=== PATIENT | female | born 1995 | race Caucasian/White ===

== ENCOUNTER → 2018-07-15 17:20 | Outpatient (CLI) | payer BC, SELFPAY ==
[2018-07-14 10:38] VITALS: BMI 20.5
[2018-07-23 14:39] LABS: HPV Reflexed? NOT INDICATED
== END ==
PROVIDERS: Family Provider Family Medicine; PCP Family Medicine; Referring Provider Obstetrics & Gynecology; Visit Provider Obstetrics & Gynecology
DX: Z12.4 Encounter for screening for malignant neoplasm of cervix (principal)
CPT/HCPCS: 87624; 88175; G0145

== ENCOUNTER 2020-07-12 12:52 | Day surgery (SDC) | payer BC, SELFPAY ==
[2020-07-10 13:53] VITALS: BMI 22.9
[2020-07-11 13:31] LABS: Mean Corp Hgb Conc 33.3 g/dL (32-36); Mean Corpuscular Hgb 29.1 pg (27.0-32.0); Mean Corpuscular Volume 87.4 fL (81-99); Mean Platelet Vol. 10.5 fl (6.2-12.0); Platelet Count 230 K/mm3 (150-450); RBC Distribution Width CV 12.2 % (11.6-14.6); RBC Distribution Width SD 39.2 fl (35.1-43.9); Red Blood Count 4.46 M/mm3 (4.2-5.4); White Blood Count 7.1 K/mm3 (4.4-11.0)
--- NOTE | 2020-07-12 | POC_PTH ---
PATIENT: MONO SANTO [place] [facility] [place][id number] AGE/SX: 24/F ROOM: RE07/12/[address]: Dr. Chanel Stacy MD : 1995 BED: DIS: 07/12/2020 SPEC #: [id number] RECD: 07/13/20 07:37 STATUS: LILIAM BRAVO #: [id number] KATHLEEN: 07/12/20 00:[address]: Chanel Stacy DEPT: SURGICAL PATHOLOGY RECD BY: Jacky Leonard ENTERED: 07/13/20 09:16 SP TYPE: PROD CONC OTHR DR: No Primary Care Phys Tissues: Product of conception, NOS Procedures: Surgery Specimen Level IV HEADER OPERATION: Dilation and curettage, suction PRE-OP DIAGNOSIS: Missed TISSUE SUBMITTED: Products of conception MICROSCOPIC DIAGNOSIS Endometrium, curettage: Decidualized tissue and secretory endometrium. AM:william 07/14/20 COMMENT Chorionic villi are not identified. Clinical correlation is suggested. MICROSCOPIC DESCRIPTION Slides are reviewed. GROSS DESCRIPTION Received in fixative is one container labeled with the patient's name and designated products of conception. The specimen consists of multiple irregular fragments of pink-krause soft tissue that in aggregate measure 5 x 3 x 0.2 cm. The specimen is totally submitted in three cassettes. / AM:william 07/13/20 TC:5 CPT: 78483
--- NOTE | 2020-07-12 13:02 | PCM.HPOB.BLA ---
- Problem List (1) Missed Status: Acute Comment: 07/03- GS 1.5 cm with subchorionic hemorrhage, no yolk sac or pole. failed cytotec. plan suction d and c. spouse Sami History and Physical Date of Admission: 07/12/20 Intake Vital Signs 07/10/20 Height 5 ft 8 in 07/10/20 Weight: 151 lb 07/10/20 BMI 22.9 07/10/20 BP 112/58 L Intake Visit Reasons: f/u SAB Chief Complaint: follow up SAB Microcomputer Support Specialist Required: No Is patient in pain?: No Allergies No Known Allergies Allergy (Verified 07/10/20 13:54) Medications multivitamin no.47-iron fum 27 mg-folate no.1 1 mg-dha 300 mg capsule cap PO 06/20/20 [History Confirmed 07/10/20] Is last menstrual period known: No Post menopausal: No Patient : No : No PFSH Surgical History S/P ear surgery (Acute) S/P wrist surgery (Acute) Family History Grandmother Diabetes Social History (Updated 07/10/20 @ 14:[address] Chanel Stacy MD) household members: spouse current occupational status: employed current occupation: [employer] pets and animals: Yes Smoking Status: Former smoker alcohol intake: current details: Not while substance use type: does not use caffeine: Yes what type of physical activity do you participate in: walking frequency: daily seatbelt use: always do you feel safe at home: Yes additional social history: - Sami HPI f/u SAB: Details: MONO SANTO is a 24 year old who presents for follow up of early miscarriage. she denies any bleeding after the cytotec and is wanting to proceed with surgery. Female Reproductive History Menopausal Symptoms: No night sweats Pregancy History 1 Elective abortions Hx Para Spontaneous abortions 1 Hx # Term Pregnancies Ectopic pregnancies Hx # Pregnancies Multiple births # of living children Past Pregnancies Del. Date Name GA/Weeks Outcome Route Bth Weight Gen Labor Lgth Anesthesia Del Locatn Provider FOB Unknown 06/2020- Blighted ovum ROS Const Constitutional: Denies fatigue, night sweats, weight gain or weight loss ENT ENT: Reports system reviewed and no additional complaints, except as docu Cardio Card: Denies chest pain Resp Resp: Denies cough or dyspnea GI GI: Reports as per HPI; denies abdominal pain, constipation, nausea or vomiting : Denies nipple discharge, urinary frequency, urinary incontinence, urinary hesitancy, urinary urgency, vaginal discharge, vaginal dryness, vaginal odor or vaginal itching Musc Musc: Denies joint pain, back pain or muscle weakness Skin Skin/Breast: Denies hair loss, change in hair, dry skin, breast lump, breast pain, breast skin changes or nipple discharge Neuro Neuro: Reports system reviewed and no additional complaints, except as docu Psych Psych: Reports system reviewed and no additional complaints, except as docu Endo Endo: Denies cold intolerance, excessive sweating, heat intolerance or increased thirst Corey/Lymph Hematologic/Lymphatic: Denies easy bleeding, Denies easy bruising, Denies enlarged lymph nodes Exam Const General: cooperative, healthy appearing, comfortable, no acute distress, well developed Orientation: alert [facility] Head: normal to inspection, normocephalic Ears: hearing grossly normal bilaterally, external ears normal Nose: external nose normal, nares normal Face and sinus: normal facial exam Neck Neck: normal visual inspection, no lymphadenopathy Thyroid: thyroid normal Chest Chest palpation & inspection: normal inspection of the chest Resp Effort & Inspection: normal respiratory effort Auscultation: clear to auscultation bilaterally Cardio Rate: regular rate Rhythm: regular rhythm Heart Sounds: S1 normal, S2 normal GI Inspection: normal to inspection, non-distended Palpation: soft, no hepatosplenomegaly General: bladder normal to palpation External Female Exam: normal external appearance, normal appearance of the urethra Urethra: normal appearance of the urethra, normal palpation, no discharge Speculum Exam - Vagina: normal appearance of the vagina, normal vaginal discharge Speculum Exam - Cervix: normal appearance of the cervix, nontender Bimanual Exam- Vagina & Uterus: normal bimanual exam, uterine size normal, bladder normal to palpation, uterine shape normal, No cervical tenderness, uterine mobility normal, uterine consistency normal, normal cervical palpation, uterus non-tender Bimanual Exam- Adnexa, other: normal adnexae, adnexae mobile, no adnexal masses, pelvic support normal Pelvic Support: normal Musc Other: gross motor intact no deficits, full bilateral strength Skin General: no rashes or lesions noted Neuro General: alert, awake, moves all extremities, no focal motor deficits Motor: muscle tone normal throughout Extrem General: normal to inspection, no pedal edema Psych Appearance: grossly normal Mental Status: mental status grossly normal Affect: normal affect Speech and Movement: speech and movement normal Assessment & Plan Problems 1. Missed O02.1 07/03- GS 1.5 cm with subchorionic hemorrhage, no yolk sac or pole. failed cytotec. plan suction d and c. spouse Sami Plan After discussing the patient's diagnosis and treatment plan options, patient wishes to proceed with surgical management. I have discussed with the patient the risks, benefits, and alternatives of the procedure which include but are not limited to risks of anesthesia, bleeding, infection, possible damage to bowel, bladder, or surrounding vasculature which could lead to additional surgery to evaluate any complications. Patient agrees to procedure and wishes to proceed. ACOG/uptodate references given for additional information regarding procedure. Coding Level of Care Code Off vis,est,level 4 Diagnoses Missed O02.1 UPDATE- I have seen the patient and performed any clinically relevant updates to the history and physical exam. Chanel Stacy MD
--- NOTE | 2020-07-12 13:03 | PCM.OPRPT ---
Problem List (1) Missed Status: Acute Comment: 07/03- GS 1.5 cm with subchorionic hemorrhage, no yolk sac or pole. failed cytotec. plan suction d and c. spouse Sami Report of Operation Date of Procedure: 07/12/20 Pre-Operative Diagnosis: blighted ovum Post-Operative Diagnosis: same Surgery/Procedure Performed:: suction d and c Description of Surgical Findings:: 9 week uterus Type of Anesthesia:: MAC Special Medications: none Specimen's removed: poc Drains: none Estimated Blood Loss (mL): 50 Fluids Replaced: crystalloid Description of Procedure: Patient was taken to the operating room and placed under MAC local anesthesia. She was prepped and draped in the normal sterile fashion the dorsal lithotomy position. Bladder was drained of clear urine and anterior lip of the cervix was grasped and the uterus sounded to 9 cm. Cervix was progressively dilated to allow passage of a 5 mm suction curette. Progressive passes were made removing the retained products of conception without complication. Sharp curettage confirmed complete removal of the retained products. All instruments were removed from the vagina and after a cervical stitch and silver nitrate excellent hemostasis was noted and the patient was taken to recovery in stable condition. Grafts/Implants Used: none - Complications none Multi Select Codes - Urinary/Genital Urinary/Genital CPT Codes: 96221 Surg Trtmt missed Ab 1TM
--- NOTE | 2020-07-12 13:06 | DCINST_ITS ---
Discharge Diet: No Restrictions Discharge Activity: Return to Normal Activity, May Shower, May Take a Tub Bath Allergies/Adverse Reactions: Allergies No Known Allergies Allergy (Verified 07/11/20 11:32) Medications to take at Discharge multivitamin no.47-iron fum 27 mg-folate no.1 1 mg-dha 300 mg capsule 1 cap PO DAILY 06/20/20 Primary Care Physician: Care Physician,No Primary [Primary Care Provider] - Test Results: Test results from this visit will be discussed in further detail at your follow- up appointment, if applicable. Please Follow Up With: Chanel Stacy MD - [phone]
[2020-07-12 13:30] VITALS: BP 116/66; PULSE 61; RESP 16; TEMP 36.9; O2SAT 100; BMI 24.0
[2020-07-12] MEDS: Doxycycline 100 MG CAPSULE PO (13:51)
[2020-07-12] MEDS: Lactated Ringers 1,000 ML 125 ML IV (13:52)
[2020-07-12] MEDS: Silver Nitrate (BKC) 1 EACH ×2 (15:20→15:28)
[2020-07-12 15:36] VITALS: BP 103/69; BP 116/66; PULSE 74; RESP 16; TEMP 36.7; O2SAT 100
[2020-07-12 15:41] VITALS: BP 116/66; BP 94/61; PULSE 67; RESP 16; O2SAT 100
[2020-07-12 15:46] VITALS: BP 116/66; BP 95/60; PULSE 62; RESP 16; O2SAT 100
[2020-07-12 15:51] VITALS: BP 116/66; BP 97/59; PULSE 68; RESP 16; TEMP 36.7; O2SAT 100
[2020-07-12 16:20] VITALS: BP 116/66
== END 2020-07-12 16:35 | disposition home or self-care (01) ==
LOC: SDC 12:53 → AC 12:53
PROVIDERS: Referring Provider Obstetrics & Gynecology; Visit Provider Obstetrics & Gynecology
PROC: (CPT 59820; principal; 2020-07-12 14:15)
DX: O02.1 Missed abortion (principal); Z3A.09 9 weeks gestation of pregnancy; Z20.828 Contact with and (suspected) exposure to other viral communicable diseases; Z87.891 Personal history of nicotine dependence
CPT/HCPCS: 01965; 59820; 36415; 85027; 86850; 86900; 86901; 87426; 88305; C9803; J7120; J2405

== ENCOUNTER → 2020-07-19 14:17 | Outpatient (CLI) | payer BC, SELFPAY ==
[2020-07-12 13:30] VITALS: BMI 24.0
--- NOTE | 2020-07-19 14:24 | US_ITS ---
STUDY: ULTRASOUND OF THE FEMALE PELVIS - COMPLETE REASON FOR EXAM: Female, 25 years old. Status post DTC assess for retained products of conception. TECHNIQUE: Transabdominal and Transvaginal TECHNICAL QUALITY: Adequate. COMPARISON: None. FINDINGS: The uterus is anteverted and is in a midline position. The uterus measures 7.3 x 5.3 x 7.6 cm. Normal uterine cervix. The endometrium measures 31.0 mm in thickness, and is heterogenous. There is mild increased vascularity within the endometrium. There is no demonstrated endometrial mass. There is no demonstrated myometrial mass. I.U.D. - The patient does not have an I.U.D. The right ovary is visualized. The right ovary measures 4.2 x 2.2 x 2.6 cm. There is no right ovarian cyst or ovarian mass. There is no visualized right adnexal mass or complex lesion. There is normal arterial and normal venous vascularity. The left ovary is visualized. The left ovary measures 3.7 x 2.5 x 2.2 cm. There is no left ovarian cyst or ovarian mass. There is no visualized left adnexal mass or complex lesion. There is normal arterial and normal venous vascularity. There is no fluid in the cul-de-sac. US/Transvaginal Non- IMPRESSION: Thickened thickened and heterogenous endometrium with mild increased vascularity concerning for retained products of conception. Electronically Signed: Sandee Guillermo MD at 15:34 EST Tel , Service support ,
--- NOTE | 2020-07-19 14:24 | US_ITS ---
STUDY: ULTRASOUND OF THE FEMALE PELVIS - COMPLETE REASON FOR EXAM: Female, 25 years old. Status post DTC assess for retained products of conception. TECHNIQUE: Transabdominal and Transvaginal TECHNICAL QUALITY: Adequate. COMPARISON: None. FINDINGS: The uterus is anteverted and is in a midline position. The uterus measures 7.3 x 5.3 x 7.6 cm. Normal uterine cervix. The endometrium measures 31.0 mm in thickness, and is heterogenous. There is mild increased vascularity within the endometrium. There is no demonstrated endometrial mass. There is no demonstrated myometrial mass. I.U.D. - The patient does not have an I.U.D. The right ovary is visualized. The right ovary measures 4.2 x 2.2 x 2.6 cm. There is no right ovarian cyst or ovarian mass. There is no visualized right adnexal mass or complex lesion. There is normal arterial and normal venous vascularity. The left ovary is visualized. The left ovary measures 3.7 x 2.5 x 2.2 cm. There is no left ovarian cyst or ovarian mass. There is no visualized left adnexal mass or complex lesion. There is normal arterial and normal venous vascularity. There is no fluid in the cul-de-sac. US/Pelvic (Non ) IMPRESSION: Thickened thickened and heterogenous endometrium with mild increased vascularity concerning for retained products of conception. Electronically Signed: Sandee Guillermo MD at 15:34 EST Tel , Service support ,
== END ==
PROVIDERS: Referring Provider Obstetrics & Gynecology; Visit Provider Obstetrics & Gynecology
DX: O02.1 Missed abortion (principal); Z3A.00 Weeks of gestation of pregnancy not specified
CPT/HCPCS: 76830; 76856

== ENCOUNTER 2020-07-20 10:27 | Day surgery (SDC) | payer BC, SELFPAY ==
--- NOTE | 2020-07-20 10:34 | HP.PCM_ITS ---
- Problem List (1) Retained products of conception after miscarriage Status: Acute (2) Missed Status: Acute Comment: 07/03- GS 1.5 cm with subchorionic hemorrhage, no yolk sac or pole. failed cytotec. plan suction d and c. spouse Sami History Date of Admission: 07/12/20 History of this : This is a 25 year-old, presents with retained products seen on US after suction d and c a week ago. she had a blighted ovum at 6 weeks. Surgical History: Surgical History (Last Reviewed 07/10/20 @ 13:54 by Jennifer Mercado) S/P ear surgery Z98.890 S/P wrist surgery Z98.890 Allergies No Known Allergies Allergy (Verified 07/12/20 13:28) Home Medications: Home Medications multivitamin no.47-iron fum 27 mg-folate no.1 1 mg-dha 300 mg capsule 1 cap PO DAILY 06/20/20 misoprostol 200 mcg tablet 200 mcg PO QPCHS #2 tab 07/19/20 Smoking Status: Former smoker History Past Pregnancies: Past Pregnancies Delivery Date Name GA/ Weeks Outcome Route Wt Infant Sex Labor Length Anesthesia Delivery Location Provider FOB Review of Systems Constitutional: Denies: Fever, Malaise Eyes: Denies: Blurred vision, Vision Change HEENT: Denies: Head Aches, Visual Changes Cardiovascular: Denies: Chest Pain, Palpitations Respiratory: Denies: Cough, Shortness of Breath, Wheezing Gastrointestinal: Denies: Abdominal Pain, Diarrhea, Nausea, Vomiting Genitourinary: Denies: Dysuria, Hematuria Musculoskeletal: Denies: Joint Pain, Muscle pain Skin: Denies: Lesions, Rash Neurological: Denies: Blurred vision, Focal weakness, Headaches Psychiatric: Denies: Anxiety, Depression Endocrine: Denies: Heat/ Cold Intolerance Hematologic/ Lymphatic: Denies: Easy Bruising, Easy Bleeding Physical Exam General: Alert, Cooperative, No apparent distress HEENT: Atraumatic, Normocephalic. Negative for: Thyromegaly, Lymphadenopathy Cardiovascular: Regular rate Lungs: Normal air movement Abdomen: Soft, Non Tender Neurological: Deep Tendon Reflexes 2+/4 and Symmetrical, Neuro grossly intact. Negative for: Clonus DIRECTOR PEDIATRIC: Normal external genitalia. Negative for: Vulvar lesions Estimated gestational size: Appropriate for gestational size Presentation: Cephalic Assessment/Plan All Active Problems (Last Reviewed 07/10/20 @ 13:54 by Jennifer Mercado) Retained products of conception after miscarriage (Acute) Missed (Acute) (Resolved) with inconclusive viability (Resolved) Supervision of normal first (Resolved) This is a 25 year-old, with retained POC plan repeat Suction d and c, ultrasound and symphion available After discussing the patient's diagnosis and treatment plan options, patient wishes to proceed with surgical management. I have discussed with the patient the risks, benefits, and alternatives of the procedure which include but are not limited to risks of anesthesia, bleeding, infection, possible damage to bowel, bladder, or surrounding vasculature which could lead to additional surgery to evaluate any complications. Patient agrees to procedure and wishes to proceed.
--- NOTE | 2020-07-20 10:37 | DCINST_ITS ---
Discharge Diet: No Restrictions Discharge Activity: Return to Normal Activity, May Shower, May Take a Tub Bath Allergies/Adverse Reactions: Allergies No Known Allergies Allergy (Verified 07/12/20 13:28) Medications to take at Discharge multivitamin no.47-iron fum 27 mg-folate no.1 1 mg-dha 300 mg capsule 1 cap PO DAILY 06/20/20 misoprostol 200 mcg tablet 200 mcg PO QPCHS #2 tab 07/19/20 Orders to be completed after discharge: Type & Screen Time Frame: 2 Days, Location: None Selected CBC W/Diff, Automated Time Frame: 2 Days, Facility: [facility], Location: Laboratory Primary Care Physician: Care Physician,No Primary [Primary Care Provider] - Test Results: Test results from this visit will be discussed in further detail at your follow- up appointment, if applicable. Please Follow Up With: Chanel Stacy MD - [phone]
--- NOTE | 2020-07-20 10:37 | PCM.OPRPT ---
Problem List (1) Retained products of conception after miscarriage Status: Acute (2) Missed Status: Acute Comment: 07/03- GS 1.5 cm with subchorionic hemorrhage, no yolk sac or pole. failed cytotec. plan suction d and c. spouse Sami Report of Operation Date of Procedure: 07/20/20 Pre-Operative Diagnosis: retained POC Post-Operative Diagnosis: same Surgery/Procedure Performed:: suction d and c Type of Anesthesia:: Local MAC Special Medications: none Specimen's removed: POC Drains: none Estimated Blood Loss (mL): 50 Fluids Replaced: crystalloid Description of Procedure: Patient was taken to the operating room and placed under MAC local anesthesia. She was prepped and draped in the normal sterile fashion the dorsal lithotomy position. Bladder was drained of clear urine and anterior lip of the cervix was grasped and the uterus sounded to 9 cm. Cervix was progressively dilated to allow passage of a 9 mm suction curette. Progressive passes were made removing the retained products of conception without complication. Sharp curettage confirmed complete removal of the retained products. ultrasound confirmed removal. All instruments were removed from the vagina and excellent hemostasis was noted and the patient was taken to recovery in stable condition. Multi Select Codes - Urinary/Genital Urinary/Genital CPT Codes: 65657 Trmt of incomplete Ab, any TM
[2020-07-20 10:58] VITALS: BP 110/50; PULSE 69; RESP 12; TEMP 37.4; O2SAT 100; BMI 24.3
[2020-07-20] MEDS: Lactated Ringers 1,000 ML 100 ML IV (11:03)
[2020-07-20 11:10] LABS: Hematocrit 36.5 % (37-47); Hemoglobin 12.6 g/dL (12.0-15.0); Mean Corp Hgb Conc 34.5 g/dL (32-36); Mean Corpuscular Volume 86.9 fL (81-99); Mean Platelet Vol. 9.7 fl (6.2-12.0); Platelet Count 187 K/mm3 (150-450); RBC Distribution Width CV 12.5 % (11.6-14.6); RBC Distribution Width SD 39.3 fl (35.1-43.9); White Blood Count 8.5 K/mm3 (4.4-11.0)
[2020-07-20] MEDS: Cefotetan 2 GM in 0.9% NS 100 ML IV (11:55)
--- NOTE | 2020-07-20 12:00 | POC_PTH ---
PATIENT: MONO SANTO [place] [facility] [place][id number] AGE/SX: 25/F ROOM: RE07/20/[address]: Dr. Chanel Stacy MD : 1995 BED: DIS: 07/20/2020 SPEC #: [id number] RECD: 07/20/20 18:07 STATUS: LILIMA BRAVO #: [id number] KATHLEEN: 07/20/20 12:[address]: Chanel Stacy DEPT: SURGICAL PATHOLOGY RECD BY: Padmaja Everett ENTERED: 07/24/20 06:35 SP TYPE: PROD CONC OTHR DR: No Primary Care Phys Tissues: Product of conception, NOS Procedures: Surgery Specimen Level IV HEADER OPERATION: Suction dilation and curettage PRE-OP DIAGNOSIS: Retained products of conception after miscarriage TISSUE SUBMITTED: Retained products of conception MICROSCOPIC DIAGNOSIS Endometrium, curettage: Chorionic villi, decidualized stroma and trophoblastic cells consistent with products of conception. AM:william 07/25/20 MICROSCOPIC DESCRIPTION Slides are reviewed. GROSS DESCRIPTION Received in fixative is one container labeled with the patient's name and designated products of conception. The specimen consists of multiple irregular fragments of light to dark krause soft tissue that in aggregate measure 5 x 5 x 0.7 cm. parts are not grossly recognized. Raw Silk Grader portions are submitted in one cassette. / AM:william 07/24/20 TC:5 CPT: 36964
[2020-07-20 12:33] VITALS: BP 110/50; BP 111/74; PULSE 71; RESP 16; TEMP 36.9; O2SAT 100
[2020-07-20 12:37] VITALS: BP 109/62; BP 110/50; PULSE 68; RESP 16; O2SAT 100
[2020-07-20 12:42] VITALS: BP 107/62; BP 110/50; PULSE 71; RESP 16; O2SAT 100
[2020-07-20 12:47] VITALS: BP 110/50; BP 112/70; PULSE 63; RESP 16; TEMP 36.9; O2SAT 100
[2020-07-20 13:40] VITALS: BP 110/50; BP 110/57; PULSE 60; RESP 16; TEMP 36.8; O2SAT 100
== END 2020-07-20 13:46 | disposition home or self-care (01) ==
LOC: SDC 10:28 → AC 10:33
PROVIDERS: Referring Provider Obstetrics & Gynecology; Visit Provider Obstetrics & Gynecology
PROC: (CPT 59820; principal; 2020-07-20 11:45)
DX: O02.1 Missed abortion (principal); Z3A.01 Less than 8 weeks gestation of pregnancy; Z87.891 Personal history of nicotine dependence
CPT/HCPCS: 59820; 85027; 86850; 86900; 86901; 88305; J7120; J2405

== ENCOUNTER → 2020-10-10 09:05 | Outpatient (CLI) | payer BC, SELFPAY ==
[2020-08-01 13:53] VITALS: BMI 22.5
[2020-10-10 10:36] LABS: hCG Titer Quant., Serum 1282 mIU/mL (1-3)
== END ==
PROVIDERS: Referring Provider Obstetrics & Gynecology; Visit Provider Obstetrics & Gynecology
DX: Z34.90 Encounter for supervision of normal pregnancy, unspecified, unspecified trimester (principal)
CPT/HCPCS: 36415; 84702

== ENCOUNTER → 2020-10-12 08:40 | Outpatient (CLI) | payer BC, SELFPAY ==
[2020-08-01 13:53] VITALS: BMI 22.5
[2020-10-12 09:29] LABS: hCG Titer Quant., Serum 3016 mIU/mL (1-3)
== END ==
PROVIDERS: Referring Provider Obstetrics & Gynecology; Visit Provider Obstetrics & Gynecology
DX: Z34.90 Encounter for supervision of normal pregnancy, unspecified, unspecified trimester (principal)
CPT/HCPCS: 36415; 84702

== ENCOUNTER → 2020-11-16 14:27 | Outpatient (CLI) | payer BC, SELFPAY ==
[2020-11-16 13:49] VITALS: BMI 22.6
[2020-11-16 14:58] LABS: Absolute Lymphocyte Count 1.69 X10^3/uL (0.83-4.51); Absolute Neutrophil Count 9.6 X10^3/uL (2.0-7.7); Basophil# 0.03 X10^3/uL; Basophil% 0.2 % (0-1); Eosinophil# 0.08 X10^3/uL; Eosinophils% 0.7 % (0-5); Hematocrit 40.1 % (37-47); Hemoglobin 13.6 g/dL (12.0-15.0); Lymphocyte # 1.69 X10^3/ul (0.83-4.51); Lymphocyte % 13.9 % (19-41); Mean Corp Hgb Conc 33.9 g/dL (32-36); Mean Corpuscular Hgb 29.1 pg (27.0-32.0); Mean Corpuscular Volume 85.9 fL (81-99); Mean Platelet Vol. 9.9 fl (6.2-12.0); Monocyte# 0.71 X10^3/uL; Monocyte% 5.8 % (0-10); NRBC Flagged by Analyzer 0 % (0-5); Neutrophil # 9.64 X10^3/uL (2.7-7.7); Neutrophil % 79.2 % (47-70); Platelet Count 262 K/mm3 (150-450); RBC Distribution Width CV 12.5 % (11.6-14.6); RBC Distribution Width SD 38.9 fl (35.1-43.9); Red Blood Count 4.67 M/mm3 (4.2-5.4); White Blood Count 12.2 K/mm3 (4.4-11.0)
[2020-11-16 15:55] LABS: NATERA MAILED SPECIMEN
[2020-11-16 18:04] LABS: Amphetamine Urine VISTA NEGATIVE (<1000 ng/mL); Barbiturate Urine VISTA NEGATIVE (< 200 ng/mL); Benzodiazepine Urine VISTA NEGATIVE (< 200 ng/mL); Cocaine Urine VISTA NEGATIVE (< 300 ng/mL); Ecstacy Urine VISTA NEGATIVE (< 500 ng/mL); Methadone Urine VISTA NEGATIVE (< 300 ng/mL); PCP Urine VISTA NEGATIVE (< 25 ng/mL); THC Urine VISTA NEGATIVE (< 50 ng/mL); Vista UDS pH Range 6
[2020-11-17 08:25] LABS: HIV - WCH Non-Reactive (Nonreactive); Hepatitis B Surface Antigen Non-Reactive (Nonreactive); Hepatitis C Antibody Non-Reactive (Nonreactive); Rubella IgG Reactive (Nonreactive); Syphilis Antibodies Non-reactive
[2020-11-20 07:06] LABS: Chlamydia By Nucleic Acid AMP Negative (Negative)
[2020-11-20 07:50] LABS: Gonococcus By Nucleic Acid AMP Negative (Negative)
[2020-11-22 17:16] LABS: HPV Reflexed? NOT INDICATED
== END ==
PROVIDERS: Referring Provider Obstetrics & Gynecology; Visit Provider Obstetrics & Gynecology
DX: Z34.81 Encounter for supervision of other normal pregnancy, first trimester (principal); Z31.430 Encounter of female for testing for genetic disease carrier status for procreative management
CPT/HCPCS: 36415; 80307; 85025; 86703; 86762; 86780; 86803; 86850; 86900; 86901; 87086; 87340; 87491; 87591; 88175; G0145

== ENCOUNTER → 2020-12-13 18:24 | Outpatient (CLI) | payer BC, SELFPAY ==
[2020-12-13 08:38] VITALS: BMI 22.6
--- NOTE | 2020-12-13 18:29 | US_ITS ---
STUDY: SECOND AND THIRD TRIMESTER OBSTETRICAL ULTRASOUND - LIMITED REASON FOR EXAM: Female, 25 years old SPOTTING- VERY LITTLE LMP: 09/05/2020 PRIOR ULTRASOUND: None. TECHNIQUE: Transabdominal real-time exam with acuna scale image documentation. Transvaginal ultrasound was required for adequate visualization of the uterus and adnexal areas. TECHNICAL QUALITY: Adequate. FINDINGS: There is a single intrauterine fetus. The fetus is in an transverse lie with the head on the maternal left side. There is demonstrated cardiac activity with a heart rate of 173 bpm. There is a normal amniotic fluid volume. The largest amniotic fluid pocket measures 4.5 x 2.3 cm.The placenta is anterior and marginal. There are Grade 0 placental changes. The cervix measures 4.3 cm in length. The right ovary is 3.3 x 1.9 x 1.9 cm. The left ovary is 2.9 x 2.1 x 1.3 cm. Normal ovaries. BIOMETRY: BPD: 2.66 cm: 14 weeks, 4 days HC: 9.97 cm: 14 weeks, 4 days AC: 7.92 cm: 14 weeks, 2 days FL: 1.25 cm: 13 weeks, 4 days Age by LMP: 14 weeks, 1 days. TASHI by LMP: 06/12/2021. age by current US: 14 weeks, 1 days. TASHI by current US: 06/12/2021. Estimated weight: 89 grams, +/- 13 grams, 29 percentile. US/Transvaginal w/Preg US IMPRESSION: Single living fetus of 14 weeks and 1 day with an TASHI of 06/12/2021. Normal amount of amniotic fluid. Grade 1 anterior placenta that is a marginal previa. The lower edge of the anterior placenta terminates along the anterior lip of the closed cervical os. Cervical length is 3.4 cm. Normal ovaries with no adnexal masses or free fluid. Electronically Signed: Filomena Ireland MD at 19:18 EDT , Service support ,
== END ==
PROVIDERS: Visit Provider Nurse Practitioner Women's Health
DX: O26.892 Other specified pregnancy related conditions, second trimester (principal); Z3A.14 14 weeks gestation of pregnancy
CPT/HCPCS: 76817; 86850; 86900; 86901

== ENCOUNTER → 2021-03-26 09:59 | Outpatient (CLI) | payer BC, SELFPAY ==
[2021-03-26 10:29] LABS: Absolute Lymphocyte Count 1.32 X10^3/uL (0.83-4.51); Basophil# 0.03 X10^3/uL; Basophil% 0.2 % (0-1); Eosinophils% 0.8 % (0-5); Hematocrit 36.8 % (37-47); Hemoglobin 12.2 g/dL (12.0-15.0); Lymphocyte # 1.32 X10^3/ul (0.83-4.51); Lymphocyte % 10.1 % (19-41); Mean Corp Hgb Conc 33.2 g/dL (32-36); Mean Corpuscular Hgb 29.1 pg (27.0-32.0); Mean Corpuscular Volume 87.8 fL (81-99); Mean Platelet Vol. 9.8 fl (6.2-12.0); Monocyte# 0.53 X10^3/uL; NRBC Flagged by Analyzer 0 % (0-5); Neutrophil # 11.01 X10^3/uL (2.7-7.7); Neutrophil % 84.1 % (47-70); Platelet Count 203 K/mm3 (150-450); RBC Distribution Width CV 12.7 % (11.6-14.6); RBC Distribution Width SD 40.6 fl (35.1-43.9); Red Blood Count 4.19 M/mm3 (4.2-5.4); White Blood Count 13.1 K/mm3 (4.4-11.0)
[2021-03-26 10:40] LABS: Glucose Challenge Gest 1H 50g 111 mg/dL (70-140)
== END ==
PROVIDERS: Obstetrics & Gynecology; Referring Provider Obstetrics & Gynecology; Visit Provider Obstetrics & Gynecology
DX: Z34.92 Encounter for supervision of normal pregnancy, unspecified, second trimester (principal); Z13.1 Encounter for screening for diabetes mellitus; Z3A.22 22 weeks gestation of pregnancy
CPT/HCPCS: 36415; 82950; 85025; 86850; 86900; 86901

== ENCOUNTER → 2021-05-22 14:00 | Outpatient (CLI) | payer BC, SELFPAY ==
--- NOTE | 2021-05-22 14:02 | US_ITS ---
HISTORY: growth for . TECHNIQUE: Transabdominal pelvic ultrasound was performed. # of images incl. paperwork: 49. COMPARISON: 12/13/2020. FINDINGS: INTRAUTERINE GESTATION(s): Single. PRESENTATION: Cephalic. PLACENTA: Anterior, grade 2. No placenta previa. CERVIX: Not well-visualized. AMNIOTIC FLUID INDEX (CHRISTOS): 13.2 cm. HEART MOTION: 134 bpm. BIPARIETAL DIAMETER: 8.8 cm, 35 weeks 3 days. 22 %ile. HEAD CIRCUMFERENCE: 32.2 cm, 36 weeks 3 days. 13 %ile. ABDOMINAL CIRCUMFERENCE: 33.5 cm, 37 weeks 4 days. 75 %ile. FEMUR LENGTH: 7.2 cm, 36 weeks 6 days. 43 %ile. ESTIMATED WEIGHT: 3067 g, corresponding to 54th percentile. ESTIMATED GESTATIONAL AGE: 36 weeks 4 days. ESTIMATED DUE DATE (TASHI): 06/15/2021. ANATOMIC SURVEY:Not assessed. US/OB Limited With Biometrics IMPRESSION: Single living intrauterine with an estimated gestational age of 36 weeks 4 days. at 1636 Reported and signed by: Halie Gonzalez MD Electronically Signed: Halie Gonzalez MD at 16:34 EDT Tel , Service support ,
== END ==
PROVIDERS: Referring Provider Obstetrics & Gynecology; Visit Provider Obstetrics & Gynecology
DX: O26.843 Uterine size-date discrepancy, third trimester (principal); Z3A.35 35 weeks gestation of pregnancy
CPT/HCPCS: 76816; 87081

== ENCOUNTER 2021-06-12 11:00 | Inpatient (IN) | payer BC, SELFPAY ==
[2021-06-12] VITALS (21 sets, daily range): BP systolic 101–138; BP diastolic 54–78; PULSE 67–88; RESP 14; TEMP 36.4–37.7; O2SAT 98–100; BMI 26.4
[2021-06-12] MEDS: Lactated Ringers 1,000 ML 999 ML IV (11:20)
[2021-06-12 11:49] LABS: Absolute Lymphocyte Count 1.57 X10^3/uL (0.83-4.51); Absolute Neutrophil Count 11.1 X10^3/uL (2.0-7.7); Basophil# 0.03 X10^3/uL; Basophil% 0.2 % (0-1); Eosinophil# 0.06 X10^3/uL; Eosinophils% 0.4 % (0-5); Hematocrit 37.8 % (37-47); Hemoglobin 13.4 g/dL (12.0-15.0); Lymphocyte # 1.57 X10^3/ul (0.83-4.51); Lymphocyte % 11.5 % (19-41); Mean Corp Hgb Conc 35.4 g/dL (32-36); Mean Corpuscular Hgb 30.7 pg (27.0-32.0); Mean Corpuscular Volume 86.7 fL (81-99); Mean Platelet Vol. 11.1 fl (6.2-12.0); Monocyte# 0.76 X10^3/uL; Monocyte% 5.6 % (0-10); NRBC Flagged by Analyzer 0 % (0-5); Neutrophil # 11.13 X10^3/uL (2.7-7.7); Neutrophil % 81.9 % (47-70); Platelet Count 207 K/mm3 (150-450); RBC Distribution Width SD 40.9 fl (35.1-43.9); Red Blood Count 4.36 M/mm3 (4.2-5.4); White Blood Count 13.6 K/mm3 (4.4-11.0)
--- NOTE | 2021-06-12 12:41 | HP.PCM.OB_ITS ---
HPI - General General Date of Admission: 06/12/21 HPI Narrative MONO SANTO, is a 25 F who presents IAL 4 cm dilated reguar ctx no vb lof Maternal Data Information TASHI Calculator Estimated Delivery Date Method Current WG Current Estimate 06/12/21 LMP (Certain) 40w 0d PFSH PFSH Medical History Partial placenta previa Home Medications multivitamin no.47-iron fum 27 mg-folate no.1 1 mg-dha 300 mg capsule 1 cap PO DAILY 06/20/20 [History Last Taken Unknown] docusate sodium [Stool Softener] 100 mg PO DAILY 06/12/21 [History Last Taken Unknown] Allergy/AdvReac Type Severity Reaction Status Date / Time No Known Allergies Allergy Verified 06/12/21 11:59 Family History Grandmother Diabetes Surgical History History of dilation and curettage S/P ear surgery S/P wrist surgery Social History household members: spouse current occupational status: employed current occupation: [employer] pets and animals: Yes Smoking Status: Former smoker alcohol intake: current details: Not while substance use type: does not use caffeine: Yes what type of physical activity do you participate in: walking frequency: daily seatbelt use: always do you feel safe at home: Yes additional social history: - Sami History 2 Elective abortions Hx Para 0 Spontaneous abortions 1 Hx # Term Pregnancies Ectopic pregnancies Hx # Pregnancies Multiple births # of living children Past Pregnancies Del. Date Name GA/Weeks Outcome Route Bth Weight Gen Labor Lgth Anesthesia Del Locatn Provider FOB Unknown 06/2020- Blighted ovum Visit Details Expected Delivery Route/Plan Labor Preferences- CB/BF classes: encouraged labor support person: Sami labor intervention preferences: limited intervention, possibly interested in tub during labor pain management options preferred: limited intervention, nitrous oxide epidural only if absolutely necessary cut cord/dad catch: yes : yes PP control planned: discussed discussed possible routes of delivery and associated risks: discussed possible delivery modalities and possible indications for each including R/B/A of , VAVD, FAVD, and CS. questions answered. special requests: [] Plans covid status: counseled regarding risk of covid in vs vaccination and declined vaccination flu vaccine: declines tdap vaccine: declines rhogam: given 03/26 LARC form signed: yes movement and labor precautions reviewed. Problem list reviewed and updated with the most current plan of care details and appropriate orders placed. Relevant counseling for the gestational age provided. Continue routine care and follow up unless otherwise noted in visit notes/problem list details OB Flowsheet Initial Weight: 149 lb Date -?-?-?-?-?-?-?-?-?-?-?-?- EGA Weight BP Urine Prot -?-?-?-?-?-?-?-?-?-?-?-?- Glucose FHR FuHt Pres Dilation -?-?-?-?-?-?-?-?-?-?-?-?- Effaced St Visit Note 11/16/20 -?-?-?-?-?-?-?-?-?-?-?-?- 10w 2d 149 lb (+0 oz) 110/64 -?-?-?-?-?-?-?-?-?-?-?-?- 168 -?-?-?-?-?-?-?-?-?-?-?-?- SM- 3.3cm crl co ns with LMP 12/13/20 -?-?-?-?-?-?-?-?-?-?-?-?- 14w 1d 144 lb 6 oz (-4 lb 10 oz) 90/54 -?-?-?-?-?-?-?-?-?-?-?-?- 160 -?-?-?-?-?-?-?-?-?-?-?-?- MH-nausea improv ed. NO VB, LOF. Reviewed labs, A neg and rhogam indications. MFM anatomy US ordered. 12/14/20 -?-?-?-?-?-?-?-?-?-?-?-?- 14w 2d 145 lb (-4 lb) -?-?-?-?-?-?-?-?-?-?-?-?- -?-?-?-?-?-?-?-?-?-?-?-?- 01/11/21 -?-?-?-?-?-?-?-?-?-?-?-?- 18w 2d 145 lb (-4 lb) 122/84 Negative -?-?-?-?-?-?-?-?-?-?-?-?- Negative 150 -?-?-?-?-?-?-?-?-?-?-?-?- SM- no vb lof cr amping 02/08/21 -?-?-?-?-?-?-?-?-?-?-?-?- 22w 2d 153 lb (+4 lb) 110/66 Negative -?-?-?-?-?-?-?-?-?-?-?-?- Negative 145 -?-?-?-?-?-?-?-?-?-?-?-?- GP - no LOF, VB, DFM, ctx. Reviewed anatomy report. Discussed anterior placenta and association with less obvious movement. 03/12/21 -?-?-?-?-?-?-?-?-?-?-?-?- 26w 6d 159 lb (+10 lb) Negative -?--?-?-?-?-?-?-?-?-?-?-?- Negative 140 26 -?-?-?-?-?-?-?-?-?-?-?-?- SM- no vb lof go od fm no regular ctx 03/26/21 -?-?-?-?-?-?-?-?-?-?-?-?- 28w 6d 163 lb 2 oz (+14 lb 2 oz) 110/60 Negative -?-?-?-?-?-?-?-?-?-?-?-?- Negative 149 28 -?-?-?-?-?-?-?-?-?-?-?-?- -No VB, LOF. G ood FM. Larc, 28 wk labs, rhogam. Declines tdap. 04/09/21 -?-?-?-?-?-?-?-?-?-?-?-?- 30w 6d 164 lb 6 oz (+15 lb 6 oz) 114/72 Negative -?-?-?-?-?-?-?-?-?-?-?-?- Negative 155 31 -?-?-?-?-?-?-?-?-?-?-?-?- GP - no LOF, VB, dFM, ctx. Denies complaints. 04/30/21 -?-?-?-?-?-?-?-?-?-?-?-?- 33w 6d 169 lb 6 oz (+20 lb 6 oz) 110/70 Negative -?-?-?-?-?-?-?-?-?-?-?-?- Negative 140 34 -?-?-?-?-?-?-?-?-?-?-?-?- GP - no LOF, VB, dFM, ctx. Denies complaints. Discussed labor preferences and routes of delivery. 05/14/21 -?-?-?-?-?-?-?-?-?-?-?-?- 35w 6d 172 lb (+23 lb) 118/78 Negative -?-?-?-?-?-?-?-?-?-?-?-?- Negative 140 36 -?-?-?-?-?-?-?-?-?-?-?-?- SM- no vb lof go od fm no regular ctx 05/22/21 -?-?-?-?-?-?-?-?-?-?-?-?- 37w 0d 173 lb (+24 lb) 112/60 -?-?-?-?-?-?-?-?-?-?-?-?- 130 35 -?-?-?-?-?-?-?-?-?-?-?-?- Sm - no vb lof g ood fm no reuglar ctx gbs done 05/30/21 -?-?-?-?-?-?-?-?-?-?-?-?- 38w 1d 175 lb (+26 lb) 118/80 Negative -?-?-?-?--?-?-?-?-?-?-?-?- Negative 145 37 Cephalic -?-?-?-?-?-?-?-?-?-?-?-?- JV- no lof, vagi nal bleeding, or dec fm. NO complaints. GBS neg labor precautions discussed. RTO in 1 week. 06/06/21 -?-?-?-?-?-?-?-?-?-?-?-?- 39w 1d 175 lb (+26 lb) 106/60 Negative -?-?-?-?-?-?-?-?-?-?-?-?- Negative 140 38 Cephalic 0 -?-?-?-?-?-?-?-?-?-?-?-?- 0 -3 JV- no lof , vaginal bleeding, or dec fm. GBS neg, planning for 41 week IOL. briefly discussed. 06/12/21 -?-?--?-?-?-?-?-?-?-?-?-?- 40w 0d 173 lb 15.115 oz (+24 lb 15.115 oz) 135/78 120/72 119/57 -?-?-?-?-?-?-?-?-?-?-?-?- -?-?-?-?-?-?-?-?-?-?--?-?- NST FHR Rate Baby A Baseline: 140 Variability:: Moderate Accelerations:: 15 x 15 Decelerations:: None NST Reactive:: Yes FHR Category:: Category I Uterine Activity:: q3-5 ROS Constitutional Constitutional: Reports systems reviewed and no addt'l complaints, except as documented ENT HEENT: Reports systems reviewed and no addt'l complaints, except as documented Cardiovascular Cardiovascular: Reports systems reviewed and no addt'l complaints, except as documented Respiratory/Chest Respiratory/Chest: Reports systems reviewed and no addt'l complaints, except as documented Gastrointestinal Gastrointestinal: Reports systems reviewed and no addt'l complaints, except as documented and nausea; Denies abdominal pain Genitourinary Genitourinary: Reports systems reviewed and no addt'l complaints, except as documented, contractions Details: present and frequency (regular ) and movement Details: present Musculoskeletal Musculoskeletal: Reports systems reviewed and no addt'l complaints, except as documented Integumentary Integumentary: Reports as per HPI Neurologic Neurologic: Reports systems reviewed and no addt'l complaints, except as documented Endocrine Endocrinology: Reports systems reviewed and no addt'l complaints, except as documented Vital Signs Vital Signs Vital Signs: 06/12/21 10:10 06/12/21 11:43 06/12/21 11:54 Temperature 99.9 F H 97.6 F L Temperature Source Temporal Temporal Pulse Rate 81 86 78 Blood Pressure 135/78 H 120/72 119/57 L BP Systolic 135 120 119 BP Diastolic 78 72 57 Pulse Ox 98 99 Weight Weight: 173 lb 15.115 oz Body Mass Index (BMI) 26.4 Physical Exam Const alert, oriented x3 and healthy appearing Constitutional Narrative: uncomfortable with contractions HEENT normocephalic and moist oral mucous membranes Head and Scalp: atraumatic Neck full ROM, no lymphadenopathy, supple and thyroid normal General: trachea midline Thyroid: thyroid normal Lymph Lymphatic: no lymphadenopathy noted Chest inspection of chest normal Resp normal respiratory effort Cardio regular rate GI normal to inspection, nondistended, normoactive bowel sounds, soft to palpation and non-tender Inspection: gravid external exam normal Bimanual Exam - Vag & Uterus: uterus non-tender Manual OB Exam: estimated gestational size appropriate, presentation cephalic, dilated, effaced and station Extremity normal to inspection General Extremity: Negative for edema Skin no rashes or lesions noted Neuro deep tendon reflexes 2+ bilaterally Motor Exam: strength 5/5 throughout and clonus absent Psych mental status grossly normal Labs Labs Labs: Blood Type A NEGATIVE Antibody Screen NEGATIVE Hct 37.8 % (37-47) Hgb 13.4 g/dL (12.0-15.0) Obstetrics US Syphilis Total Ab Non-reactive Rubella IgG Antibody Reactive (Nonreactive) Hep Bs Antigen Non-Reactive (Nonreactive) Neisseria gonorrhoeae DNA (MINI) Negative (Negative) HIV 1&2 Antibody Non-Reactive (Nonreactive) Glucose 1 Hr 50 gm 111 mg/dL (70-140) Assessment & Plan (1) Rh negative status during : QUALIFIERS: Trimester: third trimester Qualified Code(s): O26.893 - Other specified related conditions, third trimester; Z67.91 - Unspecified blood type, Rh negative COMMENT: A neg Rhogam prn and 28 weeks rhogam 03/26/21 (2) Supervision of normal : QUALIFIERS: Normal : normal first Trimester: third trimester Qualified Code(s): Z34.03 - Encounter for ambriz pervision of normal first , third trimester COMMENT: PRR TASHI: 06/12/21 Boy! Spouse: Sami (3) : QUALIFIERS: Weeks of gestation: 38 weeks Qualified Code(s): Z3A.38 - 38 weeks gestation of COMMENT: carrier and NIPT- low risk afp screening/declined. carrier neg. . NL anatomy us 01/25/21; NL growth 05/22, GBS Neg (4) Active labor at term: COMMENT: arom PRN epi PRN
[2021-06-12] MEDS: fentaNYL 100 MCG/2 ML Ampul IV (15:45)
[2021-06-12] MEDS: 0.9% Saline Lock 10 ML Syringe IV (15:45)
--- NOTE | 2021-06-12 16:59 | EX.PCM.OBRPT ---
Assessment & Plan (1) Active labor at term: COMMENT: arom PRN epi PRN (2) Rh negative status during : QUALIFIERS: Trimester: third trimester Qualified Code(s): O26.893 - Other specified related conditions, third trimester; Z67.91 - Unspecified blood type, Rh negative COMMENT: A neg Rhogam prn and 28 weeks rhogam 03/26/21 (3) Supervision of normal : QUALIFIERS: Normal : normal first Trimester: third trimester Qualified Code(s): Z34.03 - Encounter for supervision of normal first , third trimester COMMENT: PRR TASHI: 06/12/21 Boy! Spouse: Sami (4) : QUALIFIERS: Weeks of gestation: 38 weeks Qualified Code(s): Z3A.38 - 38 weeks gestation of COMMENT: carrier and NIPT- low risk afp screening/declined. carrier neg. . NL anatomy us 01/25/21; NL growth 05/22, GBS Neg (5) Vaginal delivery: COMMENT: IAL 40 boy SM Maternal Data Information TASHI Calculator Estimated Delivery Date Method Current WG Current Estimate 06/12/21 LMP (Certain) 40w 0d Vaginal Delivery Operative Information Pre-Operative Diagnosis: IAL Post-Operative Diagnosis: same Surgery / Procedure Performed: Spontaneous Vaginal Delivery Type of Anesthesia: Epidural Special Medications: none Estimated Blood Loss: 200 Fluids Replaced: crystalloid Findings Description of Procedure: Patient began pushing and delivered the head in the ARTURO presentation. The head was delivered atraumatically . The anterior and posterior shoulders delivered without complication followed by the rest of the infant and the was placed on the maternal abdomen. Delayed cord clamping was employed for approximately 60 seconds. Cord was clamped and cut and gentle traction was applied to the cord and the placenta delivered spontaneously immediately following it was noted to be intact with three-vessel cord. The perineum and vagina were inspected and noted to have a 1st degree laceration injected with lidocaine and repaired in the usual fashion. EBL was 200. Patient and infant tolerated delivery well. Presentation: ARTURO Amniotic Membrane Rupture Type: Artificial Amniotic Fluid Description: Clear Placental Delivery Description: Spontaneous Placenta Disposition: [facility] Cord Vessel Description: 3 Vessels Cord Entanglement: None Delayed Cord Clamping: Yes Post Vaginal Delivery Medications Given After Delivery: IV Pitocin Episiotomy Description: None Laceration: None Complication Complications: None Procedures Urinary/Genital [id number]: [id number] Vaginal Delivery [facility]
--- NOTE | 2021-06-12 17:01 | PCM.DC ---
Discharge Instructions Diet Discharge Diet: No restrictions Activity Discharge Activity: Return to Normal Activity, May Not Drive (while taking narcotic pain medications.) and May Shower May resume sexual activity in: 4-6 weeks Dressing / Incision Call your doctor if your incision/area has: Continuous Slow Oozing, Sudden Increased Bleeding, Increased Pain/ Swelling, Increased Redness and Foul Smelling Discharge Follow Up Care Please Follow Up With: Chanel Stacy MD When: Call [phone] to make an appointment with your doctor in 6 weeks. If you had elevated blood pressure or 4th degree laceration, you will need to be seen in 2 weeks. Test Results: Test results from this visit will be discussed in further detail at your follow-up appointment, if applicable. Discharge Plan Admission Admit Date/Time: 06/12/21 11:00 Primary Reason for Your Visit: vaginal delivery Attending Provider: Chanel Stacy Primary Care Provider: Care Physician,Fabienne Primary Discharge Orders/Prescriptions Prescriptions: No Action PNV-DHA 27 mg iron-1 mg -300 mg capsule 1 cap PO DAILY RF: 0 docusate sodium [Stool Softener] 100 mg Tablet 100 mg PO DAILY RF: 0 Referrals / Follow Up: Care Physician,No Primary [Primary Care Provider] - Disposition Disposition (needs filled in before D/C Order can be placed): Home, Self Care
[2021-06-12] MEDS: Oxytocin 30 units/NS 500 ml 30 UNITS/500 ML IV.SOLN 334 UNITS IV (17:20)
[2021-06-13] VITALS (7 sets, daily range): BP systolic 113–125; BP diastolic 57–68; PULSE 69–86; RESP 16; TEMP 36.6–37.2; O2SAT 97–100
--- NOTE | 2021-06-13 08:04 | PCM.PN.OB ---
Subjective Subjective Patient doing well without complaints. Tolerating PO. Ambulating and voiding without difficulty. Feeding well. Denies chest pain, shortness of breath, calf pain/swelling, fevers, chills, lightheadedness. Objective Data Objective Data Vital Signs: Vital Signs Temp Pulse Resp BP Pulse Ox 98.9 F 86 16 114/57 L 98 06/13/21 04:20 06/13/21 04:20 06/13/21 04:20 06/13/21 04:20 06/13/21 04:20 Oxygen Delivery Method Room Air Weight: 173 lb 15.115 oz Body Mass Index (BMI) 26.4 Intake & Output: Intake and Output for Last 24 Hours 06/11/21 06/12/21 06/13/21 23:59 23:59 23:59 Intake Total 999.53 / 999.53 Output Total 600 / 600 Balance 399.53 / 399.53 Lab / Micro Data Result Diagrams: 06/12/21 11:20 Labs: Laboratory Results - last 24 hr 06/12/21 11:20: WBC 13.6 H, RBC 4.36, Hgb 13.4, Hct 37.8, MCV 86.7, MCH 30.7, MCHC 35.4, RDW Std Deviation 40.9, RDW Coeff of Adriano 13.0, Plt Count 207, MPV 11.1, Immature Gran % (Auto) 0.400, Neut % (Auto) 81.9 H, Lymph % (Auto) 11.5 L, Emmons % (Auto) 5.6, Eos % (Auto) 0.4, Baso % (Auto) 0.2, Absolute Neuts (auto) 11.1 H, Absolute Lymphs (auto) 1.57, Nucleated RBC % 0 06/12/21 11:20: Blood Type A NEGATIVE, Antibody Screen NEGATIVE Micro: Microbiology 06/12/21 11:20 Nasal Secretion SARS-CoV-2 Antigen (Rapid) - Final Physical Exam Const alert and oriented x3 HEENT normocephalic Eyes PERRL Neck full ROM Resp normal respiratory effort GI soft to palpation GI Narrative: FF below U Assessment & Plan (1) Vaginal delivery: COMMENT: IAL 40 boy SM (2) Rh negative status during : QUALIFIERS: Trimester: third trimester Qualified Code(s): O26.893 - Other specified related conditions, third trimester; Z67.91 - Unspecified blood type, Rh negative COMMENT: A neg Rhogam prn and 28 weeks rhogam 03/26/21 PLAN: s/p PPD # 1 1. routine post delivery care 2. breast feeding- support given 3. rh negative 4. rubella immune 5. Plans home today
--- NOTE | 2021-06-13 08:09 | PCM.DC ---
Discharge Instructions Diet Discharge Diet: No restrictions Activity Discharge Activity: Return to Normal Activity, May Not Drive (while taking narcotic pain medications.) and May Shower May resume sexual activity in: 4-6 weeks Additional Activity Instructions:: Nothing in the vagina for 4-6 weeks. You may return to work/school in 6 weeks. Dressing / Incision Call your doctor if your incision/area has: Continuous Slow Oozing, Sudden Increased Bleeding, Increased Pain/ Swelling, Increased Redness and Foul Smelling Discharge Follow Up Care Please Follow Up With: Chanel Stacy MD When: Call to make an appointment with your doctor in 6 weeks. If you had elevated Blood Pressure or 4th degree laceration you will need to be seen in 2 weeks. Test Results: Test results from this visit will be discussed in further detail at your follow-up appointment, if applicable. Discharge Plan Admission Admit Date/Time: 06/12/21 11:00 Primary Reason for Your Visit: vaginal delivery Attending Provider: Chanel Stacy Primary Care Provider: Care Physician,No Primary Discharge Orders/Prescriptions Prescriptions: No Action PNV-DHA 27 mg iron-1 mg -300 mg capsule 1 cap PO DAILY RF: 0 docusate sodium [Stool Softener] 100 mg Tablet 100 mg PO DAILY RF: 0 Referrals / Follow Up: Care Physician,No Primary [Primary Care Provider] - Disposition Disposition (needs filled in before D/C Order can be placed): Home, Self Care
== END 2021-06-13 18:30 | disposition home or self-care (01) | DRG 807 ==
LOC: WP 13:28 → WPOUT 06-13 10:20 → WP 06-13 10:20
PROVIDERS: Admitting Provider Obstetrics & Gynecology; Visit Provider Obstetrics & Gynecology
DX: O26.893 Other specified pregnancy related conditions, third trimester (principal); Z37.0 Single live birth; Z67.91 Unspecified blood type, Rh negative; O70.0 First degree perineal laceration during delivery; Z20.822 Contact with and (suspected) exposure to COVID-19; Z87.891 Personal history of nicotine dependence; Z3A.38 38 weeks gestation of pregnancy
CPT/HCPCS: 59025; 59050; 85025; 86850; 86900; 86901; 87426; 99218; J7120; A4216; G0378

== ENCOUNTER → 2022-02-04 | Outpatient (CLI) | payer OTHER, SELFPAY ==
[2022-02-04 15:35] LABS: Amphetamine Urine VISTA NEGATIVE (<1000 ng/mL); Barbiturate Urine VISTA NEGATIVE (< 200 ng/mL); Benzodiazepine Urine VISTA NEGATIVE (< 200 ng/mL); Cocaine Urine VISTA NEGATIVE (< 300 ng/mL); Ecstacy Urine VISTA NEGATIVE (< 500 ng/mL); Methadone Urine VISTA NEGATIVE (< 300 ng/mL); PCP Urine VISTA NEGATIVE (< 25 ng/mL); THC Urine VISTA NEGATIVE (< 50 ng/mL); Vista UDS pH Range 7
[2022-02-07 00:07] LABS: Chlamydia By Nucleic Acid AMP Negative (Negative)
[2022-02-07 16:43] LABS: Gonococcus By Nucleic Acid AMP Negative (Negative)
== END | disposition home or self-care (01) ==
LOC: LABSPEC 14:53
PROVIDERS: Referring Provider Obstetrics & Gynecology; Visit Provider Obstetrics & Gynecology
DX: Z34.90 Encounter for supervision of normal pregnancy, unspecified, unspecified trimester (principal)
CPT/HCPCS: 80307; 87086; 87088; 87491; 87591

== ENCOUNTER → 2022-02-19 | Outpatient (CLI) | payer OTHER, SELFPAY ==
[2022-02-19 08:16] LABS: Absolute Lymphocyte Count 1.36 X10^3/uL (0.83-4.51); Absolute Neutrophil Count 7.2 X10^3/uL (2.0-7.7); Basophil# 0.03 X10^3/uL; Basophil% 0.3 % (0-1); Eosinophil# 0.06 X10^3/uL; Eosinophils% 0.7 % (0-5); Hematocrit 42.5 % (37-47); Hemoglobin 14.5 g/dL (12.0-15.0); Lymphocyte # 1.36 X10^3/ul (0.83-4.51); Lymphocyte % 14.9 % (19-41); Mean Corp Hgb Conc 34.1 g/dL (32-36); Mean Corpuscular Hgb 29.2 pg (27.0-32.0); Mean Corpuscular Volume 85.7 fL (81-99); Mean Platelet Vol. 9.8 fl (6.2-12.0); Monocyte% 5.5 % (0-10); NRBC Flagged by Analyzer 0 % (0-5); Neutrophil # 7.15 X10^3/uL (2.7-7.7); Neutrophil % 78.3 % (47-70); Platelet Count 235 K/mm3 (150-450); RBC Distribution Width CV 12.4 % (11.6-14.6); RBC Distribution Width SD 38.6 fl (35.1-43.9); Red Blood Count 4.96 M/mm3 (4.2-5.4); White Blood Count 9.1 K/mm3 (4.4-11.0)
[2022-02-19 09:02] LABS: NATERA MAILED SPECIMEN
[2022-02-19 09:48] LABS: HIV - WCH Non-Reactive (Nonreactive); Hepatitis B Surface Antigen Non-Reactive (Nonreactive); Hepatitis C Antibody Non-Reactive (Nonreactive); Rubella IgG Reactive (Nonreactive); Syphilis Antibodies Non-reactive
== END | disposition home or self-care (01) ==
PROVIDERS: Referring Provider Obstetrics & Gynecology; Visit Provider Obstetrics & Gynecology
DX: Z34.81 Encounter for supervision of other normal pregnancy, first trimester (principal)
CPT/HCPCS: 36415; 85025; 86703; 86762; 86780; 86803; 86850; 86900; 86901; 87340

== ENCOUNTER 2022-06-17 07:50 | Outpatient (CLI) | payer OTHER, SELFPAY ==
[2022-06-17 08:27] LABS: Absolute Lymphocyte Count 1.57 X10^3/uL (0.83-4.51); Absolute Neutrophil Count 10.4 X10^3/uL (2.0-7.7); Basophil# 0.04 X10^3/uL; Basophil% 0.3 % (0-1); Eosinophil# 0.09 X10^3/uL; Eosinophils% 0.7 % (0-5); Hematocrit 33.4 % (37-47); Hemoglobin 11.4 g/dL (12.0-15.0); Lymphocyte # 1.57 X10^3/ul (0.83-4.51); Lymphocyte % 12.4 % (19-41); Mean Corp Hgb Conc 34.1 g/dL (32-36); Mean Corpuscular Volume 87.9 fL (81-99); Mean Platelet Vol. 9.3 fl (6.2-12.0); Monocyte# 0.51 X10^3/uL; NRBC Flagged by Analyzer 0 % (0-5); Neutrophil # 10.44 X10^3/uL (2.7-7.7); Neutrophil % 82.2 % (47-70); Platelet Count 214 K/mm3 (150-450); RBC Distribution Width CV 13.2 % (11.6-14.6); RBC Distribution Width SD 42.5 fl (35.1-43.9); White Blood Count 12.7 K/mm3 (4.4-11.0)
[2022-06-17 08:32] LABS: Glucose Challenge Gest 1H 50g 139 mg/dL (70-140)
[2022-06-17 10:08] LABS: HIV - WCH Non-Reactive (Nonreactive); Syphilis Antibodies Non-reactive
== END 2022-06-17 23:59 | disposition home or self-care (01) ==
LOC: PAVLAB 07:51
PROVIDERS: Referring Provider Registered Nurse; Visit Provider Registered Nurse
DX: Z34.92 Encounter for supervision of normal pregnancy, unspecified, second trimester (principal); Z13.1 Encounter for screening for diabetes mellitus; Z3A.18 18 weeks gestation of pregnancy
CPT/HCPCS: 36415; 82950; 85025; 86703; 86780; 86900; 86901

== ENCOUNTER 2022-06-21 06:45 | Outpatient (CLI) | payer OTHER, SELFPAY ==
[2022-06-21 08:44] LABS: Glucose GTT-30 minutes 135 mg/dL (110-170)
[2022-06-21 08:44] LABS: Glucose GTT- 1 Hour 130 mg/dL (120-170)
[2022-06-21 08:44] LABS: Glucose GTT- Fasting 67 mg/dL (74-106)
[2022-06-21 09:39] LABS: Glucose GTT- 2 Hour 98 mg/dL (70-120)
[2022-06-21 11:10] LABS: Glucose GTT- 3 Hour 79 mg/dL (74-106)
== END 2022-06-21 23:59 | disposition home or self-care (01) ==
LOC: LAB 06:46
PROVIDERS: Referring Provider Nurse Practitioner Women's Health; Visit Provider Nurse Practitioner Women's Health
DX: Z13.1 Encounter for screening for diabetes mellitus (principal)
CPT/HCPCS: 36415; 82951; 82952

== ENCOUNTER → 2022-08-12 | Outpatient (CLI) | payer OTHER, SELFPAY | END | disposition home or self-care (01) | PROVIDERS: Visit Provider Obstetrics & Gynecology | DX: Z34.93 Encounter for supervision of normal pregnancy, unspecified, third trimester (principal); Z3A.36 36 weeks gestation of pregnancy | CPT/HCPCS: 87081 ==

== ENCOUNTER 2022-09-05 12:30 | Inpatient (IN) | payer OTHER, SELFPAY ==
[2022-09-05] VITALS (16 sets, daily range): BP systolic 107–131; BP diastolic 63–76; PULSE 77–107; RESP 16; TEMP 36.6–36.9; O2SAT 83–100; BMI 25.0
[2022-09-05] MEDS: Lactated Ringers 1,000 ML 50 ML IV (13:20)
[2022-09-05 13:36] LABS: Absolute Lymphocyte Count 1.25 X10^3/uL (0.83-4.51); Absolute Neutrophil Count 8.9 X10^3/uL (2.0-7.7); Basophil# 0.02 X10^3/uL; Basophil% 0.2 % (0-1); Eosinophil# 0.03 X10^3/uL; Eosinophils% 0.3 % (0-5); Hematocrit 35.1 % (37-47); Hemoglobin 11.5 g/dL (12.0-15.0); Lymphocyte # 1.25 X10^3/ul (0.83-4.51); Lymphocyte % 11.2 % (19-41); Mean Corp Hgb Conc 32.8 g/dL (32-36); Mean Corpuscular Hgb 27.4 pg (27.0-32.0); Mean Corpuscular Volume 83.8 fL (81-99); Mean Platelet Vol. 9.8 fl (6.2-12.0); Monocyte# 0.93 X10^3/uL; Monocyte% 8.3 % (0-10); NRBC Flagged by Analyzer 0 % (0-5); Neutrophil # 8.85 X10^3/uL (2.7-7.7); Neutrophil % 79.1 % (47-70); Platelet Count 293 K/mm3 (150-450); RBC Distribution Width SD 39.1 fl (35.1-43.9); Red Blood Count 4.19 M/mm3 (4.2-5.4); White Blood Count 11.2 K/mm3 (4.4-11.0)
--- NOTE | 2022-09-05 13:38 | HP.PCM.OB_ITS ---
HPI - General General Date of Admission: 09/05/22 HPI Narrative MONO SANTO, is a 27 F who presents @ 39 weeks IAL 5 cm no vb lof admits good fm with ctx. arom clear fluid. Maternal Data Information TASHI Calculator Estimated Delivery Date Method Current WG Current Estimate 09/07/22 LMP (Certain) 39w 5d PFSH PFSH Home Medications multivitamin no.47-iron fum 27 mg-folate no.1 1 mg-dha 300 mg capsule (PNV-DHA) 1 cap PO DAILY 06/20/20 [History Last Taken 09/04/22 08:00] 1 PO/SL 1XD Check with primary doctor 09/05/22 [History Last Taken 09/04/22 08:00] Allergy/AdvReac Type Severity Reaction Status Date / Time No Known Allergies Allergy Verified 09/05/22 11:05 Family History Grandmother Diabetes Surgical History History of dilation and curettage S/P ear surgery S/P wrist surgery Social History household members: spouse current occupational status: employed current occupation: [email or web address] pets and animals: Yes Smoking Status: Former smoker alcohol intake: current details: Not while substance use type: does not use caffeine: Yes what type of physical activity do you participate in: walking frequency: daily seatbelt use: always do you feel safe at home: Yes additional social history: - Sami History 3 Elective abortions Hx Para 1 Spontaneous abortions 1 Hx # Term Pregnancies 1 Ectopic pregnancies Hx # Pregnancies Multiple births # of living children 1 Past Pregnancies Del. Date Name GA/Weeks Outcome Route Bth Weight Infant Gen Labor Lgth Anesthesia Del Locatn Provider FOB Unknown 06/2020- Blighted ovum 06/12/21 Aguila 40 live - full term Male [facility] Tawanna Sami Delivery Date: 06/12/21 Last Updated by: Yas Solis ISBeatriz Visit Details Expected Delivery Route/Plan Labor Preferences- CB/BF classes: declines labor support person: Sami labor intervention preferences: limited interventions pain management options preferred: plans on unmedicated cut cord/dad catch: yes : yes PP control planned: discussed discussed possible routes of delivery and associated risks: special requests: tub room if available, IM if allows Plans Covid status: unvaccined Flu vaccine: [declines] Tdap vaccine: [] Rhogam: given 06/17/22 LARC form signed: yes Problem list reviewed and updated with the most current plan of care details and appropriate orders placed. Relevant counseling for the gestational age provided. Continue routine care and follow up unless otherwise noted in visit notes/problem list details OB Flowsheet Initial Weight: Not Recorded Date -?-?-?-?-?-?-?-?-?-?-?-?- EGA Weight BP Urine Prot -?-?-?-?-?-?-?-?-?-?-?-?- Glucose FHR FuHt Pres Dilation -?-?-?-?-?-?-?-?-?-?-?-?- Effaced St Visit Note 02/04/22 -?-?-?-?-?-?-?-?-?-?-?-?- 9w 2d 162 lb 6 oz 162 lb 6 oz 127/79 -?-?-?-?-?-?-?-?-?-?-?-?- 170 -?-?-?-?-?-?-?-?-?-?-?-?- SM- CRL 2.1 cm c ons with LMP 03/11/22 -?-?-?-?-?-?-?-?-?-?-?-?- 14w 2d 161 lb 112/60 Negative -?-?-?-?-?-?-?-?-?-?-?-?- Negative 150 -?-?-?-?-?-?-?-?-?-?-?-?- SM doing well 04/09/22 -?-?-?-?-?-?-?-?-?-?-?-?- 18w 3d 160 lb 117/74 Negative -?-?-?-?-?-?-?-?-?-?-?-?- Negative 145 -?-?-?-?-?-?-?-?-?-?-?-?- SM- no vb lof go od fm no regular ctx SM- no vb lof some fm no reg ular ctx 05/07/22 -?-?-?-?-?-?-?-?-?-?-?-?- 22w 3d 161 lb 94/62 Negative -?-?-?-?-?-?-?-?-?-?-?-?- Negative 140 22 -?-?-?--?-?-?-?-?-?-?-?-?- LC-no vb,ctx,lof . active fetus. 28week labs ordered. declines flu vaccine. 06/05/22 -?-?-?-?-?-?-?-?-?-?-?-?- 26w 4d 165 lb 2 oz 129/72 Nega tive -?-?-?-?-?-?-?-?-?-?-?-?- Negative 144 27 -?-?-?-?-?-?-?-?-?-?-?-?- JV- no lof, vagi nal bleeding, or cramping. gct and rhogam next visit. also needs soem new ob labs. 06/17/22 -?-?-?-?-?-?-?-?-?-?-?-?- 28w 2d 165 lb 2 oz 99/64 Nega tive -?-?-?-?-?-?-?-?-?-?-?-?- Negative 152 28 -?-?-?--?-?-?-?-?-?-?-?-?- -no VB, LOF. Good FM. Had fall onto bottom 3 days ago. No VB and good fm since. Rhogam, larc, 28 wk labs. 07/04/22 -?-?-?-?-?-?-?-?-?-?-?-?- 30w 5d 164 lb 8 oz 104/69 Nega tive -?-?-?-?-?-?-?-?-?-?-?-?- Negative 147 29 -?-?-?-?-?-?-?-?-?-?-?-?- JV- no lof, vagi nal bleeding, or dec fm. tdap today. 07/17/22 -?-?-?-?-?-?-?-?-?-?-?-?- 32w 4d 165 lb 100/64 Negative -?-?-?-?-?-?-?-?-?-?-?-?- Negative 145 33 -?-?-?-?-?-?-?-?-?-?-?-?- JV- no lof, vagi nal bleeding, or dec fm. no complaints today. 08/01/22 -?-?-?-?-?-?-?-?-?-?-?-?- 34w 5d 168 lb 120/76 Negative -?-?-?-?-?-?-?-?-?-?-?-?- Negative 145 34 -?-?-?-?-?-?-?-?-?-?-?-?- SM- no vb lof go od fm nor egular ctx 08/12/22 -?-?-?-?-?-?-?-?-?-?-?-?- 36w 2d 170 lb 118/77 -?-?-?-?-?-?-?-?-?-?-?-?- 145 36 Cephalic 1 -?-?-?-?-?-?-?-?-?-?-?-?- -4 Sm- no v b lof good fm n oregular ctx gbs done 08/22/22 -?-?-?-?-?-?-?-?-?-?-?-?- 37w 5d 171 lb 2 oz 131/80 Nega tive -?-?-?-?-?-?-?-?-?-?-?-?- Negative 150 37 Cephalic 1 -?-?-?-?-?-?-?-?-?-?-?-?- 50 -3 JV-no lof, vaginal bleeding, or dec fm. no complaints. 08/29/22 -?-?-?-?-?-?-?-?-?-?-?-?- 38w 5d 173 lb 108/74 Negative -?-?-?-?-?-?-?-?-?-?-?-?- Negative 140 37 Cephalic 1 -?-?-?-?-?-?-?-?-?-?-?-?- SM- no vb lof go od fm no regular ctx 09/05/22 -?-?-?-?-?-?-?-?-?-?-?-?- 39w 5d 171 lb 8 oz 119/84 Nega tive -?-?-?-?-?-?-?-?-?-?-?-?- Negative 135 Cephalic 5 -?-?-?-?-?-?-?-?-?-?-?-?- 90 +1 JV- no lof , vaginal bleeding, or dec fm. but is having contractions every 8 minutes. instructed to go to l&D now. 09/05/22 -?-?-?-?-?-?-?-?-?-?-?-?- 39w 5d 169 lb 12.095 oz 131/76 -?-?-?-?-?-?-?-?-?-?-?-?- -?-?-?-?-?-?-?-?-?-?-?-?- NST FHR Rate Baby A Baseline: 140 Variability:: Moderate Accelerations:: 15 x 15 Decelerations:: None NST Reactive:: Yes FHR Category:: Category I Uterine Activity:: q3-5 ROS Constitutional Constitutional: Reports systems reviewed and no addt'l complaints, except as documented ENT HEENT: Reports systems reviewed and no addt'l complaints, except as documented Cardiovascular Cardiovascular: Reports systems reviewed and no addt'l complaints, except as documented Respiratory/Chest Respiratory/Chest: Reports systems reviewed and no addt'l complaints, except as documented Gastrointestinal Gastrointestinal: Reports systems reviewed and no addt'l complaints, except as documented and nausea; Denies abdominal pain Genitourinary Genitourinary: Reports systems reviewed and no addt'l complaints, except as do cumented, contractions Details: present and frequency (regular ) and movement Details: present Musculoskeletal Musculoskeletal: Reports systems reviewed and no addt'l complaints, except as documented Integumentary Integumentary: Reports as per HPI Neurologic Neurologic: Reports systems reviewed and no addt'l complaints, except as documented Endocrine Endocrinology: Reports systems reviewed and no addt'l complaints, except as documented Vital Signs Vital Signs Vital Signs: 09/05/22 12:57 09/05/22 12:57 09/05/22 12:57 Temperature Temperature Source Pulse Rate 107 H Blood Pressure 131/76 H BP Systolic 131 BP Diastolic 76 Pulse Ox 100 09/05/22 12:55 09/05/22 12:55 Temperature 98.0 F Temperature Source Temporal Pulse Rate Blood Pressure BP Systolic BP Diastolic Pulse Ox Weight Weight: 169 lb 12.095 oz Body Mass Index (BMI) 25.0 Physical Exam Const alert, oriented x3 and healthy appearing Constitutional Narrative: uncomfortable with contractions HEENT normocephalic and moist oral mucous membranes Head and Scalp: atraumatic Neck full ROM, no lymphadenopathy, supple and thyroid normal General: trachea midline Thyroid: thyroid normal Lymph Lymphatic: no lymphadenopathy noted Chest inspection of chest normal Resp normal respiratory effort Cardio regular rate GI normal to inspection, nondistended, normoactive bowel sounds, soft to palpation and non-tender Inspection: gravid external exam normal Bimanual Exam - Vag & Uterus: uterus non-tender Manual OB Exam: estimated gestational size appropriate, presentation cephalic, dilated, effaced and station Extremity normal to inspection General Extremity: Negative for edema Skin no rashes or lesions noted Neuro deep tendon reflexes 2+ bilaterally Motor Exam: strength 5/5 throughout and clonus absent Psych mental status grossly normal Labs Labs Labs: Blood Type A NEGATIVE Antibody Screen NEGATIVE Hct 33.4 % (37-47) L Hgb 11.4 g/dL (12.0-15.0) L Obstetrics US Syphilis Total Ab Non-reactive Rubella IgG Antibody Reactive (Nonreactive) Hep Bs Antigen Non-Reactive (Nonreactive) Chlamydia DNA (MINI) Negative (Negative) Neisseria gonorrhoeae DNA (MINI) Negative (Negative) HIV 1&2 Antibody Non-Reactive (Nonreactive) Glucose 1 Hr 50 gm 139 mg/dL (70-140) Assessment & Plan (1) Supervision of normal : QUALIFIERS: Trimester: second trimester COMMENT: PRR TASHI 09/07/22 girl PC [place] Sami (2) : QUALIFIERS: Weeks of gestation: 39 weeks Qualified Code(s): Z3A.39 - 39 weeks gestation of COMMENT: GBS Negative, anatomy nl, genetic low risk, carrier screening declined (3) Rh negative status during : QUALIFIERS: Trimester: third trimester Qualified Code(s): O26.893 - Other specified related conditions, third trimester; Z67.91 - Unspecified blood type, Rh negative COMMENT: A neg Rhogam prn and 28 weeks. given 06/17/22 (4) Short interval between pregnancies affecting , antepartum: (5) Abnormal glucose tolerance in : COMMENT: normal 3hr GTT (6) Active labor at term: COMMENT: epi only if needed, prefer minimal intervention. arom clear fluid. pit prn gbs neg PLAN: Plan see a/p comments
[2022-09-05] MEDS: Oxytocin 10 UNITS/ML Vial IM (15:34)
--- NOTE | 2022-09-05 15:49 | OP.PCM_ITS ---
Assessment & Plan (1) Active labor at term: COMMENT: epi only if needed, prefer minimal intervention. arom clear fluid. pit prn gbs neg (2) Abnormal glucose tolerance in : COMMENT: normal 3hr GTT (3) Short interval between pregnancies affecting , antepartum: (4) Rh negative status during : QUALIFIERS: Trimester: third trimester Qualified Code(s): O26.893 - Other specified related conditions, third trimester; Z67.91 - Unspecified blood type, Rh negative COMMENT: A neg Rhogam prn and 28 weeks. given 06/17/22 (5) : QUALIFIERS: Weeks of gestation: 39 weeks Qualified Code(s): Z3A.39 - 39 weeks gestation of COMMENT: GBS Negative, anatomy nl, genetic low risk, carrier screening declined (6) Supervision of normal : QUALIFIERS: Trimester: second trimester COMMENT: PRR TASHI 09/07/22 girl PC [place] Sami (7) Vaginal delivery: COMMENT: girl IAL 39 SM Maternal Data Information TASHI Calculator Estimated Delivery Date Method Current WG Current Estimate 09/07/22 LMP (Certain) 39w 5d Vaginal Delivery Operative Information Date of Procedure: 09/05/22 Pre-Operative Diagnosis: IAL Post-Operative Diagnosis: same Surgery / Procedure Performed: Spontaneous Vaginal Delivery Type of Anesthesia: Epidural Special Medications: none Estimated Blood Loss: 200 Fluids Replaced: crystalloid Findings Description of Procedure: Patient began pushing and delivered the head in the ARTURO presentation. The head was delivered atraumatically . The anterior and posterior shoulders delivered without complication followed by the rest of the and the was placed on the maternal abdomen. Delayed cord clamping was employed for approximately 60 seconds. Cord was clamped and cut and gentle traction was applied to the cord and the placenta delivered spontaneously immediately following it was noted to be intact with three-vessel cord. The perineum and vagina were inspected and noted to have no laceration. EBL was 200. Patient and infant tolerated delivery well. Presentation: ARTURO Amniotic Membrane Rupture Type: Artificial Amniotic Fluid Description: Clear Placental Delivery Description: Spontaneous Placenta Disposition: [facility] Cord Vessel Description: 3 Vessels Cord Entanglement: None Delayed Cord Clamping: Yes Post Vaginal Delivery Medications Given After Delivery: IV Pitocin Episiotomy Description: None Laceration: None Complication Complications: None Procedures Urinary/Genital [id number]: [id number] [facility]
--- NOTE | 2022-09-05 15:55 | DCINST_ITS ---
Discharge Instructions Diet Discharge Diet: No restrictions Activity Discharge Activity: Return to Normal Activity, May Drive, May Shower and May Take a Tub Bath (in 4 weeks) May resume sexual activity in: 6-8 weeks (after seen by OB provider) Weight Bearing Status: Full weight bearing Lifting Restrictions: none Dressing / Incision Call your doctor if you observe: Fever of 101 or Higher, Inability to urinate, Using more than 1 pad per hour (for more than 2 hours in a row or more), Shortness of breath, Dizziness, Chest pain and - (headache not controlled with tylenol, change in vision) Follow Up Care When: in 6 weeks for visit, call the office to make the appointment. If you had elevated blood pressures call the office to be seen within 1 week. Test Results: Test results from this visit will be discussed in further detail at your follow- up appointment, if applicable. Discharge Plan Admission Admit Date/Time: 09/05/22 12:30 Attending Provider: Chanel Stacy Primary Care Provider: Care Physician,Fabienne Primary Discharge Orders/Prescriptions Prescriptions: No Action PNV-DHA 27 mg iron-1 mg -300 mg capsule 1 cap PO DAILY 1 PO/SL 1XD Referrals / Follow Up: Care Physician,No Primary [Primary Care Provider] - Disposition Disposition (needs filled in before D/C Order can be placed): Home, Self Care
[2022-09-06 00:07] VITALS: BP 114/58; PULSE 77; RESP 16; TEMP 36.6; O2SAT 99
[2022-09-06 04:11] VITALS: BP 101/56; PULSE 76
[2022-09-06 04:18] VITALS: BP 101/56; PULSE 76; RESP 16; TEMP 36.5; O2SAT 98
--- NOTE | 2022-09-06 08:10 | PCM.PN.OB ---
Subjective Subjective Patient doing well without complaints. Tolerating PO. Ambulating and voiding without difficulty. Feeding well. Denies chest pain, shortness of breath, calf pain/swelling, fevers, chills, lightheadedness. Objective Data Objective Data Vital Signs: Vital Signs Temp Pulse Resp BP Pulse Ox O2 Del Method 97.9 F 83 16 109/63 98 Room Air 09/06/22 09:00 09/06/22 09:00 09/06/22 09:00 09/06/22 09:00 09/06/22 04:18 09/06/22 09:00 Oxygen Delivery Method Room Air Weight: 169 lb 12.095 oz Body Mass Index (BMI) 25.0 Intake & Output: Intake and Output for Last 24 Hours 09/04/22 09/05/22 09/06/22 23:59 23:59 23:59 Intake Total 83.33 / 83.33 Output Total 700 / 700 Balance -616.67 / -616.67 Lab / Micro Data Result Diagrams: 09/05/22 13:20 Physical Exam Const alert, oriented x3 and no apparent distress Lymph Lymphatic: no lymphadenopathy noted Chest Nipple/Areola: nipples/areola normal Resp normal respiratory effort, normal air movement and no retractions GI normal to inspection, nondistended, normoactive bowel sounds GI Narrative: fundus firm at u, mild lochia, no clots Extremity normal to inspection Skin no rashes or lesions noted Assessment & Plan (1) Vaginal delivery: COMMENT: girl IAL 39 SM PLAN: s/p PPD # 1 1. routine post delivery care 2. breast feeding- support given 3. rh positive 4. rubella immune 5. d/c home today
[2022-09-06 09:00] VITALS: BP 109/63; PULSE 83; RESP 16; TEMP 36.6
[2022-09-06 15:33] VITALS: BP 113/65; PULSE 75; PULSE 76; RESP 16; TEMP 36.7
== END 2022-09-06 16:30 | disposition home or self-care (01) | DRG 807 ==
PROVIDERS: Admitting Provider Obstetrics & Gynecology; Visit Provider Obstetrics & Gynecology
DX: O99.814 Abnormal glucose complicating childbirth (principal); Z37.0 Single live birth; O26.893 Other specified pregnancy related conditions, third trimester; Z87.891 Personal history of nicotine dependence; Z3A.39 39 weeks gestation of pregnancy; Z67.91 Unspecified blood type, Rh negative
CPT/HCPCS: 59025; 59050; 85025; 86850; 86900; 86901; 99221; J7120; G0378

== ENCOUNTER 2023-05-14 08:49 | Emergency (ER) | payer OTHER, SELFPAY ==
[2023-05-14 08:49] VITALS: BP 110/66; PULSE 88; RESP 14; TEMP 36.5; O2SAT 100; BMI 22.8
--- NOTE | 2023-05-14 09:18 | EX.ED.DYSGE1 ---
HPI History of Present Illness Chief Complaint: Wound PFSH PFSH Home Medications multivitamin no.47-iron fum 27 mg-folate no.1 1 mg-dha 300 mg capsule (PNV-DHA) 1 cap PO DAILY 06/20/20 [History Last Taken 09/04/22 08:00] sulfamethoxazole 800 mg-trimethoprim 160 mg tablet (Bactrim DS) 1 tab PO BID 7 days #14 tabs 05/14/23 [Rx Last Taken Unknown] Allergy/AdvReac Type Severity Reaction Status Date / Time No Known Allergies Allergy Verified 05/14/23 08:51 Family History Grandmother Diabetes Surgical History History of dilation and curettage S/P ear surgery S/P wrist surgery Social History household members: spouse current occupational status: employed current occupation: [employer] pets and animals: Yes Smoking Status: Former smoker alcohol intake: current details: Not while substance use type: does not use caffeine: Yes what type of physical activity do you participate in: walking frequency: daily seatbelt use: always do you feel safe at home: Yes additional social history: - Sami EXAM Physical Exam Const Vital Signs: 05/14/23 08:49 Temperature 97.7 F L Temperature Source Temporal Pulse Rate 88 Respiratory Rate 14 Blood Pressure 110/66 Blood Pressure Mean 80 Pulse Ox 100 Oxygen Delivery Method Room Air MDM MDM MDM Narrative Medical decision making narrative: HISTORY OF PRESENT ILLNESS: 27-year-old female here with concern for wound to the right ring finger. She states she developed what she states is a bug bite to her left fourth digit. She states it got swollen she used an unclaimed needle to poke this area. Over the next several days she developed redness that streaking up her arm. REVIEW OF SYSTEMS: Pertinent positives: finger redness, pain Pertinent negatives: numbness PHYSICAL EXAM: Nursing triage notes reviewed, Vital signs reviewed Constitutional: please see mdm : No CVAT Extremities: No edema Neuro: Intact 5/5 strength with ok sign (median), intact finger abduction (ulnar) intact wrist extension (radial n). Intact sensation in the radial, ulnar, and median nerve distributions. Skin: redness noted to the dorsal surface of the 4th digit with lymphangitic streaking noted, no fusiform swelling, pain with passive extension, pain over flexor tendon MEDICAL DECISION MAKING: Chief Complaint: finger pain External records reviewed: No recent adVanced imaging of the involved extremity Factors affecting care: none Social determinants of health: none History obtained from others: none Consults: none MDM Narrative: The patient was hemodynamically stable, afebrile, nontoxic-appearing. I considered the following differential diagnosis: Cellulitis, paronychia, felon, flexor tenosynovitis Exam not consistent with paronychia, felon or flexor tenosynovitis. Exam consistent with cellulitis. No fluctuance or induration to suggest abscess. Will give Bactrim and close follow-up. The patient and/or family, caregivers express understanding. The patient and/or family, caregivers agrees with the plan. Shared decision making: I will have a discussion with the patient and or visitors regarding risk/benefits of further testing or admission. They will be made aware of of the risk/benefits inherent in this decision they will be given the opportunity to voice understanding. Total critical care time today provided was at least 0 minutes. This excludes separately billable procedures. Critical care time (if documented) is secondary to the patient having high probability of clinically significant/life threatening deterioration in the patient's condition which required my urgent intervention. Impression: 1. finger cellulitis Dispo: discharge Discharge Plan Triage Chief Complaint: Wound ED Provider: Aroldo Perez Dx/Rx/DC Orders Instructions: Cellulitis Prescriptions: New sulfamethoxazole-trimethoprim [Bactrim DS] 800-160 mg tablet 1 tab PO BID 7 Days Qty: 14 0RF No Action PNV-DHA 27 mg iron-1 mg -300 mg capsule 1 cap PO DAILY Stand Alone Forms: ED Work / School Excuse Primary Care Provider: Care Physician,No Primary Referrals: Care Physician,No Primary [Primary Care Provider] - Activity Restrictions/Additional Instructions: Thank you for trusting us with your care today! Please take Tylenol (2 pills, 650 mg), ibuprofen (2 pills, 400 mg) every 6 hours as needed for pain and fever control. Please take antibiotics as prescribed until course complete. Please return to the emergency department if your symptoms change or worsen. Specifically develop rapid progression of redness up your arm in a matter of hours. If you develop vomiting cannot tolerate antibiotics. You develop fever or you lose consciousness. Please follow with your primary care physician for further outpatient evaluation and management. Please follow-up within the next 3 to 5 days for wound recheck with your PCP. Disposition Disposition: Home, Self Care
== END 2023-05-14 10:35 | disposition home or self-care (01) ==
LOC: ED 10:04
PROVIDERS: Emergency Provider Emergency Medicine; Referring Provider Emergency Medicine; Visit Provider Emergency Medicine
DX: L03.011 Cellulitis of right finger (principal); Z87.891 Personal history of nicotine dependence
CPT/HCPCS: 99282

== ENCOUNTER → 2023-07-11 | Outpatient (CLI) | payer OTHER, SELFPAY ==
[2023-07-15 07:08] LABS: Chlamydia By Nucleic Acid AMP Negative (Negative); Gonococcus By Nucleic Acid AMP Negative (Negative)
== END | disposition home or self-care (01) ==
LOC: LABSPEC 12:30
PROVIDERS: Referring Provider Registered Nurse; Visit Provider Registered Nurse
DX: Z34.90 Encounter for supervision of normal pregnancy, unspecified, unspecified trimester (principal)
CPT/HCPCS: 87086; 87088; 87491; 87591

== ENCOUNTER → 2023-08-12 | Outpatient (CLI) | payer OTHER, SELFPAY ==
--- OUTSIDE RECORDS SUMMARY | 2023-08-12 07:20 | XMS RPT_ITS | CCD ---
Author Name Unknown Address [address] [place] [address] Organization [facility] Care Team Providers Care Manager Case Name Role Phone Chanel Stacy MD Unavailable [phone] NO PRIMARY CAREMD Primary Care Unavailable FRANCISCA PATTON Attending Unavailable CHANEL STACY Referring Unavailbryant e Unavailable Primary Care Provider Unavailbryant e Medications Current Medications Medication Drug Class(es) Dates Sig (Normalized) Sig (Original) amoxicillin 500 mg oral capsule (1 source) Penicillin-class Antibacterial Start: 03-13-2023 End: 03-23-2023 take 1 capsule by mouth twice daily amoxicillin (AMOXIL) 500 mg capsule Indications: Strep throat Take 1 capsule by mouth twice daily for 10 days. 20 capsule 0 03/13/2023 03/23/2023 Active Completed/Discontinued Medications Medication Drug Class(es) Dates Sig (Normalized) Sig (Original) acetaminophen 325 mg / HYDROcodone bitartrate 5 mg oral tablet (2 sources) Opioid Agonist Start: 11-07-2014 End: 12-14-2014 NORCO 5-325 MG TABS 1 tab every 4 hours as needed for pain HYDROCODONE-ACETAM INOPHEN [id number] Elizabeth Hill LPN acetaminophen 325 mg / oxyCODONE hydrochloride 5 mg oral tablet (6 sources) Opioid Agonist Start: 11-08-2014 End: 05-22-2017 take 1-2 tablets by mouth four times daily as needed for pain PERCOCET 5-325 MG TABS one to two tablets by mouth four times daily as needed for pain OXYCODONE-ACETAMIN OPHEN [id number] Alexi Curtis MD [id number] actuat albuterol 0.09 mg/actuat metered dose inhaler (2 sources) beta2-Adrenergic Agonist Start: 10-28-2011 albuterol HFA 90 mcg/actuation INHALATION inhaler Inhale as instructed. 2 puffs 15 to 20 minutes pre-exercise prn 1 Inhaler 1 10/28/2011 Active Problems Active Problems Problem Classification Problem Date Documented Da te Episodic/Chronic Open wounds of extremities (3 sources) Unspecified open wound of unspecified wrist; Translations: [Unspecified open wound of unspecified wrist] Onset: 11-08-2014 11-13-2014 Other bone disease and musculoskeletal deformities (2 sources) Osteochondropathy; Translations: [Osteochondropathy, unspecified of unspecified site] Onset: 04-03-2011 04-03-2011 Chronic Other ear and sense organ disorders (2 sources) Conductive hearing loss; Translations: [Conductive hearing loss, unspecified] Onset: 09-25-2006 09-25-2006 Chronic Other upper respiratory infections (2 sources) Sore throat symptom; Translations: [Acute pharyngitis, unspecified] 03-13-2023 Episodic Skin and subcutaneous tissue infections (1 source) Infection of skin; Translations: [Local infection of the skin and subcutaneous tissue, unspecified] 05-14-2023 Episodic Spondylosis; intervertebral disc disorders; other back problems (4 sources) Degeneration of intervertebral disc; Translations: [Degeneration of intervertebral disc, site unspecified] Onset: 05-27-2011 05-27-2011 Chronic Unclassified (1 source) Gynecologic examination ; Translations: [Encounter for gynecological examination (general) (routine) with abnormal findings] Onset: 05-22-2017 05-22-2017 Unclassified (1 source) Bitten by dog; Translations: [Bitten by dog] Onset: 11-08-2014 11-13-2014 Past or Other Problems Problem Classification Problem Date Documented Date Episodic/Chronic Inflammatory diseases of female pelvic organs (1 source) Bacterial vaginosis; Translations: [Acute vaginitis] Onset: 05-22-2017 05-22-2017 Episodic Open wounds of extremities (10 sources) Open wound of forearm, with tendon involvement; Translations: [Unspecified open wound of unspecified finger without damage to nail, initial encounter] Onset: 11-08-2014 Resolved: 11-08-2014 11-13-2014 Episodic Other aftercare (1 source) Encounter for other specified surgical aftercare; Translations: [Encounter for other specified surgical aftercare] Onset: 11-08-2014 11-13-2014 Episodic Other injuries and conditions due to external causes (2 sources) 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, upper limb; Translations: [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, upper limb] Onset: 11-08-2014 Resolved: 11-08-2014 11-13-2014 Episodic Otitis media and related conditions (2 sources) Discontinuity of ear ossicles; Translations: [Discontinuity and dislocation of ear ossicles, unspecified ear] Onset: 02-12-2007 02-12-2007 Episodic Results Test Name Value Interpretation Reference Range Facil ity Vital Signs Date Time Vital Sign Value Performing Clinician Trey oneil 05-14-2023 08:36-0400 Body temperature 97.11 [degF] Colleen Truong APRN.[employer] Work Phone: [facility] 05-14-2023 08:36-0400 Body weight 72.39 kg Colleen Truong APRN.[employer] Work Phone: [facility] 05-14-2023 08:36-0400 Diastolic blood pressure 68 mm[Hg] Colleen Truong APRN.[employer] Work Phone: [facility] 05-14-2023 08:36-0400 Heart rate 86 /min Colleen Truong APRN.[employer]IVER Work Phone: [facility] 05-14-2023 08:36-0400 Respiratory rate 20 /min Colleen Truong APRN.[employer] Work Phone: [facility] 05-14-2023 08:36-0400 SaO2% (BldA) [Mass fraction] 99 % Colleen Truong APRN.[employer] DRIVER Work Phone: [facility] 05-14-2023 08:36-0400 Systolic blood pressure 102 mm[Hg] Colleen Truong APRN.[employer] DRIVER Work Phone: [facility] 03-13-2023 07:14-0400 Body temperature 99.3 [degF] Barron Oscar APRN.[employer] DRIVER Work Phone: [facility] 03-13-2023 07:14-0400 Body weight 71.4 kg Barron Dayne TRAFFIC ENUMERATOR.[employer] TR[employer] DRIVER Work Phone: [facility] 03-13-2023 07:14-0400 Diastolic blood pressure 60 mm[Hg] Barron Oscar TRAFFIC ENUMERATOR.[employer] TR[employer] DRIVER Work Phone: [facility] 03-13-2023 07:14-0400 Heart rate 111 /min Barron Oscar TRAFFIC ENUMERATOR.[employer] TR[employer] DRIVER Work Phone: [facility] 03-13-2023 07:14-0400 Respiratory rate 21 /min Barron Oscar TRAFFIC ENUMERATOR.SE[employer] TR[employer] DRIVER Work Phone: [facility] 03-13-2023 07:14-0400 SaO2% (BldA) [Mass fraction] 99 % Barron Oscar TRAFFIC ENUMERATOR.SE[employer] TR[employer] DRIVER Work Phone: [facility] 03-13-2023 07:14-0400 Systolic blood pressure 102 mm[Hg] Barron Oscar TRAFFIC ENUMERATOR.[employer] TR[employer] DRIVER Work Phone: [facility] 05-22-2017 08:32-0400 BMI (Body Mass Index) 19.64 kg/m2 Chanel Stacy MD [facility] 05-22-2017 08:32-0400 Body Temperature 96.9 [degF] Chanel Stacy MD [facility] 05-22-2017 08:32-0400 Body Temperature 96.91 [degF] Chanel Stacy MD [facility] 05-22-2017 08:32-0400 BP Diastolic 75 mm[Hg] Chanel Stacy MD [facility] 05-22-2017 08:32-0400 BP Systolic 112 mm[Hg] Chanel Stacy MD [facility] 05-22-2017 08:32-0400 Height 172.72 cm Chanel Stacy MD [facility] 05-22-2017 08:32-0400 Pulse (Heart Rate) 87 /min Chanel Stacy MD [facility] 05-22-2017 08:32-0400 Respiratory Rate 16 /min Chanel Stacy MD [facility] 05-22-2017 08:32-0400 Weight 58.61 kg Chanel Stacy MD [facility] 05-22-2017 08:32-0400 Weight 58.6 kg Chanel Stacy MD [facility] 12-14-2014 16:40-0400 BSA (Body Surface Area) 1.71 m2 Chanel Stacy MD [facility] Encounters Encounter Date Encounter Type Care Provider Facility Start: 05-14-2023 End: 05-14-2023 ambulatory Facility:[facility] Start: 05-14-2023 End: 05-14-2023 Patient encounter procedure Colleen Alexi PETERSONSEPTIC PUMP TRUCK DRIVER Work Phone: [facility] Procedures Date Procedure Procedure Detail Performing Clinician Start: 03-13-2023 STREP A MOLECULAR (POC) Regan Bundy MD Work Phone: Start: 12-14-2014 End: 01-23-2015 Follow Up Appt Other Alexi Curtis MD Start: 12-02-2014 End: 12-06-2014 Follow Up Appt 2 weeks Alexi Curtis MD Start: 11-18-2014 End: 11-29-2014 Follow Up Appt 2 weeks Alexi Curtis MD Start: 11-18-2014 End: 11-19-2015 OT-Hand Therapy Alexi Curtis MD Start: 11-11-2014 End: 11-29-2014 Follow up Appt 1 week Alexi Curtis MD Start: 11-08-2014 End: 11-30-2014 Follow Up Appt Other Alexi Curtis MD Plan of Treatment Date Care Activity Detail Author Start: 07-04-2032 Urine microalbumin profile DTaP,Tdap,Td Vaccine (11 - Td or Tdap) [facility] Start: 03-28-2023 Influenza vaccination [facility] Start: 07-28-2022 DEPRESSION ASSESSMENT DEPRESSION ASSESSMENT [facility] Start: 04-10-2018 PAP TESTING PAP TESTING [facility] Start: 09-25-2016 Urine microalbumin profile DTAP,TDAP,TD (7 - Td or Tdap) [facility] Start: 12-20-2014 End: 12-20-2014 OT-Hand Therapy [facility] [address] [place] [address], [id number] [facility] Start: 12-14-2014 End: 01-23-2015 Follow Up Appt Other Follow Up Appt Other [facility] Start: 12-02-2014 End: 12-06-2014 Follow Up Appt 2 weeks Follow Up Appt [address] [facility] Start: 11-18-2014 End: 11-29-2014 Follow Up Appt 2 weeks Follow Up Appt 2 weeks [facility] Start: 11-18-2014 End: 12-12-2014 OT-Hand Therapy OT-Hand Therapy Physical Therapy [facility], [address] [place] [address], [id number] [facility] Start: 11-11-2014 End: 11-29-2014 Follow up Appt 1 week Follow up Appt 1 week [facility] Start: 11-08-2014 End: 11-30-2014 Follow Up Appt Other Follow Up Appt Other [facility] Start: 2011 HEPATITIS C SCREENING HEPATITIS C SCREENING [facility] Start: 2011 HIV SCREENING HIV SCREENING [facility] Start: 01-12-1994 COVID-19 VACCINE (#1) COVID-19 VACCINE (#1) [facility] Patient Education Medications [facility] Immunizations Immunization Date Immunization Notes Care Provider Marianela montemayor 10-28-2011 Meningococcal, MCV4, unspecified conjugate formulation(groups A, C, Y and W-135) Barron Dayne TRAFFIC ENUMERATOR.[employer] TR[employer] DRIVER Work Phone: [facility] 08-14-2010 human papilloma viru s vaccine, quadrivalent Barron Dayne TRAFFIC ENUMERATOR.SE[employer] TR[employer] DRIVER Work Phone: [facility] 10-26-2009 human papilloma viru s vaccine, quadrivalent Barron Dayne TRAFFIC ENUMERATOR.[employer] TR[employer] DRIVER Work Phone: [facility] 06-03-2008 human papilloma viru s vaccine, quadrivalent Barron Dayne TRAFFIC ENUMERATOR.[employer] TR[employer] DRIVER Work Phone: [facility] 09-25-2006 Meningococcal, MCV4, unspecified conjugate formulation(groups A, C, Y and W-135) Barron Oscar TRAFFIC ENUMERATOR.[employer] DRIVER Work Phone: [facility] 09-25-2006 tetanus toxoid, redu carolyn diphtheria toxoid, and acellular pertussis vaccine, adsorbed Barron Dayne TRAFFIC ENUMERATOR.[employer] TR[employer] DRIVER Work Phone: [facility] 11-16-1998 diphtheria, tetanus toxoids and acellular pertussis vaccine Barron Oscar TRAFFIC ENUMERATOR.[employer] TR[employer] DRIVER Work Phone: [facility] 11-16-1998 trivalent poliovirus vaccine, live, oral Barron Oscar TRAFFIC ENUMERATOR.SE[employer] TR[employer] DRIVER Work Phone: [facility] 12-19-1995 diphtheria, tetanus toxoids and pertussis vaccine Barron Dayne TRAFFIC ENUMERATOR.SE[employer]IC [employer] TR[employer] DRIVER Work Phone: [facility] 12-19-1995 haemophilus influenz ae type b vaccine, conjugate unspecified formulation Barron Oscar TRAFFIC ENUMERATOR.[employer] TR[employer] DRIVER Work Phone: [facility] 12-19-1995 measles, mumps and rubella virus vaccine Barron Dayne TRAFFIC ENUMERATOR.SE[employer]IC [employer] TR[employer] DRIVER Work Phone: [facility] 08-02-1994 diphtheria, tetanus toxoids and pertussis vaccine Barron Oscar TRAFFIC ENUMERATOR.SE[employer]IC [employer] TR[employer] DRIVER Work Phone: [facility] 08-02-1994 hepatitis B vaccine, pediatric or pediatric/adolescent dosage Barron King TRAFFIC ENUMERATOR.SE[employer]IC [employer] TRUCK DRIVER Work Phone: [facility] 08-02-1994 measles, mumps and rubella virus vaccine Barron Dayne TRAFFIC ENUMERATOR.SE[employer]IC [employer] TRUCK DRIVER Work Phone: [facility] 08-02-1994 trivalent poliovirus vaccine, live, oral Barron Oscar TRAFFIC ENUMERATOR.SE[employer]IC [employer] TR[employer] DRIVER Work Phone: [facility] 05-21-1994 diphtheria, tetanus toxoids and pertussis vaccine Barron Dayne TRAFFIC ENUMERATOR.SE[employer]IC [employer] TRUCK DRIVER Work Phone: [facility] 05-21-1994 haemophilus influenz ae type b vaccine, conjugate unspecified formulation Barron Oscar TRAFFIC ENUMERATOR.SE[employer]IC [employer] TRUCK DRIVER Work Phone: [facility] 05-21-1994 hepatitis B vaccine, pediatric or pediatric/adolescent dosage Barron Oscar TRAFFIC ENUMERATOR.SE[employer]IC [employer] TRUCK DRIVER Work Phone: [facility] 05-21-1994 trivalent poliovirus vaccine, live, oral Barron Oscar TRAFFIC ENUMERATOR.SE[employer]IC [employer] TRUCK DRIVER Work Phone: [facility] 1993 diphtheria, tetanus toxoids and pertussis vaccine Barron Dayne TRAFFIC ENUMERATOR.SE[employer]IC PU[employer] TRUCK DRIVER Work Phone: [facility] 1993 haemophilus influenz ae type b vaccine, conjugate unspecified formulation Barron Oscar TRAFFIC ENUMERATOR.SE[employer]IC PU[employer] TRUCK DRIVER Work Phone: [facility] 1993 hepatitis B vaccine, pediatric or pediatric/adolescent dosage Barron Oscar TRAFFIC ENUMERATOR.SE[employer]IC [employer] TRUCK DRIVER Work Phone: [facility] 1993 trivalent poliovirus vaccine, live, oral Barron Dayne TRAFFIC ENUMERATOR.SEPTIC PU[employer] TRUCK DRIVER Work Phone: [facility] Payers Date Payer Category Payer Unknown MMO MMO [employer] PPO [id number] 2022-Present [phone] [address] [place] [address] PPO [id number] 2022 Unknown [id number] 1993 Unknown [id number] Private Health Insurance [id number] Social History Date Type Detail Facility Tobacco smoking stat us NHIS Never smoked tobacco [facility] Start: 03-13-2023 End: 05-14-2023 Alcohol intake Current non-drinker of alcohol (finding) [facility] Start: 07-05-2020 End: 03-13-2023 [facility] Start: 07-05-2020 End: 03-13-2023 Tobacco use panel [facility] National Score (1-10 0), lower number is lower risk Not on file [facility] Start: 1995 Sex Assigned At Not on file [facility] Progress note 05-14-2023 Note Date & Type Note Facility 05-14-2023 Note HNO ID: [id number] Author: Colleen Truong APRN.SE[employer]IC [employer] TR[employer] DRIVER Service: ? Author Type: Nurse Practitioner Type: Progress Notes Filed: 05/14/2023 8:45 AM Note Text: Patient came in with complaints of possible bite on right ring finger. Patient says its been about 2 days. Patient says she did poke it with a needle and tried to drain it. Patient now has a streak running up her arm past her wrist. At this time patient is being referred to the emergency room for full evaluation. Patient was okay with this care plan. Will take her self. [facility] History of Present illness Narrative 05-14-2023 Colleen Truong APRN.SE[employer]IC [employer] TR[employer] DRIVER - 05/14/2023 8:44 AM EDT Note Date & Type Note Facility 05-14-2023 History of Presen t illness Narrative Patient came in with complaints of possible bite on right ring finger. Patient says its been about 2 days. Patient says she did poke it with a needle and tried to drain it. Patient now has a streak running up her arm past her wrist. At this time patient is being referred to the emergency room for full evaluation. Patient was okay with this care plan. Will take her self. documented in this encounter [facility] Progress note 03-13-2023 Note Date & Type Note Facility 03-13-2023 Note HNO ID: [id number] Author: Barron Oscar APRN.RADHA Service: ? Author Type: Nurse Practitioner Type: Progress Notes Filed: 03/13/2023 7:43 AM Note Text: Subjective HPI HPI Mono David is a 27 year old female who presents today for CC of st, fever, ear pain, h/a. This started 3 days ago. Has tried otc medication for relief. Symptoms are worsened by nothing. Risk factors strep exposures at home. Nonsmoker. Denies possibility of being . .Patient presents with: Sore Throat: Fever, WHITNEY, bilateral ear pain x 3 days PAST MEDICAL HISTORY Diagnosis Date PMH - PAST MEDICAL HISTORY OF 1999 fracture skull AND orbital bones,frx. right arm - age 6yrs - fell out of barn onto cement Sprain of ankle Unspecified conductive hearing loss 2009 kicked by horse in the head - concussion at this time also Varicella PAST SURGICAL HISTORY Procedure Laterality Date PAST SURGICAL HISTORY OF 9th grade - left wrist surgery - pin 4 cates accicent ALLERGIES Patient has no known allergies. MEDICATIONS Levonorgestrel-Ethinyl Estrad (AVIANE) 0.1mg - 20mcg per tablet Take 1 tablet by mouth once daily. (Patient not taking: Reported on 03/13/2023) AVIANE 0.1-20 mg-mcg per tablet TAKE ONE TABLET BY MOUTH ONCE DAILY (Patient not taking: Reported on 03/13/2023) albuterol HFA 90 mcg/actuation INHALATION inhaler Inhale as instructed. 2 puffs 15 to 20 minutes pre-exercise prn (Patient not taking: Reported on 07/18/2019 ) FAMILY HISTORY Problem Relation Age of Onset Headache Mother Hypertension Mother Social History Tobacco Use Smoking status: Never Smokeless tobacco: Never Substance Use Topics Alcohol use: No Drug use: No Review of Systems Constitutional: Positive for fever. HENT: Positive for congestion, ear pain and sore throat. Negative for nosebleeds. Respiratory: Negative for cough, shortness of breath and wheezing. Musculoskeletal: Negative for neck pain. Skin: Negative for itching and rash. Objective Blood pressure 102/60, pulse 111, temperature 37.4 ?C (99.3 ?F), resp. rate 21, weight 71.4 kg (157 lb 6.4 oz), last menstrual period 05/06/2016, SpO2 99 %. Physical Exam Constitutional: General: She is not in acute distress. Appearance: She is not toxic-appearing or diaphoretic. HENT: Head: Normocephalic and atraumatic. Right Ear: Hearing, tympanic membrane, ear canal and external ear normal. Left Ear: Hearing, tympanic membrane, ear canal and external ear normal. Nose: Congestion present. Mouth/Throat: Pharynx: Uvula midline. Posterior oropharyngeal erythema present. No pharyngeal swelling, oropharyngeal exudate or uvula swelling. Tonsils: 2+ on the right. 2+ on the left. Eyes: General: Lids are normal. No scleral icterus. Right eye: No discharge. Left eye: No discharge. Conjunctiva/sclera: Conjunctivae normal. Pupils: Pupils are equal, round, and reactive to light. Neck: Trachea: Trachea normal. Cardiovascular: Rate and Rhythm: Normal rate and regular rhythm. Heart sounds: Normal heart sounds. Pulmonary: Effort: Pulmonary effort is normal. Breath sounds: Normal breath sounds. Musculoskeletal: Cervical back: Normal range of motion and neck supple. Lymphadenopathy: Cervical: Cervical adenopathy present. Right cervical: Superficial cervical adenopathy present. Left cervical: Superficial cervical adenopathy present. Skin: Findings: No rash. Neurological: Mental Status: She is alert and oriented to person, place, and time. ASSESSMENT/PLAN: 1. Strep throat - ICD9: 034.0, ICD10: J02.0 (primary diagnosis) - suspect strep - Group A strep molecular testing positive - antibiotic as written - Discussed supportive care treatment with fluids, rest and analgesia. - The patient should follow up in 3-5 days if symptoms persist or worsen - Call back if drooling, increased temperature, symptoms of dehydration and/or still sick in one week - AMOXICILLIN 500 MG CAPSULE 2. Sore throat - ICD9: 462, ICD10: J02.9 Pos, strep - STREP A MOLECULAR (POC) Barron Oscar APRN.[facility] History of Present illness Narrative 03-13-2023 Barron Oscar APRN.SE[employer]IC [employer] TRUCK DRIVER - 03/13/2023 7:17 AM EDT Note Date & Type Note Facility 03-13-2023 History of Presen t illness Narrative Subjective HPI HPI Mono David is a 27 year old female who presents today for CC of st, fever, ear pain, h/a. This started 3 days ago. Has tried otc medication for relief. Symptoms are worsened by nothing. Risk factors strep exposures at home. Nonsmoker. Denies possibility of being . .Patient presents with: Sore Throat: Fever, WHITNEY, bilateral ear pain x 3 days PAST MEDICAL HISTORY Diagnosis Date PMH - PAST MEDICAL HISTORY OF 1999 fracture skull & orbital bones,frx. right arm - age 6yrs - fell out of barn onto cement Sprain of ankle Unspecified conductive hearing loss 2009 kicked by horse in the head - concussion at this time also Varicella PAST SURGICAL HISTORY Procedure Laterality Date PAST SURGICAL HISTORY OF 9th grade - left wrist surgery - pin 4 cates accicent ALLERGIES Patient has no known allergies. MEDICATIONS Levonorgestrel-Ethinyl Estrad (AVIANE) 0.1mg - 20mcg per tablet Take 1 tablet by mouth once daily. (Patient not taking: Reported on 03/13/2023) AVIANE 0.1-20 mg-mcg per tablet TAKE ONE TABLET BY MOUTH ONCE DAILY (Patient not taking: Reported on 03/13/2023) albuterol HFA 90 mcg/actuation INHALATION inhaler Inhale as instructed. 2 puffs 15 to 20 minutes pre-exercise prn (Patient not taking: Reported on 07/18/2019 ) FAMILY HISTORY Problem Relation Age of Onset Headache Mother Hypertension Mother Social History Tobacco Use Smoking status: Never Smokeless tobacco: Never Substance Use Topics Alcohol use: No Drug use: No Review of Systems Constitutional: Positive for fever. HENT: Positive for congestion, ear pain and sore throat. Negative for nosebleeds. Respiratory: Negative for cough, shortness of breath and wheezing. Musculoskeletal: Negative for neck pain. Skin: Negative for itching and rash. Objective Blood pressure 102/60, pulse 111, temperature 37.4 C (99.3 F), resp. rate 21, weight 71.4 kg (157 lb 6.4 oz), last menstrual period 05/06/2016, SpO2 99 %. Physical Exam Constitutional: General: She is not in acute distress. Appearance: She is not toxic-appearing or diaphoretic. HENT: Head: Normocephalic and atraumatic. Right Ear: Hearing, tympanic membrane, ear canal and external ear normal. Left Ear: Hearing, tympanic membrane, ear canal and external ear normal. Nose: Congestion present. Mouth/Throat: Pharynx: Uvula midline. Posterior oropharyngeal erythema present. No pharyngeal swelling, oropharyngeal exudate or uvula swelling. Tonsils: 2+ on the right. 2+ on the left. Eyes: General: Lids are normal. No scleral icterus. Right eye: No discharge. Left eye: No discharge. Conjunctiva/sclera: Conjunctivae normal. Pupils: Pupils are equal, round, and reactive to light. Neck: Trachea: Trachea normal. Cardiovascular: Rate and Rhythm: Normal rate and regular rhythm. Heart sounds: Normal heart sounds. Pulmonary: Effort: Pulmonary effort is normal. Breath sounds: Normal breath sounds. Musculoskeletal: Cervical back: Normal range of motion and neck supple. Lymphadenopathy: Cervical: Cervical adenopathy present. Right cervical: Superficial cervical adenopathy present. Left cervical: Superficial cervical adenopathy present. Skin: Findings: No rash. Neurological: Mental Status: She is alert and oriented to person, place, and time. ASSESSMENT/PLAN: 1. Strep throat - ICD9: 034.0, ICD10: J02.0 (primary diagnosis) - suspect strep - Group A strep molecular testing positive - antibiotic as written - Discussed supportive care treatment with fluids, rest and analgesia. - The patient should follow up in 3-5 days if symptoms persist or worsen - Call back if drooling, increased temperature, symptoms of dehydration and/or still sick in one week - AMOXICILLIN 500 MG CAPSULE 2. Sore throat - ICD9: 462, ICD10: J02.9 Pos, strep - STREP A MOLECULAR (POC) Barron Oscar APRN.SEPTIC PU[employer] TRUCK DRIVER documented in this encounter [facility] History of Past illness Narrative 04-26-2008 Note Date & Type Note Facility documented as of this encounter (statuses as of 03/13/2023) [facility] History of Past illness Narrative 04-26-2008 Note Date & Type Note Facility documented as of this encounter (statuses as of 05/14/2023) [facility] Evaluation note Note Date & Type Note Facility documented in this encounter [facility] Evaluation note Note Date & Type Note Facility documented in this encounter [facility] Summary Purpose Family History No Family History Records FoundNo Family History Records Found Advance Directives No Advanced Directives Records FoundNo Advanced Directives Records Found Additional Source Comments INFORMATION SOURCE (unrecogn ized section and content) DATE CREATED AUTHOR AUTHOR'S ORGANIZ ATION 05/15/2023 [facility] Source Comments (unrecognize d section and content) In the event this informatio n is protected by the Federal Confidentiality of Alcohol and Drug Abuse Patient Records regulations: The Federal rules restrict any use of the information to criminally investigate or prosecute any alcohol or drug abuse patient.[facility] the event this information is protected by the Federal Confidentiality of Alcohol and Drug Abuse Patient Records regulations: The Federal rules restrict any use of the information to criminally investigate or prosecute any alcohol or drug abuse patient.[facility] Reason for Visit (unrecogniz ed section and content) Reason Comments Insect Bite Bug bite on right [place] nd ring finger x 2 days FOR RECORDS PERTAINING TO PATIENTS WHO ARE OR HAVE BEEN ENROLLED IN A CHEMICAL DEPENDENCY/SUBSTANCEABUSE PROGRAM, SOME INFORMATION MAY BE OMITTED. This clinical summary was aggregated from multiple sources. Caution should be exercised in using it in the provision of clinical care. This summary normalizes information from multiple sources, and as a consequence, information in this document may materially change the coding, format and clinical context of patient data. In addition, data may be omitted in some cases. CLINICAL DECISIONS SHOULD BE BASED ON THE PRIMARY CLINICAL RECORDS. [facility] [employer] [facility]. provides no warranty or guarantee of the accuracy or completeness of information in this document.
[2023-08-12 08:36] LABS: Absolute Lymphocyte Count 2.13 X10^3/uL (0.83-4.51); Absolute Neutrophil Count 6.2 X10^3/uL (2.0-7.7); Basophil# 0.04 X10^3/uL; Basophil% 0.4 % (0-1); Eosinophil# 0.09 X10^3/uL; Hematocrit 39.3 % (37-47); Hemoglobin 13.5 g/dL (12.0-15.0); Lymphocyte # 2.13 X10^3/ul (0.83-4.51); Lymphocyte % 23.6 % (19-41); Mean Corp Hgb Conc 34.4 g/dL (32-36); Mean Corpuscular Hgb 29.6 pg (27.0-32.0); Mean Corpuscular Volume 86.2 fL (81-99); Mean Platelet Vol. 10.3 fl (6.2-12.0); Monocyte# 0.56 X10^3/uL; Monocyte% 6.2 % (0-10); NRBC Flagged by Analyzer 0 % (0-5); Neutrophil % 68.6 % (47-70); Platelet Count 238 K/mm3 (150-450); RBC Distribution Width CV 12.7 % (11.6-14.6); RBC Distribution Width SD 39.5 fl (35.1-43.9); Red Blood Count 4.56 M/mm3 (4.2-5.4)
[2023-08-12 09:38] LABS: HIV - WCH Non-Reactive (Nonreactive); Hepatitis B Surface Antigen Non-Reactive (Nonreactive); Hepatitis C Antibody Non-Reactive (Nonreactive); Rubella IgG Reactive (Nonreactive); Syphilis Antibodies Non-reactive
== END | disposition home or self-care (01) ==
LOC: LAB 07:10
PROVIDERS: Referring Provider Registered Nurse; Visit Provider Registered Nurse
DX: Z34.90 Encounter for supervision of normal pregnancy, unspecified, unspecified trimester (principal)
CPT/HCPCS: 36415; 85025; 86703; 86762; 86780; 86803; 86850; 86900; 86901; 87340

== ENCOUNTER → 2023-11-25 | Outpatient (CLI) | payer OTHER, SELFPAY ==
[2023-11-25 08:26] LABS: Absolute Lymphocyte Count 1.56 X10^3/uL (0.83-4.51); Absolute Neutrophil Count 7.1 X10^3/uL (2.0-7.7); Basophil# 0.03 X10^3/uL; Basophil% 0.3 % (0-1); Eosinophil# 0.07 X10^3/uL; Eosinophils% 0.8 % (0-5); Hematocrit 35.5 % (37-47); Hemoglobin 11.9 g/dL (12.0-15.0); Lymphocyte # 1.56 X10^3/ul (0.83-4.51); Mean Corp Hgb Conc 33.5 g/dL (32-36); Mean Corpuscular Hgb 28.5 pg (27.0-32.0); Mean Corpuscular Volume 85.1 fL (81-99); Mean Platelet Vol. 9.5 fl (6.2-12.0); Monocyte# 0.34 X10^3/uL; Monocyte% 3.7 % (0-10); NRBC Flagged by Analyzer 0 % (0-5); Neutrophil # 7.11 X10^3/uL (2.7-7.7); Neutrophil % 77.7 % (47-70); Platelet Count 236 K/mm3 (150-450); RBC Distribution Width CV 12.6 % (11.6-14.6); RBC Distribution Width SD 38.6 fl (35.1-43.9); Red Blood Count 4.17 M/mm3 (4.2-5.4); White Blood Count 9.2 K/mm3 (4.4-11.0)
[2023-11-25 08:38] LABS: Glucose Challenge Gest 1H 50g 102 mg/dL (70-140)
[2023-11-25 09:48] LABS: HIV - WCH Non-Reactive (Nonreactive); Syphilis Antibodies Non-reactive
== END | disposition home or self-care (01) ==
LOC: PAVLAB 08:03
PROVIDERS: Referring Provider Obstetrics & Gynecology; Visit Provider Obstetrics & Gynecology
DX: O43.119 Circumvallate placenta, unspecified trimester (principal); O09.91 Supervision of high risk pregnancy, unspecified, first trimester; O09.299 Supervision of pregnancy with other poor reproductive or obstetric history, unspecified trimester; O26.899 Other specified pregnancy related conditions, unspecified trimester; Z67.91 Unspecified blood type, Rh negative; Z3A.00 Weeks of gestation of pregnancy not specified; Z13.1 Encounter for screening for diabetes mellitus
CPT/HCPCS: 36415; 82950; 85025; 86703; 86780; 86850; 86900; 86901

== ENCOUNTER 2024-02-13 02:56 | Inpatient (IN) | payer OTHER, SELFPAY ==
[2024-02-13] VITALS (32 sets, daily range): BP systolic 104–153; BP diastolic 56–79; PULSE 57–90; RESP 14–18; TEMP 36.4–36.9; O2SAT 92–100; BMI 25.7
[2024-02-13] MEDS: Oxytocin 10 UNITS/ML Vial IM (03:07)
--- NOTE | 2024-02-13 03:12 | HP.PCM.OB_ITS ---
HPI - General General Date of Admission: 02/13/24 HPI Narrative MONO SANTO, is a 28 y/o @ 39 weeks 6 days who presents to L&D in active labor completely dilated. Maternal Data Information TASHI Calculator Estimated Delivery Date Method Current WG Current Estimate 02/14/24 LMP (Certain) 39w 6d PFSH PFS Medical History Vaginal delivery Rh negative status during Home Medications ?Medication ?Instructions ?Recorded ?Last Taken ?Type multivitamin no.47-iron fum 27 1 cap PO DAILY 06/20/20 09/04/22 08:00 History mg-folate no.1 1 mg-dha 300 mg capsule (PNV-DHA) Allergy/AdvReac Type Severity Reaction Status Date / Time No Known Allergies Allergy Verified 02/12/24 08:30 Family History Grandmother Diabetes Surgical History History of dilation and curettage S/P wrist surgery S/P ear surgery Social History adopted: No household members: spouse and children number of children: 2 current occupational status: employed current occupation: [employer] current occupational exposures/hazards: No pets and animals: Yes pets and animals: dog(s) history of recent travel: No sexually active: Yes Smoking Status: Never smoker alcohol intake: never substance use type: does not use well-balanced diet: daily or most days caffeine: Yes Type: coffee Number of servings: 1 eating out: rarely or never during the past year weight has: remained stable what type of physical activity do you participate in: walking frequency: daily sea/shinto: None seatbelt use: always do you feel safe at home: Yes additional social history: - Sami History 4 Elective abortions Hx Para 2 Spontaneous abortions 1 Hx # Term Pregnancies 1 Ectopic pregnancies Hx # Pregnancies Multiple births # of living children 2 Past Pregnancies Del. Date Name GA/Weeks Outcome Route Bth Weight Gen Labor Lgth Anesthesia Del Locatn Provider FOB Unknown 06/2020- Blighted ovum 06/12/21 Aguila 40 live - full term Male [facility] Tawanna Gallardo 09/05/22 Danielle 39 live - full term 8#4oz Female [facility] Delivery Date: 06/12/21 Last Updated by: Yas REO Visit Details Expected Delivery Route/Plan Labor Preferences- CB/BF classes: no labor support person: Sami labor intervention preferences: [] pain management options preferred: limited cut cord/dad catch: yes : yes PP control planned: discussed discussed possible routes of delivery and associated risks: [] special requests: [] Plans Covid status: declines Flu vaccine: declined Tdap vaccine: given Rhogam: given 11/25/23 LARC form signed: yes Problem list reviewed and updated with the most current plan of care details and appropriate orders placed. Relevant counseling for the gestational age provided. Continue routine care and follow up unless otherwise noted in visit notes/problem list details OB Flowsheet Initial Weight: Not Recorded Date -?-?-?-?-?-?-?-?-?-?-?-?- EGA Weight BP Urine Prot -?-?-?-?-?-?-?-?-?-?-?-?- Glucose FHR FuHt Pres Dilation -?-?-?-?-?-?-?-?-?-?-?-?- Effaced St Visit Note 07/11/23 -?-?-?-?-?-?-?-?-?-?-?-?- 8w 6d 157 lb 4 oz 107/70 -?-?-?-?-?-?-?-?-?-?-?-?- 171 -?-?-?-?-?-?-?-?-?-?-?-?- LC- CRL con with LMP. LC- CRL con with LMP. kika castillo nipt. 08/08/23 -?-?-?-?-?-?-?-?-?-?-?-?- 12w 6d 157 lb 115/73 Negative -?-?-?-?-?-?-?-?-?-?-?-?- Negative 170 -?-?-?-?-?-?-?-?-?-?-?-?- JV- no lof, vagi nal bleeding, or cramping. no complaints. 09/01/23 -?-?-?-?-?-?-?-?-?-?-?-?- 16w 2d 156 lb 6 oz 112/72 Nega tive -?-?-?-?-?-?-?-?-?-?-?-?- Negative 155 -?-?-?-?-?-?-?-?-?-?-?-?- -Denies VB. N o Flutters yet. Normal PN labs. [facility] US scheduled. 10/01/23 -?-?-?-?-?-?-?-?-?-?-?-?- 20w 4d 158 lb 4 oz 114/60 Nega tive -?-?-?-?-?-?-?-?-?-?-?-?- Negative 140 -?-?-?-?-?-?-?-?-?-?--?-?- JV- circumvallat e placenta, growth scans q month. no complaints today. 10/29/23 -?-?-?-?-?-?-?-?-?-?-?-?- 24w 4d 163 lb 163 lb 116/71 -?-?-?-?-?-?-?-?-?-?-?-?- 144 -?-?-?-?-?-?-?-?-?-?-?-?- JV- no lof, vagi nal bleeding, or dec fm. plan for rhogam next visit. FOB is unsure of blood type and not willing to test. mom did not do a NIPT test. JV- no lof, vaginal bleeding , or dec fm. plan for rhogam next visit. FOB is unsure of blood type and not willing to test. mom did not do a NIPT test. last growth 62nd% on 10/15. 11/25/23 -?-?-?-?-?-?-?-?-?-?-?-?- 28w 3d 165 lb 118/62 Negative -?-?-?-?-?-?-?-?-?-?-?-?- Negative 138 -?-?-?-?-?-?--?-?-?-?-?-?- MH-No VB, LOF. G ood FM. Nl 28 wk labs. [place], larc. 12/10/23 -?-?-?-?-?-?-?-?-?-?-?-?- 30w 4d 164 lb 8 oz 120/67 Nega tive -?-?-?-?-?-?-?-?--?-?-?-?- Negative 139 33 -?-?-?-?-?-?-?-?-?-?-?-?- JV- no lof, vagi nal bleeding, or cramping. ++ fm. 12/26/23 -?-?-?-?-?-?-?-?-?-?-?-?- 32w 6d 167 lb 6 oz 111/75 -?-?-?-?-?-?-?-?-?-?-?-?- 155 34 -?-?-?-?-?-?-?-?-?-?-?-?- SM- no vb lof go od fm no regular ctx 01/13/24 -?-?-?-?-?-?-?-?-?-?-?-?- 35w 3d 171 lb 2 oz 110/73 Nega tive -?-?-?-?-?-?-?-?-?-?-?-?- Negative 137 35 -?-?-?-?-?-?-?-?-?-?-?-?- JV- no lof, vagi nal bleeding, or dec fm. had scan with mfm yesterday that we dont have yet 01/30/24 -?-?-?-?-?-?-?-?-?-?-?-?- 37w 6d 173 lb 6 oz 115/76 Nega tive -?-?-?-?-?-?-?--?-?-?-?-?- Negative 130 38 Cephalic 3 -?-?-?-?-?-?-?-?-?-?-?-?- 70 -2 SM- no vb lof good fm no reuglar ctx 02/03/24 -?-?-?-?-?-?-?-?-?-?-?-?- 38w 3d 172 lb 127/81 Negative -?-?-?-?-?-?-?-?-?-?-?-?- Negative 130 37 Cephalic -?-?-?-?-?-?-?-?-?-?-?-?- SM- no vb lof go od fm no reuglar ctx - irregular cramping 02/12/24 -?-?-?-?-?-?-?-?-?-?-?-?- 39w 5d 175 lb 8 oz 127/86 Nega tive -?-?-?-?-?-?-?-?-?-?-?-?- Negative 145 38 Cephalic 4 -?-?-?-?-?-?-?-?-?-?-?-?- 80 -2 JV- no lof , vaginal bleeding, or dec fm. pt is comfortable without contractions. membranes swept today. wants to come back friday or friday for another sweep. doubt will be long. ROS Constitutional Constitutional: Denies change in weight, fatigue, fever(s), headache(s), poor appetite or weakness Eyes Eyes: Denies blurry vision, change in vision, seeing flashes or spots in vision ENT HEENT: Denies dizziness, headache(s), loss taste/smell or sore throat Cardiovascular Cardiovascular: Denies chest pain, dizziness, dyspnea, irregular heart rhythm, leg edema, palpitations, rapid heart rate or vomiting Respiratory/Chest Respiratory/Chest: Denies chest tightness, cough, dyspnea or breast pain Gastrointestinal Gastrointestinal: Denies abdominal pain, anorexia, constipation, cramping, diarrhea, hemorrhoids, vomiting or weight changes Genitourinary Genitourinary: Denies dysuria, flank pain, genital lesions, genital pain, urinary frequency or urinary urgency Musculoskeletal Musculoskeletal: Denies back pain, difficulty walking, joint pain, limited range of motion, muscle cramps or numbness Integumentary Integumentary: Denies lesions or unusual bruising Neurologic Neurologic: Denies abnormal movements, abnormal speech, dizziness, numbness, seizure-like activity or syncope Psychiatric Psychiatric: Denies anxiety, behavioral changes, change in appetite, change in libido, cognitive impairment, confusion, depression, difficulty concentrating, hallucinations or suicidal thoughts Endocrine Endocrinology: Denies excessive sweating, polydipsia or polyuria Hematologic/Lymphatic Hematologic/Lymphatic: Denies easy bleeding, easy bruising or lymphadenopathy Allergic/Immunologic Allergic/Immunologic: Denies itchy eyes, lip swelling, seasonal rhinorrhea, rhinitis, throat swelling, tongue swelling, eczemia, wheezing or asthma Vital Signs Vital Signs Vital Signs: 02/13/24 03:02 02/13/24 03:02 02/13/24 03:10 Pulse Rate 88 Blood Pressure 121/70 H 119/56 L BP Systolic 121 119 BP Diastolic 70 56 Pulse Ox 02/13/24 03:10 02/13/24 03:10 Pulse Rate 90 Blood Pressure BP Systolic BP Diastolic Pulse Ox 100 Physical Exam Const alert, oriented x3, no apparent distress and healthy appearing General Appearance: cooperative; Negative for anxious HEENT normocephalic Face and Sinus: normal facial exam Eyes EOMs intact bilaterally and no scleral icterus General Eye: normal appearance of both eyes Neck full ROM and supple Lymph Lymphatic: no lymphadenopathy noted Chest Chest: abnormal inspection of the chest Resp normal respiratory effort Effort and Inspection: able to speak in complete sentences Cardio regular rate GI soft to palpation and non-tender Inspection: gravid Palpation: soft; Negative for tender external exam normal Narrative: head is as I entered the room, see delivery dictation Back/Spine no CVA tenderness Extremity normal to inspection, full ROM and no clubbing, cyanosis or edema General Extremity: Negative for calf tenderness or edema Skin Lesions: no lesions Rashes: no rashes Psych mental status grossly normal Labs Labs Labs: Blood Type A NEGATIVE Antibody Screen NEGATIVE Hct 35.5 % (37-47) L Hgb 11.9 g/dL (12.0-15.0) L Obstetrics Ultrasound Syphilis Total Ab Non-reactive Rubella IgG Antibody Reactive (Nonreactive) Hep Bs Antigen Non-Reactive (Nonreactive) Hepatitis C Antibody Non-Reactive (Nonreactive) Chlamydia DNA (MINI) Negative (Negative) N.gonorrhoeae DNA (MINI) Negative (Negative) HIV 1&2 Antibody Non-Reactive (Nonreactive) Glucose 1 Hr 50 gm 102 mg/dL (70-140) Assessment & Plan (1) Circumvallate placenta: COMMENT: Patient prefers Doc only for delivery discussed inc risk of FGR and abruption- MFM wants growth scans q month, nl growth (2) Supervision of high risk in first trimester: COMMENT: PRR TASHI: 02/14/2024 surprise PC: Danielle Aguila. :Sami (3) History of miscarriage, currently : COMMENT: (4) : QUALIFIERS: Weeks of gestation: 39 weeks Qualified Code(s): Z3A.39 - 39 weeks gestation of COMMENT: anatomy nl, discussed genetic & carrier testing, declines (5) Rh negative status during : QUALIFIERS: Trimester: second trimester Qualified Code(s): O26.892 - Other specified related conditions, second trimester; Z67.91 - Unspecified blood type, Rh negative COMMENT: A Neg Rhogam PRN & 28 weeks
--- NOTE | 2024-02-13 03:14 | EX.PCM.OBRPT ---
Assessment & Plan (1) Circumvallate placenta: COMMENT: Patient prefers Doc only for delivery discussed inc risk of FGR and abruption- MFM wants growth scans q month, nl growth (2) Supervision of high risk in first trimester: COMMENT: PRR TASHI: 02/14/2024 surprise PC: Danielle Aguila. :Sami (3) History of miscarriage, currently : COMMENT: (4) : QUALIFIERS: Weeks of gestation: 39 weeks Qualified Code(s): Z3A.39 - 39 weeks gestation of COMMENT: anatomy nl, discussed genetic & carrier testing, declines (5) Rh negative status during : QUALIFIERS: Trimester: second trimester Qualified Code(s): O26.892 - Other specified related conditions, second trimester; Z67.91 - Unspecified blood type, Rh negative COMMENT: Curt Neg Rhogam PRN & 28 weeks Maternal Data Information TASHI Calculator Estimated Delivery Date Method Current WG Current Estimate 02/14/24 LMP (Certain) 39w 6d Final TASHI: 02/14/24 Gestational age: 39 weeks 6 days Vaginal Delivery Maternal Presentation Maternal Presentation: Active Labor Operative Information Date of Procedure: 02/13/24 Pre-Operative Diagnosis: @ 39 weeks 6 days, completely dilated Post-Operative Diagnosis: @ 39 weeks 6 days, completely dilated Surgery / Procedure Performed: Spontaneous Vaginal Delivery Type of Anesthesia: None Estimated Blood Loss: 100cc Time of Delivery: 03:04 Findings Description of Procedure: Patient began pushing and delivered the head in the OP presentation. The head was delivered atraumatically. The anterior and posterior shoulders delivered without complication followed by the rest of the infant and the infant was placed on the maternal abdomen. Delayed cord clamping was employed for approximately 60 seconds. Cord was clamped and cut and gentle traction was applied to the cord and the placenta delivered spontaneously immediately following it was noted to be intact with three-vessel cord. The perineum and vagina were inspected and noted to have no laceration. EBL was 100 cc. Patient and infant tolerated delivery well. Presentation: Vertex Amniotic Membrane Rupture Type: Spontaneous Amniotic Fluid Description: Clear Placental Delivery Description: Spontaneous Placenta Disposition: [facility] Cord Vessel Description: 3 Vessels Cord Entanglement: None Infant A Gender: Male (1 minute): 9 (5 minute): 9 Delayed Cord Clamping: Yes Post Vaginal Delivery Medications Given After Delivery: IM Pitocin Episiotomy Description: None Laceration: None Complication Complications: None Multi Select Codes Urinary/Genital Urinary/Genital CPT Codes: 23453 Vaginal Delivery [facility]
--- NOTE | 2024-02-13 03:17 | DCINST_ITS ---
Discharge Instructions Diet Discharge Diet: No restrictions Activity Discharge Activity: Return to Normal Activity, May Not Drive (while taking narcotic pain medications.) and May Shower May resume sexual activity in: 4-6 weeks Dressing / Incision Call your doctor if your incision/area has: Continuous Slow Oozing, Sudden Increased Bleeding, Increased Pain/ Swelling, Increased Redness and Foul Smelling Discharge Follow Up Care Please Follow Up With: Love Mccann, DO When: Call [phone] to make an appointment with your doctor in 6 weeks. If you had elevated blood pressure or 4th degree laceration, you will need to be seen in 2 weeks. Test Results: Test results from this visit will be discussed in further detail at your follow- up appointment, if applicable. Discharge Plan Admission Admit Date/Time: 02/13/24 02:56 Attending Provider: Love Mccann Primary Care Provider: Care Physician,Fabienne Primary Discharge Orders/Prescriptions Prescriptions: No Action PNV-DHA 27 mg iron-1 mg -300 mg capsule 1 cap PO DAILY Referrals / Follow Up: Care Physician,No Primary [Primary Care Provider] -
[2024-02-13 03:36] LABS: Absolute Lymphocyte Count 2.65 X10^3/uL (0.83-4.51); Absolute Neutrophil Count 16.3 X10^3/uL (2.0-7.7); Basophil# 0.07 X10^3/uL; Basophil% 0.3 % (0-1); Eosinophil# 0.06 X10^3/uL; Eosinophils% 0.3 % (0-5); Hematocrit 35.5 % (37-47); Hemoglobin 11.4 g/dL (12.0-15.0); Lymphocyte # 2.65 X10^3/ul (0.83-4.51); Lymphocyte % 13.1 % (19-41); Mean Corp Hgb Conc 32.1 g/dL (32-36); Mean Corpuscular Volume 80.9 fL (81-99); Mean Platelet Vol. 10.6 fl (6.2-12.0); Monocyte# 0.91 X10^3/uL; Monocyte% 4.5 % (0-10); NRBC Flagged by Analyzer 0 % (0-5); Neutrophil # 16.31 X10^3/uL (2.7-7.7); Neutrophil % 80.9 % (47-70); Platelet Count 210 K/mm3 (150-450); RBC Distribution Width CV 13.1 % (11.6-14.6); RBC Distribution Width SD 38.3 fl (35.1-43.9); Red Blood Count 4.39 M/mm3 (4.2-5.4); White Blood Count 20.2 K/mm3 (4.4-11.0)
[2024-02-13 04:14] LABS: Syphilis Antibodies Non-reactive
[2024-02-14 00:45] VITALS: BP 105/59; PULSE 72; RESP 18; TEMP 36.4; O2SAT 98
[2024-02-14 03:45] VITALS: BP 104/58; PULSE 65; RESP 16; TEMP 36.7; O2SAT 98
[2024-02-14 09:00] VITALS: BP 106/64; PULSE 82; RESP 16; TEMP 36.8; O2SAT 98
--- NOTE | 2024-02-14 10:12 | PN.OBGYN_ITS ---
Subjective Subjective Patient doing well without complaints. Tolerating PO. Ambulating and voiding without difficulty. Feeding well. Denies chest pain, shortness of breath, calf pain/swelling, fevers, chills, lightheadedness. Objective Data Objective Data Vital Signs: Vital Signs Temp Pulse Resp BP Pulse Ox O2 Del Method 98.3 F 82 16 106/64 98 Room Air 02/14/24 09:00 02/14/24 09:00 02/14/24 09:00 02/14/24 09:00 02/14/24 09:00 02/14/24 09:00 Oxygen Delivery Method Room Air Weight: 174 lb Body Mass Index (BMI) 25.7 Intake & Output: Intake and Output for Last 24 Hours 02/12/24 02/13/24 02/14/24 23:59 23:59 23:59 Output Total 1900 / 1900 Balance -1900 / -1900 Lab / Micro Data 02/13/24 03:19 ROS Constitutional Constitutional: Denies chills, fatigue, fever(s), poor appetite or weakness Eyes Eyes: Denies blurry vision, change in vision, seeing flashes or spots in vision ENT HEENT: Denies dizziness, headache(s), loss taste/smell or sore throat Cardiovascular Cardiovascular: Denies chest pain, dizziness, dyspnea, irregular heart rhythm, palpitations or rapid heart rate Respiratory/Chest Respiratory/Chest: Denies chest tightness, cough, dyspnea or breast pain Gastrointestinal Gastrointestinal: Denies abdominal pain, constipation or vomiting Genitourinary Genitourinary: Denies dysuria or flank pain Musculoskeletal Musculoskeletal: Denies difficulty walking, joint pain, limited range of motion or numbness Neurologic Neurologic: Denies abnormal movements, abnormal speech, dizziness, numbness, seizure-like activity or syncope Psychiatric Psychiatric: Denies anxiety, behavioral changes, change in appetite, confusion, depression or suicidal thoughts Physical Exam Const alert, oriented x3 and no apparent distress General Appearance: cooperative and comfortable Resp normal respiratory effort Cardio regular rate GI normal to inspection, nondistended, normoactive bowel sounds GI Narrative: uterus is firm below umbilicus Palpation: soft Back/Spine no CVA tenderness and thoraco-lumbar ROM normal Extremity normal to inspection, no clubbing, cyanosis or edema, no calf tenderness and no pedal edema Psych mental status grossly normal, thought process normal, cooperative, affect normal, speech normal, activity/motor behavior normal, denies homicidal ideation and denies suicidal ideation Assessment & Plan (1) Circumvallate placenta: COMMENT: Patient prefers Doc only for delivery discussed inc risk of FGR and abruption- MFM wants growth scans q month, nl growth (2) Rh negative status during : QUALIFIERS: Trimester: second trimester Qualified Code(s): O 26.892 - Other specified related conditions, second trimester; Z67.91 - Unspecified blood type, Rh negative COMMENT: A Neg Rhogam PRN & 28 weeks (3) Status post vaginal delivery: COMMENT: Boy, VINNIE- 02/13/24. name LARA
[2024-02-14 14:00] VITALS: BP 110/59; PULSE 66; RESP 16; TEMP 36.7; O2SAT 100
== END 2024-02-14 14:20 | disposition home or self-care (01) | DRG 807 ==
PROVIDERS: Admitting Provider Obstetrics & Gynecology; Referring Provider Obstetrics & Gynecology; Visit Provider Obstetrics & Gynecology
DX: O43.113 Circumvallate placenta, third trimester (principal); Z37.0 Single live birth; O26.23 Pregnancy care for patient with recurrent pregnancy loss, third trimester; Z3A.39 39 weeks gestation of pregnancy; Z67.91 Unspecified blood type, Rh negative
CPT/HCPCS: 59050; 85025; 86780; 86850; 86900; 86901; 99221; G0378

== ENCOUNTER → 2024-03-22 | Outpatient (CLI) | payer OTHER, SELFPAY ==
[2024-03-26 11:09] LABS: HPV APTIMA, High Risk Negative (Negative)
== END | disposition home or self-care (01) ==
LOC: LABSPEC 16:26
PROVIDERS: Referring Provider Obstetrics & Gynecology; Visit Provider Obstetrics & Gynecology
DX: Z12.4 Encounter for screening for malignant neoplasm of cervix (principal)
CPT/HCPCS: 87624; 88175; G0145

== ENCOUNTER → 2024-07-30 | Outpatient (CLI) | payer OTHER, SELFPAY ==
[2024-07-30 17:24] LABS: hCG Titer Quant., Serum 3279 mIU/mL (1-3)
== END | disposition home or self-care (01) ==
PROVIDERS: Referring Provider Advanced Practice Midwife; Visit Provider Advanced Practice Midwife
DX: N91.2 Amenorrhea, unspecified (principal)
CPT/HCPCS: 36415; 84702

== ENCOUNTER → 2024-08-01 | Outpatient (CLI) | payer OTHER, SELFPAY ==
[2024-08-01 16:59] LABS: hCG Titer Quant., Serum 5525 mIU/mL (1-3)
== END | disposition home or self-care (01) ==
PROVIDERS: Referring Provider Advanced Practice Midwife; Visit Provider Advanced Practice Midwife
DX: N91.2 Amenorrhea, unspecified (principal)
CPT/HCPCS: 36415; 84702

== ENCOUNTER → 2024-08-03 | Outpatient (CLI) | payer OTHER, SELFPAY ==
--- NOTE | 2024-08-03 10:52 | US_ITS ---
STUDY: FIRST TRIMESTER OBSTETRICAL ULTRASOUND REASON FOR EXAM: Female, 29 years old check viability, early LMP: Unknown. TECHNIQUE: Transvaginal TECHNICAL QUALITY: Adequate. PRIOR ULTRASOUND: None. FINDINGS: There is visualization of a single gestational sac in a normal intrauterine position. The mean sac diameter (MSD) measures 1.1 cm, indicating an estimated gestational age (EGA) of 5 weeks, 6 days. The gestational sac shape is within normal limits. There is a visualized yolk sac. The yolk sac measures 3 mm. The placenta is non-visualized. There is visualization of a live embryo. The crown-rump length (CRL) measures 3 mm, indicating an estimated gestational age (EGA) of 6 weeks, 1 days. There is demonstrated cardiac activity with a heart rate of 140 bpm. The estimated gestation age (EGA) by US is 6 weeks, 0 days. The estimated date of delivery (TASHI) by US is March 29, 2025. The uterus measures 9 cm x 7.5 cm x 5.3 cm. Findings suggestive of a 1.3 cm x 0.8 cm x 0.6 cm subchorionic bleed. There is no demonstrated uterine fibroid. The cervix is closed. The right ovary measures 3.5 cm x 2.7 cm x 1.8 cm a follicle is seen within the right ovary measuring 1.7 cm x 1.17 x 1 cm.. There is no right ovarian cyst. There is no visualized right adnexal mass or complex lesion. The left ovary measures 3.2 cm x 1.7 cm x 1.9 cm. There is no left ovarian cyst. There is no visualized left adnexal mass or complex lesion. There is no fluid in the cul de sac. US/Transvaginal w/Preg US IMPRESSION: Single live uterine gestation with a mean gestational age of 6 weeks. Findings suggestive of a small subchorionic bleed. Electronically Signed: Yannick Batista MD at 14:22 EST ,
== END | disposition home or self-care (01) ==
LOC: US 10:50
PROVIDERS: Referring Provider Advanced Practice Midwife; Visit Provider Advanced Practice Midwife
DX: O09.299 Supervision of pregnancy with other poor reproductive or obstetric history, unspecified trimester (principal); Z3A.00 Weeks of gestation of pregnancy not specified
CPT/HCPCS: 76817

== ENCOUNTER → 2024-09-06 | Outpatient (CLI) | payer OTHER, SELFPAY ==
[2024-09-06 18:15] LABS: Syphilis Antibodies Non-reactive
[2024-09-06 18:23] LABS: HIV - WCH Non-Reactive (Nonreactive); Hepatitis B Surface Antigen Non-Reactive (Nonreactive); Hepatitis C Antibody Non-Reactive (Nonreactive); Rubella IgG Reactive (Nonreactive)
[2024-09-06 19:14] LABS: Absolute Lymphocyte Count 2.05 X10^3/uL (0.83-4.51); Absolute Neutrophil Count 8.1 X10^3/uL (2.0-7.7); Basophil# 0.03 X10^3/uL; Basophil% 0.3 % (0-1); Eosinophil# 0.08 X10^3/uL; Eosinophils% 0.7 % (0-5); Hematocrit 37.8 % (37-47); Hemoglobin 12.5 g/dL (12.0-15.0); Lymphocyte # 2.05 X10^3/ul (0.83-4.51); Lymphocyte % 18.5 % (19-41); Mean Corp Hgb Conc 33.1 g/dL (32-36); Mean Corpuscular Volume 84.6 fL (81-99); Mean Platelet Vol. 10.7 fl (6.2-12.0); Monocyte# 0.79 X10^3/uL; Monocyte% 7.1 % (0-10); NRBC Flagged by Analyzer 0 % (0-5); Neutrophil # 8.07 X10^3/uL (2.7-7.7); Platelet Count 233 K/mm3 (150-450); RBC Distribution Width CV 13.3 % (11.6-14.6); RBC Distribution Width SD 41.1 fl (35.1-43.9); Red Blood Count 4.47 M/mm3 (4.2-5.4); White Blood Count 11.1 K/mm3 (4.4-11.0)
[2024-09-09 06:08] LABS: Chlamydia By Nucleic Acid AMP Negative (Negative); Gonococcus By Nucleic Acid AMP Negative (Negative)
== END | disposition home or self-care (01) ==
PROVIDERS: Referring Provider Obstetrics & Gynecology; Visit Provider Obstetrics & Gynecology
DX: O09.90 Supervision of high risk pregnancy, unspecified, unspecified trimester (principal); Z3A.00 Weeks of gestation of pregnancy not specified
CPT/HCPCS: 36415; 85025; 86703; 86762; 86780; 86803; 86850; 86900; 86901; 87077; 87086; 87088; 87340; 87491; 87591

== ENCOUNTER → 2025-01-05 | Outpatient (CLI) | payer OTHER, SELFPAY ==
[2025-01-05 12:12] LABS: Absolute Lymphocyte Count 1.22 X10^3/uL (0.83-4.51); Absolute Neutrophil Count 9.4 X10^3/uL (2.0-7.7); Basophil# 0.03 X10^3/uL; Basophil% 0.3 % (0-1); Eosinophil# 0.08 X10^3/uL; Eosinophils% 0.7 % (0-5); Hematocrit 34.4 % (37-47); Hemoglobin 11.3 g/dL (12.0-15.0); Lymphocyte # 1.22 X10^3/ul (0.83-4.51); Lymphocyte % 10.6 % (19-41); Mean Corp Hgb Conc 32.8 g/dL (32-36); Mean Corpuscular Hgb 28.6 pg (27.0-32.0); Mean Corpuscular Volume 87.1 fL (81-99); Mean Platelet Vol. 9.9 fl (6.2-12.0); Monocyte% 6.1 % (0-10); NRBC Flagged by Analyzer 0 % (0-5); Neutrophil # 9.39 X10^3/uL (2.7-7.7); Neutrophil % 81.6 % (47-70); Platelet Count 253 K/mm3 (150-450); RBC Distribution Width CV 12.7 % (11.6-14.6); RBC Distribution Width SD 40.3 fl (35.1-43.9); Red Blood Count 3.95 M/mm3 (4.2-5.4); White Blood Count 11.5 K/mm3 (4.4-11.0)
[2025-01-05 13:42] LABS: Glucose Challenge Gest 1H 50g 85 mg/dL (70-140); HIV Nonreactive (Nonreactive); Syphilis Antibodies Nonreactive (Nonreactive)
== END | disposition home or self-care (01) ==
PROVIDERS: Advanced Practice Midwife; Referring Provider Obstetrics & Gynecology; Visit Provider Obstetrics & Gynecology
DX: O09.92 Supervision of high risk pregnancy, unspecified, second trimester (principal); O26.892 Other specified pregnancy related conditions, second trimester; Z67.91 Unspecified blood type, Rh negative; Z3A.23 23 weeks gestation of pregnancy; Z13.1 Encounter for screening for diabetes mellitus
CPT/HCPCS: 36415; 82950; 85025; 86703; 86780; 86850; 86900; 86901

== ENCOUNTER → 2025-03-03 | Outpatient (CLI) | payer OTHER, SELFPAY | END | disposition home or self-care (01) | LOC: LABSPEC 15:56 | PROVIDERS: Visit Provider Obstetrics & Gynecology | DX: O09.93 Supervision of high risk pregnancy, unspecified, third trimester (principal); Z3A.00 Weeks of gestation of pregnancy not specified | CPT/HCPCS: 87081 ==

== ENCOUNTER → 2025-03-11 | Outpatient (CLI) | payer OTHER, SELFPAY ==
--- NOTE | 2025-03-11 15:48 | US_ITS ---
PROCEDURE: OB LIMITED WITH BIOMETRICS 03/11/2025 REASON FOR EXAM: GROWTH AND DATES TECHNIQUE: OB LIMITED WITH BIOMETRICS FINDINGS Number: 1 Position: Cephalic Placental Position: Posterior Placental Abnormalities: None. Not low-lying placenta grade 2. DIMENSIONS: Biparietal Diameter: 9.0/36 weeks, 2 days Head Circumference: 32.8 cm/37 weeks, 2 days Abdominal Circumference: 35.3 cm/39 weeks, 2 days Femur Length: 7.2 cm/36 weeks, 6 days ESTIMATED WEIGHT: 3446 +/-517 ESTIMATED WEIGHT PERCENTILE (24+ weeks): 78 % ESTIMATED GESTATIONAL AGE: Baseline: 37 weeks, 3 days By Ultrasound: 37 weeks, 5 days ESTIMATED DATE OF DELIVERY: Baseline: March 29, 2025 By Ultrasound: March 27, 2025 BIOPHYSICAL ASSESSMENT: Amniotic Fluid Volume: 6.39 deepest pocket Amniotic Fluid Index: 12.8 (8-24 cm normal range) Cardiac Motion: 155 bpm (average) Trunk and Limb Motion: Present. MATERNAL ANATOMY: Adnexa: Neither maternal ovary is successfully identified. Cervical Length (if measured): US/OB Limited With Biometrics IMPRESSION: Total biophysical profile score 8/8 Reading [facility]
--- OUTSIDE RECORDS SUMMARY | 2025-03-11 20:08 | XMS RPT_ITS | CCD ---
Author Organization [facility] Care Team Providers Care Ore Trimmer Name Role Phone Chanel Stacy MD Unavailable [phone] Care Physician, No Primary Primary Care Provider Unavailable Care Physician, No Primary Referring Provider Un available Dr. Chanel Stacy Attending Provider [phone] Care Physician, No Primary Primary Care Provider Unavailable Care Physician, No Primary Referring Provider Un available Dr. Chanel Stacy Attending Provider [phone] JUSTEN Wallace Attending Provider [phone] Dr. Love Mccann Attending Provider [phone] Aiyana COURT SECURITY OFFICER, SVETA-Maria Del Rosario Leiva Attending Provider [phone] Care Physician, No Primary Primary Care Provider Unavailable Care Physician, No Primary Referring Provider Un available Dr. Chanel Stacy Attending Provider [phone] Care Physician, No Primary Primary Care Provider Unavailable Care Physician, No Primary Referring Provider Un available Dr. Chanel Stacy Admit Provider [phone] Dr. Chanel Stacy Other Provider [phone] JUSTEN Wallace Attending Provider Unavailable Primary Care Provider Unavailabl e Care Physician, No Primary Primary Care Provider Unavailable Care Physician, No Primary Referring Provider Un available JUSTEN Wallace Attending Provider Care Physician, No Primary Primary Care Provider Unavailable Care Physician, No Primary Referring Provider Un available Dr. Love Mccann Attending Provider [phone] SECURITY OFFICER, SVETA-Maria Del Rosario Leiva Attending Provider [phone] FRANCISCA PATTON Attending Unavailable NO PRIMARY CARE, Primary Care Unavailable LOVE PHAM Referring Unavailab le LOVE PHAM Referring Unavailab le NO PRIMARY CARE, Primary Care Unavailable LOVE PHAM Attending Unavailab VICENTE Cobos Attending Unavailable NO PRIMARY CARE, Primary Care Unavailable LOVE PHAM Referring Unavailab le NO PRIMARY CARE, Primary Care Unavailable ZANA WRAY Attending Unavailable LOVE PHAM Referring Unavailab le NO PRIMARY CARE, Primary Care Unavailable ZANA WRAY Attending Unavailable LOVE PHAM Referring Unavailab le Care Physician, No Primary Primary Care Provider Unavailable Care Physician, No Primary Referring Provider Un available Tawanna EDDY, Dr. Buchanan Attending Provider [phone] Abbie Cantu Attending Provider [phone] Rylee Beavers CNM Attending Provider [phone] Dr. Chanel Stacy MD Referring Provider [phone] Dr. Love Mccann DO Attending Provider Care Physician, No Primary Primary Care Provider Unavailable Care Physician, No Primary Referring Provider Un available Dr. Chanel Stacy MD Attending Provider [phone] Care Physician, No Primary Primary Care Provider Unavailable Care Physician, No Primary Referring Provider Un available Abbie Cantu Attending Provider [phone] Carmencita Monte Attending Unavailable Care Physician, No Primary Primary Care Unava ilable Care Physician, No Primary Primary Care Unava ilable Chanel Stacy Attending Unavailable Care Physician, No Primary Referring Unava ilable Care Physician, No Primary Primary Care Unava ilable Abbie Bronson NP Attending Unavailable Care Physician, No Primary Referring Unava ilable Care Physician, No Primary Primary Care Unava ilable Care Physician, No Primary Referring Unava ilable Rylee Beavers Attending Unavailable Care Physician, No Primary Primary Care Unava ilable Care Physician, No Primary Referring Unava ilable Chanel Stacy Attending Unavailable Love Mccann Attending Unavailabl e Care Physician, No Primary Primary Care Unava ilable Care Physician, No Primary Referring Unava ilable Love Mccann Attending Unavailabl e Care Physician, No Primary Primary Care Unava ilable Care Physician, No Primary Referring Unava ilable Love Mccann Referring Unavailabl e Love Mccann Attending Unavailabl e Care Physician, No Primary Primary Care Unava ilable Care Physician, No Primary Primary Care Unava ilable Rylee Beavers Attending Unavailable Nimesh, Rylee Referring Unavailable Care Physician, No Primary Primary Care Unava ilable Rylee Beavers Referring Unavailable Nimesh, Rylee Attending Unavailable Care Physician, No Primary Primary Care Unava ilable Rylee Beavers Referring Unavailable Nimesh, Rylee Attending Unavailable Love Mccann Referring Unavailabl e Care Physician, No Primary Primary Care Unava ilable Matt Funez, Love Attending Unavailabl e Care Physician, No Primary Primary Care Unava ilable Rylee Beavers Attending Unavailable Nimesh, Rylee Referring Unavailable Matt Funez, Love Attending Unavailabl e Care Physician, No Primary Primary Care Unava ilable Care Physician, No Primary Primary Care Unava ilable Chanel Stacy Referring Unavailable Chanel Stacy Attending Unavailable Care Physician, No Primary Primary Care Unava ilable Rylee Beavers Attending Unavailable Care Physician, No Primary Referring Unava ilable Care Physician, No Primary Referring Unava ilable Care Physician, No Primary Primary Care Unava ilable Aiyana COURT SECURITY OFFICER, Abbie Attending Unavailable Care Physician, No Primary Referring Unava ilable Care Physician, No Primary Primary Care Unava ilable Chanel Stacy Attending Unavailable Care Physician, No Primary Primary Care Unava ilable Care Physician, No Primary Referring Unava ilable Love Mccann Attending Unavailabl e Debbie VelLove royal Attending Unavailabl e Care Physician, No Primary Primary Care Unava ilable Care Physician, No Primary Referring Unava ilable Medications Current Medications Medication Drug Class(es) Dates Sig (Normalized) Sig (Original) amoxicillin 500 mg oral capsule (1 source) Penicillin-class Antibacterial Start: 03-13-2023 End: 03-23-2023 take 1 capsule by mouth twice daily amoxicillin (AMOXIL) 500 mg capsule Indications: Strep throat Take 1 capsule by mouth twice daily for 10 days. 20 capsule 0 03/13/2023 03/23/2023 Active Comment on above: Take 1 capsule by [facility] twice daily for 10 days. docosahexaenoic acid 200 mg oral capsule (8 sources) Start: 08-27-2024 Docosahexaenoic Acid ( Dha) 200 mg capsule Active mg PO August 27, 2024 1:00am Completed/Discontinued Medications Medication Drug Class(es) Dates Sig (Normalized) Sig (Original) acetaminophen 325 mg / HYDROcodone bitartrate 5 mg oral tablet (18 sources) Opioid Agonist Start: 11-07-2014 End: 2018 Hydrocodone-Acetami nophen 1 TABLET tablet Discontinued 1 {tbl} PO EVERY 4 HOURS NEEDED as needed for Pain 20 0 November 07, 2014 12:00am 2018 11:39am Start: 11-07-2014 End: 2018 take 1 tablet by mouth every four hours as needed Hydrocodone-Acetaminophen Discontinued 1 TABLET PO EVERY 4 HOURS NEEDED November 07, 2014 12:00am 2018 11:39am acetaminophen 325 mg / oxyCODONE hydrochloride 5 mg oral tablet (20 sources) Opioid Agonist Start: 07-20-2020 End: 07-27-2020 Oxycodone-Acetaminophen 1 TABLET tablet Discontinued 1 - 2 {tbl} PO EVERY 6 HOURS NEEDED as needed for Pain 10 July 20, 2020 July 26, 2020 1:00am July 27, 2020 1:02am Other acute postprocedural pain Start: 07-20-2020 End: 07-27-2020 take 1 tablet by mouth every six hours as needed Oxycodone-Acetaminophen Discontinued 1 - 2 TABLET PO EVERY 6 HOURS NEEDED 10 July 20, 2020 July 27, 2020 1:02am Start: 07-03-2020 End: 07-10-2020 Oxycodone-Acetaminophen (Per cocet) 5-325 mg tablet Discontinued 1 {tbl} PO Q4H as needed for pain 20 0 July 03, 2020 July 10, 2020 2:54pm Start: 11-08-2014 End: 2018 take 1 tablet by mouth four times daily as needed Oxycodone-Acetaminophen Discontinued 1 - 2 TABLET PO 4 TIMES DAILY NEEDED 40 November 08, 2014 5:59pm 2018 11:39am Start: 11-08-2014 End: 2018 Oxycodone-Acetaminophen 1 TA BLET tablet Discontinued 1 - 2 {tbl} PO 4 TIMES DAILY NEEDED as needed for Severe Pain 40 November 08, 2014 5:59pm 2018 11:39am [id number] 200 actuat albuterol 0.09 mg/actuat metered dose inhaler (2 sources) beta2-Adrenergic Agonist Start: 10-28-2011 albuterol HFA 90 mcg/actuation INHALATION inhaler Inhale as instructed. 2 puffs 15 to 20 minutes pre-exercise prn 1 Inhaler 1 10/28/2011 Active Comment on above: Inhale as instructed . 2 puffs 15 to 20 minutes pre-exercise prn amoxicillin 875 mg / clavulanate 125 mg oral tablet (20 sources) Penicillin-class Antibacterial Start: 11-12-2014 End: 2018 take 1 tablet by mouth twice daily Amoxicillin-Pot Clavulanate 875 MG tablet Discontinued 875 mg PO TWICE A DAY 28 November 12, 2014 12:00am 2018 11:39am PLEASE DISPENSE 11/12/14. Start: 11-07-2014 End: 11-12-2014 take 1 tablet by mouth every twelve hours Amoxicillin-Pot Clavulanate 875 MG tablet Discontinued 875 mg PO Q12H 10 November 07, 2014 12:00am November 08, 2014 6:00pm ascorbic acid 500 mg oral tablet (1 source) Start: 05-22-2017 VITAMIN C 500 MG TABS ASCORBIC ACID [id number] Chanel Stacy MD docusate sodium 100 mg oral tablet (16 sources) Start: 06-12-2021 End: 07-30-2021 take 1 tablet by mouth once daily Docusate Sodium (Stool Softener) 100 mg Tablet Discontinued 100 mg PO DAILY June 12, 2021 1:00am July 30, 2021 3:01pm constipation Levonorgestrel-E thinyl Estrad (20 sources) Progestin, Estrogen, Progestin-containing Intrauterine Device Start: 08-09-2019 End: 06-20-2020 take 1 tablet by mouth once daily Levonorgestrel-Ethi nyl Estrad (Aviane) 0.1-20 mg-mcg tablet Discontinued 1 {tbl} PO DAILY 84 4 August 09, 2019 11:06am June 20, 2020 9:35am Start: 08-09-2019 End: 06-20-2020 take 1 tablet by mouth once daily Levonorgestrel-Ethinyl Estrad (Aviane) 0.1-20 mg-mcg tablet Discontinued 1 {tbl} PO DAILY August 09, 2019 11:06am June 20, 2020 9:35am Start: 08-09-2019 End: 06-20-2020 take 1 tablet by mouth once daily Levonorgestrel-Ethinyl Estrad (Aviane) 0.1-20 mg-mcg tablet Discontinued 1 TABLET PO DAILY August 09, 2019 10:06am June 20, 2020 8:35am Start: 08-09-2019 End: 06-20-2020 take 1 tablet by mouth once daily Levonorgestrel-Ethinyl Estrad (Aviane) 0.1-20 mg-mcg tablet Discontinued 1 TABLET PO DAILY August 09, 2019 11:06am June 20, 2020 9:35am Start: 01-13-2019 End: 08-09-2019 take 1 tablet by mouth once daily Levonorgestrel-Ethinyl Estrad (Aviane) 0.1-20 mg-mcg tablet Discontinued 1 {tbl} PO DAILY January 13, 2019 12:54pm August 09, 2019 11:07am Start: 01-13-2019 End: 08-09-2019 take 1 tablet by mouth once daily Levonorgestrel-Ethinyl Estrad (Aviane) 0.1-20 mg-mcg tablet Discontinued 1 {tbl} PO DAILY January 13, 2019 12:54pm August 09, 2019 11:07am Start: 01-13-2019 End: 08-09-2019 take 1 tablet by mouth once daily Levonorgestrel-Ethinyl Estrad (Aviane) 0.1-20 mg-mcg tablet Discontinued 1 TABLET PO DAILY January 13, 2019 11:54am August 09, 2019 10:07am Start: 01-13-2019 End: 08-09-2019 take 1 tablet by mouth once daily Levonorgestrel-Ethinyl Estrad (Aviane) 0.1-20 mg-mcg tablet Discontinued 1 TABLET PO DAILY January 13, 2019 12:54pm August 09, 2019 11:07am Start: 07-18-2018 End: 01-13-2019 take 1 tablet by mouth once daily Levonorgestrel-Ethinyl Estrad (Aviane) 0.1-20 mg-mcg tablet Discontinued 1 {tbl} PO DAILY 84 July 18, 2018 4:26am January 13, 2019 12:55pm Start: 07-18-2018 End: 01-13-2019 take 1 tablet by mouth once daily Levonorgestrel-Ethinyl Estrad (Aviane) 0.1-20 mg-mcg tablet Discontinued 1 {tbl} PO DAILY July 18, 2018 4:26am January 13, 2019 12:55pm Start: 07-18-2018 End: 01-13-2019 take 1 tablet by mouth once daily Levonorgestrel-Ethinyl Estrad (Aviane) 0.1-20 mg-mcg tablet Discontinued 1 TABLET PO DAILY July 18, 2018 3:am January 13, 2019 11:55am Start: 07-18-2018 End: 01-13-2019 take 1 tablet by mouth once daily Levonorgestrel-Ethinyl Estrad (Aviane) 0.1-20 mg-mcg tablet Discontinued 1 TABLET PO DAILY July 18, 2018 4:26am January 13, 2019 12:55pm Start: 2018 End: 07-18-2018 take 1 tablet by mouth once daily Levonorgestrel-Ethinyl Estrad (Aviane) 0.1-20 mg-mcg tablet Discontinued 1 {tbl} PO DAILY 2018 1:00am July 18, 2018 4:27am Start: 2018 End: 07-18-2018 take 1 tablet by mouth once daily Levonorgestrel-Ethinyl Estrad (Aviane) 0.1-20 mg-mcg tablet Discontinued 1 TABLET PO DAILY 2018 12:00am July 18, 2018 3:27am Start: 2018 End: 07-18-2018 take 1 tablet by mouth once daily Levonorgestrel-Ethinyl Estrad (Aviane) 0.1-20 mg-mcg tablet Discontinued 1 TABLET PO DAILY 2018 1:00am July 18, 2018 4:27am Start: 04-16-2018 End: 2018 take 1 tablet by mouth once daily Levonorgestrel-Ethinyl Estrad 0.1-20 mg-mcg tablet Discontinued 1 {tbl} PO DAILY 22 11April 16, 2018 11:30am 2018 11:39am Start: 04-16-2018 End: 2018 take 1 tablet by mouth once daily Levonorgestrel-Ethinyl Estrad 0.1-20 mg-mcg tablet Discontinued 1 {tbl} PO DAILY April 16, 2018 11:30am 2018 11:39am Start: 04-16-2018 End: 2018 take 1 tablet by mouth once daily Levonorgestrel-Ethinyl Estrad Discontinued 1 TABLET PO DAILY April 16, 2018 10:30am 2018 10:39am Start: 04-16-2018 End: 2018 take 1 tablet by mouth once daily Levonorgestrel-Ethinyl Estrad Discontinued 1 TABLET PO DAILY April 16, 2018 11:30am 2018 11:39am Start: 05-17-2016 take 1 tablet by hema th once daily Levonorgestrel-Ethinyl Estrad (AVIANE) 0.1mg - 20mcg per tablet Take 1 tablet by mouth once daily. 3 Package 3 05/17/2016 Active Start: 04-15-2016 take 1 tablet by hema th once daily AVIANE 0.1-20 mg-mcg per tablet TAKE ONE TABLET BY MOUTH ONCE DAILY 1 Package 2 04/15/2016 Active Start: 11-07-2014 End: 04-16-2018 Levonorgestrel-Ethinyl Estra d 1 EACH tablet Discontinued November 07, 2014 12:00am April 16, 2018 11:31am Start: 11-07-2014 End: 04-16-2018 Levonorgestrel-Ethinyl Estra d Discontinued November 06, 2014 11:00pm April 16, 2018 10:31am Start: 11-07-2014 End: 04-16-2018 Levonorgestrel-Ethinyl Estra d Discontinued November 07, 2014 12:00am April 16, 2018 11:31am Comment on above: TAKE ONE TABLET BY M OUTH ONCE DAILY Take 1 tablet by hema th once daily. LEVONORGESTREL-ETHINY L ESTRAD (1 source) Start: 05-22-20 take 1 tablet by mouth once daily AVIANE 0.1-20 MG-MCG TABS One tablet by mouth daily LEVONORGESTREL-ETHIN YL ESTRAD [id number] Chanel Stacy MD metroNIDAZOLE 500 mg oral tablet (1 source) Nitroimidazole Antimicrobial Start: 05-22-20 17 take 1 tablet by mouth twice daily FLAGYL 500 MG TABS One tablet by mouth twice daily METRONIDAZOLE [id number] Chanel Stacy MD miSOPROStol 0.2 mg oral tablet (20 sources) Prostaglandin E1 Analog Start: 07-19-20 End: 08-01-19 21 Misoprostol (Cytotec) 200 mcg tablet Discontinued 200 ug PO after meals and at bedtime 2 July 19, 2020 1:00am August 01, 2020 2:54pm Take one tablet night before procedure and one the morning of. Start: 07-03-2020 End: 07-10-2020 take 4 tablets by mouth once Misoprostol (Cytotec) 200 mcg tablet Discontinued 800 ug PO .complex 4 July 03, 2020 1:00am July 10, 2020 2:54pm 4 tablets vaginally or orally once. Multivit 53-Oklr-Qqptgt 1-Dh a (Pnv-Dha) 27 mg iron-1 mg -300 mg capsule (16 sources) Start: 06-20-2020 End: 02-13-2024 Multivit 24-Dhix-Kbjqhs 1-Dh a (Pnv-Dha) 27 mg iron-1 mg -300 mg capsule Discontinued 1 NMA PO DAILY June 20, 2020 1:00am February 13, 2024 3:37am Start: 06-20-2020 End: 02-13-2024 Multivit 59-Lzvk-Pqdzfi 1-Dh a (Pnv-Dha) 27 mg iron-1 mg -300 mg capsule Discontinued 1 NMA PO DAILY June 20, 2020 1:00am February 13, 2024 3:37am Start: 06-20-2020 take 1 capsule by mo [facility] once daily Multivit 65-Slmb-Sazbzy 1-Dha (Pnv-Dha) 27 mg iron-1 mg -300 mg capsule Active 1 CAP PO DAILY June 20, 2020 12:00am Start: 06-20-2020 take 1 capsule by [facility] once daily Multivit 71-Vaiy-Uyfavh 1-Dha (Pnv-Dha) 27 mg iron-1 mg -300 mg capsule Active 1 CAP PO DAILY June 20, 2020 1:00am naproxen 500 mg oral tablet (20 sources) Nonsteroidal Anti-inflammatory Drug Start: 09-06-2022 End: 10-17-2022 take 1 tablet by mouth twice daily as needed for pain Naproxen 500 mg tablet Discontinued 500 mg PO TWICE A DAY as needed for pain 30 0 September 06, 2022 1:00am October 17, 2022 1:40pm Start: 07-20-2020 End: 08-01-2020 take 250-500 mg by mouth every eight hours as needed for pain Naproxen 250 MG tablet Discontinued 250 - 500 mg PO EVERY 8 HOURS NEEDED as needed for MILD PAIN 30 1 July 20, 2020 1:00am August 01, 2020 2:54pm Start: 07-03-2020 End: 07-10-2020 Naproxen 500 mg tablet Disco ntinued 500 mg PO 2 to 3 times per day as needed for pain 60 2 July 03, 2020 1:00am July 10, 2020 2:54pm administer with food or milk (12 sources) Start: 09-05-2022 End: 10-17-2022 Discontinued 1 SL/P O 1 time daily September 05, 2022 1:00am October 17, 2022 1:40pm Check with primary doctor Start: 09-05-2022 End: 10-17-2022 Discontinued 1 SL/P O 1 time daily September 05, 2022 12:00am October 17, 2022 12:40pm Start: 09-05-2022 End: 10-17-2022 Discontinued 1 SL/P O 1 time daily September 05, 2022 1:00am October 17, 2022 1:40pm Start: 09-05-2022 Activ e 1 SL/PO 1 time daily September 05, 2022 12:00am sulfamethoxazole 800 mg / trimethoprim 160 mg oral tablet (11 sources) Dihydrofolate Reductase Inhibitor Antibacterial, Sulfonamide Antimicrobial Start: 05-14-2023 End: 07-04-2023 Sulfamethoxazole-Trimethopri m (Bactrim Ds) 800-160 mg tablet Discontinued 1 {tbl} PO TWICE A DAY 14 7 0 May 14, 2023 12:00am July 04, 2023 11:24am Problems Active Problems Problem Classification Problem Date Documented Date Episodic/Chronic Diabetes or abnormal glucose tolerance complicating ; childbirth; or the puerperium (20 sources) Impaired glucose tolerance in ; Translations: [Abnormal glucose complicating ] Episodic Comment on above: normal 3hr GTT Immunizations and screening for infectious disease (16 sources) Requires diphtheria, tetanus and pertussis vaccination; Translations: [Encounter for immunization] 05-22-2021 Episodic Comment on above: Given 12/10/23 Menstrual disorders (1 source) Amenorrhea, unspecified; Translations: [Amenorrhea, unspecified] Onset: 5 Chronic Open wounds of extremities (3 sources) Unspecified open wound of unspecified wrist; Translations: [Unspecified open wound of unspecified wrist] Onset: 5 11-13-2014 Other bone disease and musculoskeletal deformities (2 sources) Osteochondropathy; Translations: [Osteochondropathy, unspecified of unspecified site] Onset: 1 04-03-2011 Chronic Other complications of (16 sources) Missed miscarriage; Translations: [Missed ] 11-10-2020 Episodic Comment on above: 07/03- GS 1.5 cm with subchorionic hemorrhage, no yolk sac or pole. failed cytotec. plan suction d and c. spouse Sami Other complications of (20 sources) ; Translations: [ with inconclusive viability, not applicable or unspecified] 07-12-2020 Episodic Comment on above: Declined genetic/car rier testing - (prior carrier testing done - negative), nl anatomy declined genetic, ca rrier and NTD carrier and NIPT- lo w risk afp screening/declined. carrier neg. . NL anatomy us 01/25/21; NL growth 05/22, GBS Neg GBS Negative, anatom y nl, genetic low risk, carrier screening declined anatomy nl, discusse d genetic & carrier testing, declines GBS neg, Declined ge netic/carrier testing - (prior carrier testing done - negative), nl anatomy Other complications of (16 sources) Finding of pattern of ; Translations: [Supervision of other high risk pregnancies, unspecified trimester] 02-04-2022 Episodic Other complications of (20 sources) RhD negative; Translations: [Other specified related conditions, unspecified trimester] 06-17-2022 Episodic Comment on above: A-; Rhogam PRN & 28 weeks given 01/05/25 A neg Rhogam prn and 28 weeks. given 06/17/22 Other complications of (16 sources) Blighted ovum; Translations: [Blighted ovum and nonhydatidiform mole] 11-16-2020 Episodic Comment on above: h/o 06/2020 Other complications of (20 sources) Other specified related conditions, unspecified trimester; Translations: [Other specified complications of , antepartum condition or complication] Episodic Other complications of (20 sources) Supervision of other high risk pregnancies, unspecified trimester; Translations: [Supervision of other high-risk ] Episodic Other complications of (20 sources) High risk ; Translations: [Supervision of high risk , unspecified, first trimester] 07-11-2023 Episodic Comment on above: PRR TASHI: 024 surprise PC: Danielle Aguila. :Sami , TASHI 03/29/25, PC: Danielle Aguila & Smiley, : Sami PRR , TASHI , surprise PC: Danielle Aguila & Smiley, : Sami Other complications of (20 sources) H/O: miscarriage; Translations: [Supervision of with other poor reproductive or obstetric history, unspecified trimester] 07-11-2023 Episodic Comment on above: 2020 Other complications of (7 sources) Supervision of with other poor reproductive or obstetric history, unspecified trimester; Translations: [Supervision of high-risk with history of ] Onset: 07-11-2023 Episodic Other complications of (6 sources) Supervision of high risk , unspecified, first trimester; Translations: [Supervision of unspecified high-risk ] 07-11-2023 Episodic Other complications of (9 sources) Placenta circumvallata; Translations: [Circumvallate placenta, unspecified trimester] 10-29-2023 Episodic Comment on above: Patient prefers Doc only for deliverydiscussed inc risk of FGR and abruption- MFM wants growth scans q month, nl growth Other complications of (3 sources) Circumvallate placenta, unspecified trimester; Translations: [Other placental conditions, affecting management of mother, unspecified as to episode of care or not applicable] 10-01-2023 Episodic Other complications of (8 sources) Uncertain viability of ; Translations: [ with inconclusive viability, not applicable or unspecified] 07-03-2020 Episodic Comment on above: 06/26- 1.7cm yolk sac seen no pole Other complications of (4 sources) Fundal height high for dates; Translations: [Uterine size-date discrepancy, unspecified trimester] 03-08-2025 Episodic Comment on above: growth US Other complications of (2 sources) Uterine size-date discrepancy, unspecified trimester; Translations: [Uterine size-date discrepancy, unspecified trimester] Onset: 5 Episodic Other complications of (1 source) Other specified related conditions, second trimester; Translations: [Other specified related conditions, second trimester] Onset: 5 Episodic Other complications of (2 sources) Supervision of high risk , unspecified, third trimester; Translations: [Supervision of high risk , unspecified, third trimester] Onset: 5 Episodic Other complications of (1 source) Supervision of high risk , unspecified, second trimester; Translations: [Supervision of high risk , unspecified, second trimester] Onset: 5 Episodic Other ear and sense organ disorders (2 sources) Conductive hearing loss; Translations: [Conductive hearing loss, unspecified] Onset: 7 09-25-2006 Chronic Other and delivery including normal (20 sources) Vaginal delivery; Translations: [Encounter for full-term uncomplicated delivery] Onset: 5 Episodic Comment on above: IAL 38 boy SM Miald oker girl Maddison IAL 37 SM TASHI 01/31/21 Spou se: Sami PRR TASHI: Boy! Spouse: Sami PRR TASHI 09/07/22 girl PC Aguila Sami arom PRN epi PRN epi only if needed, prefer minimal intervention. arom clear fluid. pit prn gbs neg Other upper respiratory infections (2 sources) Sore throat symptom; Translations: [Acute pharyngitis, unspecified] 03-13-2023 Episodic Residual codes; unclassified (16 sources) Influenza vaccination declined; Translations: [Immunization not carried out because of patient refusal] 05-22-2021 Episodic Residual codes; unclassified (8 sources) History of past delivery; Translations: [Personal history of other genital system and obstetric disorders] 08-27-2024 Episodic Comment on above: Boy, VINNIE- 02/13/24. na me TBD Residual codes; unclassified (1 source) Unspecified blood type, Rh negative; Translations: [Unspecified blood type, Rh negative] Onset: Episodic Residual codes; unclassified (1 source) 37 weeks gestation of ; Translations: [37 weeks gestation of ] Onset: 5 Episodic Residual codes; unclassified (1 source) 34 weeks gestation of ; Translations: [34 weeks gestation of ] Onset: Episodic Residual codes; unclassified (1 source) 30 weeks gestation of ; Translations: [30 weeks gestation of ] Onset: Episodic Skin and subcutaneous tissue infections (1 source) Infection of skin; Translations: [Local infection of the skin and subcutaneous tissue, unspecified] 05-14-2023 Episodic Spondylosis; intervertebral disc disorders; other back problems (4 sources) Degeneration of intervertebral disc; Translations: [Degeneration of intervertebral disc, site unspecified] Onset: 1 05-27-2011 Chronic Spontaneous (16 sources) Retained products after miscarriage; Translations: [Incomplete spontaneous without complication] 11-10-2020 Episodic Unclassified (1 source) Gynecologic examination ; Translations: [Encounter for gynecological examination (general) (routine) with abnormal findings] Onset: 7 05-22-2017 Unclassified (1 source) Bitten by dog; Translations: [Bitten by dog] Onset: 5 11-13-2014 Past or Other Problems Problem Classification [...] surgical aftercare] Onset: 11-08-2014 11-13-2014 Episodic Other complications of (1 source) Supervision of high risk , unspecified, unspecified trimester; Translations: [Supervision of high risk , unspecified, unspecified trimester] Onset: 10-05-2024 Episodic Other injuries and conditions due to external causes (2 sources) 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, upper limb; Translations: [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, upper limb] Onset: 11-08-2014 Resolved: 11-08-2014 11-13-2014 Episodic Other screening for suspected conditions (not mental disorders or infectious disease) (1 source) Encounter for screening for malignant neoplasm of cervix; Translations: [Encounter for screening for malignant neoplasm of cervix] Onset: 04-01-2024 Episodic Otitis media and related conditions (2 sources) Discontinuity of ear ossicles; Translations: [Discontinuity and dislocation of ear ossicles, unspecified ear] Onset: 02-12-2007 02-12-2007 Episodic Residual codes; unclassified (1 source) 23 weeks gestation of ; Translations: [23 weeks gestation of ] Onset: 12-02-2024 Episodic Residual codes; unclassified (1 source) 15 weeks gestation of ; Translations: [15 weeks gestation of ] Onset: 10-05-2024 Episodic Unclassified (13 sources) Normal labor; Translations: [Active labor at term] 06-13-2021 Results Test Name Value Interpretation Reference Range Facility [facility] [employer] [facility] Office Visit Reporton 03-08-2025 [facility] Office Visit Report [facility] [address] [place] [address], [address] [place] [address] OFFICE VISIT Date of Service: 03/08/25 MR#: [id number] Acct: [id number] Name: HALIE SANTOELLE Rep #: [id number] : 1995 Provider: JUSTEN Jolly ams Age/Sex: 29/F Location: [facility] [place] Status: Signed Intake Vital Signs 02/02/25 14:37 03/03/25 11:34 03/08/25 10:35 Height 5 ft 9 in 5 ft 9 in 5 ft 9 in Weight: 173 lb 6 oz BMI 25.6 BP 115/65 Intake Visit Reasons: 37WK OB Chief Complaint: 37wk OB Hotel Manager Required: No Is patient in pain?: No Allergies No Known Allergies Allergy (Verified 03/08/25 10:33) Medications ???Medication ???Instructions ???Recorded ???Confirmed ???Type docosahexaenoic acid 200 mg mg PO 08/27/24 03/08/25 History capsule ( DHA) Last Menstrual Period: 05/10/23 : No PFSH PFSH Medical History History of miscarriage, currently Surgical History Status post vaginal delivery History of dilation and curettage S/P wrist surgery S/P ear surgery Family History Grandmother Diabetes Social History adopted: No household members: spouse and children number of children: 3 current occupational status: employed current occupation: [employer] current occupational exposures/hazards: No pets and animals: Yes pets and animals: dog(s) history of recent travel: No sexually active: Yes Smoking Status: Never smoker alcohol intake: never substance use type: does not use well-balanced diet: daily or most days caffeine: Yes Type: coffee Number of servings: 1 eating out: rarely or never during the past year weight has: remained stable what type of physical activity do you participate in: none frequency: daily sea/alevism: None seatbelt use: always do you feel safe at home: Yes 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 Date Name GA/Weeks Outcome Route Bth Weight Gen Labor Lgth Anesthesia Del Locatn Provider FOB 06/27/20 Blighted ovum 8 06/12/21 Aguila 40 live - full term 7lbs 9oz Male none [facility] Radha funez Sami 09/05/22 Riddley 39 live - full term 8#4oz Female none [facility] ABDIFATAH Gallardo 02/13/24 Smiley 39 live - full term 8lbs 1oz Male none [facility] Olaf Silvestre Delivery Date: 06/27/20 Last Updated by: JG Owen C Delivery Date: 06/12/21 Last Updated by: Harsha Solis ISL HPI 37WK OB Details: HALIE SANTO is a 29 year old who presents for routine OB visit. OB Visit TASHI Calculator Estimated Delivery Date Method Current WG Current Estimate 03/29/25 Ultrasound #1 37w 0d Expected Delivery Route/Plan Labor Preferences- CB/BF classes: no labor support person: Sami labor intervention preferences: [] pain management options preferred: limited cut cord/dad catch: yes : yes PP control planned: spouse has vas planned discussed possible routes of delivery and associated risks: [] special requests: [] Specific Issue/Plans Covid status: [] Flu vaccine: [] Tdap vaccine: declines Rhogam: given 01/05/25 LARC form signed: yes movement and labor precautions reviewed. Problem list reviewed and updated with the most current plan of care details and appropriate orders placed. Relevant counseling for the gestational age provided. Continue routine care and follow up unless otherwise noted in visit notes/problem list details Initial Weight: Not Recorded Date -???-???-???-???-???-?? ?-???-???-???-???-???-? ??- EGA Weight BP Urine Prot -???-???-???-???-???-?? ?-???-???-???-???-???-? ??- Glucose FHR FuHt Pres Dilation -???-???-???-???-???-?? ?-???-???-???-???-???-? ??- Effaced St Visit Note 09/06/24 -???-???-???-???-???-?? ?-???-???-???-???-???-? ??- 10w 6d 157 lb 8 oz 131/78 -???-???-???-???-???-?? ?-???-???-???-???-???-? ??- 163 -???-???-???-???-???-?? ?-???-???-???-???-???-? ??- JV- CRL cons istent with 6 week ultrasound. patient declines NIPT. mild nausea, declines medication. 10/05/24 -???-???-???-???-???-?? ?-???-???-???-???-???-? ??- 15w 0d 155 lb 6 oz 130/74 Negative -???-???-???-???-???-?? ?-???-???-???-???-???-? ??- Negative 150 -???-???-???-???-???-?? ?-???-???-???-???-???-? ??- SM- no vb ll of cramping 11/02/24 -???-???-???-???-???-?? ?-???-???-???-???-? (more content not included)... [facility] Rule out Beta Strep (Grp. B) on 03-05-2025 ADRIEN Group B Beta Streptococcus is not isolated. [facility] Comment on above: Performed By: #### M [id number] #### [facility] [address] [place], [id number] Laboratory - Chemistry and C hemistry - challengeOrdered By: Love Funez on 03-03-2025 Glucose Ql (U) Negative [facility] - UrinalysisOrder ed By: Love Funez on 03-03-2025 Protein Ql (U) Negative [facility] [employer] [facility] Office Visit Reporton 03-03-2025 College And Career Counselor Office Visit Report [facility] [address], [address] [place] [address] OFFICE VISIT Date of Service: 03/03/25 MR#: [id number] Acct: [id number] Name: HALIE SANTO Rep #: [id number] : 1995 Provider: Dr. Love Sharp, Age/Sex: 29/F Location: [facility] [place] Status: Signed Intake Vital Signs 01/05/25 08:18 02/15/25 10:03 03/03/25 11:32 03/03/25 11:34 Height 5 ft 9 in 5 ft 9 in 5 ft 9 in 5 ft 9 in Weight: 172 lb 6 oz BMI 25.4 BP 107/70 Intake Visit Reasons: 36wk ob Hotel Manager Required: No Is patient in pain?: No Allergies No Known Allergies Allergy (Verified 03/03/25 11:31) Medications ???Medication ???Instructions ???Recorded ???Confirmed ???Type docosahexaenoic acid 200 mg mg PO 08/27/24 03/03/25 History capsule ( DHA) Last Menstrual Period: 05/10/23 Zika: Zika virus screening: Negative : No PFSH PFSH Medical History History of miscarriage, currently Surgical History Status post vaginal delivery History of dilation and curettage S/P wrist surgery S/P ear surgery Family History Grandmother Diabetes Social History adopted: No household members: spouse and children number of children: 3 current occupational status: employed current occupation: [employer] current occupational exposures/hazards: No pets and animals: Yes pets and animals: dog(s) history of recent travel: No sexually active: Yes Smoking Status: Never smoker alcohol intake: never substance use type: does not use well-balanced diet: daily or most days caffeine: Yes Type: coffee Number of servings: 1 eating out: rarely or never during the past year weight has: remained stable what type of physical activity do you participate in: none frequency: daily sea/alevism: None seatbelt use: always do you feel safe at home: Yes 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 Date Name GA/Weeks Outcome Route Bth Weight Infant Gen Labor Lgth Anesthesia Del Locatn Provider FOB 06/27/20 Blighted ovum 8 06/12/21 Aguila 40 live - full term 7lbs 9oz Male none [facility] Mar dee dee [place] 09/05/22 Riddley 39 live - full term 8#4oz Female none [facility] ABDIFATAH [place] 02/13/24 Kolter 39 live - full term 8lbs 1oz Male none [facility] Olaf royal Velgenny Sami Delivery Date: 06/27/20 Last Updated by: JG Owen Delivery Date: 06/12/21 Last Updated by: Harsha Solis ISBeatriz HPI 36wk ob Details: HALIE SANTO is a 29 year old who presents for routine OB visit. OB Visit TASHI Calculator Estimated Delivery Date Method Current WG Current Estimate 03/29/25 Ultrasound #1 36w 2d Expected Delivery Route/Plan Labor Preferences- CB/BF classes: no labor support person: Sami labor intervention preferences: [] pain management options preferred: limited cut cord/dad catch: yes : yes PP control planned: spouse has vas planned discussed possible routes of delivery and associated risks: [] special requests: [] Specific Issue/Plans Covid status: [] Flu vaccine: [] Tdap vaccine: declines Rhogam: given 01/05/25 LARC form signed: yes movement and labor precautions reviewed. Problem list reviewed and updated with the most current plan of care details and appropriate orders placed. Relevant counseling for the gestational age provided. Continue routine care and follow up unless otherwise noted in visit notes/problem list details Initial Weight: Not Recorded Date -???-???-???-???-???-?? ?-???-???-???-???-???-? ??- EGA Weight BP Urine Prot -???-???-???-???-???-?? ?-???-???-???-???-???-? ??- Glucose FHR FuHt Pres Dilation -???-???-???-???-???-?? ?-???-???-???-???-???-? ??- Effaced St Visit Note 09/06/24 -???-???-???-???-???-?? ?-???-???-???-???-???-? ??- 10w 6d 157 lb 8 oz 131/78 -???-???-???-???-???-?? ?-???-???-???-???-???-? ??- 163 -???-???-???-???-???-?? ?-???-???-???-???-???-? ??- JV- CRL cons istent with 6 week ultrasound. patient declines NIPT. mild nausea, declines medication. 10/05/24 -???-???-???-???-???-?? ?-???-???-???-???-???-? ??- 15w 0d 155 lb 6 oz 130/74 Negative -???-???-???-???-???-?? ?-???-???-???-???-???-? ??- Negative 150 -???-???-???-???-???-?? ?-???-???-???-???-???-? ??- SM- no vb ll (more content not included)... [facility] Screening beta-hemolytic Str eptococcus cultureOrdered By: Love Funez on 03-03-2025 Beta-hemolytic Streptococcus culture Group B Beta Streptococcus is not isolated. [facility] - Chemistry and C hemistry - challengeOrdered By: Chanel Stacy on 02-15-2025 Glucose Ql (U) Negative [facility] - UrinalysisOrder ed By: Chanel Stacy on 02-15-2025 Protein Ql (U) Negative [facility] [employer] Counselor Office Visit Reporton 02-15-2025 College And Career Counselor Office Visit Report [facility] [address], [address] [place] [address] OFFICE VISIT Date of Service: 02/15/25 MR#: [id number] Acct: [id number] Name: GALHALIE Rep #: [id number] : 1995 Provider: Dr. Chanel nicholas MD Age/Sex: 29/F Location: [facility] [place] Status: Signed Intake Vital Signs 01/05/25 08:18 01/20/25 10:24 02/02/25 14:37 02/15/25 10:03 Height 5 ft 9 in 5 ft 9 in 5 ft 9 in 5 ft 9 in Weight: 172 lb 2 oz BMI 25.4 BP 108/67 Intake Visit Reasons: 34wk ob Hotel Manager Required: No Is patient in pain?: No Allergies No Known Allergies Allergy (Verified 02/15/25 10:04) Medications ???Medication ???Instructions ???Recorded ???Confirmed ???Type docosahexaenoic acid 200 mg mg PO 08/27/24 02/15/25 History capsule ( DHA) Last Menstrual Period: 05/10/23 Zika: Zika virus screening: Negative : No PFSH PFSH Medical History History of miscarriage, currently Surgical History Status post vaginal delivery History of dilation and curettage S/P wrist surgery S/P ear surgery Family History Grandmother Diabetes Social History adopted: No household members: spouse and children number of children: 3 current occupational status: employed current occupation: [employer] current occupational exposures/hazards: No pets and animals: Yes pets and animals: dog(s) history of recent travel: No sexually active: Yes Smoking Status: Never smoker alcohol intake: never substance use type: does not use well-balanced diet: daily or most days caffeine: Yes Type: coffee Number of servings: 1 eating out: rarely or never during the past year weight has: remained stable what type of physical activity do you participate in: none frequency: daily sea/alevism: None seatbelt use: always do you feel safe at home: Yes 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 Date Name GA/Weeks Outcome Route Bth Weight Infant Gen Labor Lgth Anesthesia Del Locatn Provider FOB 06/27/20 Blighted ovum 8 06/12/21 Aguila 40 live - full term 7lbs 9oz Male none [facility] Radha funez Sami 09/05/22 Riddley 39 live - full term 8#4oz Female none [facility] ABDIFATAH [place] 02/13/24 Kolter 39 live - full term 8lbs 1oz Male none [facility] Olaf Escobedoer Delivery Date: 06/27/20 Last Updated by: JG Owen C Delivery Date: 06/12/21 Last Updated by: Harsha ROE HPI 34wk ob Details: HALIE SANTO is a 29 year old who presents for routine OB visit. OB Visit TASHI Calculator Estimated Delivery Date Method Current WG Current Estimate 03/29/25 Ultrasound #1 34w 0d Expected Delivery Route/Plan Labor Preferences- CB/BF classes: no labor support person: Sami labor intervention preferences: [] pain management options preferred: limited cut cord/dad catch: yes : yes PP control planned: spouse has vas planned discussed possible routes of delivery and associated risks: [] special requests: [] Specific Issue/Plans Covid status: [] Flu vaccine: [] Tdap vaccine: declines Rhogam: given 01/05/25 LARC form signed: yes movement and labor precautions reviewed. Problem list reviewed and updated with the most current plan of care details and appropriate orders placed. Relevant counseling for the gestational age provided. Continue routine care and follow up unless otherwise noted in visit notes/problem list details Initial Weight: Not Recorded Date -???-???-???-???-???-?? ?-???-???-???-???-???-? ??- EGA Weight BP Urine Prot -???-???-???-???-???-?? ?-???-???-???-???-???-? ??- Glucose FHR FuHt Pres Dilation -???-???-???-???-???-?? ?-???-???-???-???-???-? ??- Effaced St Visit Note 09/06/24 -???-???-???-???-???-?? ?-???-???-???-???-???-? ??- 10w 6d 157 lb 8 oz 131/78 -???-???-???-???-???-?? ?-???-???-???-???-???-? ??- 163 -???-???-???-???-???-?? ?-???-???-???-???-???-? ??- JV- CRL cons istent with 6 week ultrasound. patient declines NIPT. mild nausea, declines medication. 10/05/24 -???-???-???-???-???-?? ?-???-???-???-???-???-? ??- 15w 0d 155 lb 6 oz 130/74 Negative -???-???-???-???-???-?? ?-???-???-???-???-???-? ??- Negative 150 -???-???-???-???-???-?? ?-???-???-???-???-???-? ??- SM- no vb ll of crampin (more content not included)... [facility] - Chemistry and C hemistry - challengeOrdered By: Love Funez on 02-02-2025 Glucose Ql (U) Negative [facility] - UrinalysisOrder ed By: Love Funez on 02-02-2025 Protein Ql (U) Negative [facility] [employer] Counselor Office Visit Reporton 02-02-2025 College And Career Counselor Office Visit Report [facility] [address], [address] [place] [address] OFFICE VISIT Date of Service: 02/02/25 MR#: [id number] Acct: [id number] Name: HALIE SANTO Rep #: [id number] : 1995 Provider: Dr. Love Sharp, Age/Sex: 29/F Location: [facility] [place] Status: Signed Intake Vital Signs 01/05/25 08:18 01/20/25 10:24 02/02/25 14:34 02/02/25 14:37 Height 5 ft 9 in 5 ft 9 in 5 ft 9 in 5 ft 9 in Weight: 170 lb 8 oz BMI 25.2 BP 109/64 Intake Visit Reasons: 32wk ob Hotel Manager Required: No Is patient in pain?: No Allergies No Known Allergies Allergy (Verified 02/02/25 14:34) Medications ???Medication ???Instructions ???Recorded ???Confirmed ???Type docosahexaenoic acid 200 mg mg PO 08/27/24 02/02/25 History capsule ( DHA) Last Menstrual Period: 05/10/23 Zika: Zika virus screening: Negative : No PFSH PFSH Medical History History of miscarriage, currently Surgical History Status post vaginal delivery History of dilation and curettage S/P wrist surgery S/P ear surgery Family History Grandmother Diabetes Social History adopted: No household members: spouse and children number of children: 3 current occupational status: employed current occupation: [employer] current occupational exposures/hazards: No pets and animals: Yes pets and animals: dog(s) history of recent travel: No sexually active: Yes Smoking Status: Never smoker alcohol intake: never substance use type: does not use well-balanced diet: daily or most days caffeine: Yes Type: coffee Number of servings: 1 eating out: rarely or never during the past year weight has: remained stable what type of physical activity do you participate in: none frequency: daily sea/alevism: None seatbelt use: always do you feel safe at home: Yes 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 Date Name GA/Weeks Outcome Route Bth Weight Gen Labor Lgth Anesthesia Del Locatn Provider FOB 06/27/20 Blighted ovum 8 06/12/21 Aguila 40 live - full term 7lbs 9oz Male none [facility] Radha funez Sami 09/05/22 Danielle 39 live - full term 8#4oz Female none [facility] ABDIFATAH Gallardo 02/13/24 Smiley 39 live - full term 8lbs 1oz Male none [facility] Olaf Silvestre Delivery Date: 06/27/20 Last Updated by: JG Owen C Delivery Date: 06/12/21 Last Updated by: Harsha Solis ISBeatriz HPI 32wk ob Details: HALIE SANTO is a 29 year old who presents for routine OB visit. OB Visit TASHI Calculator Estimated Delivery Date Method Current WG Current Estimate 03/29/25 Ultrasound #1 32w 1d Expected Delivery Route/Plan Labor Preferences- CB/BF classes: no labor support person: Sami labor intervention preferences: [] pain management options preferred: limited cut cord/dad catch: yes : yes PP control planned: spouse has vas planned discussed possible routes of delivery and associated risks: [] special requests: [] Specific Issue/Plans Covid status: [] Flu vaccine: [] Tdap vaccine: declines Rhogam: given 01/05/25 LARC form signed: yes Problem list reviewed and updated with the most current plan of care details and appropriate orders placed. Relevant counseling for the gestational age provided. Continue routine care and follow up unless otherwise noted in visit notes/problem list details Initial Weight: Not Recorded Date -???-???-???-???-???-?? ?-???-???-???-???-???-? ??- EGA Weight BP Urine Prot -???-???-???-???-???-?? ?-???-???-???-???-???-? ??- Glucose FHR FuHt Pres Dilation -???-???-???-???-???-?? ?-???-???-???-???-???-? ??- Effaced St Visit Note 09/06/24 -???-???-???-???-???-?? ?-???-???-???-???-???-? ??- 10w 6d 157 lb 8 oz 131/78 -???-???-???-???-???-?? ?-???-???-???-???-???-? ??- 163 -???-???-???-???-???-?? ?-???-???-???-???-???-? ??- JV- CRL cons istent with 6 week ultrasound. patient declines NIPT. mild nausea, declines medication. 10/05/24 -???-???-???-???-???-?? ?-???-???-???-???-???-? ??- 15w 0d 155 lb 6 oz 130/74 Negative -???-???-???-???-???-?? ?-???-???-???-???-???-? ??- Negative 150 -???-???-???-???-???-?? ?-???-???-???-???-???-? ??- SM- no vb ll of cramping 11/02/24 -???-???-???-???-???-?? ?-???-? (more content not included)... [facility] - Chemistry and C hemistry - challengeOrdered By: Chanel Stacy on 01-20-2025 Glucose Ql (U) Negative [facility] - UrinalysisOrder ed By: Chanel Stacy on 01-20-2025 Protein Ql (U) Negative [facility] And Career Counselor Office Visit Reporton 01-20-2025 College And Career Counselor Office Visit Report [facility] [address], [address] [place] [address] OFFICE VISIT Date of Service: 01/20/25 MR#: [id number] Acct: [id number] Name: GALHALIE MCLEOD Rep #: [id number] : 1995 Provider: Dr. Chanel nicholas MD Age/Sex: 29/F Location: [facility] [place] Status: Signed Intake Vital Signs 11/02/24 09:57 01/05/25 08:18 01/20/25 10:24 01/20/25 10:24 Height 5 ft 9 in 5 ft 9 in 5 ft 9 in 5 ft 9 in Weight: 167 lb 8 oz 168 lb 4 oz BMI 24.7 24.8 BP 100/64 109/68 Intake Visit Reasons: 30wk ob Hotel Manager Required: No Is patient in pain?: No Allergies No Known Allergies Allergy (Verified 01/20/25 10:24) Medications ???Medication ???Instructions ???Recorded ???Confirmed ???Type docosahexaenoic acid 200 mg mg PO 08/27/24 01/20/25 History capsule ( DHA) Last Menstrual Period: 05/10/23 Zika: Zika virus screening: Negative : No PFSH PFSH Medical History History of miscarriage, currently Surgical History Status post vaginal delivery History of dilation and curettage S/P wrist surgery S/P ear surgery Family History Grandmother Diabetes Social History adopted: No household members: spouse and children number of children: 3 current occupational status: employed current occupation: [employer] current occupational exposures/hazards: No pets and animals: Yes pets and animals: dog(s) history of recent travel: No sexually active: Yes Smoking Status: Never smoker alcohol intake: never substance use type: does not use well-balanced diet: daily or most days caffeine: Yes Type: coffee Number of servings: 1 eating out: rarely or never during the past year weight has: remained stable what type of physical activity do you participate in: none frequency: daily sea/alevism: None seatbelt use: always do you feel safe at home: Yes additional social history: : 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 Date Name GA/Weeks Outcome Route Bth Weight Infant Gen Labor Lgth Anesthesia Del Locatn Provider FOB 06/27/20 Blighted ovum 8 06/12/21 Aguila 40 live - full term 7lbs 9oz Male none [facility] Radha [place] 09/05/22 Danielle 39 live - full term 8#4oz Female none [facility] ABDIFATAH Sami 02/13/24 Smiley 39 live - full term 8lbs 1oz Male none [facility] Olaf Silvestre Delivery Date: 06/27/20 Last Updated by: JG Owen Delivery Date: 06/12/21 Last Updated by: Harsha Solis ISBeatriz HPI 30wk ob Details: HALIE SANTO is a 29 year old who presents for routine OB visit. OB Visit TASHI Calculator Estimated Delivery Date Method Current WG Current Estimate 03/29/25 Ultrasound #1 30w 2d Expected Delivery Route/Plan Labor Preferences- CB/BF classes: no labor support person: Sami labor intervention preferences: [] pain management options preferred: limited cut cord/dad catch: yes : yes PP control planned: spouse has vas planned discussed possible routes of delivery and associated risks: [] special requests: [] Specific Issue/Plans Covid status: [] Flu vaccine: [] Tdap vaccine: declines Rhogam: given 01/05/25 LARC form signed: yes Problem list reviewed and updated with the most current plan of care details and appropriate orders placed. Relevant counseling for the gestational age provided. Continue routine care and follow up unless otherwise noted in visit notes/problem list details Initial Weight: Not Recorded Date -???-???-???-???-???-?? ?-???-???-???-???-???-? ??- EGA Weight BP Urine Prot -???-???-???-???-???-?? ?-???-???-???-???-???-? ??- Glucose FHR FuHt Pres Dilation -???-???-???-???-???-?? ?-???-???-???-???-???-? ??- Effaced St Visit Note 09/06/24 -???-???-???-???-???-?? ?-???-???-???-???-???-? ??- 10w 6d 157 lb 8 oz 131/78 -???-???-???-???-???-?? ?-???-???-???-???-???-? ??- 163 -???-???-???-???-???-?? ?-???-???-???-???-???-? ??- JV- CRL cons istent with 6 week ultrasound. patient declines NIPT. mild nausea, declines medication. 10/05/24 -???-???-???-???-???-?? ?-???-???-???-???-???-? ??- 15w 0d 155 lb 6 oz 130/74 Negative -???-???-???-???-???-?? ?-???-???-???-???-???-? ??- Negative 150 -???-???-???-???-???-?? ?-???-???-???-???-???-? ??- SM- no vb ll of cramping 11/02/24 (more content not included)... [facility] Absolute lymphocyte countOrd ered By: Rylee Beavers on 01-05-2025 Lymphocytes Auto (Unsp spec) [#/Vol] 1.22 10*3/uL 0.83-4.51 [facility] Absolute neutrophil countOrd ered By: Rylee Beavers on 01-05-2025 Neutrophils (Bld) [#/Vol] 9.4 10*3/uL High 2.0-7.7 [facility] Automated lymphocyte count a s percentage of total leukocytesOrdered By: Rylee Beavers on 01-05-2025 Lymphocytes/100 WBC Auto (Unsp spec) 10.6 % Low 19-41 [facility] Basophil percentageOrdered B y: Rylee Beavers on 01-05-2025 Basophils/100 WBC (Bld) 0.3 % 0-1 [facility] CBC W/Diff, Automatedon 12-26 Absolute Lymph 1.22 X10 3/uL Normal 0.83-4.51 [facility] Comment on above: Performed By: #### L 501.0250, BTS, L3890.6006, L509.8002, L100.0100 #### [facility] [address] [place], [address] Absolute Neut 9.4 X10 3/uL High 2.0-7.7 [facility] Comment on above: Performed By: #### L 501.0250, BTS, L3890.6006, L509.8002, L100.0100 #### [facility] [address] [place], [address] Basophils/100 WBC (Bld) 0.3 % Normal 0-1 [facility] Comment on above: Performed By: #### L 501.0250, BTS, L3890.6006, L509.8002, L100.0100 #### [facility] [address] [place], [address] Eosinophils/100 WBC (Bld) 0.7 % Normal 0-5 [facility] Comment on above: Performed By: #### L 501.0250, BTS, L3890.6006, L509.8002, L100.0100 #### [facility] [address] [place], [address] Erythrocyte distribution width (RBC) [Ratio] 12.7 % Normal 11.6-14.6 [facility] Comment on above: Performed By: #### L 501.0250, BTS, L3890.6006, L509.8002, L100.0100 #### [facility] [address] [place], [address] Hematocrit (Bld) [Volume fraction] 34.4 % Low 37-47 [facility] Comment on above: Performed By: #### L 501.0250, BTS, L3890.6006, L509.8002, L100.0100 #### [facility] [address] [place], [address] Hemoglobin (Bld) [Mass/Vol] 11.3 g/dL Low 12.0-15.0 [facility] Comment on above: Performed By: #### L 501.0250, BTS, L3890.6006, L509.8002, L100.0100 #### [facility] [address] [place], [address] IG% 0.700 Normal 0.0-0.9 [facility] Comment on above: Result Comment: IG% - Immature Granulocytes (promyelocytes, myelocytes and metamyelocytes) > 1% indicates that a LEFT SHIFT is Present. Performed By: #### L 501.0250, BTS, L3890.6006, L509.8002, L100.0100 #### [facility] [address] [place], [address] Lymphocytes/100 WBC (Bld) 10.6 % Low 19-41 [facility] Comment on above: Performed By: #### L 501.0250, BTS, L3890.6006, L509.8002, L100.0100 #### [facility] [address] [place], [address] MCH (RBC) [Entitic mass] 28.6 pg Normal 27.0-32.0 [facility] Comment on above: Performed By: #### L 501.0250, BTS, L3890.6006, L509.8002, L100.0100 #### [facility] [address] [place], [address] MCHC (RBC) [Mass/Vol] 32.8 g/dL Normal 32-36 [facility] Comment on above: Performed By: #### L 501.0250, BTS, L3890.6006, L509.8002, L100.0100 #### [facility] [address] [place], [address] MCV (RBC) [Entitic vol] 87.1 fL Normal 81-99 [facility] Comment on above: Performed By: #### L 501.0250, BTS, L3890.6006, L509.8002, L100.0100 #### [facility] [address] [place], [address] Monocytes/100 WBC (Bld) 6.1 % Normal 0-10 [facility] Comment on above: Performed By: #### L 501.0250, BTS, L3890.6006, L509.8002, L100.0100 #### [facility] [address] [place], [address] Neutrophils/100 WBC (Bld) 81.6 % High 47-70 [facility] Comment on above: Performed By: #### L 501.0250, BTS, L3890.6006, L509.8002, L100.0100 #### [facility] [address] [place], [address] Nucleated RBC (Bld) [#/Vol] 0 10*3/uL Normal 0-5 [facility] Comment on above: Performed By: #### L 501.0250, BTS, L3890.6006, L509.8002, L100.0100 #### [facility] [address] [place], [address] Platelet mean volume (Bld) [Entitic vol] 9.9 fL Normal 6.2-12.0 [facility] Comment on above: Performed By: #### L 501.0250, BTS, L3890.6006, L509.8002, L100.0100 #### [facility] [address] [place], [address] Platelets (Bld) [#/Vol] 253 10*3/uL Normal 150-450 [facility] Comment on above: Performed By: #### L 501.0250, BTS, L3890.6006, L509.8002, L100.0100 #### [facility] [address] [place], [address] RBC (Bld) [#/Vol] 3.95 10*6/uL Low 4.2-5.4 [facility] Comment on above: Performed By: #### L 501.0250, BTS, L3890.6006, L509.8002, L100.0100 #### [facility] [address] [place], [address] RDW SD 40.3 fl Normal 35.1-43.9 [facility] Comment on above: Performed By: #### L 501.0250, BTS, L3890.6006, L509.8002, L100.0100 #### [facility] [address] [place], [address] WBC (Bld) [#/Vol] 11.5 10*3/uL High 4.4-11.0 [facility] Comment on above: Performed By: #### L 501.0250, BTS, L3890.6006, L509.8002, L100.0100 #### [facility] [address] [place], [address] Eosinophil percentageOrdered By: Rylee Beavers on 01-05-2025 Eosinophils/100 WBC (Bld) 0.7 % 0-5 [facility] Erythrocyte distribution wid th ratioOrdered By: Rylee Beavers on 01-05-2025 Erythrocyte distribution width (RBC) [Ratio] 12.7 % 11.6-14.6 [facility] Erythrocyte distribution wid th standard deviationOrdered By: Rylee Beavers on 01-05-2025 Erythrocyte distribution width (RBC) [Ratio] 40.3 fl 35.1-43.9 [facility] Glucose Challenge Gest 1H 50 nicole 01-05-2025 GLU GEST 50g 1H 85 mg/dL Normal 70-140 [facility] Comment on above: Performed By: #### L 501.0250, BTS, L3890.6006, L509.8002, L100.0100 ####[facility] [address] [facility] [place], [place], [id number] Glucose measurement at 2 april rs post-dose gestational glucose tolerance testOrdered By: Rylee Beavers on 01-05-2025 Glucose [Mass/Vol] 85 mg/dL 70-140 [facility] HIVon 01-05-2025 HIV Non-Reactive Normal Nonreactive [facility] Comment on above: Result Comment: Non- Reactive Reactive Repeatedly reactive samples must be confirmed according to CDC recommended confirmatory algorithms. The subresults for either HIVAG or AHIV can be used as an aid in the selection of the confirmation algorithm for reactive samples. Send out specimens with Reactive results to [facility] for confirmation. Order the HIV antibody detection and differentiation: lc#[id number] Performed By: #### L 501.0250, BTS, L3890.6006, L509.8002, L100.0100 ####[facility] [address] [place], [place], [id number] Hematocrit Auto (Bld) [Volum e fraction]Ordered By: Rylee Beavers on 01-05-2025 Hematocrit (Bld) [Volume fraction] 34.4 % Low 37-47 [facility] Hemoglobin measurementOrdere d By: Rylee Beavers on 01-05-2025 Hemoglobin (Bld) [Mass/Vol] 11.3 g/dL Low 12.0-15.0 [facility] Immature granulocytes/100 WB C Auto (Bld)Ordered By: Rylee Beavers on 01-05-2025 Immature granulocytes/100 WBC (Bld) 0.700 % 0.0-0.9 [facility] Comment on above: IG% - Immature Granu locytes (promyelocytes, myelocytes and metamyelocytes) > 1% indicates that a LEFT SHIFT is Present. Laboratory - Chemistry and C hemistry - challengeOrdered By: Abbie Bronson on 01-05-2025 Glucose Ql (U) Negative [facility] - UrinalysisOrder ed By: Abbie Bronson on 01-05-2025 Protein Ql (U) Negative [facility] MCV (mean corpuscular volume ) determinationOrdered By: Rylee Beavers on 01-05-2025 MCV (RBC) [Entitic vol] 87.1 fL 81-99 [facility] Mean corpuscular hemoglobin (MCH) determinationOrdered By: Rylee Beavers on 01-05-2025 MCH (RBC) [Entitic mass] 28.6 pg 27.0-32.0 [facility] Mean corpuscular hemoglobin concentration (MCHC) determinationOrdered By: Rylee Beavers on 01-05-2025 MCHC (RBC) [Mass/Vol] 32.8 g/dL 32-36 [facility] Mean platelet volume determi nationOrdered By: Rylee Beavers on 01-05-2025 Platelet mean volume (Bld) [Entitic vol] 9.9 fL 6.2-12.0 [facility] Monocyte percentageOrdered B y: Rylee Beavers on 01-05-2025 Monocytes/100 WBC (Bld) 6.1 % 0-10 [facility] Neutrophil percentageOrdered By: Rylee Beavers on 01-05-2025 Neutrophils/100 WBC (Bld) 81.6 % High 47-70 [facility] No Panel InformationOrdered By: Rylee Beavers on 01-05-2025 HIV (1&2) Antibody Non-Reactive Nonreactive [facility] Comment on above: Non-ReactiveReactive Repeatedly reactive samples must be confirmed according to CDC recommended confirmatory algorithms. The subresults for either HIVAG or AHIV can be used as an aid in the selection of the confirmation algorithm for reactive samples.Send out specimens with Reactive results to [facility] for confirmation.Order the HIV antibody detection and differentiation: #[id number] Nucleated red blood cell per centageOrdered By: Rylee Beavers on 01-05-2025 Nucleated RBC/100 WBC (Bld) [Ratio] 0 % 0-5 [facility] [employer] Office Visit Reporton 01-05-2025 [employer] [facility] [employer] [facility] Office Visit Report [facility] [address], [address] [place] [address] OFFICE VISIT Date of Service: 01/05/25 MR#: [id number] Acct: [id number] Name: HALIE SANTO Rep #: [id number] : 1995 Provider: FREDERIC hdz Age/Sex: 29/F Location: [facility] [place] Status: Signed Intake Vital Signs 11/02/24 09:57 12/02/24 11:01 01/05/25 08:18 Height 5 ft 9 in 5 ft 9 in 5 ft 9 in Weight: 167 lb 8 oz BMI 24.7 BP 100/64 Intake Visit Reasons: 28wk ob/glucose/rhogam Chief Complaint: 28 Week OB/Glucose Hotel Manager Required: No Is patient in pain?: No Allergies No Known Allergies Allergy (Verified 01/05/25 08:21) Medications ???Medication ???Instructions ???Recorded ???Confirmed ???Type docosahexaenoic acid 200 mg mg PO 08/27/24 01/05/25 History capsule ( DHA) Last Menstrual Period: 05/10/23 Zika: Zika virus screening: Negative : Yes PFSH PFSH Medical History History of miscarriage, currently Surgical History Status post vaginal delivery History of dilation and curettage S/P wrist surgery S/P ear surgery Family History Grandmother Diabetes Social History adopted: No household members: spouse and children number of children: 3 current occupational status: employed current occupation: [employer] current occupational exposures/hazards: No pets and animals: Yes pets and animals: dog(s) history of recent travel: No sexually active: Yes Smoking Status: Never smoker alcohol intake: never substance use type: does not use well-balanced diet: daily or most days caffeine: Yes Type: coffee Number of servings: 1 eating out: rarely or never during the past year weight has: remained stable what type of physical activity do you participate in: none frequency: daily sea/alevism: None seatbelt use: always do you feel safe at home: Yes 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 Date Name GA/Weeks Outcome Route Bth Weight Gen Labor Lgth Anesthesia Del Locatn Provider FOB 06/27/20 Blighted ovum 8 06/12/21 Aguila 40 live - full term 7lbs 9oz Male none [facility] Mar canthony Sami 09/05/22 Riddley 39 live - full term 8#4oz Female none [facility] ABDIFATAH Sami 02/13/24 Kolter 39 live - full term 8lbs 1oz Male none [facility] Van genny Velgenny Sami Delivery Date: 06/27/20 Last Updated by: JG Owen C Delivery Date: 06/12/21 Last Updated by: Harsha Solis ISBeatriz HPI 28wk ob/glucose/rhogam Details: HALIE SANTO is a 29 year old who presents for routine OB visit. OB Visit TASHI Calculator Estimated Delivery Date Method Current WG Current Estimate 03/29/25 Ultrasound #1 28w 1d Expected Delivery Route/Plan Labor Preferences- CB/BF classes: no labor support person: Sami labor intervention preferences: [] pain management options preferred: limited cut cord/dad catch: yes : yes PP control planned: spouse has vas planned discussed possible routes of delivery and associated risks: [] special requests: [] Specific Issue/Plans Covid status: [] Flu vaccine: [] Tdap vaccine: declines Rhogam: given 01/05/25 LARC form signed: yes Problem list reviewed and updated with the most current plan of care details and appropriate orders placed. Relevant counseling for the gestational age provided. Continue routine care and follow up unless otherwise noted in visit notes/problem list details Initial Weight: Not Recorded Date -???-???-???-???-???-?? ?-???-???-???-???-???-? ??- EGA Weight BP Urine Prot -???-???-???-???-???-?? ?-???-???-???-???-???-? ??- Glucose FHR FuHt Pres Dilation -???-???-???-???-???-?? ?-???-???-???-???-???-? ??- Effaced St Visit Note 09/06/24 -???-???-???-???-???-?? ?-???-???-???-???-???-? ??- 10w 6d 157 lb 8 oz 131/78 -???-???-???-???-???-?? ?-???-???-???-???-???-? ??- 163 -???-???-???-???-???-?? ?-???-???-???-???-???-? ??- JV- CRL cons istent with 6 week ultrasound. patient declines NIPT. mild nausea, declines medication. 10/05/24 -???-???-???-???-???-?? ?-???-???-???-???-???-? ??- 15w 0d 155 lb 6 oz 130/74 Negative -???-???-???-???-???-?? ?-???-???-???-???-???-? ??- Negative 150 -???-???-???-???-???-?? ?-???-???-???-???-???-? ??- SM- no vb ll of cramping (more content not included)... [facility] Platelet countOrdered By: Roman Beavers on 01-05-2025 Platelets (Bld) [#/Vol] 253 10*3/uL 150-450 [facility] RBC Auto (Bld) [#/Vol]Ordere d By: Rylee Beavers on 01-05-2025 RBC (Bld) [#/Vol] 3.95 10*6/uL Low 4.2-5.4 [facility] Syphilis Antibodieson 2024 Syphilis Abs Non-Reactive Normal Nonreactive [facility] Comment on above: Performed By: #### L 501.0250, BTS, L3890.6006, L509.8002, L100.0100 ####[facility] [address] [place], [address] Type AND Screenon 01-05-2025 Ab SCREEN GEL Negative Normal [facility] Comment on above: Order Comment: PN Performed By: #### L 501.0250, BTS, L3890.6006, L509.8002, L100.0100 #### [facility] [address] [place], [address] White blood cell (WBC) count Ordered By: Rylee Beavers on 01-05-2025 WBC (Bld) [#/Vol] 11.5 10*3/uL High 4.4-11.0 [facility] - Chemistry and C hemistry - challengeOrdered By: Rylee Beavers on 12-02-2024 Glucose Ql (U) Negative [facility] - UrinalysisOrder ed By: Rylee Beavers on 12-02-2024 Protein Ql (U) Negative [facility] [employer] Counselor Office Visit Reporton 12-02-2024 College And Career Counselor Office Visit Report [facility], [address] [place] [address] OFFICE VISIT Date of Service: 12/02/24 MR#: [id number] Acct: [id number] Name: GALHALIE MCLEOD Rep #: [id number] : 1995 Provider: JUSTEN Jolly ams Age/Sex: 29/F Location: [facility] [place] Status: Signed Intake Vital Signs 03/11/25 10:47 11/02/24 09:57 12/02/24 11:01 Height 5 ft 9 in 5 ft 9 in 5 ft 9 in Weight: 161 lb 6 oz BMI 23.8 BP 103/66 Intake Visit Reasons: 23wk ob Chief Complaint: 23wk OB Hotel Manager Required: No Is patient in pain?: No Allergies No Known Allergies Allergy (Verified 12/02/24 11:01) Medications ???Medication ???Instructions ???Recorded ???Confirmed ???Type docosahexaenoic acid 200 mg mg PO 08/27/24 12/02/24 History capsule ( DHA) Last Menstrual Period: 05/10/23 : No PFSH PFSH Medical History History of miscarriage, currently Surgical History Status post vaginal delivery History of dilation and curettage S/P wrist surgery S/P ear surgery Family History Grandmother Diabetes Social History adopted: No household members: spouse and children number of children: 3 current occupational status: employed current occupation: [employer] current occupational exposures/hazards: No pets and animals: Yes pets and animals: dog(s) history of recent travel: No sexually active: Yes Smoking Status: Never smoker alcohol intake: never substance use type: does not use well-balanced diet: daily or most days caffeine: Yes Type: coffee Number of servings: 1 eating out: rarely or never during the past year weight has: remained stable what type of physical activity do you participate in: none frequency: daily sea/alevism: None seatbelt use: always do you feel safe at home: Yes 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 Date Name GA/Weeks Outcome Route Bth Weight Gen Labor Lgth Anesthesia Del Locatn Provider FOB 06/27/20 Blighted ovum 8 06/12/21 Aguila 40 live - full term 7lbs 9oz Male none [facility] Radha Aguileraer 09/05/22 Danielle 39 live - full term 8#4oz Female none [facility] ABDIFATAH Sami 02/13/24 Smiley 39 live - full term 8lbs 1oz Male none [facility] Olaf Silvestre Delivery Date: 06/27/20 Last Updated by: JG Owen C Delivery Date: 06/12/21 Last Updated by: Harsha Solis ISL HPI 23wk ob Details: HALIE SANTO is a 29 year old who presents for routine OB visit. OB Visit TAHSI Calculator Estimated Delivery Date Method Current WG Current Estimate 03/29/25 Ultrasound #1 23w 2d Expected Delivery Route/Plan Labor Preferences- CB/BF classes: [] labor support person: [] labor intervention preferences: [] pain management options preferred: [] cut cord/dad catch: [] : [] PP control planned: [] discussed possible routes of delivery and associated risks: [] special requests: [] Specific Issue/Plans Covid status: [] Flu vaccine: [] Tdap vaccine: [] Rhogam: [] LARC form signed: [] Problem list reviewed and updated with the most current plan of care details and appropriate orders placed. Relevant counseling for the gestational age provided. Continue routine care and follow up unless otherwise noted in visit notes/problem list details Initial Weight: Not Recorded Date -???-???-???-???-???-?? ?-???-???-???-???-???-? ??- EGA Weight BP Urine Prot -???-???-???-???-???-?? ?-???-???-???-???-???-? ??- Glucose FHR FuHt Pres Dilation -???-???-???-???-???-?? ?-???-???-???-???-???-? ??- Effaced St Visit Note 09/06/24 -???-???-???-???-???-?? ?-???-???-???-???-???-? ??- 10w 6d 157 lb 8 oz 131/78 -???-???-???-???-???-?? ?-???-???-???-???-???-? ??- 163 -???-???-???-???-???-?? ?-???-???-???-???-???-? ??- JV- CRL cons istent with 6 week ultrasound. patient declines NIPT. mild nausea, declines medication. 10/05/24 -???-???-???-???-???-?? ?-???-???-???-???-???-? ??- 15w 0d 155 lb 6 oz 130/74 Negative -???-???-???-???-???-?? ?-???-???-???-???-???-? ??- Negative 150 -???-???-???-???-???-?? ?-???-???-???-???-???-? ??- SM- no vb ll of cramping 11/02/24 -???-???-???-???-???-?? ?-???-???-???-???-???-? ??- 19w 0d 157 lb 8 oz 124/80 Negative -???-???-???-???-???-?? ?-???-???-???-???-???-? ?? (more content not included)... Normal [facility] - Chemistry and C hemistry - challengeOrdered By: Abbie Bronson on 11-02-2024 Glucose Ql (U) Negative [facility] - UrinalysisOrder ed By: Abbie Bronson on 11-02-2024 Protein Ql (U) Negative [facility] [employer] Counselor Office Visit Reporton 11-02-2024 [facility] And Career Counselor Office Visit Report [facility] [address], [address] [place] [address] OFFICE VISIT Date of Service: 11/02/24 MR#: [id number] Acct: [id number] Name: HALIE SANTO Rep #: [id number] : 1995 Provider: FREDERIC hdz Age/Sex: 29/F Location: [facility] [place] Status: Signed Intake Vital Signs 10/05/24 10:47 11/02/24 09:57 Height 5 ft 9 in 5 ft 9 in Weight: 157 lb 8 oz BMI 23.2 BP 124/80 H Intake Visit Reasons: 19wk ob Chief Complaint: 19 Week OB Hotel Manager Required: No Is patient in pain?: No Allergies No Known Allergies Allergy (Verified 11/02/24 09:56) Medications ???Medication ???Instructions ???Recorded ???Confirmed ???Type docosahexaenoic acid 200 mg mg PO 08/27/24 11/02/24 History capsule ( DHA) Last Menstrual Period: 05/10/23 Zika: Zika virus screening: Negative : No PFSH PFSH Medical History History of miscarriage, currently Surgical History Status post vaginal delivery History of dilation and curettage S/P wrist surgery S/P ear surgery Family History Grandmother Diabetes Social History adopted: No household members: spouse and children number of children: 3 current occupational status: employed current occupation: [employer] current occupational exposures/hazards: No pets and animals: Yes pets and animals: dog(s) history of recent travel: No sexually active: Yes Smoking Status: Never smoker alcohol intake: never substance use type: does not use well-balanced diet: daily or most days caffeine: Yes Type: coffee Number of servings: 1 eating out: rarely or never during the past year weight has: remained stable what type of physical activity do you participate in: none frequency: daily sea/alevism: None seatbelt use: always do you feel safe at home: Yes 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 Date Name GA/Weeks Outcome Route Bth Weight Gen Labor Lgth Anesthesia Del Locatn Provider FOB 06/27/20 Blighted ovum 8 06/12/21 Aguila 40 live - full term 7lbs 9oz Male none [facility] Mar dee dee [place] 09/05/22 Riddley 39 live - full term 8#4oz Female none [facility] ABDIFATAH [place] 02/13/24 Kolter 39 live - full term 8lbs 1oz Male none [facility] Olaf royal Velgenny [place] Delivery Date: 06/27/20 Last Updated by: Carmencita Monte RN D C Delivery Date: 06/12/21 Last Updated by: Harsha Solis ISBeatriz HPI 19wk ob Details: HALIE SANTO is a 29 year old who presents for routine OB visit. OB Visit TASHI Calculator Estimated Delivery Date Method Current WG Current Estimate 03/29/25 Ultrasound #1 19w 0d Expected Delivery Route/Plan Labor Preferences- CB/BF classes: [] labor support person: [] labor intervention preferences: [] pain management options preferred: [] cut cord/dad catch: [] : [] PP control planned: [] discussed possible routes of delivery and associated risks: [] special requests: [] Specific Issue/Plans Covid status: [] Flu vaccine: [] Tdap vaccine: [] Rhogam: [] LARC form signed: [] Problem list reviewed and updated with the most current plan of care details and appropriate orders placed. Relevant counseling for the gestational age provided. Continue routine care and follow up unless otherwise noted in visit notes/problem list details Initial Weight: Not Recorded Date -???-???-???-???-???-?? ?-???-???-???-???-???-? ??- EGA Weight BP Urine Prot -???-???-???-???-???-?? ?-???-???-???-???-???-? ??- Glucose FHR FuHt Pres Dilation -???-???-???-???-???-?? ?-???-???-???-???-???-? ??- Effaced St Visit Note 09/06/24 -???-???-???-???-???-?? ?-???-???-???-???-???-? ??- 10w 6d 157 lb 8 oz 131/78 -???-???-???-???-???-?? ?-???-???-???-???-???-? ??- 163 -???-???-???-???-???-?? ?-???-???-???-???-???-? ??- JV- CRL cons istent with 6 week ultrasound. patient declines NIPT. mild nausea, declines medication. 10/05/24 -???-???-???-???-???-?? ?-???-???-???-???-???-? ??- 15w 0d 155 lb 6 oz 130/74 Negative -???-???-???-???-???-?? ?-???-???-???-???-???-? ??- Negative 150 -???-???-???-???-???-?? ?-???-???-???-???-???-? ??- SM- no vb ll of cramping 11/02/24 -???-???-???-???-???-?? ?-???-???-???-???-???-? ??- 19w 0d 157 lb 8 oz 124/80 Negative -???-? (more content not included)... [facility] - Chemistry and C hemistry - challengeOrdered By: Chanel Stacy on 10-05-2024 Glucose Ql (U) Negative [facility] - UrinalysisOrder ed By: Chanel Stacy on 10-05-2024 Protein Ql (U) Negative [facility] College And Career Counselor Office Visit Reporton 10-05-2024 College And Career Counselor Office Visit Report [facility] [address], [address] [place] [address] OFFICE VISIT Date of Service: 10/05/24 MR#: [id number] Acct: [id number] Name: HALIE SANTO Rep #: [id number] : 1995 Provider: Dr. Chanel nicholas MD Age/Sex: 29/F Location: [facility] [place] Status: Signed Intake Vital Signs 08/06/24 11:56 09/06/24 14:55 10/05/24 10:45 10/05/24 10:47 Height 5 ft 9 in 5 ft 9 in 5 ft 9 in 5 ft 9 in Weight: 155 lb 6 oz BMI 22.9 BP 130/74 H Intake Visit Reasons: 14wk OB Hotel Manager Required: No Is patient in pain?: No Feel stressed/tense/nervous/ anxious/difficulty sleeping: not at all Allergies No Known Allergies Allergy (Verified 10/05/24 10:45) Medications ???Medication ???Instructions ???Recorded ???Confirmed ???Type docosahexaenoic acid 200 mg mg PO 08/27/24 10/05/24 History capsule ( DHA) Last Menstrual Period: 05/10/23 Zika: Zika virus screening: Negative : No PFSH PFSH Medical History History of miscarriage, currently Surgical History Status post vaginal delivery History of dilation and curettage S/P wrist surgery S/P ear surgery Family History Grandmother Diabetes Social History adopted: No household members: spouse and children number of children: 3 current occupational status: employed current occupation: [employer] current occupational exposures/hazards: No pets and animals: Yes pets and animals: dog(s) history of recent travel: No sexually active: Yes Smoking Status: Never smoker alcohol intake: never substance use type: does not use well-balanced diet: daily or most days caffeine: Yes Type: coffee Number of servings: 1 eating out: rarely or never during the past year weight has: remained stable what type of physical activity do you participate in: none frequency: daily sea/alevism: None seatbelt use: always do you feel safe at home: Yes 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 Date Name GA/Weeks Outcome Route Bth Weight Gen Labor Lgth Anesthesia Del Locatn Provider FOB 06/27/20 Blighted ovum 8 06/12/21 Aguila 40 live - full term 7lbs 9oz Male none [facility] Radha funez [place] 09/05/22 Lindsayy 39 live - full term 8#4oz Female none [facility] ABDIFATAH [place] 02/13/24 Purviter 39 live - full term 8lbs 1oz Male none [facility] Olaf Silvestre Delivery Date: 06/27/20 Last Updated by: JG Owen Delivery Date: 06/12/21 Last Updated by: Harsha Solis ISBeatriz HPI 14wk OB Details: HALIE SANTO is a 29 year old who presents for routine OB visit. OB Visit TASHI Calculator Estimated Delivery Date Method Current WG Current Estimate 03/29/25 Ultrasound #1 15w 0d Expected Delivery Route/Plan Labor Preferences- CB/BF classes: [] labor support person: [] labor intervention preferences: [] pain management options preferred: [] cut cord/dad catch: [] : [] PP control planned: [] discussed possible routes of delivery and associated risks: [] special requests: [] Specific Issue/Plans Covid status: [] Flu vaccine: [] Tdap vaccine: [] Rhogam: [] LARC form signed: [] Problem list reviewed and updated with the most current plan of care details and appropriate orders placed. Relevant counseling for the gestational age provided. Continue routine care and follow up unless otherwise noted in visit notes/problem list details Initial Weight: Not Recorded Date -???-???-???-???-???-?? ?-???-???-???-???-???-? ??- EGA Weight BP Urine Prot -???-???-???-???-???-?? ?-???-???-???-???-???-? ??- Glucose FHR FuHt Pres Dilation -???-???-???-???-???-?? ?-???-???-???-???-???-? ??- Effaced St Visit Note 09/06/24 -???-???-???-???-???-?? ?-???-???-???-???-???-? ??- 10w 6d 157 lb 8 oz 131/78 -???-???-???-???-???-?? ?-???-???-???-???-???-? ??- 163 -???-???-???-???-???-?? ?-???-???-???-???-???-? ??- JV- CRL cons istent with 6 week ultrasound. patient declines NIPT. mild nausea, declines medication. 10/05/24 -???-???-???-???-???-?? ?-???-???-???-???-???-? ??- 15w 0d 155 lb 6 oz 130/74 Negative -???-???-???-???-???-?? ?-???-???-???-???-???-? ??- Negative 150 -???-???-???-???-???-?? ?-???-???-???-???-???-? ??- SM- no vb ll of cramping ACOG First Tr (more content not included)... [facility] Urine Cultureon 09-10-2024 URC Mixed Gram Positive Organisms [place] Count 25,000-50,000 MIXC Mixed contaminants. Submit a new specimen if indicated. [facility] Comment on above: Performed By: #### L 7000.1800, M1.2199 ####[facility] [address] [place], [address] Chlamydia/GC MINI aptimaon CHLAMY,NUC ACID Negative Normal Negative [facility] Comment on above: Performed By: #### L 7000.1800, M100.0 ####[facility] [address] [place], [address] GC BY NUC ACID Negative Normal Negative [facility] Comment on above: Result Comment: Perf ormed at: =G - [facility] [address] [place], [place] [id number] Astrophysics Teacher: Tiff Vivas MD, Phone: [phone] Performed By: #### L 7000.1800, M1.0 ####[facility] [address] [place], [address] ABORh Blood Type, Patienton 09-06-2024 ABO and Rh group Nom (Bld) Blood group A Rh(D) negative [facility] Comment on above: Order Comment: PN Performed By: #### L 3890.6005, BTS, B36527-6, BtABORH, L100.0100, L3890.6100, L3890.6300, L509.4005 ####[facility] [address] [place], [address] CBC W/Diff, Automatedon 08-28 0-2024 Absolute Lymph 2.05 X10 3/uL Normal 0.83-4.51 [facility] Comment on above: Performed By: #### L 3890.6005, BTS, H45773-1, BtABORH, L100.0100, L3890.6100, L3890.6300, L509.4005 ####[facility] [address] [place], [address] Absolute Neut 8.1 X10 3/uL High 2.0-7.7 [facility] Comment on above: Performed By: #### L 3890.6005, BTS, S77439-0, BtABORH, L100.0100, L3890.6100, L3890.6300, L509.4005 ####[facility] [address] [place], [address] Basophils/100 WBC (Bld) 0.3 % Normal 0-1 [facility] Comment on above: Performed By: #### L 3890.6005, BTS, D23439-9, BtABORH, L100.0100, L3890.6100, L3890.6300, L509.4005 ####[facility] [address] [place], [address] Eosinophils/100 WBC (Bld) 0.7 % Normal 0-5 [facility] Comment on above: Performed By: #### L 3890.6005, BTS, P22663-3, BtABORH, L100.0100, L3890.6100, L3890.6300, L509.4005 ####[facility] [address] [place], [address] Erythrocyte distribution width (RBC) [Ratio] 13.3 % Normal 11.6-14.6 [facility] Comment on above: Performed By: #### L 3890.6005, BTS, W77562-6, BtABORH, L100.0100, L3890.6100, L3890.6300, L509.4005 ####[facility] [address] [place], [address] Hematocrit (Bld) [Volume fraction] 37.8 % Normal 37-47 [facility] Comment on above: Performed By: #### L 3890.6005, BTS, S61421-8, BtABORH, L100.0100, L3890.6100, L3890.6300, L509.4005 ####[facility] [address] [place], [address] Hemoglobin (Bld) [Mass/Vol] 12.5 g/dL Normal 12.0-15.0 [facility] Comment on above: Performed By: #### L 3890.6005, BTS, H51482-6, BtABORH, L100.0100, L3890.6100, L3890.6300, L509.4005 ####[facility] [address] [place], [address] IG% 0.400 Normal 0.0-0.9 [facility] Comment on above: Result Comment: IG% - Immature Granulocytes (promyelocytes, myelocytes and metamyelocytes) > 1% indicates that a LEFT SHIFT is Present. Performed By: #### L 3890.6005, BTS, N69807-6, BtABORH, L100.0100, L3890.6100, L3890.6300, L509.4005 ####[facility] [address] [place], [address] Lymphocytes/100 WBC (Bld) 18.5 % Low 19-41 [facility] Comment on above: Performed By: #### L 3890.6005, BTS, B98569-7, BtABORH, L100.0100, L3890.6100, L3890.6300, L509.4005 ####[facility] [address] [place], [address] MCH (RBC) [Entitic mass] 28.0 pg Normal 27.0-32.0 [facility] Comment on above: Performed By: #### L 3890.6005, BTS, A16935-6, BtABORH, L100.0100, L3890.6100, L3890.6300, L509.4005 ####[facility] [address] [place], [address] MCHC (RBC) [Mass/Vol] 33.1 g/dL Normal 32-36 [facility] Comment on above: Performed By: #### L 3890.6005, BTS, Q09186-4, BtABORH, L100.0100, L3890.6100, L3890.6300, L509.4005 ####[facility] [address] [place], [address] MCV (RBC) [Entitic vol] 84.6 fL Normal 81-99 [facility] Comment on above: Performed By: #### L 3890.6005, BTS, F07153-3, BtABORH, L100.0100, L3890.6100, L3890.6300, L509.4005 ####[facility] [address] [place], [address] Monocytes/100 WBC (Bld) 7.1 % Normal 0-10 [facility] Comment on above: Performed By: #### L 3890.6005, BTS, I45780-7, BtABORH, L100.0100, L3890.6100, L3890.6300, L509.4005 ####[facility] [address] [place], [address] Neutrophils/100 WBC (Bld) 73.0 % High 47-70 [facility] Comment on above: Performed By: #### L 3890.6005, BTS, N06709-9, BtABORH, L100.0100, L3890.6100, L3890.6300, L509.4005 ####[facility] [address] [place], [address] Nucleated RBC (Bld) [#/Vol] 0 10*3/uL Normal 0-5 [facility] Comment on above: Performed By: #### L 3890.6005, BTS, K65143-3, BtABORH, L100.0100, L3890.6100, L3890.6300, L509.4005 ####[facility] [address] [place], [address] Platelet mean volume (Bld) [Entitic vol] 10.7 fL Normal 6.2-12.0 [facility] Comment on above: Performed By: #### L 3890.6005, BTS, Y85902-8, BtABORH, L100.0100, L3890.6100, L3890.6300, L509.4005 ####[facility] [address] [place], [address] Platelets (Bld) [#/Vol] 233 10*3/uL Normal 150-450 [facility] Comment on above: Performed By: #### L 3890.6005, BTS, X77745-7, BtABORH, L100.0100, L3890.6100, L3890.6300, L509.4005 ####[facility] [address] [place], [address] RBC (Bld) [#/Vol] 4.47 10*6/uL Normal 4.2-5.4 [facility] Comment on above: Performed By: #### L 3890.6005, BTS, A93863-6, BtABORH, L100.0100, L3890.6100, L3890.6300, L509.4005 ####[facility] [address] [place], [place], [id number] RDW SD 41.1 fl Normal 35.1-43.9 [facility] Comment on above: Performed By: #### L 3890.6005, BTS, G45868-9, BtABORH, L100.0100, L3890.6100, L3890.6300, L509.4005 ####[facility] [address] [place], [place], [address] WBC (Bld) [#/Vol] 11.1 10*3/uL High 4.4-11.0 [facility] Comment on above: Performed By: #### L 3890.6005, BTS, S33886-8, BtABORH, L100.0100, L3890.6100, L3890.6300, L509.4005 ####[facility] [address] [place], [address] HIV - WCHon 09-06-2024 HIV Non-Reactive Normal Nonreactive [facility] Comment on above: Order Comment: Reaso n for Exam: Performed By: #### L 3890.6005, BTS, F20330-2, BtABORH, L100.0100, L3890.6100, L3890.6300, L509.4005 ####[facility] [address] [place], [place], [id number] Hepatitis B Surface Antigeno n 09-06-2024 HEP B Surf Ag Non-Reactive Normal Nonreactive [facility] Comment on above: Order Comment: Reaso n for Exam: Performed By: #### L 3890.6005, BTS, O59320-3, BtABORH, L100.0100, L3890.6100, L3890.6300, L509.4005 ####[facility] [address] [place], [address] Hepatitis C Antibodyon 09-06 Hepatitis C AB Non-Reactive Normal Nonreactive [facility] Comment on above: Order Comment: Reaso n for Exam: Result Comment: Non Reactive: < 0.8 Equivocal: >/= 0.8 to < 1.0 Reactive: >/= 1.0 The CDC requires that a reactive/equivocal HCV antibody result be sent out for confirmation. HCV Quant by PCR testing. Performed By: #### L 3890.6005, BTS, L53294-1, BtABORH, L100.0100, L3890.6100, L3890.6300, L509.4005 ####[facility] [address] [place], [address] L509.8000on 09-06-2024 Syphilis Abs Non-Reactive [facility] Comment on above: Performed By: #### L 509.8000 ####[facility] [address] [place], [address] College And Career Counselor Office Visit Reporton 09-06-2024 College And Career Counselor Office Visit Report [facility] [address], [address] [place] [address] OFFICE VISIT Date of Service: 09/06/24 MR#: [id number] Acct: [id number] Name: HALIE SANTO Rep #: [id number] : 1995 Provider: Dr. Love Sharp DO Age/Sex: 29/F Location: [facility] [place] Status: Signed Intake Vital Signs 03/22/24 15:03 08/06/24 11:56 09/06/24 14:54 09/06/24 14:55 Height 5 ft 9 in 5 ft 9 in 5 ft 9 in 5 ft 9 in Weight: 157 lb 8 oz BMI 23.2 BP 131/78 H Intake Visit Reasons: NOB, Unknown LMP/ US 08/03, TASHI 03/29/25 Hotel Manager Required: No Is patient in pain?: No Allergies No Known Allergies Allergy (Verified 09/06/24 14:53) Medications ???Medication ???Instructions ???Recorded ???Confirmed ???Type docosahexaenoic acid 200 mg mg PO 08/27/24 09/06/24 History capsule ( DHA) Last Menstrual Period: 05/10/23 Zika: Zika virus screening: Negative : [facility] Medical History History of miscarriage, currently Surgical History Status post vaginal delivery History of dilation and curettage S/P wrist surgery S/P ear surgery Family History Grandmother Diabetes Social History adopted: No household members: spouse and children number of children: 3 current occupational status: employed current occupation: [employer] current occupational exposures/hazards: No pets and animals: Yes pets and animals: dog(s) history of recent travel: No sexually active: Yes Smoking Status: Never smoker alcohol intake: never substance use type: does not use well-balanced diet: daily or most days caffeine: Yes Type: coffee Number of servings: 1 eating out: rarely or never during the past year weight has: remained stable what type of physical activity do you participate in: none frequency: daily sea/alevism: None seatbelt use: always do you feel safe at home: Yes additional social history: : 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 Date Name GA/Weeks Outcome Route Bth Weight Gen Labor Lgth Anesthesia Del Locatn Provider FOB 06/27/20 Blighted ovum 8 06/12/21 Aguila 40 live - full term 7lbs 9oz Male none [facility] Mar canthony Sami 09/05/22 Danielle 39 live - full term 8#4oz Female none [facility] ABDIFATAH Sami 02/13/24 Smiley 39 live - full term 8lbs 1oz Male none [facility] Olaf Silvestre Delivery Date: 06/27/20 Last Updated by: Carmencita Monte, JG D C Delivery Date: 06/12/21 Last Updated by: Harsha Solis ISL HPI NOB, Unknown LMP/ US 08/03, TASHI 03/29/25 Details: HALIE SANTO is a 29 year old who presents for New OB visit. OB Visit TASHI Calculator Estimated Delivery Date Method Current WG Current Estimate 03/29/25 Ultrasound #1 10w 6d Estimated Due Date: 03/29/25 Initial Weight: Not Recorded Date -???-???-???-???-???-?? ?-???-???-???-???-???-? ??- EGA Weight BP Urine Prot -???-???-???-???-???-?? ?-???-???-???-???-???-? ??- Glucose FHR FuHt Pres Dilation -???-???-???-???-???-?? ?-???-???-???-???-???-? ??- Effaced St Visit Note 09/06/24 -???-???-???-???-???-?? ?-???-???-???-???-???-? ??- 10w 6d 157 lb 8 oz 131/78 -???-???-???-???-???-?? ?-???-???-???-???-???-? ??- 163 -???-???-???-???-???-?? ?-???-???-???-???-???-? ??- JV- CRL cons istent with 6 week ultrasound. patient declines NIPT. mild nausea, declines medication. Menstrual History Last Menstrual Period: 05/10/23 Reported LMP: unknown Normal amount/duration: No Frequency in days: First pp period Mar, None in May On hormonal BC at conception: No Antepartum Record Genetic Screening: Congenital Heart Defect: Other, Neural Tube Defect: Other, Hemoglobinopathy Or Carrier: Other, Cystic Fibrosis: Other, Chromosome Abnormality: Other, Abdon-Sachs: Other, Hemophilia: Other, Intellectual Disability/Autism: Other, Recurrent Loss/Stillbirth: Other, Other Structural Defect: Other, Other Genetic Disease: Other and Maternal Metabolic Disorder: Other Infection History: Live with someone with TB or Exposed to TB: No, Patient or Partner has history of Genital Herpes: No, Rash or Viral illness since last mentrual period: No, Prior GBS-Infected child: No, History of STD: No, HIV Infection: No, History of Hepatitis: No, Recent travel outside of [place]: No, Concern for hepatitis exposure: No, Varicella immun (more content not included)... [facility] Rubella IgGon 09-06-2024 Rubella IgG Reactive Normal Nonreactive [facility] Comment on above: Order Comment: Reaso n for Exam: Result Comment: Anti body Results Interpretation of Immune Status Non Reactive Presumed Non-Immune Equivocal Equivocal Reactive Presumed Immune Performed By: #### L 3890.6005, BTS, N03437-1, BtABORH, L100.0100, L3890.6100, L3890.6300, L509.4005 ####[facility] [address] [place], [place], [id number] Type AND Screenon 09-06-2024 Ab SCREEN GEL TNP [facility] Comment on above: Order Comment: PN Performed By: #### L 3890.6005, BTS, I50852-0, BtABORH, L100.0100, L3890.6100, L3890.6300, L509.4005 ####[facility] [address] [place], [place], [id number] ABO and Rh group Nom (Bld) TNP [facility] Comment on above: Order Comment: PN Performed By: #### L 3890.6005, BTS, R33110-3, BtABORH, L100.0100, L3890.6100, L3890.6300, L509.4005 ####[facility] [address] [place], [place], [id number] Transvaginal w/Preg USon Transvaginal w/Preg US [facility] Imaging Services [address] [place], [place] [address] Transvaginal w/Preg US MR#: [id number] Acct: [id number] Name: HALIE SANTO Rep #: [id number] : 1995 F 29 From: Yannick mojica MD PCP: Care Physician,No Primary Status: REG CLI Study: Transvaginal w/Preg US Date of Exam: 08/03/24 Exam# [id number] Ordering Dr: Rylee Beavers [facility] [id number] STUDY: FIRST TRIMESTER OBSTETRICAL ULTRASOUND REASON FOR EXAM: Female, 29 years old check viability, early LMP: Unknown. TECHNIQUE: Transvaginal TECHNICAL QUALITY: Adequate. PRIOR ULTRASOUND: None. FINDINGS: There is visualization of a single gestational sac in a normal intrauterine position. The mean sac diameter (MSD) measures 1.1 cm, indicating an estimated gestational age (EGA) of 5 weeks, 6 days. The gestational sac shape is within normal limits. There is a visualized yolk sac. The yolk sac measures 3 mm. The placenta is non-visualized. There is visualization of a live embryo. The crown-rump length (CRL) measures 3 mm, indicating an estimated gestational age (EGA) of 6 weeks, 1 days. There is demonstrated cardiac activity with a heart rate of 140 bpm. The estimated gestation age (EGA) by US is 6 weeks, 0 days. The estimated date of delivery (TASHI) by US is March 29, 2025. The uterus measures 9 cm x 7.5 cm x 5.3 cm. Findings suggestive of a 1.3 cm x 0.8 cm x 0.6 cm subchorionic bleed. There is no demonstrated uterine fibroid. The cervix is closed. The right ovary measures 3.5 cm x 2.7 cm x 1.8 cm a follicle is seen within the right ovary measuring 1.7 cm x 1.17 x 1 cm.. There is no right ovarian cyst. There is no visualized right adnexal mass or complex lesion. The left ovary measures 3.2 cm x 1.7 cm x 1.9 cm. There is no left ovarian cyst. There is no visualized left adnexal mass or complex lesion. There is no fluid in the cul de sac. US/Transvaginal w/Preg US IMPRESSION: Single live uterine gestation with a mean gestational age of 6 weeks. Findings suggestive of a small subchorionic bleed. Electronically Signed: Yannick Batista MD at 14:22 EST Reading Location ID and State: [address] [place] [address] , Service support , CC: JUSTEN Beavers; No Primary Care Physician Anesthesiologist Assistant Certified: Signed [facility] hCG Titer Quant., Serumon HCG QUANT. 5525 mIU/mL High 1-3 [facility] Comment on above: Result Comment: hCG levels with Gestational Age Gestational Age hCG mIU/mL (IU/L) 0.2 - 1 week 5 - 50 1-2 weeks 50 - 500 2-3 weeks 100 - 5000 3-4 weeks 500 - 18299 4-5 weeks 1000 - 61927 5-6 weeks 86280 - 100,000 6-8 weeks 15763 - 200,000 2-3 months 29567 - 100,000 Performed By: #### L 700.8000 #### [facility] [address] [place], [place], [address] hCG Titer Quant., Serumon HCG QUANT. 3279 mIU/mL High 1-3 [facility] Comment on above: Result Comment: hCG levels with Gestational Age Gestational Age hCG mIU/mL (IU/L) 0.2 - 1 week 5 - 50 1-2 weeks 50 - 500 2-3 weeks 100 - 5000 3-4 weeks 500 - 01622 4-5 weeks 1000 - 76171 5-6 weeks 68753 - 100,000 6-8 weeks 87210 - 200,000 2-3 months 58873 - 100,000 Performed By: #### L 700.8000 #### [facility] [address] [place], [place], [id number] PAP IG HPV APTIMA 16/18,45on 03-26-2024 ADEQ Comment Normal . [facility] Comment on above: Order Comment: Speci men Comment: [id number] Specimen Comment: Source.............Cervix Specimen Comment: Other..............Post- Specimen Comment: No. of containers..01 ThinPrep Vial Result Comment: Sati sfactory for evaluation. Endocervical and/or squamous metaplastic cells (endocervical component) are present. Performed By: #### L 7400.0280 #### [facility] [address] [place], [place], [address] COMM . Normal . [facility] Comment on above: Order Comment: Speci men Comment: [id number] Specimen Comment: Source.............Cervix Specimen Comment: Other..............Post- Specimen Comment: No. of containers..01 ThinPrep Vial Performed By: #### L 7400.0280 #### [facility] [address] [place], [place], [address] COMMENT Comment Normal . [facility] Comment on above: Order Comment: Speci men Comment: [id number] Specimen Comment: Source.............Cervix Specimen Comment: Other..............Post- Specimen Comment: No. of containers..01 ThinPrep Vial Result Comment: This liquid based ThinPrep(R) pap test was screened with the use of an image guided system. Performed By: #### L 7400.0280 #### [facility] [address] [place], [address] DIAG Comment Normal . [facility] Comment on above: Order Comment: Speci men Comment: [id number] Specimen Comment: Source.............Cervix Specimen Comment: Other..............Post- Specimen Comment: No. of containers..01 ThinPrep Vial Result Comment: NEGA TIVE FOR INTRAEPITHELIAL LESION OR MALIGNANCY. CELLULAR CHANGES ASSOCIATED WITH INFLAMMATION ARE PRESENT. Performed By: #### L 7400.0280 #### [facility] [address] [place], [place], [id number] HPV APTIMA, HR Negative Normal Negative [facility] Comment on above: Order Comment: Speci men Comment: [id number] Specimen Comment: Source.............Cervix Specimen Comment: Other..............Post- Specimen Comment: No. of containers..01 ThinPrep Vial Result Comment: This nucleic acid amplification test detects fourteen high- risk HPV types (16,18,31,33,35,39,45,51,52,56,58,59,66,68) without differentiation. Performed By: #### L 7400.0280 #### [facility] [address] [place], [place], [address] HPV Ashlyn Rfx Comment Normal . [facility] Comment on above: Order Comment: Speci men Comment: [id number] Specimen Comment: Source.............Cervix Specimen Comment: Other..............Post- Specimen Comment: No. of containers..01 ThinPrep Vial Result Comment: Crit rodrigo not met, HPV Genotype not performed. Performed at: - [facility] [id number] Astrophysics Teacher: Tiff Vivas MD, Phone: [phone] Performed at: = - [facility] [id number] Astrophysics Teacher: Tiff Vivas MD, Phone: [phone] Performed By: #### L 7400.0280 #### [facility] [address] [place], [address] PAPSMR Comment Normal . [facility] Comment on above: Order Comment: Speci men Comment: [id number] Specimen Comment: Source.............Cervix Specimen Comment: Other..............Post- Specimen Comment: No. of containers..01 ThinPrep Vial Result Comment: The Pap smear is a screening test designed to aid in the detection of premalignant and malignant conditions of the uterine cervix. It is not a diagnostic procedure and should not be used as the sole means of detecting cervical cancer. Both false-positive and false-negative reports do occur. Performed By: #### L 7400.0280 #### [facility] [address] [place], [address] PERFORM Comment Normal . [facility] Comment on above: Order Comment: Speci men Comment: [id number] Specimen Comment: Source.............Cervix Specimen Comment: Other..............Post- Specimen Comment: No. of containers..01 ThinPrep Vial Result Comment: Ebony Eason Counter Sales Representative (ASCP) Performed By: #### L 7400.0280 #### [facility] [place], [address] College And Career Counselor Office Visit Reporton 03-22-2024 College And Career Counselor Office Visit Report [facility] [address], [address] [place] [address] OFFICE VISIT Date of Service: 03/22/24 MR#: [id number] Acct: [id number] Name: HALIE SANTO Rep #: [id number] : 1995 Provider: Dr. Love Sharp DO Age/Sex: 28/F Location: [facility] [place] Status: Signed Intake Vital Signs 02/13/24 02:57 03/22/24 15:01 03/22/24 15:03 Height 5 ft 9 in 5 ft 9 in 5 ft 9 in Weight: 154 lb 8 oz BMI 22.8 BP 118/74 Intake Visit Reasons: visit (obstetrics) Hotel Manager Required: No Is patient in pain?: No Allergies No Known Allergies Allergy (Verified 03/22/24 15:01) Medications ???Medication ???Instructions ???Recorded ???Confirmed ???Type NK 03/22/24 03/22/24 [facility] : [facility] History History of miscarriage, currently Placental abnormality Vaginal delivery Rh negative status during Surgical History History of dilation and curettage S/P wrist surgery S/P ear surgery Family History Grandmother Diabetes Social History adopted: No household members: spouse and children number of children: 2 current occupational status: employed current occupation: [employer] current occupational exposures/hazards: No pets and animals: Yes pets and animals: dog(s) history of recent travel: No sexually active: Yes Smoking Status: Never smoker alcohol intake: never substance use type: does not use well-balanced diet: daily or most days caffeine: Yes Type: coffee Number of servings: 1 eating out: rarely or never during the past year weight has: remained stable what type of physical activity do you participate in: walking frequency: daily sea/alevism: None seatbelt use: always do you feel safe at home: Yes additional social history: - Sami History 4 Elective abortions Hx Para 3 Spontaneous abortions 1 Hx # Term Pregnancies 3 Ectopic pregnancies Hx # Pregnancies Multiple births # of living children 3 Past Pregnancies Del. Date Name GA/Weeks Outcome Route Bth Weight Gen Labor Lgth Anesthesia Del Locatn Provider FOB Unknown 06/2020- Blighted ovum 06/12/21 Aguila 40 live - full term Male [facility] Troy nicholas Sami 09/05/22 Riddley 39 live - full term 8#4oz Female [facility] ABDIFATAH 02/13/24 39 live - full term Male [facility] Matt Funez Delivery Date: 06/12/21 Last Updated by: Harsha ROE Depression Screen PHQ-2/9 PHQ-2 Over the last 2 weeks, how often have you been bothered by any of the following problems? 1. Little interest or pleasure in doing things: not at all 2. Feeling down, depressed, or hopeless: not at all Total score: 0 Post HPI Routine Follow-Up: Details: HALIE SANTO is a 28 year old who presents for her post visit. Feeding: Breast Menses resumed: No [place] since delivery: No Emotional Support: Yes Last Pap:: 11/16/20 Control Method: undecided ROS Const Reports system reviewed and no additional complaints, except as documented GI Reports system reviewed and no additional complaints, except as documented, Denies bloating, Denies constipation, Denies nausea and Denies vomiting Reports system reviewed and no additional complaints, except as documented, Denies abnormal vaginal bleeding, Denies pelvic pain, Denies sexual dysfunction, Denies urinary incontinence, Denies urinary hesitancy, Denies urinary urgency and Denies vaginal discharge Skin/Breast Reports system reviewed and no additional complaints, except as documented and Reports as per HPI Psych Reports as per HPI Exam Const General: cooperative, healthy appearing, comfortable and no acute distress HENMT Head: normal to inspection Neck Neck: normal visual inspection and no lymphadenopathy Thyroid: thyroid normal Chest Breast inspection: normal inspection of the breasts and normal inspection of the axillae Breast palpation: normal palpation of the breasts and normal palpation of the axillae Resp Effort Inspection: normal respiratory effort GI Inspection: normal to inspection Palpation: soft, no hepatosplenomegaly and nontender General: bladder normal to palpation External Female Exam: normal external appearance and normal appearance of the urethra Urethra: normal appearance of the urethra Speculum Exam - Vagina: normal appearance of the vagina and normal vaginal discharge Speculum Exam - Cervix: normal appearance of the cervix Bimanual Exam- Vagina Uterus: (more content not included)... Normal [facility] Absolute lymphocyte countOrd ered By: Love Funez on 11-25-2023 Lymphocytes Auto (Unsp spec) [#/Vol] 1.56 10*3/uL 0.83-4.51 [facility] Automated lymphocyte count a s percentage of total leukocytesOrdered By: Love Funez on 11-25-2023 Lymphocytes/100 WBC Auto (Unsp spec) 17.0 % 19-41 [facility] Basophil percentageOrdered B y: Love Funez on 11-25-2023 Basophils/100 WBC (Bld) 0.3 % 0-1 [facility] Eosinophils/100 WBC (Bld) 0.8 % 0-5 [facility] Hemoglobin (Bld) [Mass/Vol] 11.9 g/dL 12.0-15.0 [facility] Monocytes/100 WBC (Bld) 3.7 % 0-10 [facility] Neutrophils (Bld) [#/Vol] 7.1 10*3/uL 2.0-7.7 [facility] Neutrophils/100 WBC (Bld) 77.7 % 47-70 [facility] WBC (Bld) [#/Vol] 9.2 10*3/uL 4.4-11.0 [facility] Determination of erythrocyte mean corpuscular volume (MCV)Ordered By: Love Funez on 11-25-2023 MCV (RBC) [Entitic vol] 85.1 fL 81-99 [facility] Erythrocyte distribution wid th ratioOrdered By: Love Funez on 11-25-2023 Erythrocyte distribution width (RBC) [Ratio] 12.6 % 11.6-14.6 [facility] Erythrocyte distribution wid th standard deviationOrdered By: Love Funez on 11-25-2023 Erythrocyte distribution width (RBC) [Entitic vol] 38.6 fL 35.1-43.9 [facility] Gestational diabetes screen 1-hour screen with 50g oral glucose loadOrdered By: Love Funez on 11-25-2023 Glucose 1 Hr post 50 g glucose PO [Mass/Vol] 102 mg/dL 70-140 [facility] HIV 1 and HIV-2 antibody ass ay with HIV-1 p24 antigen detectionOrdered By: Love Funez on 11-25-2023 HIV 1+2 Ab+HIV1 p24 Ag IA Ql Non-Reactive Nonreactive [facility] Hematocrit Auto (Bld) [Volum e fraction]Ordered By: Love Funez on 11-25-2023 Hematocrit (Bld) [Volume fraction] 35.5 % 37-47 [facility] Immature granulocytes/100 WB C Auto (Bld)Ordered By: Love Funez on 11-25-2023 Immature granulocytes/100 WBC (Bld) 0.500 % 0.0-0.9 [facility] Comment on above: IG% - Immature Granu locytes (promyelocytes, myelocytes and metamyelocytes) > 1% indicates that a LEFT SHIFT is Present. Laboratory - Chemistry and C hemistry - challengeon 11-25-2023 Glucose Ql (U) Negative [facility] - Hematology and Cell countsOrdered By: Love Funez on 11-25-2023 MCH (RBC) [Entitic mass] 28.5 pg 27.0-32.0 [facility] MCHC (RBC) [Mass/Vol] 33.5 g/dL 32-36 [facility] Nucleated RBC/100 WBC (Bld) [Ratio] 0 % 0-5 [facility] Platelet mean volume (Bld) [Entitic vol] 9.5 fL 6.2-12.0 [facility] Platelets (Bld) [#/Vol] 236 10*3/uL 150-450 [facility] - Urinalysison Protein Ql (U) Negative [facility] RBC Auto (Bld) [#/Vol]Ordere d By: Love Funez on 11-25-2023 RBC (Bld) [#/Vol] 4.17 10*6/uL 4.2-5.4 [facility] Serum Treponema species anti body detectionOrdered By: Love Funez on 11-25-2023 Treponema sp Ab Ql (S) Non-Reactive [facility] - Chemistry and C hemistry - challengeon 10-01-2023 Glucose Ql (U) Negative [facility] - Urinalysison Protein Ql (U) Negative [facility] - Chemistry and C hemistry - challengeon 09-01-2023 Glucose Ql (U) Negative [facility] - Urinalysison Protein Ql (U) Negative [facility] Absolute lymphocyte countOrd ered By: Shyla Wallace on 08-12-2023 Lymphocytes Auto (Unsp spec) [#/Vol] 2.13 10*3/uL 0.83-4.51 [facility] Basophil percentageOrdered B y: Shyla Wallace on 08-12-2023 Basophils/100 WBC (Bld) 0.4 % 0-1 [facility] Eosinophils/100 WBC (Bld) 1.0 % 0-5 [facility] Neutrophils (Bld) [#/Vol] 6.2 10*3/uL 2.0-7.7 [facility] Neutrophils/100 WBC (Bld) 68.6 % 47-70 [facility] WBC (Bld) [#/Vol] 9.0 10*3/uL 4.4-11.0 [facility] Blood erythrocytes count (nu mber/volume)Ordered By: Shyla Wallace on 08-12-2023 RBC (Bld) [#/Vol] 4.56 10*6/uL 4.2-5.4 [facility] Blood hemoglobin measurement (mass/volume)Ordered By: Shyla Wallace on 08-12-2023 Hemoglobin (Bld) [Mass/Vol] 13.5 g/dL 12.0-15.0 [facility] Blood lymphocytes/100 leukoc ytesOrdered By: Shyla Wallace on 08-12-2023 Lymphocytes/100 WBC (Bld) 23.6 % 19-41 [facility] Blood monocytes/100 leukocyt esOrdered By: Shyla Wallace on 08-12-2023 Monocytes/100 WBC (Bld) 6.2 % 0-10 [facility] Blood platelet mean volumeOr dered By: Shyla Wallace on 08-12-2023 Platelet mean volume (Bld) [Entitic vol] 10.3 fL 6.2-12.0 [facility] Determination of erythrocyte mean corpuscular volume (MCV)Ordered By: Shyla Wallace on 08-12-2023 MCV (RBC) [Entitic vol] 86.2 fL 81-99 [facility] HIV 1 and HIV-2 antibody ass ay with HIV-1 p24 antigen detectionOrdered By: Shyla Wallace on 08-12-2023 HIV 1+2 Ab+HIV1 p24 Ag IA Ql Non-Reactive Nonreactive [facility] Hematocrit Auto (Bld) [Volum e fraction]Ordered By: Shyla Wallace on 08-12-2023 Hematocrit (Bld) [Volume fraction] 39.3 % 37-47 [facility] - Hematology and Cell countsOrdered By: Shyla Wallace on 08-12-2023 Erythrocyte distribution width (RBC) [Entitic vol] 39.5 fL 35.1-43.9 [facility] Erythrocyte distribution width (RBC) [Ratio] 12.7 % 11.6-14.6 [facility] Immature granulocytes/100 WBC (Bld) 0.200 % 0.0-0.9 [facility] Comment on above: IG% - Immature Granu locytes (promyelocytes, myelocytes and metamyelocytes) > 1% indicates that a LEFT SHIFT is Present. MCH (RBC) [Entitic mass] 29.6 pg 27.0-32.0 [facility] Nucleated RBC/100 WBC (Bld) [Ratio] 0 % 0-5 [facility] MCHC Auto (RBC) [Mass/Vol]Or dered By: Shyla Wallace on 08-12-2023 MCHC (RBC) [Mass/Vol] 34.4 g/dL 32-36 [facility] No Panel InformationOrdered By: Shyla Wallace on 08-12-2023 Hepatitis B Surface Antigen Non-Reactive Nonreactive [facility] Hepatitis C Antibody Non-Reactive Nonreactive [facility] Comment on above: Non Reactive: < 0.8 Equivocal: >/= 0.8 to < 1.0 Reactive: >/= 1.0The CDC recommends that a reactive/equivocal HCV antibody result be followed up by the HCV Nucleic Acid Amplificationtest (641019) Rubella IgG Antibody Reactive Nonreactive [facility] Comment on above: Antibody Results Int erpretation of Immune Status Non Reactive Presumed Non-Immune Equivocal Equivocal Reactive Presumed Immune Platelets bldOrdered By: Charley Wallace on 08-12-2023 Platelets (Bld) [#/Vol] 238 10*3/uL 150-450 [facility] Serum Treponema species anti body detectionOrdered By: Shyla Wallace on 08-12-2023 Treponema sp Ab Ql (S) Non-Reactive [facility] - Chemistry and C hemistry - challengeon 08-08-2023 Glucose Ql (U) Negative [facility] - Urinalysison Protein Ql (U) Negative [facility] Culture, urineOrdered By: Shanta Wallace on 07-11-2023 Bacteria identified Cx Nom (U) Positive [facility] CNOVon 05-14-2023 CNOV Office Visit (UCWSTR ) HALIE SANTO ([id number]) 1995 F Date Time Provider Department 05/14/23 8:30 AM ESTEFANY FOSTER [facility] During your visit today, we recorded the following information about you: Temperature Pulse Respiration Blood pressure 97.1 degrees 86/minute 20/minute 102/68 Weight 72.4 kg Estefany Foster APRN.TRAVELING SALES EXECUTIVE 05/14/2023 8:45 AM Signed Patient came in with complaints of possible [...] this care plan. Will take her self. Allergies As of Date: 05/14/2023 (No Known Allergies) Date Reviewed: 05/14/2023 Reviewed by: Shelley Desai MA - Fully Assessed Reason for Visit: Insect Bite [929] Cmt: Bug bite on right hand ring finger x 2 days Primary Visit Diagnosis:Skin infection [L08.9] Prescriptions as of 05/14/2023 - Levonorgestrel-Ethinyl Estrad (AVIANE) 0.1mg - 20mcg per tablet Take 1 tablet by mouth once daily. - AVIANE 0.1-20 mg-mcg per tablet TAKE ONE TABLET BY MOUTH ONCE DAILY - albuterol HFA 90 mcg/actuation INHALATION inhaler Inhale as instructed. 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] 02/12/2007 WOUND (NOT COMPLICATED) - OPEN FOOT (NOT TOES*04/26/2008 11/13/2011 Unspecified osteochondropathy [M93.90] 04/03/2011 Degeneration of intervertebral disc, site unspe*05/27/2011 Degeneration of lumbar or lumbosacral intervert*07/03/2011 Encounter Status:Closed by ESTEFANY FOSTER on 05/14/23 [facility] CNOVon 03-13-2023 CNOV Office Visit (UCWSTR ) HALIE SANTO ([id number]) 1995 F Date Time Provider Department 03/13/23 7[facility]15 [facility] your visit today, we recorded the following information about you: Temperature Pulse Respiration Blood pressure 99.3 degrees 111/minute 21/minute 102/60 Weight 71.4 kg Eduardo Oscar APRN.TRAVELING SALES EXECUTIVE 03/13/2023 7:43 AM Signed Subjective HPI HPI Halie Santo is a 27 year old female who presents today for CC of st, fever, ear pain, h/a. This started 3 days ago. Has tried otc medication for relief. Symptoms are worsened by nothing. Risk factors strep exposures at home. Nonsmoker. Denies possibility of being . .Patient presents with: Sore Throat: Fever, JALLOH, bilateral ear pain x 3 days PAST [...] Pos, strep - STREP A MOLECULAR (POC) Eduardo Oscar APRN.RADHA Allergies As of Date: 03/13/2023 (No Known Allergies) Date Reviewed: 03/13/2023 Reviewed by: Eduardo Oscar APRN.TRAVELING SALES EXECUTIVE - Fully Assessed Reason for Visit: Sore Throat [200] Cmt: Fever, JALLOH, bilateral ear pain x 3 days Primary Visit Diagnosis:Strep throat [J02.0] Other Visit Diagnosis:Sore throat [J02.9] Order(s):STREP A MOLECULAR (POC) [9334949] Order #: [id number]. #:[id number] amoxicillin (AMOXIL) 500 mg capsuleTake 1 capsule by mouth twice daily for 10 days.Disp: 20 capsuleRfl: 0 Prescriptions as of 03/13/2023 - amoxicillin (AMOXIL) 500 mg (more content not included)... Normal [facility] STREP A MOLECULAR (POC)on Procedural Control Valid [facility] Strep A (POCT) Positive Abnormal Negative [facility] Absolute lymphocyte countOrd ered By: Dr. Stacy on 09-05-2022 Lymphocytes Auto (Unsp spec) [#/Vol] 1.25 10*3/uL 0.83-4.51 [facility] Basophil percentageOrdered B y: Dr. Stacy on 09-05-2022 Basophils/100 WBC (Bld) 0.2 % 0-1 [facility] Eosinophils/100 WBC (Bld) 0.3 % 0-5 [facility] Neutrophils (Bld) [#/Vol] 8.9 10*3/uL 2.0-7.7 [facility] Neutrophils/100 WBC (Bld) 79.1 % 47-70 [facility] WBC (Bld) [#/Vol] 11.2 10*3/uL 4.4-11.0 [facility] Blood erythrocytes count (nu mber/volume)Ordered By: Dr. Stacy on 09-05-2022 RBC (Bld) [#/Vol] 4.19 10*6/uL 4.2-5.4 [facility] Blood hemoglobin measurement (mass/volume)Ordered By: Dr. Stacy on 09-05-2022 Hemoglobin (Bld) [Mass/Vol] 11.5 g/dL 12.0-15.0 [facility] Blood lymphocytes/100 leukoc ytesOrdered By: Dr. Stacy on 09-05-2022 Lymphocytes/100 WBC (Bld) 11.2 % 19-41 [facility] Blood monocytes/100 leukocyt esOrdered By: Dr. Stacy on 09-05-2022 Monocytes/100 WBC (Bld) 8.3 % 0-10 [facility] Blood platelet mean volumeOr dered By: Dr. Stacy on 09-05-2022 Platelet mean volume (Bld) [Entitic vol] 9.8 fL 6.2-12.0 [facility] Determination of erythrocyte mean corpuscular volume (MCV)Ordered By: Dr. Stacy on 09-05-2022 MCV (RBC) [Entitic vol] 83.8 fL 81-99 [facility] Hematocrit Auto (Bld) [Volum e fraction]Ordered By: Dr. Stacy on 09-05-2022 Hematocrit (Bld) [Volume fraction] 35.1 % 37-47 [facility] - Hematology and Cell countsOrdered By: Dr. Stacy on 09-05-2022 Erythrocyte distribution width (RBC) [Entitic vol] 39.1 fL 35.1-43.9 [facility] Erythrocyte distribution width (RBC) [Ratio] 13.0 % 11.6-14.6 [facility] Immature granulocytes/100 WBC (Bld) 0.900 % 0.0-0.9 [facility] Comment on above: IG% - Immature Granu locytes (promyelocytes, myelocytes and metamyelocytes) > 1% indicates that a LEFT SHIFT is Present. MCH (RBC) [Entitic mass] 27.4 pg 27.0-32.0 [facility] Nucleated RBC/100 WBC (Bld) [Ratio] 0 % 0-5 [facility] MCHC Auto (RBC) [Mass/Vol]Or dered By: Dr. Stacy on 09-05-2022 MCHC (RBC) [Mass/Vol] 32.8 g/dL 32-36 [facility] Platelets bldOrdered By: Dr. Stacy on 09-05-2022 Platelets (Bld) [#/Vol] 293 10*3/uL 150-450 [facility] - Chemistry and C hemistry - challengeon 08-29-2022 Glucose Ql (U) Negative [facility] - Urinalysison Protein Ql (U) Negative [facility] - Chemistry and C hemistry - challengeon 08-22-2022 Glucose Ql (U) Negative [facility] - Urinalysison Protein Ql (U) Negative [facility] No Panel InformationOrdered By: Dr. Stacy on 08-14-2022 Group B Streptococcus Culture Group B Beta Streptococcus is not isolated. [facility] - Chemistry and C hemistry - challengeon 08-01-2022 Glucose Ql (U) Negative [facility] - Urinalysison Protein Ql (U) Negative [facility] - Chemistry and C hemistry - challengeon 07-17-2022 Glucose Ql (U) Negative [facility] - Urinalysison Protein Ql (U) Negative [facility] - Chemistry and C hemistry - challengeon 07-04-2022 Glucose Ql (U) Negative [facility] - Urinalysison Protein Ql (U) Negative [facility] No Panel InformationOrdered By: Abbie Bronson on 06-21-2022 Glucose 3 Hour See comment 70-120 [facility] Comment on above: FASTING 67 L Col: 0700GLUCOSE TOLERANCE TEST Reference Interval Non- Adults Fasting 74 - 106 30 minutes 110 - 170 1 hour 120 - 170 2 hour 74 - 120 3 hour 74 - 106 4 hour 74 - 106 5 hour 74 - 106 GLU 1/2 HR 135 Col: 06/21/22 0730 GLU 1 HR 130 Col: 06/21/22 0800 GLU 2 HR 98 Col: 06/21/22 0900 GLU 3 HR 79 Col: 06/21/22 1000 Absolute lymphocyte countOrd ered By: Shyla Wallace on 06-17-2022 Lymphocytes Auto (Unsp spec) [#/Vol] 1.57 10*3/uL 0.83-4.51 [facility] Basophil percentageOrdered B y: Shyla Wallace on 06-17-2022 Basophils/100 WBC (Bld) 0.3 % 0-1 [facility] Eosinophils/100 WBC (Bld) 0.7 % 0-5 [facility] Neutrophils (Bld) [#/Vol] 10.4 10*3/uL 2.0-7.7 [facility] Neutrophils/100 WBC (Bld) 82.2 % 47-70 [facility] WBC (Bld) [#/Vol] 12.7 10*3/uL 4.4-11.0 [facility] Blood erythrocytes count (nu mber/volume)Ordered By: Shyla Wallace on 06-17-2022 RBC (Bld) [#/Vol] 3.80 10*6/uL 4.2-5.4 [facility] Blood hemoglobin measurement (mass/volume)Ordered By: Shyla Wallace on 06-17-2022 Hemoglobin (Bld) [Mass/Vol] 11.4 g/dL 12.0-15.0 [facility] Blood lymphocytes/100 leukoc ytesOrdered By: Shyla Wallace on 06-17-2022 Lymphocytes/100 WBC (Bld) 12.4 % 19-41 [facility] Blood monocytes/100 leukocyt esOrdered By: Shyla Wallace on 06-17-2022 Monocytes/100 WBC (Bld) 4.0 % 0-10 [facility] Blood platelet mean volumeOr dered By: Shyla Wallace on 06-17-2022 Platelet mean volume (Bld) [Entitic vol] 9.3 fL 6.2-12.0 [facility] Determination of erythrocyte mean corpuscular volume (MCV)Ordered By: Shyla Wallace on 06-17-2022 MCV (RBC) [Entitic vol] 87.9 fL 81-99 [facility] Gestational diabetes screen 1-hour screen with 50g oral glucose loadOrdered By: Shyla Wallace on 06-17-2022 Glucose 1 Hr post 50 g glucose PO [Mass/Vol] 139 mg/dL 70-140 [facility] HIV 1 and HIV-2 antibody ass ay with HIV-1 p24 antigen detectionOrdered By: Shyla Wallace on 06-17-2022 HIV 1+2 Ab+HIV1 p24 Ag IA Ql Non-Reactive Nonreactive [facility] Hematocrit Auto (Bld) [Volum e fraction]Ordered By: Shyla Wallace on 06-17-2022 Hematocrit (Bld) [Volume fraction] 33.4 % 37-47 [facility] - Chemistry and C hemistry - challengeon 06-17-2022 Glucose Ql (U) Negative [facility] - Hematology and Cell countsOrdered By: Shyla Wallace on 06-17-2022 Erythrocyte distribution width (RBC) [Entitic vol] 42.5 fL 35.1-43.9 [facility] Erythrocyte distribution width (RBC) [Ratio] 13.2 % 11.6-14.6 [facility] Immature granulocytes/100 WBC (Bld) 0.400 % 0.0-0.9 [facility] Comment on above: IG% - Immature Granu locytes (promyelocytes, myelocytes and metamyelocytes) > 1% indicates that a LEFT SHIFT is Present. MCH (RBC) [Entitic mass] 30.0 pg 27.0-32.0 [facility] Nucleated RBC/100 WBC (Bld) [Ratio] 0 % 0-5 [facility] Laboratory - Urinalysison Protein Ql (U) Negative [facility] MCHC Auto (RBC) [Mass/Vol]Or dered By: Shyla Wallace on 06-17-2022 MCHC (RBC) [Mass/Vol] 34.1 g/dL 32-36 [facility] Platelets bldOrdered By: Charley Wallace on 06-17-2022 Platelets (Bld) [#/Vol] 214 10*3/uL 150-450 [facility] Serum Treponema species anti body detectionOrdered By: Shyla Wallace on 06-17-2022 Treponema sp Ab Ql (S) Non-Reactive [facility] Laboratory - Chemistry and C hemistry - challengeon 06-05-2022 Glucose Ql (U) Negative [facility] Laboratory - Urinalysison Protein Ql (U) Negative [facility] Laboratory - Chemistry and C hemistry - challengeon 05-07-2022 Glucose Ql (U) Negative [facility] Laboratory - Urinalysison Protein Ql (U) Negative [facility] Laboratory - Chemistry and C hemistry - challengeon 04-09-2022 Glucose Ql (U) Negative [facility] Work Phone: Laboratory - Urinalysison Protein Ql (U) Negative [facility] Work Phone: Laboratory - Chemistry and C hemistry - challengeon 03-11-2022 Glucose Ql (U) Negative [facility] Work Phone: Laboratory - Urinalysison Protein Ql (U) Negative [facility] Work Phone: Absolute lymphocyte counton 02-19-2022 Lymphocytes Auto (Unsp spec) [#/Vol] 1.36 10*3/uL 0.83-4.51 [facility] Work Phone: Basophil percentageon 2021 Basophils/100 WBC (Bld) 0.3 % 0-1 [facility] Work Phone: Eosinophils/100 WBC (Bld) 0.7 % 0-5 [facility] Work Phone: Neutrophils (Bld) [#/Vol] 7.2 10*3/uL 2.0-7.7 [facility] Work Phone: Neutrophils/100 WBC (Bld) 78.3 % 47-70 [facility] Work Phone: WBC (Bld) [#/Vol] 9.1 10*3/uL 4.4-11.0 [facility] Work Phone: Blood erythrocytes count (nu mber/volume)on 02-19-2022 RBC (Bld) [#/Vol] 4.96 10*6/uL 4.2-5.4 [facility] Work Phone: Blood hemoglobin measurement (mass/volume)on 02-19-2022 Hemoglobin (Bld) [Mass/Vol] 14.5 g/dL 12.0-15.0 [facility] Work Phone: Blood lymphocytes/100 leukoc yteson 02-19-2022 Lymphocytes/100 WBC (Bld) 14.9 % 19-41 [facility] Work Phone: Blood monocytes/100 leukocyt eson 02-19-2022 Monocytes/100 WBC (Bld) 5.5 % 0-10 [facility] Work Phone: Blood platelet mean volumeon 02-19-2022 Platelet mean volume (Bld) [Entitic vol] 9.8 fL 6.2-12.0 [facility] Work Phone: [phone] Determination of erythrocyte mean corpuscular volume (MCV)on 02-19-2022 MCV (RBC) [Entitic vol] 85.7 fL 81-99 [facility] Work Phone: [phone] HIV 1 and HIV-2 antibody ass ay with HIV-1 p24 antigen detectionon 02-19-2022 HIV 1+2 Ab+HIV1 p24 Ag IA Ql Non-Reactive Nonreactive [facility] Work Phone: [phone] Hematocrit Auto (Bld) [Volum e fraction]on 02-19-2022 Hematocrit (Bld) [Volume fraction] 42.5 % 37-47 [facility] Work Phone: [phone] Laboratory - Hematology and Cell countson 02-19-2022 Erythrocyte distribution width (RBC) [Entitic vol] 38.6 fL 35.1-43.9 [facility] Work Phone: [phone] Erythrocyte distribution width (RBC) [Ratio] 12.4 % 11.6-14.6 [facility] Work Phone: [phone] Immature granulocytes/100 WBC (Bld) 0.300 % 0.0-0.9 [facility] Work Phone: [phone] Comment on above: IG% - Immature Granu locytes (promyelocytes, myelocytes and metamyelocytes) > 1% indicates that a LEFT SHIFT is Present. MCH (RBC) [Entitic mass] 29.2 pg 27.0-32.0 [facility] Work Phone: [phone] Nucleated RBC/100 WBC (Bld) [Ratio] 0 % 0-5 [facility] Work Phone: [phone] MCHC Auto (RBC) [Mass/Vol]on 02-19-2022 MCHC (RBC) [Mass/Vol] 34.1 g/dL 32-36 [facility] Work Phone: [phone] No Panel Informationon 02-19 Miscellaneous Test Comment MAILED SPECIMEN [facility] Work Phone: [phone] Hepatitis B Surface Antigen Non-Reactive Nonreactive [facility] Work Phone: [phone] Hepatitis C Antibody Non-Reactive Nonreactive [facility] Work Phone: [phone] Comment on above: Non Reactive: < 0.8 Equivocal: >/= 0.8 to < 1.0 Reactive: >/= 1.0The [facility] recommends that a reactive/equivocal HCV antibody result be followed up by the HCV Nucleic Acid Amplificationtest (254960) Rubella IgG Antibody Reactive Nonreactive [facility] Work Phone: [phone] Comment on above: Antibody Results Int erpretation of Immune Status Non Reactive Presumed Non-Immune Equivocal Equivocal Reactive Presumed Immune Platelets bldon 02-19-2022 Platelets (Bld) [#/Vol] 235 10*3/uL 150-450 [facility] Work Phone: [phone] Serum Treponema species anti body detectionon 02-19-2022 Treponema sp Ab Ql (S) Non-Reactive [facility] Work Phone: [phone] Chlamydia trachomatis rRNA d etection by probe and target amplification methodon 02-04-2022 C. trachomatis rRNA MINI+probe Ql (Unsp spec) Negative Negative [facility] Work Phone: [phone] Laboratory - Drug toxicology on 02-04-2022 Amphetamines Ql (U) Negative <1000 ng/mL [facility] Work Phone: [phone] Benzodiazepines Ql (U) Negative < 200 ng/mL [facility] Work Phone: [phone] Cannabinoids Screen Ql (U) Negative < 50 ng/mL [facility] Work Phone: [phone] Cocaine Ql (U) Negative < 300 ng/mL [facility] Work Phone: [phone] Opiates Ql (U) Negative < 300 ng/mL [facility] Work Phone: [phone] Laboratory - Microbiology an d Antimicrobial susceptibilityon 02-04-2022 N. gonorrhoeae DNA MINI+probe Ql (Unsp spec) Negative Negative [facility] Work Phone: [phone] Comment on above: Performed at: =G - [address] [place], [place] [id number] Director: Tiff Vivas MD, Phone: [phone] No Panel Informationon 02-04 MDMA (Ecstasy) Screen Negative < 500 ng/mL [facility] Work Phone: Urine Barbiturates Screen Negative < 200 ng/mL [facility] Work Phone: Urine Drug Screen Comment [facility] Work Phone: Comment on above: CONFIRMATORY TESTING FOR ALL POSITIVE URINE DRUG SCREENRESULTS WILL ONLY BE SENT OUT UPON PHYSICIAN ORDER. VISTA Urine Drug Screen methods provide only preliminaryanalytical test results. A more specific alternate chemicalmethod must be used in order to obtain a confirmedanalytical result. Gas chromatography/mass spectrometery(GC/MS) is the preferred confirmatory method. Clinicalconsideration and professional judgement should be appliedto any drug of abuse test result, particularly whenpreliminary positive results are used. URINE TCA TESTING MUST BE ORDERED SEPARATELY. USE TESTMNEMONIC: [facility] Urine Methadone Screen Negative < 300 ng/mL [facility] Work Phone: Urine phencyclidine (PCP) de tectionon 02-04-2022 Phencyclidine Ql (U) Negative < 25 ng/mL [facility] Work Phone: Office Visit: new annualon 1 Documentation of current medications (procedure) Done Invalid Interpretation Code [facility] Fall risk assessment No Invalid Interpretation Code [facility] Tobacco smoking status NHIS Never Invalid Interpretation Code [facility] Tobacco use CPHS Never smoker Invalid Interpretation Code [facility] Office Visit: new annualon 0 07-28-2015 General categories [Interpretation] of Cervical or vaginal smear or scraping by Cyto stain Normal Invalid Interpretation Code [facility] Office Visit: postop surgery 11/08/14on 12-14-2014 Dietary management education, guidance, and counseling (procedure) yes Invalid Interpretation Code [facility] External Other: Preferred Me thod of Contacton 11-18-2014 methcontact secmsg Invalid Interpretation Code [facility] Lab Report: ,Urineo n 11-08-2014 HCGUQUAL Negative Invalid Interpretation Code [facility] Culture, urine Bacteria identified Cx Nom (U) 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 [facility] Work Phone: Vital Signs Date Time Vital Sign Value Performing Clinician Trey oneil 03-08-2025 10:35-0400 Body height 175.26 cm No Primary Care Physician [facility] 03-08-2025 10:35-0400 Body mass index (BMI) [Ratio] 25.6 kg/m2 No Primary Care Physician [facility] 03-08-2025 10:35-0400 Body weight 78.64 kg No Primary Care Physician [facility] 03-08-2025 10:35-0400 Diastolic blood pressure 65 mm[Hg] No Primary Care Physician [facility] 03-08-2025 10:35-0400 Systolic blood pressure 115 mm[Hg] No Primary Care Physician [facility] 03-03-2025 11:34-0400 Body height 175.26 cm No Primary Care Physician [facility] 03-03-2025 11:32-0400 Body mass index (BMI) [Ratio] 25.4 kg/m2 No Primary Care Physician [facility] 03-03-2025 11:32-0400 Body weight 78.18 kg No Primary Care Physician [facility] 03-03-2025 11:32-0400 Diastolic blood pressure 70 mm[Hg] No Primary Care Physician [facility] 03-03-2025 11:32-0400 Systolic blood pressure 107 mm[Hg] No Primary Care Physician [facility] 02-15-2025 10:03-0400 Body height 175.26 cm No Primary Care Physician [facility] 02-15-2025 10:03-0400 Body mass index (BMI) [Ratio] 25.4 kg/m2 No Primary Care Physician [facility] 02-15-2025 10:03-0400 Body weight 78.07 kg No Primary Care Physician [facility] 02-15-2025 10:03-0400 Diastolic blood pressure 67 mm[Hg] No Primary Care Physician [facility] 02-15-2025 10:03-0400 Systolic blood pressure 108 mm[Hg] No Primary Care Physician [facility] 02-02-2025 14:37-0400 Body height 175.26 cm No Primary Care Physician [facility] 02-02-2025 14:34-0400 Body mass index (BMI) [Ratio] 25.2 kg/m2 No Primary Care Physician [facility] 02-02-2025 14:34-0400 Body weight 77.33 kg No Primary Care Physician [facility] 02-02-2025 14:34-0400 Diastolic blood pressure 64 mm[Hg] No Primary Care Physician [facility] 02-02-2025 14:34-0400 Systolic blood pressure 109 mm[Hg] No Primary Care Physician [facility] 01-20-2025 10:24-0400 Body height 175.26 cm No Primary Care Physician [facility] 01-20-2025 10:24-0400 Body mass index (BMI) [Ratio] 24.8 kg/m2 No Primary Care Physician [facility] 01-20-2025 10:24-0400 Body weight 76.31 kg No Primary Care Physician [facility] 01-20-2025 10:24-0400 Diastolic blood pressure 68 mm[Hg] No Primary Care Physician [facility] 01-20-2025 10:24-0400 Systolic blood pressure 109 mm[Hg] No Primary Care Physician [facility] 01-05-2025 08:18-0400 Body height 175.26 cm No Primary Care Physician [facility] 01-05-2025 08:18-0400 Body mass index (BMI) [Ratio] 24.7 kg/m2 No Primary Care Physician [facility] 01-05-2025 08:18-0400 Body weight 75.97 kg No Primary Care Physician [facility] 01-05-2025 08:18-0400 Diastolic blood pressure 64 mm[Hg] No Primary Care Physician [facility] 01-05-2025 08:18-0400 Systolic blood pressure 100 mm[Hg] No Primary Care Physician [facility] 12-02-2024 11:01-0400 Body mass index (BMI) [Ratio] 23.8 kg/m2 No Primary Care Physician [facility] 12-02-2024 11:01-0400 Body weight 73.19 kg No Primary Care Physician [facility] 12-02-2024 11:01-0400 Diastolic blood pressure 66 mm[Hg] No Primary Care Physician [facility] 12-02-2024 11:01-0400 Systolic blood pressure 103 mm[Hg] No Primary Care Physician [facility] 11-02-2024 09:57-0400 Body mass index (BMI) [Ratio] 23.2 kg/m2 No Primary Care Physician [facility] 11-02-2024 09:57-0400 Body weight 71.44 kg No Primary Care Physician [facility] 11-02-2024 09:57-0400 Diastolic blood pressure 80 mm[Hg] No Primary Care Physician [facility] 11-02-2024 09:57-0400 Systolic blood pressure 124 mm[Hg] No Primary Care Physician [facility] 10-05-2024 10:45-0400 Body mass index (BMI) [Ratio] 22.9 kg/m2 No Primary Care Physician [facility] 10-05-2024 10:45-0400 Body weight 70.47 kg No Primary Care Physician [facility] 10-05-2024 10:45-0400 Diastolic blood pressure 74 mm[Hg] No Primary Care Physician [facility] 10-05-2024 10:45-0400 Systolic blood pressure 130 mm[Hg] No Primary Care Physician [facility] 11-25-2023 08:47-0400 Body height 172.72 cm No Primary Care Physician [facility] 11-25-2023 08:47-0400 Body mass index (BMI) [Ratio] 25 kg/m2 No Primary Care Physician [facility] 11-25-2023 08:47-0400 Body weight 74.84 kg No Primary Care Physician [facility] 11-25-2023 08:47-0400 Diastolic blood pressure 62 mm[Hg] No Primary Care Physician [facility] 11-25-2023 08:47-0400 Systolic blood pressure 118 mm[Hg] No Primary Care Physician [facility] 10-29-2023 11:36-0400 Body weight 73.93 kg No Primary Care Physician [facility] 10-29-2023 11:36-0400 Diastolic blood pressure 71 mm[Hg] No Primary Care Physician [facility] 10-29-2023 11:36-0400 Systolic blood pressure 116 mm[Hg] No Primary Care Physician [facility] 10-29-2023 11:25-0400 Body mass index (BMI) [Ratio] 24.7 kg/m2 No Primary Care Physician [facility] 10-01-2023 10:56-0500 Body mass index (BMI) [Ratio] 24 kg/m2 No Primary Care Physician [facility] 10-01-2023 10:56-0500 Body weight 71.78 kg No Primary Care Physician [facility] 10-01-2023 10:56-0500 Diastolic blood pressure 60 mm[Hg] No Primary Care Physician [facility] 10-01-2023 10:56-0500 Systolic blood pressure 114 mm[Hg] No Primary Care Physician [facility] 09-01-2023 11:20-0500 Body mass index (BMI) [Ratio] 23.8 kg/m2 No Primary Care Physician [facility] 09-01-2023 11:20-0500 Body weight 70.93 kg No Primary Care Physician [facility] 09-01-2023 11:20-0500 Diastolic blood pressure 72 mm[Hg] No Primary Care Physician [facility] 09-01-2023 11:20-0500 Systolic blood pressure 112 mm[Hg] No Primary Care Physician [facility] 08-08-2023 15:21-0500 Body mass index (BMI) [Ratio] 23.8 kg/m2 No Primary Care Physician [facility] 08-08-2023 15:21-0500 Body weight 71.21 kg No Primary Care Physician [facility] 08-08-2023 15:21-0500 Diastolic blood pressure 73 mm[Hg] No Primary Care Physician [facility] 08-08-2023 15:21-0500 Systolic blood pressure 115 mm[Hg] No Primary Care Physician [facility] 07-11-2023 09:01-0500 Body height 172.72 cm No Primary Care Physician [facility] 07-11-2023 09:00-0500 Body mass index (BMI) [Ratio] 23.9 kg/m2 No Primary Care Physician [facility] 07-11-2023 09:00-0500 Body weight 71.32 kg No Primary Care Physician [facility] 07-11-2023 09:00-0500 Diastolic blood pressure 70 mm[Hg] No Primary Care Physician [facility] 07-11-2023 09:00-0500 Systolic blood pressure 107 mm[Hg] No Primary Care Physician [facility] 05-14-2023 08:49-0400 Body height 172.72 cm [facility] 05-14-2023 08:49-0400 Body mass index (BMI) [Ratio] 22.8 kg/m2 [facility] 05-14-2023 08:49-0400 Body temperature 97.7 [degF] [facility] 05-14-2023 08:49-0400 Body weight 68.03 kg [facility] 05-14-2023 08:49-0400 Diastolic blood pressure 66 mm[Hg] [facility] 05-14-2023 08:49-0400 Heart rate 88 /min [facility] 05-14-2023 08:49-0400 Respiratory rate 14 /min [facility] 05-14-2023 08:49-0400 SaO2% (BldA) [Mass fraction] 100 % [facility] 05-14-2023 08:49-0400 Systolic blood pressure 110 mm[Hg] [facility] 05-14-2023 08:36-0400 Body temperature 97.11 [degF] Estefany Foster APRN.TRAVELING SALES EXECUTIVE Work Phone: [facility] 05-14-2023 08:36-0400 Body weight 72.39 kg Estefany Foster APRN.TRAVELING SALES EXECUTIVE Work Phone: [facility] 05-14-2023 08:36-0400 Diastolic blood pressure 68 mm[Hg] Estefany Foster APRN.TRAVELING SALES EXECUTIVE Work Phone: [facility] 05-14-2023 08:36-0400 Heart rate 86 /min Estefany Foster APRN.TRAVELING SALES EXECUTIVE Work Phone: [facility] 05-14-2023 08:36-0400 Respiratory rate 20 /min Estefany Foster APRN.TRAVELING SALES EXECUTIVE Work Phone: [facility] 05-14-2023 08:36-0400 SaO2% (BldA) [Mass fraction] 99 % Estefany Foster APRN.TRAVELING SALES EXECUTIVE Work Phone: [facility] 05-14-2023 08:36-0400 Systolic blood pressure 102 mm[Hg] Estefany Foster APRN.TRAVELING SALES EXECUTIVE Work Phone: [facility] 03-13-2023 07:14-0400 Body temperature 99.3 [degF] Eduardo Oscar BRICK OFFBEARER.TRAVELING SALES EXECUTIVE Work Phone: [facility] 03-13-2023 07:14-0400 Body weight 71.4 kg Eduardo Oscar BRICK OFFBEARER.TRAVELING SALES EXECUTIVE Work Phone: [facility] 03-13-2023 07:14-0400 Diastolic blood pressure 60 mm[Hg] Eduardo Oscar BRICK OFFBEARER.TRAVELING SALES EXECUTIVE Work Phone: [facility] 03-13-2023 07:14-0400 Heart rate 111 /min Eduardo Oscar BRICK OFFBEARER.TRAVELING SALES EXECUTIVE Work Phone: [facility] 03-13-2023 07:14-0400 Respiratory rate 21 /min Eduardo Oscar BRICK OFFBEARER.TRAVELING SALES EXECUTIVE Work Phone: [facility] 03-13-2023 07:14-0400 SaO2% (BldA) [Mass fraction] 99 % Eduardo Oscar BRICK OFFBEARER.TRAVELING SALES EXECUTIVE Work Phone: [facility] 03-13-2023 07:14-0400 Systolic blood pressure 102 mm[Hg] Eduardo Oscar BRICK OFFBEARER.TRAVELING SALES EXECUTIVE Work Phone: [facility] 09-06-2022 15:33-0500 Body temperature 98.1 [degF] No Primary Care Physician [facility] 09-06-2022 15:33-0500 Diastolic blood pressure 65 mm[Hg] No Primary Care Physician [facility] 09-06-2022 15:33-0500 Heart rate 76 /min No Primary Care Physician [facility] 09-06-2022 15:33-0500 Respiratory rate 16 /min No Primary Care Physician [facility] 09-06-2022 15:33-0500 Systolic blood pressure 113 mm[Hg] No Primary Care Physician [facility] 09-06-2022 04:18-0500 SaO2% (BldA) [Mass fraction] 98 % No Primary Care Physician [facility] 09-05-2022 12:42-0500 Body height 175.26 cm No Primary Care Physician [facility] 09-05-2022 12:42-0500 Body mass index (BMI) [Ratio] 25 kg/m2 No Primary Care Physician [facility] 09-05-2022 12:42-0500 Body weight 77 kg No Primary Care Physician [facility] 09-05-2022 11:05-0500 Body mass index (BMI) [Ratio] 26 kg/m2 No Primary Care Physician [facility] 09-05-2022 11:05-0500 Body weight 77.79 kg No Primary Care Physician [facility] 09-05-2022 11:05-0500 Diastolic blood pressure 84 mm[Hg] No Primary Care Physician [facility] 09-05-2022 11:05-0500 Systolic blood pressure 119 mm[Hg] No Primary Care Physician [facility] 08-29-2022 11:39-0500 Diastolic blood pressure 74 mm[Hg] No Primary Care Physician [facility] 08-29-2022 11:39-0500 Systolic blood pressure 108 mm[Hg] No Primary Care Physician [facility] 08-29-2022 11:06-0500 Body mass index (BMI) [Ratio] 26.3 kg/m2 No Primary Care Physician [facility] 08-29-2022 11:06-0500 Body weight 78.47 kg No Primary Care Physician [facility] 08-22-2022 10:46-0500 Body height 172.72 cm No Primary Care Physician [facility] 08-22-2022 10:45-0500 Body mass index (BMI) [Ratio] 26 kg/m2 No Primary Care Physician [facility] 08-22-2022 10:45-0500 Body weight 77.62 kg No Primary Care Physician [facility] 08-22-2022 10:45-0500 Diastolic blood pressure 80 mm[Hg] No Primary Care Physician [facility] 08-22-2022 10:45-0500 Systolic blood pressure 131 mm[Hg] No Primary Care Physician [facility] 08-12-2022 10:53-0500 Body mass index (BMI) [Ratio] 25.8 kg/m2 No Primary Care Physician [facility] 08-12-2022 10:53-0500 Body weight 77.11 kg No Primary Care Physician [facility] 08-12-2022 10:53-0500 Diastolic blood pressure 77 mm[Hg] No Primary Care Physician [facility] 08-12-2022 10:53-0500 Systolic blood pressure 118 mm[Hg] No Primary Care Physician [facility] 08-01-2022 10:53-0500 Diastolic blood pressure 76 mm[Hg] No Primary Care Physician [facility] 08-01-2022 10:53-0500 Systolic blood pressure 120 mm[Hg] No Primary Care Physician [facility] 08-01-2022 10:34-0500 Body mass index (BMI) [Ratio] 25.5 kg/m2 No Primary Care Physician [facility] 08-01-2022 10:34-0500 Body weight 76.2 kg No Primary Care Physician [facility] 07-17-2022 10:48-0500 Body mass index (BMI) [Ratio] 25 kg/m2 No Primary Care Physician [facility] 07-17-2022 10:48-0500 Body weight 74.84 kg No Primary Care Physician [facility] 07-17-2022 10:48-0500 Diastolic blood pressure 64 mm[Hg] No Primary Care Physician [facility] 07-17-2022 10:48-0500 Systolic blood pressure 100 mm[Hg] No Primary Care Physician [facility] 07-04-2022 10:23-0500 Body mass index (BMI) [Ratio] 25 kg/m2 No Primary Care Physician [facility] 07-04-2022 10:23-0500 Body weight 74.61 kg No Primary Care Physician [facility] 07-04-2022 10:23-0500 Diastolic blood pressure 69 mm[Hg] No Primary Care Physician [facility] 07-04-2022 10:23-0500 Systolic blood pressure 104 mm[Hg] No Primary Care Physician [facility] 06-17-2022 08:22-0500 Body height 172.72 cm No Primary Care Physician [facility] Work Phone: 06-17-2022 08:22-0500 Body mass index (BMI) [Ratio] 25.1 kg/m2 No Primary Care Physician [facility] 06-17-2022 08:22-0500 Body weight 74.89 kg No Primary Care Physician [facility] 06-17-2022 08:22-0500 Diastolic blood pressure 64 mm[Hg] No Primary Care Physician [facility] 06-17-2022 08:22-0500 Systolic blood pressure 99 mm[Hg] No Primary Care Physician [facility] 06-05-2022 10:21-0500 Body mass index (BMI) [Ratio] 25.1 kg/m2 No Primary Care Physician [facility] 06-05-2022 10:21-0500 Body weight 74.89 kg No Primary Care Physician [facility] 06-05-2022 10:21-0500 Diastolic blood pressure 72 mm[Hg] No Primary Care Physician [facility] 06-05-2022 10:21-0500 Systolic blood pressure 129 mm[Hg] No Primary Care Physician [facility] 05-07-2022 10:57-0400 Body mass index (BMI) [Ratio] 24.5 kg/m2 No Primary Care Physician [facility] 05-07-2022 10:57-0400 Body weight 73.02 kg No Primary Care Physician [facility] 05-07-2022 10:57-0400 Diastolic blood pressure 62 mm[Hg] No Primary Care Physician [facility] 05-07-2022 10:57-0400 Systolic blood pressure 94 mm[Hg] No Primary Care Physician [facility] 04-09-2022 09:51-0400 Body mass index (BMI) [Ratio] 24.3 kg/m2 No Primary Care Physician [facility] Work Phone: 04-09-2022 09:51-0400 Body weight 72.57 kg No Primary Care Physician [facility] Work Phone: 04-09-2022 09:51-0400 Diastolic blood pressure 74 mm[Hg] No Primary Care Physician [facility] Work Phone: 04-09-2022 09:51-0400 Systolic blood pressure 117 mm[Hg] No Primary Care Physician [facility] Work Phone: 03-11-2022 14:23-0400 Body mass index (BMI) [Ratio] 24.5 kg/m2 No Primary Care Physician [facility] Work Phone: 03-11-2022 14:23-0400 Body weight 73.02 kg No Primary Care Physician [facility] Work Phone: 03-11-2022 14:23-0400 Diastolic blood pressure 60 mm[Hg] No Primary Care Physician [facility] Work Phone: 03-11-2022 14:23-0400 Systolic blood pressure 112 mm[Hg] No Primary Care Physician [facility] Work Phone: 02-04-2022 13:26-0400 Body weight 73.65 kg No Primary Care Physician [facility] Work Phone: 02-04-2022 13:23-0400 Body height 172.72 cm No Primary Care Physician [facility] Work Phone: 02-04-2022 13:23-0400 Body mass index (BMI) [Ratio] 24.7 kg/m2 No Primary Care Physician [facility] Work Phone: 02-04-2022 13:23-0400 Diastolic blood pressure 79 mm[Hg] No Primary Care Physician [facility] Work Phone: 02-04-2022 13:23-0400 Systolic blood pressure 127 mm[Hg] No Primary Care Physician [facility] Work Phone: 05-22-2017 08:32-0400 BMI (Body Mass Index) 19.64 kg/m2 Chanel Stacy MD [facility] 05-22-2017 08:32-0400 Body Temperature 96.9 [degF] Chanel Stacy MD [facility] 05-22-2017 08:32-0400 Body Temperature 96.91 [degF] Chanel Stacy MD [facility] 05-22-2017 08:32-0400 BP Diastolic 75 mm[Hg] Chanel Stacy MD [facility] 05-22-2017 08:32-0400 BP Systolic 112 mm[Hg] Chanel Stacy MD [facility] 05-22-2017 08:32-0400 Height 172.72 cm Chanel Stacy MD [facility] 05-22-2017 08:32-0400 Pulse (Heart Rate) 87 /min Chanel Stacy MD [facility] 05-22-2017 08:32-0400 Respiratory Rate 16 /min Chanel Stacy MD [facility] 05-22-2017 08:32-0400 Weight 58.61 kg Chanel Stacy MD [facility] 05-22-2017 08:32-0400 Weight 58.6 kg Chanel Stacy MD [facility] 12-14-2014 16:40-0400 BSA (Body Surface Area) 1.71 m2 Chanel Stacy MD [facility] Encounters Encounter Date Encounter Type Care Provider Facility Start: 03-11-2025 ambulatory No Primary Car e Physician Facility:[facility] Start: 03-08-2025 End: 03-08-2025 Patient encounter procedure Rylee Beavers CNM -[facility] Work Phone: Start: 03-08-2025 End: 03-08-2025 ambulatory No Primary Care Physician [facility] Start: 03-03-2025 End: 03-03-[address] Love Mccann DO -[facility] Work Phone: Start: 03-03-2025 End: 03-03-2025 ambulatory Love Mccann Facility:[facility] Start: 03-03-2025 End: 03-03-[address] Love Mccann DO -[facility] Work Phone: Start: 03-03-2025 End: 03-03-2025 ambulatory No Primary Care Physician -[facility] Start: 02-15-2025 End: 02-15-[address] Chanel Stacy MD -[facility] Work Phone: Start: 02-15-2025 End: 02-15-2025 ambulatory No Primary Care Physician -[facility] Start: 02-02-2025 End: 02-02-[address] Love Mccann DO -[facility] Work Phone: Start: 02-02-2025 End: 02-02-2025 ambulatory No Primary Care Physician -[facility] Start: 01-20-2025 End: 01-20-[address] Chanel Stacy MD -[facility] Work Phone: Start: 01-20-2025 End: 01-20-2025 ambulatory No Primary Care Physician [facility] Work Phone: Start: 01-05-2025 End: 01-05-2025 Patient encounter procedure Abbie Bronson NP-C -[facility] Work Phone: Start: 01-05-2025 End: 01-05-2025 ambulatory No Primary Care Physician [facility] Work Phone: Start: 01-05-2025 End: 01-05-2025 ambulatory No Primary Care Physician Facility:[facility] Start: 12-02-2024 End: 12-02-2024 Patient encounter procedure Rylee Beavers CNM -[facility] Work Phone: Start: 12-02-2024 End: 12-02-2024 ambulatory No Primary Care Physician Facility:[facility] Start: 11-09-2024 End: 11-09-2024 ambulatory [facility] Start: 11-02-2024 End: 11-02-2024 Patient encounter procedure Abbie Bronson NP-C -[facility] Work Phone: Start: 11-02-2024 End: 11-02-2024 ambulatory No Primary Care Physician Facility:[facility] Start: 10-05-2024 End: 10-05-[address] Chanel Stacy MD -[facility] Work Phone: Start: 10-05-2024 End: 10-05-2024 ambulatory No Primary Care Physician Facility:[facility] Start: 09-06-2024 End: 09-06-2024 ambulatory Love Mccann Facility:[facility] Start: 09-06-2024 End: 09-06-2024 [facility] Start: 08-27-2024 ambulatory Carmencita Monte Facility :[facility] Start: 08-03-2024 End: 08-03-2024 ambulatory No Primary Care Physician Facility:[facility] Start: 08-01-2024 End: 08-01-2024 ambulatory No Primary Care Physician Facility:[facility] Start: 07-30-2024 End: 07-30-2024 ambulatory No Primary Care Physician Facility:[facility] Start: 03-22-2024 End: 03-22-2024 ambulatory Love Mccann Facility:[facility] Start: 03-22-2024 End: 03-22-2024 ambulatory Love Mccann Facility:[facility] Start: 02-09-2024 End: 02-09-2024 ambulatory MD NO PRIMARY CARE [facility] Start: 01-12-2024 End: 01-12-2024 ambulatory NO PRIMARY CARE [facility] Start: 12-11-2023 End: 12-11-2023 [facility] Start: 11-25-2023 End: 11-25-2023 ambulatory No Primary Care Physician [facility] Work Phone: Start: 11-25-2023 End: 11-25-2023 Patient encounter procedure No Primary Care Physician [facility] Work Phone: Start: 11-13-2023 End: 11-13-2023 ambulatory LOVE PHAM [facility] Start: 10-29-2023 End: 10-29-2023 Patient encounter procedure No Primary Care Physician [facility] Work Phone: Start: 10-01-2023 End: 10-01-2023 Patient encounter procedure No Primary Care Physician [facility] Work Phone: Start: 09-01-2023 End: 09-01-2023 Patient encounter procedure No Primary Care Physician [facility] Work Phone: Start: 08-12-2023 End: 08-12-2023 Patient encounter procedure No Primary Care Physician [facility] Work Phone: Start: 08-08-2023 End: 08-08-2023 Patient encounter procedure No Primary Care Physician [facility] Work Phone: Start: 07-11-2023 End: 07-11-2023 ambulatory No Primary Care Physician [facility] Work Phone: Start: 07-11-2023 End: 07-11-2023 Patient encounter procedure No Primary Care Physician [facility] Work Phone: Start: 07-11-2023 End: 07-11-2023 Patient encounter procedure No Primary Care Physician [facility] Work Phone: Start: 05-14-2023 End: 05-14-2023 ambulatory Facility:[facility] Start: 05-14-2023 End: 05-14-2023 Emergency department patient visit [facility] Work Phone: Start: 05-14-2023 End: 05-14-2023 Patient encounter procedure Estefany Foster APRN.TRAVELING SALES EXECUTIVE Work Phone: [employer] [facility] Comment on above: Skin infection (Prim vielka Dx) Start: 03-13-2023 End: 03-13-2023 ambulatory Facility:[facility] Start: 03-13-2023 End: 03-13-2023 Patient encounter procedure Eduardo Oscar APRN.TRAVELING SALES EXECUTIVE Work Phone: [facility] Comment on above: Strep throat (Primar y Dx); Sore throat Start: 09-06-2022 Non-patient / Non-visit No Primary Care Physician [facility] Start: 09-05-2022 Non-patient / Non-visit No Primary Care Physician [facility] Start: 09-05-2022 End: 09-06-2022 Evaluation and management of inpatient No Primary Care Physician [facility] Start: 09-05-2022 End: 09-05-2022 Patient encounter procedure No Primary Care Physician [facility] Start: 08-29-2022 End: 08-29-2022 Patient encounter procedure No Primary Care Physician [facility] Start: 08-22-2022 End: 08-22-2022 Patient encounter procedure No Primary Care Physician [facility] Start: 08-12-2022 End: 08-12-2022 ambulatory No Primary Care Physician [facility] Work Phone: Start: 08-12-2022 End: 08-12-2022 Patient encounter procedure No Primary Care Physician [facility] Start: 08-12-2022 End: 08-12-2022 Patient encounter procedure No Primary Care Physician [facility] Start: 08-01-2022 End: 08-01-2022 Patient encounter procedure No Primary Care Physician [facility] Start: 07-17-2022 End: 07-17-2022 Patient encounter procedure No Primary Care Physician [facility] Start: 07-04-2022 End: 07-04-2022 Patient encounter procedure No Primary Care Physician [facility] Start: 06-21-2022 End: 06-21-2022 ambulatory No Primary Care Physician [facility] Work Phone: Start: 06-21-2022 End: 06-21-2022 Patient encounter procedure No Primary Care Physician [facility] Start: 06-17-2022 End: 06-17-2022 ambulatory No Primary Care Physician [facility] Work Phone: Start: 06-17-2022 End: 06-17-2022 Patient encounter procedure No Primary Care Physician [facility] Start: 06-05-2022 End: 06-05-2022 Patient encounter procedure No Primary Care Physician [facility] Start: 05-07-2022 End: 05-07-2022 Patient encounter procedure No Primary Care Physician [facility] Start: 04-09-2022 End: 04-09-2022 Patient encounter procedure No Primary Care Physician [facility] Start: 03-11-2022 End: 03-11-2022 Patient encounter procedure No Primary Care Physician [facility] Start: 02-19-2022 End: 02-19-2022 Patient encounter procedure No Primary Care Physician [facility] Start: 02-04-2022 End: 02-04-2022 Patient encounter procedure No Primary Care Physician [facility] Start: 02-04-2022 End: 02-04-2022 Patient encounter procedure No Primary Care Physician [facility] Procedures Date Procedure Procedure Detail Performing Clinician Start: 03-03-2025 Beta-hemolytic Streptococcus culture No Primary Care Physician Start: 01-05-2025 Serologic test for syphilis No Primary Care Physician Start: 09-06-2024 Antibody screen Carmencita Monte Comment on above: Order Comment: PN Performed By: #### L 3890.6005, BTS, [id number], BtABORH, L100.0100, L3890.6100, L3890.6300, L509.4005 ####[facility] [id number] [place], [address] Start: 07-11-2023 Urine culture No Primar y Care Physician Start: 03-13-2023 STREP A MOLECULAR (POC) Regan [...] Follow Up Appt Other Alexi Curtis MD Group B Streptococcu s Culture No Primary Care Physician Urine culture No Primary Car e Physician Plan of Treatment Date Care Activity Detail Author Start: 07-04-2032 Urine microalbumin profile DTaP,Tdap,Td Vaccine (11 - Td or Tdap) [facility] Start: 01-05-2025 CBC W Auto Differential panel - Blood [facility] Start: 01-05-2025 Measurement of glucose 2 hours after glucose challenge for glucose tolerance test [facility] Start: 01-05-2025 Serologic test for syphilis [facility] Start: 01-05-2025 [facility] Start: 07-11-2023 Chlamydia deoxyribonucleic acid detection [facility] Start: 05-14-2023 [facility] Start: 03-28-2023 Influenza vaccination [facility] Start: 09-06-2022 Patient discharge [facility] Start: 09-05-2022 Administration of medication [facility] Start: 09-05-2022 Application of ice collar, cap or bag [facility] Start: 09-05-2022 Catheterization of vein [facility] Start: 09-05-2022 Introduction of urinary catheter [facility] Start: 09-05-2022 Measuring intake and output [facility] Start: 09-05-2022 Notification of physician [facility] Start: 09-05-2022 Procedure discontinued [facility] Start: 09-05-2022 Provision of activity privileges [facility] Start: 09-05-2022 Vital signs measurements [facility] Start: 09-05-2022 [facility] Start: 09-05-2022 Admission procedure [facility] Start: 07-28-2022 DEPRESSION ASSESSMENT DEPRESSION ASSESSMENT [facility] Start: 04-10-2018 PAP TESTING PAP TESTING [facility] Start: 09-25-2016 Urine microalbumin profile DTAP,TDAP,TD (7 - Td or Tdap) [facility] Start: 12-20-2014 End: 12-20-2014 OT-Hand Therapy [facility], [address] [place] [address], [id number] [facility] Start: 12-14-2014 End: 01-23-2015 Follow Up Appt Other Follow Up Appt Other [facility] Start: 12-02-2014 End: 12-06-2014 Follow Up Appt 2 weeks Follow Up Appt 2 weeks [facility] Start: 11-18-2014 End: 11-29-2014 Follow Up Appt 2 weeks Follow Up Appt 2 weeks [facility] Start: 11-18-2014 End: 12-12-2014 OT-Hand Therapy [facility] Therapy Physical Therapy [facility], [address] [place] [address], [address] [facility] Start: 11-11-2014 End: 11-29-2014 Follow up Appt 1 week Follow up Appt 1 week [facility] Start: 11-08-2014 End: 11-30-2014 Follow Up Appt Other Follow Up Appt Other [facility] Start: 2011 HEPATITIS C SCREENING HEPATITIS C SCREENING [facility] Start: 2011 HIV SCREENING HIV SCREENING [facility] Start: 01-12-1994 COVID-19 VACCINE (#1) COVID-19 VACCINE (#1) [facility] Anti-D (Rh) immunoglobulin W [facility] Work Phone: Anti-D (Rh) immunoglobulin W [facility] Anti-D (Rh) immunoglobulin W [facility] CBC W Auto Different ial panel - Blood [facility] Erythrocyte mean corpuscular volume determination [facility] Hematocrit [Volume Fraction] of Blood [facility] Hemoglobin [Mass/vol ume] in Blood [facility] Hepatitis B surface antigen measurement [facility] Hepatitis C antibody measurement [facility] HIV 1+2 Ab+HIV1 p24 Ag [Presence] in Serum or Plasma by Immunoassay [facility] Leukocytes [#/volume ] in Blood [facility] Mean corpuscular hem oglobin concentration determination [facility] Mean corpuscular hem oglobin determination [facility] Measurement of gluco se 3 hours after glucose challenge for glucose tolerance test [facility] Work Phone: Neisseria gonorrhoea e rRNA [Presence] in Unspecified specimen by MINI with probe detection [facility] Neutrophil count [facility] Neutrophil percent differential count [facility] Patient Education [facility] Patient referral [facility] Work Phone: PCR test for Chlamyd ia trachomatis [facility] Platelets [#/volume] in Blood [facility] Red blood cell count [facility] Red cell distributio n width determination [facility] Rubella IgG measurement [facility] Streptococcus agalac tiae [Presence] in Unspecified specimen by Organism specific culture [facility] Treponema sp Ab [Pre sence] in Serum [facility]trasound [facility] Immunizations Immunization Date Immunization Notes Care Provider Fa cili 12-10-2023 tetanus toxoid, redu carolyn diphtheria toxoid, and acellular pertussis vaccine, adsorbed No Primary Care Physician [facility] 07-04-2022 tetanus toxoid, redu carolyn diphtheria toxoid, and acellular pertussis vaccine, adsorbed No Primary Care Physician [facility] 04-09-2021 tetanus toxoid, redu carolyn diphtheria toxoid, and acellular pertussis vaccine, adsorbed No Primary Care Physician [facility] 10-28-2011 Meningococcal, MCV4, unspecified conjugate formulation(groups A, C, Y and W-135) Eduardo Dayne BRICK OFFBEARER.TRAVELING SALES EXECUTIVE Work Phone: [facility] 08-14-2010 human papilloma viru s vaccine, quadrivalent Eduardo Dayne BRICK OFFBEARER.TRAVELING SALES EXECUTIVE Work Phone: [facility] 10-26-2009 human papilloma viru s vaccine, quadrivalent Eduardo Dayne BRICK OFFBEARER.TRAVELING SALES EXECUTIVE Work Phone: [facility] 06-03-2008 human papilloma viru s vaccine, quadrivalent Eduardo Dayne BRICK OFFBEARER.TRAVELING SALES EXECUTIVE Work Phone: [facility] 09-25-2006 Meningococcal, MCV4, unspecified conjugate formulation(groups A, C, Y and W-135) Eduardo Dayne BRICK OFFBEARER.TRAVELING SALES EXECUTIVE Work Phone: [facility] 09-25-2006 tetanus toxoid, redu carolyn diphtheria toxoid, and acellular pertussis vaccine, adsorbed Eduardo Dayne BRICK OFFBEARER.TRAVELING SALES EXECUTIVE Work Phone: [facility] 11-16-1998 diphtheria, tetanus toxoids and acellular pertussis vaccine Eduardo Dayne BRICK OFFBEARER.TRAVELING SALES EXECUTIVE Work Phone: [facility] 11-16-1998 trivalent poliovirus vaccine, live, oral Eduardo Dayne BRICK OFFBEARER.TRAVELING SALES EXECUTIVE Work Phone: [facility] 12-19-1995 diphtheria, tetanus toxoids and pertussis vaccine Eduardo Dayne BRICK OFFBEARER.TRAVELING SALES EXECUTIVE Work Phone: [facility] 12-19-1995 haemophilus influenz ae type b vaccine, conjugate unspecified formulation Eduardo Dayne BRICK OFFBEARER.TRAVELING SALES EXECUTIVE Work Phone: [facility] 12-19-1995 measles, mumps and rubella virus vaccine Eduardo Dayne BRICK OFFBEARER.TRAVELING SALES EXECUTIVE Work Phone: [facility] 08-02-1994 diphtheria, tetanus toxoids and pertussis vaccine Eduardo Dayne BRICK OFFBEARER.TRAVELING SALES EXECUTIVE Work Phone: [facility] 08-02-1994 hepatitis B vaccine, pediatric or pediatric/adolescent dosage Eduardo Dayne BRICK OFFBEARER.TRAVELING SALES EXECUTIVE Work Phone: [facility] 08-02-1994 measles, mumps and rubella virus vaccine Eduardo Dayne BRICK OFFBEARER.TRAVELING SALES EXECUTIVE Work Phone: [facility] 08-02-1994 trivalent poliovirus vaccine, live, oral Eduardo Dayne BRICK OFFBEARER.TRAVELING SALES EXECUTIVE Work Phone: [facility] 05-21-1994 diphtheria, tetanus toxoids and pertussis vaccine Eduardo Dayne BRICK OFFBEARER.TRAVELING SALES EXECUTIVE Work Phone: [facility] 05-21-1994 haemophilus influenz ae type b vaccine, conjugate unspecified formulation Eduardo Dayne BRICK OFFBEARER.TRAVELING SALES EXECUTIVE Work Phone: [facility] 05-21-1994 hepatitis B vaccine, pediatric or pediatric/adolescent dosage Eduardo Dayne BRICK OFFBEARER.TRAVELING SALES EXECUTIVE Work Phone: [facility] 05-21-1994 trivalent poliovirus vaccine, live, oral Eduardo Oscar BRICK OFFBEARER.TRAVELING SALES EXECUTIVE Work Phone: [facility] 1993 diphtheria, tetanus toxoids and pertussis vaccine Eduardo Oscar BRICK OFFBEARER.TRAVELING SALES EXECUTIVE Work Phone: [facility] 1993 haemophilus influenz ae type b vaccine, conjugate unspecified formulation Eduardo Oscar BRICK OFFBEARER.TRAVELING SALES EXECUTIVE Work Phone: [facility] 1993 hepatitis B vaccine, pediatric or pediatric/adolescent dosage Eduardo Oscar BRICK OFFBEARER.TRAVELING SALES EXECUTIVE Work Phone: [facility] 1993 trivalent poliovirus vaccine, live, oral Eduardo Oscar BRICK OFFBEARER.TRAVELING SALES EXECUTIVE Work Phone: [facility] Payers Date Payer Category Payer Private Health Insurance [id number] 2024 Self-pay [id number] 2022 Unknown MMO MMO [employer] PPO [id number] 2022-Present [phone] [address] [place] [address] PPO [id number] 2014 Unknown [id number] 1993 Unknown [id number] [id number] 79 1993 Unknown [id number] 2.16.840.1.906513.3.579.2.4 79 1993 Unknown [id number] 2.16.840.1.955140.3.579.2.4 79 1993 Unknown [id number] 2.16.840.1.634938.3.579.2.4 79 1993 Unknown [id number] 2.16.840.1.338184.3.579.2.4 79 Private Health Insurance [facility] [id number] Private Health Insurance [id number] Private Health Insurance [id number] Unknown [id number] Unknown [id number] 2.16.840.1.755332.3.579.2.4 62 Unknown [id number] 2.16.840.1.864490.3.579.2.4 62 Unknown [id number] 2.16.840.1.550358.3.579.2.4 62 Unknown [id number] 2.16.840.1.146348.3.579.2.4 62 Unknown [id number] 2.16.840.1.077003.3.579.2.4 62 Unknown [id number] 2.16.840.1.385992.3.579.2.4 62 Unknown [id number] 2.16.840.1.636989.3.579.2.4 62 Unknown [id number] 2.16.840.1.946612.3.579.2.4 62 Unknown [id number] 2.16.840.1.114261.3.579.2.4 62 Unknown [id number] 2.16.840.1.475633.3.579.2.4 62 Unknown [id number] 2.16.840.1.908274.3.579.2.4 62 Unknown [id number] 2.16.840.1.305090.3.579.2.4 62 Unknown [id number] 2.16.840.1.031388.3.579.2.4 62 Unknown [id number] 2.16.840.1.475113.3.579.2.4 62 Unknown [id number] 2.16.840.1.710590.3.579.2.4 62 Unknown [id number] 2.16.840.1.287921.3.579.2.4 62 Unknown [id number] 2.16.840.1.110496.3.579.2.4 62 Unknown [id number] 2.16.840.1.077977.3.579.2.4 62 Unknown [id number] 2.16.840.1.247301.3.579.2.4 62 Unknown [id number] 2.16.840.1.304168.3.579.2.4 62 Social History Date Type Detail Facility Start: 02-04-2022 End: 10-29-2023 Tobacco smoking status NHIS Unknown if ever smoked [facility] Start: 07-11-2020 Non-smoker [facility] Start: 1995 Sex Assigned At Female [facility] Start: 08-27-2024 [facility] Start: 03-13-2023 End: 05-14-2023 Alcohol intake Current non-drinker of alcohol (finding) [facility] Start: 07-05-2020 End: 03-13-2023 History of Social function [facility] Start: 07-05-2020 End: 03-13-2023 Tobacco use panel [facility] National Score (1-10 0), lower number is lower risk Not on file [facility] Start: 1995 Sex Assigned At Not on file [facility] Goals Date Patient Goal Desired Activity /State Clinical Notes 04-26-2008 to 03-08-2025 Note Date & Type Note Facility 03-08-2025 Progress note [facility] 02-15-2025 Progress note [facility] 02-02-2025 Progress note [facility] 02-02-2025 Progress note Note Date/Time February 02, 2025 2:51pm [facility] [address], [address] [place] [address] OFFICE VISIT Date of Service: 02/02/25 MR#: [id number] Acct: [id number] Name: HALIE SANTO Rep #: [id number] : 1995 Provider: Dr. Tasha Mccann DO Age/Sex: 29/F Location: [facility] Status: Signed Intake Vital Signs 01/05/25 08:18 01/20/25 10:24 02/02/25 14:34 02/02/25 14:37 Height 5 ft 9 in 5 ft 9 in 5 ft 9 in 5 ft 9 in Weight: 170 lb 8 oz BMI 25.2 BP 109/64 Intake Visit Reasons: 32wk ob Hotel Manager Required: No Is patient in pain?: No Allergies No Known Allergies Allergy (Verified 02/02/25 14:34) Medications ?Medication ?Instructions ?Recorded ?Confirmed ?Type docosahexaenoic acid 200 mg mg PO 08/27/24 02/02/25 Hi story capsule ( DHA) Last Menstrual Period: 05/10/23 Zika: Zika virus screening: Negative : No PFSH PFSH Medical History History of miscarriage, currently Surgical History Status post vaginal delivery History of dilation and curettage S/P wrist surgery S/P ear surgery Family History Grandmother Diabetes Social History adopted: No household members: spouse and children number of children: 3 current occupational status: employed current occupation: [employer] current occupational exposures/hazards: No pets and animals: Yes pets and animals: dog(s) history of recent travel: No sexually active: Yes Smoking Status: Never smoker alcohol intake: never substance use type: does not use well-balanced diet: daily or most days caffeine: Yes Type: coffee Number of servings: 1 eating out: rarely or never during the past year weight has: remained stable what type of physical activity do you participate in: none frequency: daily sea/alevism: None seatbelt use: always do you feel safe at home: Yes additional social history: : 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 Date Name GA/Weeks Outcome Route Bth Weight Infant Gen Labor Lgth Anesthesia Del Locatn Provider FOB 06/27/20 Blighted ovum 8 06/12/21 Aguila 40 live - full term 7lbs 9oz Male no ne [facility] Tawanna Gallardo 09/05/22 aDnielle 39 live - full term 8#4oz Female no ne [facility] ABDIFATAH Gallardo 02/13/24 Smiley 39 live - full term 8lbs 1oz Male no ne [facility] Matt Gallardo Delivery Date: 06/27/20 Last Updated by: Carmencita Monte RN D&C Delivery Date: 06/12/21 Last Updated by: Harsha ROE HPI 32wk ob Details: HALIE SANTO is a 29 year old who presents for routine OB visit. OB Visit TASHI Calculator Estimated Delivery Date Method Current WG Current Estimate 03/29/25 Ultrasound #1 32w 1d Expected Delivery Route/Plan Labor Preferences- CB/BF classes: no labor support person: Sami labor intervention preferences: [] pain management options preferred: limited cut cord/dad catch: yes : yes PP control planned: spouse has vas planned discussed possible routes of delivery and associated risks: [] special requests: [] Specific Issue/Plans Covid status: [] Flu vaccine: [] Tdap vaccine: declines Rhogam: given 01/05/25 LARC form signed: yes Problem list reviewed and updated with the most current plan of care details and appropriate orders placed. Relevant counseling for the gestational age provided. Continue routine care and follow up unless otherwise noted in visit notes/problem list details Initial Weight: Not Recorded Date -?-?-?-?-?-?-?-?-?-?-?-?- EGA Weight BP Urine Prot -?-?-?-?-?-?-?-?-?-?-?-?- Glucose FHR FuHt Pres Dilation -?-?-?-?-?-?-?-?-?-?-?-?- Effaced St Visit Note 09/06/24 -?-?-?-?-?-?-?-?-?-?-?-?- 10w 6d 157 lb 8 oz 131/78 -?-?-?-?-?-?-?-?-?-?-?-?- 163 -?-?-?-?-?-?-?-?-?-?-?-?- JV- CRL consiste nt with 6 week ultrasound. patient declines NIPT. mild nausea, declines medication. 10/05/24 -?-?-?-?-?-?-?-?-?-?-?-?- 15w 0d 155 lb 6 oz 130/74 Nega tive -?-?-?-?-?-?-?-?-?-?-?-?- Negative 150 -?-?-?-?-?-?-?-?-?-?-?-?- SM- no vb llof c ramping 11/02/24 -?-?-?-?-?-?-?-?-?-?-?-?- 19w 0d 157 lb 8 oz 124/80 Nega tive -?-?-?-?-?-?-?-?-?-?-?-?- Negative 145 -?-?-?-?-?-?-?-?-?-?-?-?- MH-No VB, LOF. F eeling movement. 12/02/24 -?-?-?-?-?-?-?-?-?-?-?-?- 23w 2d 161 lb 6 oz 103/66 Nega tive -?-?-?-?-?-?-?-?-?-?-?-?- Negative 147 -?-?-?-?-?-?-?-?-?-?-?-?- KW- no vb/lof/ct x. good fm. US reviewed. 28 week labs discussed 01/05/25 -?-?-?-?-?-?-?-?-?-?-?-?- 28w 1d 167 lb 8 oz 100/64 Nega tive -?-?-?-?-?-?-?-?-?-?-?-?- Negative 138 28 -?-?-?-?-?-?-?-?-?-?-?-?- MH-No VB, LOF. G ood FM. 28 wk labs pending. Larc. Tdap declined. Rhogam given 01/20/25 -?-?-?-?-?-?-?-?-?-?-?-?- 30w 2d 168 lb 4 oz 109/68 Nega tive -?-?-?-?-?-?-?-?-?-?-?-?- Negative 140 30 -?-?-?-?-?-?-?-?-?-?-?-?- SM- no vb lof go od fm no regular ctx 02/02/25 -?-?-?-?-?-?-?-?-?-?-?-?- 32w 1d 170 lb 8 oz 109/64 Nega tive -?-?-?-?-?-?-?-?-?-?-?-?- Negative 145 32 -?-?-?-?-?-?-?-?-?-?-?-?- JV- no lof, vagi nal bleeding, or dec fm. no complaints. gender still a surprise. ACOG First Trimester First Trimester: Desire for , Alcohol, Tobacco Cessation, Illicit/Recreational Drug/Substance Use, Intimate Partner Violence, Barriers to care, Unstable Housing, Communication Barriers, Environmental/Work Hazards, Anticipated Course of Care, Toxoplasmosis Precations, Use of Any medications, Sexual activity, Exercise, Dental Care, Sauna/Hot tub use, Seat Belt use, Childbirth classes/Hospital facilities, Travel, Indications for Ultrasound and Screening for Aneuploidy; Discussed Second Trimester Second Trimester: Signs and Symptoms of Labor, Selecting a care provider, Reproductive Life Planning & Contreception and Care Planning; Discussed Tobacco Cessation, Discussed Depression/Anxiety and Discussed Intimate Partner Violence Third Trimester Third Trimester: Pain Management Plans, Labor support person(s), Immediate Larc, Circumcision preference, Signs and Symptoms of Preeclampsia, Infant Feeding No , Family Medical Leave or Disability Forms and Intimate Partner Violence Results POC Urinalysis 2 Dip (Clinic) Office Urine Glucose Negative Last Edit by Abbie Marmolejo on 02/02/25 14:38 Office Urine Protein Negative Last Edit by Abbie Marmolejo on 02/02/25 14:38 Coding Level of Care Code OB Routine Diagnoses Supervision of high risk in third trimester O09.93 Trimester: third trimester 32 weeks gestation of Z3A.32 Weeks of gestation: 32 weeks History of miscarriage, currently O09.299 Rh negative status during in second trimester O26.892; Z67.91 Trimester: second trimester Assessment and Plan Assessment and Plan (1) Supervision of high-risk : Status: Acute Qualifiers: Trimester: third trimester Qualified Code(s): O09.93 - Supervision of high risk , unspecified, third trimester Comment: PRR , TASHI 03/29/25, surprise PC: Danielle Aguila & Smiley, : Sami (2) : Status: Acute Qualifiers: Weeks of gestation: 32 weeks Qualified Code(s): Z3A.32 - 32 weeks gestation of Comment: Declined genetic/carrier testing - (prior carrier testing done - negative), nl anatomy (3) History of miscarriage, currently : Status: Acute Comment: [id number] (4) Rh negative status during : Status: Acute Qualifiers: Trimester: second trimester Qualified Code(s): O26.892 - Other specified related conditions, second trimester; Z67.91 - Unspecified blood type, Rh negative Comment: A-; Rhogam PRN & 28 weeks given 01/05/25 Orders: Orders POC Urinalysis 2 Dip (Clinic) Today 02/02/25 1451 <Electronically signed by Love Geller DO> Date _ Love Mccann DO [facility] Signature: Date (if applicable) CC: ~ [facility] Work Phone: 1(367) 133-700906-26-2025 [facility] [address] [place] [address], [address] [place], [place] [id number] OFFICE VISIT Date of Service: 01/20/25 MR#: [id number] Acct: [id number] Name: HALIE SANTO Rep #: [id number] : 1995 Provider: Dr. Adis Stacy MD Age/Sex: 29/F Location: [facility] [place] Status: Signed Intake Vital Signs 11/02/24 09:57 01/05/25 08:18 01/20/25 10:24 01/20/25 10:24 Height 5 ft 9 in 5 ft 9 in 5 ft 9 in 5 ft 9 in Weight: 167 lb 8 oz 168 lb 4 oz BMI 24.7 24.8 BP 100/64 109/68 Intake Visit Reasons: 30wk ob Hotel Manager Required: No Is patient in pain?: No Allergies No Known Allergies Allergy (Verified 01/20/25 10:24) Medications ?Medication ?Instructions ?Recorded ?Confirmed ?Type docosahexaenoic acid 200 mg mg PO 08/27/24 01/20/25 Hi story capsule ( DHA) Last Menstrual Period: 05/10/23 Zika: Zika virus screening: Negative : No PFSH PFSH Medical History History of miscarriage, currently Surgical History Status post vaginal delivery History of dilation and curettage S/P wrist surgery S/P ear surgery Family History Grandmother Diabetes Social History adopted: No household members: spouse and children number of children: 3 current occupational status: employed current occupation: [employer] current occupational exposures/hazards: No pets and animals: Yes pets and animals: dog(s) history of recent travel: No sexually active: Yes Smoking Status: Never smoker alcohol intake: never substance use type: does not use well-balanced diet: daily or most days caffeine: Yes Type: coffee Number of servings: 1 eating out: rarely or never during the past year weight has: remained stable what type of physical activity do you participate in: none frequency: daily sea/alevism: None seatbelt use: always do you feel safe at home: Yes 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 Date Name GA/Weeks Outcome Route Bth Weight Gen Labor Lgth Anesthesia Del Locatn Provider FOB 06/27/20 Blighted ovum 8 06/12/21 Aguila 40 live - full term 7lbs 9oz Male no ne [facility] Tawanna Aguileraer 09/05/22 Riddley 39 live - full term 8#4oz Female no ne [facility] ABDIFATAH Sami 02/13/24 Kolter 39 live - full term 8lbs 1oz Male no ne [facility] Matt Gallardo Delivery Date: 06/27/20 Last Updated by: Carmencita Monte RN D&C Delivery Date: 06/12/21 Last Updated by: Harsha Solis ISBeatriz HPI 30wk ob Details: HALIE SANTO is a 29 year old who presents for routine OB visit. OB Visit TASHI Calculator Estimated Delivery Date Method Current WG Current Estimate 03/29/25 Ultrasound #1 30w 2d Expected Delivery Route/Plan Labor Preferences- CB/BF classes: no labor support person: Sami labor intervention preferences: [] pain management options preferred: limited cut cord/dad catch: yes : yes PP control planned: spouse has vas planned discussed possible routes of delivery and associated risks: [] special requests: [] Specific Issue/Plans Covid status: [] Flu vaccine: [] Tdap vaccine: declines Rhogam: given 01/05/25 LARC form signed: yes Problem list reviewed and updated with the most current plan of care details and appropriate ordersplaced. Relevant counseling for the gestational age provided. Continue routine care and follow up unless otherwise noted in visit notes/problem list details Initial Weight: Not Recorded Date -?-?-?-?-?-?-?-?-?-?-?-?- EGA Weight BP Urine Prot -?-?-?-?-?-?-?-?-?-?-?-?- Glucose FHR FuHt Pres Dilation -?-?-?-?-?-?-?-?-?-?-?-?- Effaced St Visit Note 09/06/24 -?-?-?-?-?-?-?-?-?-?-?-?- 10w 6d 157 lb 8 oz 131/78 -?-?-?-?-?-?-?-?-?-?-?-?- 163 -?-?-?-?-?--?-?-?-?-?-?-?- JV- CRL consiste nt with 6 week ultrasound. patient declines NIPT. mild nausea, declines medication. 10/05/24 -?-?-?-?-?-?-?-?-?-?-?-?- 15w 0d 155 lb 6 oz 130/74 Nega tive -?-?-?-?-?-?-?-?-?-?-?-?- Negative 150 -?-?-?-?-?-?-?-?-?-?-?-?- SM- no vb llof c ramping 11/02/24 -?-?-?-?-?-?-?-?-?--?-?-?- 19w 0d 157 lb 8 oz 124/80 Nega tive -?-?-?-?-?-?-?-?-?-?-?-?- Negative 145 -?-?-?-?-?-?-?-?-?-?-?-?- MH-No VB, LOF. F eeling movement. 12/02/24 -?-?-?-?-?-?-?-?-?-?-?-?- 23w 2d 161 lb 6 oz 103/66 Nega tive -?-?-?-?-?-?-?-?-?-?-?-?- Negative 147 -?-?-?-?-?-?-?-?-?-?-?-?- KW- no vb/lof/ct x. good fm. US reviewed. 28 week labs discussed 01/05/25 -?-?-?-?-?-?-?-?-?-?-?-?- 28w 1d 167 lb 8 oz 100/64 Nega tive -?-?-?-?-?-?-?--?-?-?-?-?- Negative 138 28 -?-?-?-?-?-?-?-?-?-?-?-?- MH-No VB, LOF. G ood FM. 28 wk labs pending. Larc. Tdap declined. Rhogam given 01/20/25 -?-?-?-?-?-?-?-?-?-?-?-?- 30w 2d 168 lb 4 oz 109/68 Nega tive -?-?-?-?-?-?-?-?-?-?-?-?- Negative 140 30 -?-?-?-?-?-?-?-?-?-?-?-?- SM- no vb lof go od fm no regular ctx ACOG First Trimester First Trimester: Desire for , Alcohol, Tobacco Cessation, Illicit/Recreational Drug/Substance Use, Intimate Partner Violence, Barriers to care, Unstable Housing, Communication Barriers, Environmental/Work Hazards, Anticipated Course of Care, Toxoplasmosis Precations, Use of Any med ications, Sexual activity, Exercise, Dental Care, Sauna/Hot tub use, Seat Belt use, Childbirth classes/Hospital facilities, Travel, Indications for Ultrasound and Screening for Aneuploidy; Discussed Second Trimester Second Trimester: Signs and Symptoms of Labor, Selecting a care provider, Reproductive Life Planning & Contreception and Care Planning; Discussed Tobacco Cessation, Discussed Depression/Anxiety and Discussed Intimate Partner Violence Third Trimester Third Trimester: Pain Management Plans, Labor support person(s), Immediate Larc, Circumcision preference, Signs and Symptoms of Preeclampsia, Infant Feeding No , Family Medical Leave or Disability Forms and Intimate Partner Violence ROS Const Denies fever(s) GI Reports as per HPI and Denies abdominal pain Reports as per HPI, Denies abnormal vaginal bleeding, Denies dysuria and Denies vaginal discharge Exam Const General: healthy appearing, comfortable and no acute distress GI Inspection: normal to inspection Palpation: soft and nontender Results POC Urinalysis 2 Dip (Clinic) Office Urine Glucose Negative Last Edit by Toña Calderon on 01/20/25 10: 51 Office Urine Protein Negative Last Edit by Toña Calderon on 01/20/25 10: 51 Coding Level of Care Code OB Routine Diagnoses Supervision of high risk in third trimester O09.93 Trimester: third trimester 30 weeks gestation of Z3A.30 Weeks of gestation: 30 weeks History of miscarriage, currently O09.299 Rh negative status during in second trimester O26.892; Z67.91 Trimester: second trimester Assessment and Plan Assessment and Plan (1) Supervision of high-risk : Status: Acute Qualifiers: Trimester: third trimester Qualified Code(s): O09.93 - Supervision of high risk , unspecified, third trimester Comment: PRR , TASHI 03/29/25, surprise PC: Danielle Aguila & Smiley, : Sami (2) : Status: Acute Qualifiers: Weeks of gestation: 30 weeks Qualified Code(s): Z3A.30 - 30 weeks gestation of Comment: Declined genetic/carrier testing - (prior carrier testing done - negative), nl anatomy (3) History of miscarriage, currently : Status: Acute Comment: 2020 (4) Rh negative status during : Status: Acute Qualifiers: Trimester: second trimester Qualified Code(s): O26.892 - Other specified related conditions, second trimester; Z67.91 - Unspecified blood type, Rh negative Comment: A-; Rhogam PRN & 28 weeks given 01/05/25 Orders: Orders POC Urinalysis 2 Dip (Clinic) Today 01/20/25 105Viktoria mcfarland MD> Date _ Chanel Elizondo Signature: Date (if applicable) CC: ~ [facility]05-08-2025 Evaluation note* Diagnosis Onset Date Resolution Status Admit Date History of miscarriage, currently acute December 02, 2024 10:56am acute December 02, 2024 10:56am Rh negative status during acute December 02, 2024 10 :56am Supervision of high-risk acute December 02, 2024 10 :56am History of miscarriage, currently acute January 05 8:14am acute January 05 8:14am Rh negative status during acute January 05, 2025 8:14am Supervision of high-risk acute January 05, 2025 8:14am History of miscarriage, currently acute January 20 10:17am acute January 20 10:17am Rh negative status during acute January 20, 2025 10:17am Supervision of high-risk acute January 20, 2025 10:17am History of miscarriage, currently acute February 02 2:31pm acute February 02, 2025 2:31pm Rh negative status during acute February 02, 2025 2 :31pm Supervision of high-risk acute February 02, 2025 2 :31pm History of miscarriage, currently acute February 15 9:53am acute February 15 9:53am Rh negative status during acute February 15, 2025 9:53am Supervision of high-risk acute February 15, 2025 9:53am History of miscarriage, currently acute March 03, 2 025 11:25am acute March 03 11:25am Rh negative status during acute March 03, 2025 11:25am Supervision of high-risk acute March 03, 2025 11:25am [facility] Work Phone: 1(224) 770-326105-08-2025 Evaluation note* Diagnosis Onset Date Resolution Status Admit Date History of miscarriage, currently acute December 02, 2024 10:56am acute December 02, 2024 10:56am Rh negative status during acute December 02, 2024 10 :56am Supervision of high-risk acute December 02, 2024 10 :56am History of miscarriage, currently acute January 05 8:14am acute January 05 8:14am Rh negative status during acute January 05, 2025 8:14am Supervision of high-risk acute January 05, 2025 8:14am History of miscarriage, currently acute January 20 10:17am acute January 20 10:17am Rh negative status during acute January 20, 2025 10:17am Supervision of high-risk acute January 20, 2025 10:17am History of miscarriage, currently acute February 02 2:31pm acute February 02, 2025 2:31pm Rh negative status during acute February 02, 2025 2 :31pm Supervision of high-risk acute February 02, 2025 2 :31pm History of miscarriage, currently acute February 15 9:53am acute February 15 9:53am Rh negative status during acute February 15, 2025 9:53am Supervision of high-risk acute February 15, 2025 9:53am History of miscarriage, currently acute March 03, 025 11:25am acute March 03 11:25am Rh negative status during acute March 03, 2025 11:25am Supervision of high-risk acute March 03, 2025 11:25am History of miscarriage, currently acute March 08, 2025 10:32am acute March 08, 025 10:32am Rh negative status during acute March 08 10:32am Supervision of high-risk acute March 08 10:32am Uterine size date discrepanc y acute March 08 10:32am [facility] Work Phone: 1([phone]) 883-672204-08-2025 Evaluation note* Diagnosis Onset Date Resolution Status Admit Date History of miscarriage, currently acute November 02 9:52am acute November 02 9:52am Rh negative status during acute November 02, 2024 9:52am Supervision of high-risk acute November 02, 2024 9:52am History of miscarriage, currently acute December 02, 2024 10:56am acute December 02, 2024 10:56am Rh negative status during acute December 02, 2024 10 :56am Supervision of high-risk acute December 02, 2024 10 :56am History of miscarriage, currently acute January 05 8:14am acute January 05 8:14am Rh negative status during acute January 05, 2025 8:14am Supervision of high-risk acute January 05, 2025 8:14am History of miscarriage, currently acute January 20 10:17am acute January 20 10:17am Rh negative status during acute January 20, 2025 10:17am Supervision of high-risk acute January 20, 2025 10:17am History of miscarriage, currently acute February 02 2:31pm acute February 02, 2025 2:31pm Rh negative status during acute February 02, 2025 2 :31pm Supervision of high-risk acute February 02, 2025 2 :31pm History of miscarriage, currently acute February 15 9:53am acute February 15 9:53am Rh negative status during acute February 15, 2025 9:53am Supervision of high-risk acute February 15, 2025 9:53am [facility] Work Phone: 1(567) 637-209803-11-2025 Evaluation note* Diagnosis Onset Date Resolution Status Admit Date History of miscarriage, currently acute October 05, 2 025 10:41am acute October 05 10:41am Rh negative status during acute October 05, 2024 10:41am Supervision of high-risk acute October 05, 2024 10:41am History of miscarriage, currently acute November 02 9:52am acute November 02 9:52am Rh negative status during acute November 02, 2024 9:52am Supervision of high-risk acute November 02, 2024 9:52am History of miscarriage, currently acute December 02, 2024 10:56am acute December 02, 2024 10:56am Rh negative status during acute December 02, 2024 10 :56am Supervision of high-risk acute December 02, 2024 10 :56am History of miscarriage, currently acute January 05 8:14am acute January 05 8:14am Rh negative status during acute January 05, 2025 8:14am Supervision of high-risk acute January 05, 2025 8:14am [facility] Work Phone: 1(729) 432-547003-11-2025 Evaluation note* Diagnosis Onset Date Resolution Status Admit Date History of miscarriage, currently acute October 05, 2 025 10:41am acute October 05 10:41am Rh negative status during acute October 05, 2024 10:41am Supervision of high-risk acute October 05, 2024 10:41am History of miscarriage, currently acute November 02 9:52am acute November 02 9:52am Rh negative status during acute November 02, 2024 9:52am Supervision of high-risk acute November 02, 2024 9:52am History of miscarriage, currently acute December 02, 2024 10:56am acute December 02, 2024 10:56am Rh negative status during acute December 02, 2024 10 :56am Supervision of high-risk acute December 02, 2024 10 :56am History of miscarriage, currently acute January 05 8:14am acute January 05 8:14am Rh negative status during acute January 05, 2025 8:14am Supervision of high-risk acute January 05, 2025 8:14am History of miscarriage, currently acute January 20 10:17am acute January 20 10:17am Rh negative status during acute January 20, 2025 10:17am Supervision of high-risk acute January 20, 2025 10:17am [facility] Work Phone: 1([phone]) 590-202903-11-2025 Evaluation note* Diagnosis Onset Date Resolution Status Admit Date History of miscarriage, currently acute October 05, 10:41am acute October 05 10:41am Rh negative status during acute October 05, 2024 10:41am Supervision of high-risk acute October 05, 2024 10:41am History of miscarriage, currently acute November 02 9:52am acute November 02 9:52am Rh negative status during acute November 02, 2024 9:52am Supervision of high-risk acute November 02, 2024 9:52am History of miscarriage, currently acute December 02, 2024 10:56am acute December 02, 2024 10:56am Rh negative status during acute December 02, 2024 10 :56am Supervision of high-risk acute December 02, 2024 10 :56am History of miscarriage, currently acute January 05 8:14am acute January 05 8:14am Rh negative status during acute January 05, 2025 8:14am Supervision of high-risk acute January 05, 2025 8:14am History of miscarriage, currently acute January 20 10:17am acute January 20 10:17am Rh negative status during acute January 20, 2025 10:17am Supervision of high-risk acute January 20, 2025 10:17am History of miscarriage, currently acute February 02 2:31pm acute February 02, 2025 2:31pm Rh negative status during acute February 02, 2025 2 :31pm Supervision of high-risk acute February 02, 2025 2 :31pm [facility] Work Phone: 1([phone]) 925-273310-18-2023 NoteHNO ID: [id number] Author: Estefany Foster APRN.[employer] Service: ? Author Type: Nurse Practitioner Type: [...] with this care plan. Will take her self.[facility]10-18-2023 History of Present illness Narrative* Estefany Foster APRN.[employer] - 05/14/2023 8:44 AM EDT Patient came in with complaints of possible [...] Will take her self. [facility]23 NoteHNO ID: [id number] Author: Eduardo Oscar APRN.RADHA Service: ? Author Type: Nurse Practitioner Type: Progress Notes Filed: 03/13/2023 7:43 AM Note Text: Subjective HPI HPI Halie Santo is a 27 year old female who presents today for CC of st, fever, ear pain, h/a. This started 3 days ago. Has tried otc medication for relief. Symptoms are worsened by nothing. Risk factors strep exposures at home. Nonsmoker. Denies possibility of being . .Patient presents with: Sore Throat: Fever, JALLOH, bilateral ear pain x 3 days PAST [...] Pos, strep - STREP A MOLECULAR (POC) Eduardo Oscar APRN.[facility]08-17-2023 History of Present illness Narrative* Eduardo Oscar APRN.[facility] - 03/13/2023 7:17 AM EDT Subjective HPI HPI Halie Santo is a 27 year old female who presents today for CC of st, fever, ear pain, h/a.This started 3 days ago. Has tried otc medication for relief. Symptoms are worsened by nothing. Risk factors strep exposures at home. Nonsmoker. Denies possibility of being . 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 Tolerating PO. Ambulating and voiding without difficulty. Feeding well. Denies chest pain, shortness of breath, calf pain/swelling, fevers, chills, lightheadedness. Objective Data Objective Data Vital Signs: Vital Signs Temp Pulse Resp BP Pulse Ox O2 Del Method 97.9 F 83 16 109/63 98 Room Air 09/06/22 09:00 09/06/22 09:00 09/06/22 09:00 09/06/22 09:00 09/06/22 04:18 09/06/22 09:00 Oxygen Delivery Method Room Air Weight: 169 lb 12.095 oz Body Mass Index (BMI) 25.0 Intake & Output: Intake and Output for Last 24 Hours 09/04/22 09/05/22 09/06/22 23:59 23:59 23:59 Intake Total 83.33 / 83.33 Output Total 700 / 700 Balance -616.67 / -616.67 Lab / Micro Data Result Diagrams: 09/05/22 13:20 Physical Exam Const alert, oriented x3 and no apparent distress Lymph Lymphatic: no lymphadenopathy noted Chest Nipple/Areola: nipples/areola normal Resp normal respiratory effort, normal air movement and no retractions GI normal to inspection, nondistended, normoactive bowel sounds GI Narrative: fundus firm at u, mild lochia, no clots Extremity normal to inspection Skin no rashes or lesions noted Assessment & Plan (1) Vaginal delivery: COMMENT: girl IAL 39 SM PLAN: s/p PPD # 1 1. routine post delivery care 2. breast feeding- support given 3. rh positive 4. rubella immune 5. d/c home today 09/06/22 1512 <Electronically signed by Shyla Wallace CNM> Cosigner Signature (if applicable): CC: ~ Signed [facility] Work Phone: 1(413) 801-112002-09-2023 Procedure [facility] 09-05-2022 History and physical note Author Dr. 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 arom clear fluid. Maternal Data Information TASHI Calculator Estimated Delivery Date Method Current WG Current Estimate 09/07/22 LMP (Certain) 39w 5d PFSH PFSH Home Medications multivitamin no.47-iron fum 27 mg-folate no.1 1 mg-dha 300 mg capsule (PNV-DHA)1 cap PO DAILY 06/20/20 [History Last Taken 09/04/22 08:00] 1 PO/SL 1XD Check with primary doctor 09/05/22 [History Last Taken 09/04/22 08:00] Allergy/AdvReac Type Severity Reaction Status Date / Time No Known Allergies Allergy Verified 09/05/22 11:05 Family History Grandmother Diabetes Surgical History History of dilation and curettage S/P ear surgery S/P wrist surgery Social History household members: spouse current occupational status: employed current occupation: [employer] pets and animals: Yes Smoking Status: Former smoker alcohol intake: current details: Not while substance use type: does not use caffeine: Yes what type of physical activity do you participate in: walking frequency: daily seatbelt use: always do you feel safe at home: Yes additional social history: - Sami History 3 Elective abortions Hx Para 1 Spontaneous abortions 1 Hx # Term Pregnancies 1 Ectopic pregnancies Hx # Pregnancies Multiple births # of living children 1 Past Pregnancies Del. Date Name GA/Weeks Outcome Route Bth Weight Gen Labor Lgth Anesthesia Del Locatn Provider FOB Unknown 06/2020- Blighted ovum 06/12/21 Aguila 40 live - full term Male [facility] Tawanna Gallardo Delivery Date: 06/12/21 Last Updated by: Harsha Solis ISBeatriz Visit Details Expected Delivery Route/Plan Labor Preferences- CB/BF classes: declines labor support person: Sami labor intervention preferences: limited interventions pain management options preferred: plans on unmedicated cut cord/dad catch: yes : yes PP control planned: discussed discussed possible routes of delivery and associated risks: special requests: tub room if available, IM if allows Plans Covid status: unvaccined Flu vaccine: [declines] Tdap vaccine: [] Rhogam: given 06/17/22 LARC form signed: yes Problem list reviewed and updated with the most current plan of care details and appropriate orders placed. Relevant counseling for the gestational age provided. Continue routine care and follow up unless otherwise noted in visit notes/problem list details OB Flowsheet Initial Weight: Not Recorded Date -?-?-?-?-?-?-?-?-?-?-?-?- EGA Weight BP Urine Prot -?-?-?-?-?-?-?-?-?-?-?-?- Glucose FHR FuHt Pres Dilation -?-?-?-?-?-?-?-?-?-?-?-?- Effaced St Visit Note 02/04/22 -?-?-?-?-?-?-?-?-?-?-?-?- 9w 2d 162 lb 6 oz 162 lb 6 oz 127/79 -?-?-?-?-?-?-?-?-?-?-?-?- 170 -?-?-?-?-?-?-?-?-?-?-?-?- SM- CRL 2.1 cm c ons with LMP 03/11/22 -?-?-?-?-?-?-?-?-?-?-?-?- 14w 2d 161 lb 112/60 Negative -?-?-?-?-?-?-?-?-?-?-?-?- Negative 150 -?-?-?-?-?-?-?-?-?-?-?-?- SM doing well 04/09/22 -?-?-?-?-?-?-?-?-?-?-?-?- 18w 3d 160 lb 117/74 Negative -?-?-?-?-?-?-?-?-?-?-?-?- Negative 145 -?-?-?-?-?-?-?-?-?-?-?-?- SM- no vb lof go od fm no regular ctx SM- no vb lof some fm no reg ular ctx 05/07/22 -?-?-?-?-?-?-?-?-?-?-?-?- 22w 3d 161 lb 94/62 Negative -?-?-?-?-?-?-?-?-?-?-?-?- Negative 140 22 -?-?-?-?-?-?-?-?-?-?-?-?- LC-no vb,ctx,lof . active fetus. 28week labs ordered. declines flu vaccine. 06/05/22 -?-?-?-?-?-?-?-?-?-?-?-?- 26w 4d 165 lb 2 oz 129/72 Nega tive -?-?-?-?-?-?-?-?-?-?-?-?- Negative 144 27 -?-?-?-?-?-?-?-?-?-?-?-?- JV- no lof, vagi nal bleeding, or cramping. gct and rhogam next visit. also needs soem new ob labs. 06/17/22 -?-?-?-?-?-?-?-?-?-?-?-?- 28w 2d 165 lb 2 oz 99/64 Nega tive -?-?-?-?-?-?-?-?-?-?-?-?- Negative 152 28 -?-?-?-?-?-?-?-?-?-?-?-?- -no VB, LOF. Good FM. Had fall onto bottom 3 days ago. No VB and good fm since. Rhogam, larc, 28 wk labs. 07/04/22 -?-?-?-?-?-?-?-?-?-?-?-?- 30w 5d 164 lb 8 oz 104/69 Nega tive -?-?-?-?-?-?-?-?-?-?-?-?- Negative 147 29 -?-?-?-?-?-?-?-?-?-?-?-?- JV- no lof, vagi nal bleeding, or dec fm. tdap today. 07/17/22 -?-?-?-?-?-?-?-?-?-?-?-?- 32w 4d 165 lb 100/64 Negative -?-?-?-?-?-?-?-?-?-?-?-?- Negative 145 33 -?-?-?-?-?-?-?-?--?-?-?-?- JV- no lof, vagi nal bleeding, or dec fm. no complaints today. 08/01/22 -?-?-?-?-?-?-?-?-?-?-?-?- 34w 5d 168 lb 120/76 Negative -?-?-?-?-?-?--?-?-?-?-?-?- Negative 145 34 -?-?-?-?-?-?-?-?-?-?-?-?- SM- no vb lof go od fm nor egular ctx 08/12/22 -?-?-?-?-?-?-?-?-?-?-?-?- 36w 2d 170 lb 118/77 -?-?-?-?-?-?-?-?-?-?-?-?- 145 36 Cephalic 1 -?-?-?-?-?-?-?-?-?-?-?-?- -4 Sm- no v b lof good fm n oregular ctx gbs done 08/22/22 -?-?-?-?-?-?-?-?-?-?-?-?- 37w 5d 171 lb 2 oz 131/80 Nega tive -?-?-?-?-?-?-?-?-?-?-?-?- Negative 150 37 Cephalic 1 -?-?-?-?-?-?-?-?-?-?-?-?- 50 -3 JV-no lof, vaginal bleeding, or dec fm. no complaints. 08/29/22 -?-?-?-?-?-?-?-?-?-?-?-?- 38w 5d 173 lb 108/74 Negative -?-?-?-?-?-?-?-?-?-?-?-?- Negative 140 37 Cephalic 1 -?-?-?-?-?-?-?-?-?-?-?-?- SM- no vb lof go od fm no regular ctx 09/05/22 -?-?-?-?-?-?-?-?-?-?-?-?- 39w 5d 171 lb 8 oz 119/84 Nega tive -?-?-?-?-?-?-?-?-?-?-?-?- Negative 135 Cephalic 5 -?-?-?-?-?-?-?-?-?-?-?-?- 90 +1 JV- no lof , vaginal bleeding, or dec fm. but is having contractions every 8 minutes. instructed to go to l&D now. 09/05/22 -?-?-?-?-?-?-?-?-?-?-?-?- 39w 5d 169 lb 12.095 oz 131/76 -?-?-?-?-?-?-?-?-?-?-?-?- -?-?-?-?-?-?-?-?-?-?-?-?- NST FHR Rate Baby A Baseline: 140 Variability:: Moderate Accelerations:: 15 x 15 Decelerations:: None NST Reactive:: Yes FHR Category:: Category I Uterine Activity:: q3-5 ROS Constitutional Constitutional: Reports systems reviewed and no addt'l complaints, except as documented ENT HEENT: Reports systems reviewed and no addt'l complaints, except as documented Cardiovascular Cardiovascular: Reports systems reviewed and no addt'l complaints, except as documented Respiratory/Chest Respiratory/Chest: Reports systems reviewed and no addt'l complaints, except as documented Gastrointestinal Gastrointestinal: Reports systems reviewed and no addt'l complaints, except as documented and nausea; Denies abdominal pain Genitourinary Genitourinary: Reports systems reviewed and no addt'l complaints, except as documented, contractions Details: present and frequency (regular ) and movement Details: present Musculoskeletal Musculoskeletal: Reports systems reviewed and no addt'l complaints, except as documented Integumentary Integumentary: Reports as per HPI Neurologic Neurologic: Reports systems reviewed and no addt'l complaints, except as documented Endocrine Endocrinology: Reports systems reviewed and no addt'l complaints, except as documented Vital Signs Vital Signs Vital Signs: 09/05/22 12:57 09/05/22 12:57 09/05/22 12:57 Temperature Temperature Source Pulse Rate 107 H Blood Pressure 131/76 H BP Systolic 131 BP Diastolic 76 Pulse Ox 100 09/05/22 12:55 09/05/22 12:55 Temperature 98.0 F Temperature Source Temporal Pulse Rate Blood Pressure BP Systolic BP Diastolic Pulse Ox Weight Weight: 169 lb 12.095 oz Body Mass Index (BMI) 25.0 Physical Exam Const alert, oriented x3 and healthy appearing Constitutional Narrative: uncomfortable with contractions HEENT normocephalic and moist oral mucous membranes Head and Scalp: atraumatic Neck full ROM, no lymphadenopathy, supple and thyroid normal General: trachea midline Thyroid: thyroid normal Lymph Lymphatic: no lymphadenopathy noted Chest inspection of chest normal Resp normal respiratory effort Cardio regular rate GI normal to inspection, nondistended, normoactive bowel sounds, soft to palpation and non-tender Inspection: gravid external exam normal Bimanual Exam - Vag & Uterus: uterus non-tender Manual OB Exam: estimated gestational size appropriate, presentation cephalic, dilated, effaced and station Extremity normal to inspection General Extremity: Negative for edema Skin no rashes or lesions noted Neuro deep tendon reflexes 2+ bilaterally Motor Exam: strength 5/5 throughout and clonus absent Psych mental status grossly normal Labs Labs Labs: Blood Type A NEGATIVE Antibody Screen NEGATIVE Hct 33.4 % (37-47) L Hgb 11.4 g/dL (12.0-15.0) L Obstetrics US Syphilis Total Ab Non-reactive Rubella IgG Antibody Reactive (Nonreactive) Hep Bs Antigen Non-Reactive (Nonreactive) Chlamydia DNA (MINI) Negative (Negative) Neisseria gonorrhoeae DNA (MINI) Negative (Negative) HIV 1&2 Antibody Non-Reactive (Nonreactive) Glucose 1 Hr 50 gm 139 mg/dL (70-140) Assessment & Plan (1) Supervision of normal : QUALIFIERS: Trimester: second trimester COMMENT: PRR TASHI 09/07/22 girl PC Aguila Sami (2) : QUALIFIERS: Weeks of gestation: 39 weeks Qualified Code(s): Z3A.39 - 39 weeks gestation of COMMENT: GBS Negative, anatomy nl, genetic low risk, carrier screening declined (3) Rh negative status during : QUALIFIERS: Trimester: third trimester Qualified Code(s): O26.893 - Other specified related conditions, third trimester; Z67.91 - Unspecified blood type, Rh negative COMMENT: A neg Rhogam prn and 28 weeks. given 06/17/22 (4) Short interval between pregnancies affecting , antepartum: (5) Abnormal glucose tolerance in : COMMENT: normal 3hr GTT (6) Active labor at term: COMMENT: epi only if needed, prefer minimal intervention. arom clear fluid. pit prn gbs neg PLAN: Plan see a/p comments 09/05/22 1341 <Electronically signed by Chanel Stacy MD> Cosigner Signature (if applicable): CC: Dr. Chanel Stacy MD; No Primary Care Physician~ Signed [facility] Work Phone: 1([phone] 147-181409-30-2008 History of Past illness Narrative* Problem Noted Date Diagnosed Date Resolved Date WOUND (NOT COMPLICATED) - OP EN FOOT (NOT TOES) 04/26/2008 11/13/2011 documented as of this encounter (statuses as of 03/13/2023) [facility] History of Past illness Narrative* Problem Noted Date Diagnosed Date Resolved Date WOUND (NOT COMPLICATED) - OP EN FOOT (NOT TOES) 04/26/2008 11/13/2011 documented as of this encounter (statuses as of 05/14/2023) [facility] Diagnosis Onset Date Resolution Status acute Rh negative status during acute Short interval between pregn ancies affecting , antepartum acute Supervision of normal acute [facility] Work Phone: evaluation note* Diagnosis Onset Date Resolution Status acute Rh negative status during acute Short interval between pregn ancies affecting , antepartum acute Supervision of normal acute acute Rh negative status during acute Short interval between pregn ancies affecting , antepartum acute Supervision of normal acute acute Rh negative status during acute Short interval between pregn ancies affecting , antepartum acute Supervision of normal acute acute Rh negative status during acute Short interval between pregn ancies affecting , antepartum acute Supervision of normal acute Abnormal glucose tolerance in acute acute Rh negative status during acute Short interval between pregn ancies affecting , antepartum acute Supervision of normal acute [facility] Work Phone: evaluation note* Diagnosis Onset Date Resolution Status acute Rh negative status during acute Short interval between pregn ancies affecting , antepartum acute Supervision of normal acute acute Rh negative status during acute Short interval between pregn ancies affecting , antepartum acute Supervision of normal acute Abnormal glucose tolerance in acute acute Rh negative status during acute Short interval between pregn ancies affecting , antepartum acute Supervision of normal acute Abnormal glucose tolerance in acute acute Rh negative status during acute Short interval between pregn ancies affecting , antepartum acute Supervision of normal acute Abnormal glucose tolerance in acute acute Rh negative status during acute Short interval between pregn ancies affecting , antepartum acute Supervision of normal acute Abnormal glucose tolerance in acute acute Rh negative status during acute Short interval between pregn ancies affecting , antepartum acute Supervision of normal acute Abnormal glucose tolerance in acute acute Rh negative status during acute Short interval between pregn ancies affecting , antepartum acute Supervision of normal acute Abnormal glucose tolerance in acute acute Rh negative status during acute Short interval between pregn ancies affecting , antepartum acute Supervision of normal acute [facility] Work Phone: evaluation note* Diagnosis Onset Date Resolution Status Rh negative status during acute resolved Short interval between pregn ancies affecting , antepartum resolved Supervision of normal resolved Rh negative status during acute Abnormal glucose tolerance in resolved resolved Short interval between pregn ancies affecting , antepartum resolved Supervision of normal resolved Rh negative status during acute Abnormal glucose tolerance in resolved resolved Short interval between pregn ancies affecting , antepartum resolved Supervision of normal resolved Rh negative status during acute Abnormal glucose tolerance in resolved resolved Short interval between pregn ancies affecting , antepartum resolved Supervision of normal resolved Rh negative status during acute Abnormal glucose tolerance in resolved resolved Short interval between pregn ancies affecting , antepartum resolved Supervision of normal resolved Rh negative status during acute Abnormal glucose tolerance in resolved resolved Short interval between pregn ancies affecting , antepartum resolved Supervision of normal resolved Rh negative status during acute Abnormal glucose tolerance in resolved resolved Short interval between pregn ancies affecting , antepartum resolved Supervision of normal resolved Rh negative status during acute Abnormal glucose tolerance in resolved resolved Short interval between pregn ancies affecting , antepartum resolved Supervision of normal resolved Rh negative status during acute Abnormal glucose tolerance in resolved resolved Short interval between pregn ancies affecting , antepartum resolved Supervision of normal resolved Rh negative status during acute Vaginal delivery acute Abnormal glucose tolerance in resolved Active labor at term resolve d resolved Short interval between pregn ancies affecting , antepartum resolved Supervision of normal resolved [facility] Work Phone: evaluation note* Diagnosis Strep throat- Primary Streptococcal sore throat Sore throat Acute pharyngitis documented in this encounter [facility] noteNo assessment information availableWOhio[facility] Work Phone: evaluation note* Diagnosis Skin infection- Primary Unspecified local infection of skin and subcutaneous tissue documented in this encounter [facility] note* Diagnosis Onset Date Resolution Status History of miscarriage, currently acute acute Rh negative status during acute Supervision of high risk in first trimester acute [facility] Work Phone: evaluation note* Diagnosis Onset Date Resolution Status History of miscarriage, currently acute acute Rh negative status during acute Supervision of high risk in first trimester acute History of miscarriage, currently acute acute Rh negative status during acute Supervision of high risk in first trimester acute Circumvallate placenta acute History of miscarriage, currently acute acute Rh negative status during acute Supervision of high risk in first trimester acute Circumvallate placenta acute History of miscarriage, currently acute acute Rh negative status during acute Supervision of high risk in first trimester acute Circumvallate placenta acute History of miscarriage, currently acute acute Rh negative status during acute Supervision of high risk in first trimester acute [facility] Work Phone: Hospital Discharge instructions Additional Instructions Thank you for trusting us with your care today! Please take Tylenol (2 pills, 650 mg), ibuprofen (2 pills, 400 mg) every 6 hours as needed for pain and fever control. Please take antibiotics as prescribed until course complete. Please return to the emergency department if your symptoms change or worsen. Specifically develop rapid progression of redness up your arm in a matter of hours. If you develop vomiting cannot tolerate antibiotics. You develop fever or you lose consciousness. Please follow with your primary care physician for further outpatient evaluation and management. Please follow-up within the next 3 to 5 days for wound recheck with your PCP. [facility] Work Phone: Progress note Author Chanel Stacy [facility] Note Date/Time January 20, 2025 10:5 6am [facility] [address] [place] [address], [address] [place] [address] OFFICE VISIT Date of Service: 01/20/25 MR#: [id number] Acct: [id number] Name: HALIE SANTO Rep #: [id number] : 1995 Provider: Dr. Adis Stacy MD Age/Sex: 29/F Location: [facility] [place] Status: Signed Intake Vital Signs 11/02/24 09:57 01/05/25 08:18 01/20/25 10:24 01/20/25 10:24 Height 5 ft 9 in 5 ft 9 in 5 ft 9 in 5 ft 9 in Weight: 167 lb 8 oz 168 lb 4 oz BMI 24.7 24.8 BP 100/64 109/68 Intake Visit Reasons: 30wk ob Hotel Manager Required: No Is patient in pain?: No Allergies No Known Allergies Allergy (Verified 01/20/25 10:24) Medications ?Medication ?Instructions ?Recorded ?Confirmed ?Type docosahexaenoic acid 200 mg mg PO 08/27/24 01/20/25 Hi story capsule ( DHA) Last Menstrual Period: 05/10/23 Zika: Zika virus screening: Negative : No PFSH PFSH Medical History History of miscarriage, currently Surgical History Status post vaginal delivery History of dilation and curettage S/P wrist surgery S/P ear surgery Family History Grandmother Diabetes Social History adopted: No household members: spouse and children number of children: 3 current occupational status: employed current occupation: [employer] current occupational exposures/hazards: No pets and animals: Yes pets and animals: dog(s) history of recent travel: No sexually active: Yes Smoking Status: Never smoker alcohol intake: never substance use type: does not use well-balanced diet: daily or most days caffeine: Yes Type: coffee Number of servings: 1 eating out: rarely or never during the past year weight has: remained stable what type of physical activity do you participate in: none frequency: daily sea/alevism: None seatbelt use: always do you feel safe at home: Yes 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 Date Name GA/Weeks Outcome Route Bth Weight Infant Gen Labor Lgth Anesthesia Del Locatn Provider FOB 06/27/20 Blighted ovum 8 06/12/21 Aguila 40 live - full term 7lbs 9oz Male no ne [facility] Tawanna Gallardo 09/05/22 Danielle 39 live - full term 8#4oz Female no ne [facility] ABDIFATAH Gallardo 02/13/24 Smiley 39 live - full term 8lbs 1oz Male no ne [facility] Matt Gallardo Delivery Date: 06/27/20 Last Updated by: Carmencita Monte RN D&C Delivery Date: 06/12/21 Last Updated by: Harsha Solis ISL HPI 30wk ob Details: HALIE SANTO is a 29 year old who presents for routine OB visit. OB Visit TASHI Calculator Estimated Delivery Date Method Current WG Current Estimate 03/29/25 Ultrasound #1 30w 2d Expected Delivery Route/Plan Labor Preferences- CB/BF classes: no labor support person: Sami labor intervention preferences: [] pain management options preferred: limited cut cord/dad catch: yes : yes PP control planned: spouse has vas planned discussed possible routes of delivery and associated risks: [] special requests: [] Specific Issue/Plans Covid status: [] Flu vaccine: [] Tdap vaccine: declines Rhogam: given 01/05/25 LARC form signed: yes Problem list reviewed and updated with the most current plan of care details and appropriate orders placed. Relevant counseling for the gestational age provided. Continue routine care and follow up unless otherwise noted in visit notes/problem list details Initial Weight: Not Recorded Date -?-?-?-?-?-?-?-?-?-?-?-?- EGA Weight BP Urine Prot -?-?-?-?-?-?-?-?-?-?-?-?- Glucose FHR FuHt Pres Dilation -?-?-?-?-?-?-?-?-?-?-?-?- Effaced St Visit Note 09/06/24 -?-?-?-?-?-?-?-?-?-?-?-?- 10w 6d 157 lb 8 oz 131/78 -?-?-?-?-?-?-?-?-?-?-?-?- 163 -?-?-?-?-?--?-?-?-?-?-?-?- JV- CRL consiste nt with 6 week ultrasound. patient declines NIPT. mild nausea, declines medication. 10/05/24 -?-?-?-?-?-?-?-?-?-?-?-?- 15w 0d 155 lb 6 oz 130/74 Nega tive -?-?-?-?-?-?-?-?-?-?-?-?- Negative 150 -?-?-?-?-?-?-?-?-?-?-?-?- SM- no vb llof c ramping 11/02/24 -?-?-?-?-?-?-?-?-?--?-?-?- 19w 0d 157 lb 8 oz 124/80 Nega tive -?-?-?-?-?-?-?-?-?-?-?-?- Negative 145 -?-?-?-?-?-?-?-?-?-?-?-?- -No VB, LOF. F eeling movement. 12/02/24 -?-?-?-?-?-?-?-?-?-?-?-?- 23w 2d 161 lb 6 oz 103/66 Nega tive -?-?-?-?-?-?-?-?-?-?-?-?- Negative 147 -?-?-?-?-?-?-?-?-?-?-?-?- KW- no vb/lof/ct x. good fm. US reviewed. 28 week labs discussed 01/05/25 -?-?-?-?-?-?-?-?-?-?-?-?- 28w 1d 167 lb 8 oz 100/64 Nega tive -?-?-?-?-?-?-?--?-?-?-?-?- Negative 138 28 -?-?-?-?-?-?-?-?-?-?-?-?- -No VB, LOF. G ood FM. 28 wk labs pending. Larc. Tdap declined. Rhogam given 01/20/25 -?-?-?-?-?-?-?-?-?-?-?-?- 30w 2d 168 lb 4 oz 109/68 Nega tive -?-?-?-?-?-?-?-?-?-?-?-?- Negative 140 30 -?-?-?-?-?-?-?-?-?-?-?-?- SM- no vb lof go od fm no regular ctx ACOG First Trimester First Trimester: Desire for , Alcohol, Tobacco Cessation, Illicit/Recreational Drug/Substance Use, Intimate Partner Violence, Barriers to care, Unstable Housing, Communication Barriers, Environmental/Work Hazards, Anticipated Course of Care, Toxoplasmosis Precations, Use of Any medications, Sexual activity, Exercise, Dental Care, Sauna/Hot tub use, Seat Belt use, Childbirth classes/Hospital facilities, Travel, Indications for Ultrasound and Screening for Aneuploidy; Discussed Second Trimester Second Trimester: Signs and Symptoms of Labor, Selecting a care provider, Reproductive Life Planning & Contreception and Care Planning; Discussed Tobacco Cessation, Discussed Depression/Anxiety and Discussed Intimate Partner Violence Third Trimester Third Trimester: Pain Management Plans, Labor support person(s), Immediate Larc, Circumcision preference, Signs and Symptoms of Preeclampsia, Feeding No , Family Medical Leave or Disability Forms and Intimate Partner Violence ROS Const Denies fever(s) GI Reports as per HPI and Denies abdominal pain Reports as per HPI, Denies abnormal vaginal bleeding, Denies dysuria and Denies vaginal discharge Exam Const General: healthy appearing, comfortable and no acute distress GI Inspection: normal to inspection Palpation: soft and nontender Results POC Urinalysis 2 Dip (Clinic) Office Urine Glucose Negative Last Edit by Toña Calderon on 01/20/25 10: 51 Office Urine Protein Negative Last Edit by Toña Calderon on 01/20/25 10: 51 Coding Level of Care Code OB Routine Diagnoses Supervision of high risk in third trimester O09.93 Trimester: third trimester 30 weeks gestation of Z3A.30 Weeks of gestation: 30 weeks History of miscarriage, currently O09.299 Rh negative status during in second trimester O26.892; Z67.91 Trimester: second trimester Assessment and Plan Assessment and Plan (1) Supervision of high-risk : Status: Acute Qualifiers: Trimester: third trimester Qualified Code(s): O09.93 - Supervision of high risk , unspecified, third trimester Comment: PRR , TASHI 03/29/25, surprise PC: Danielle Aguila & Smiley, : Sami (2) : Status: Acute Qualifiers: Weeks of gestation: 30 weeks Qualified Code(s): Z3A.30 - 30 weeks gestation of Comment: Declined genetic/carrier testing - (prior carrier testing done - negative), nl anatomy (3) History of miscarriage, currently : Status: Acute Comment: 2020 (4) Rh negative status during : Status: Acute Qualifiers: Trimester: second trimester Qualified Code(s): O26.892 - Other specified related conditions, second trimester; Z67.91 - Unspecified blood type, Rh negative Comment: A-; Rhogam PRN & 28 weeks given 01/05/25 Orders: Orders POC Urinalysis 2 Dip (Clinic) Today 01/20/25 1056 <Electronically signed by Chanel mcfarland MD> Date _ Chanel Stacy MD Cosigner Signature: Date (if applicable) CC: ~ [facility] Work Phone: Progress note Author Chanel Stacy [facility] Services Note Date/Time February 15, 2025 10:3 3am [facility] [address], [address] [place] [address] OFFICE VISIT Date of Service: 02/15/25 MR#: [id number] Acct: [id number] Name: HALIE SANTO Rep #: [id number] : 1995 Provider: Dr. Adis Stacy MD Age/Sex: 29/F Location: [facility] [place] Status: Signed Intake Vital Signs 01/05/25 08:18 01/20/25 10:24 02/02/25 14:37 02/15/25 10:03 Height 5 ft 9 in 5 ft 9 in 5 ft 9 in 5 ft 9 in Weight: 172 lb 2 oz BMI 25.4 BP 108/67 Intake Visit Reasons: 34wk ob Hotel Manager Required: No Is patient in pain?: No Allergies No Known Allergies Allergy (Verified 02/15/25 10:04) Medications ?Medication ?Instructions ?Recorded ?Confirmed ?Type docosahexaenoic acid 200 mg mg PO 08/27/24 02/15/25 Hi story capsule ( DHA) Last Menstrual Period: 05/10/23 Zika: Zika virus screening: Negative : No PFSH PFSH Medical History History of miscarriage, currently Surgical History Status post vaginal delivery History of dilation and curettage S/P wrist surgery S/P ear surgery Family History Grandmother Diabetes Social History adopted: No household members: spouse and children number of children: 3 current occupational status: employed current occupation: [employer] current occupational exposures/hazards: No pets and animals: Yes pets and animals: dog(s) history of recent travel: No sexually active: Yes Smoking Status: Never smoker alcohol intake: never substance use type: does not use well-balanced diet: daily or most days caffeine: Yes Type: coffee Number of servings: 1 eating out: rarely or never during the past year weight has: remained stable what type of physical activity do you participate in: none frequency: daily sea/alevism: None seatbelt use: always do you feel safe at home: Yes 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 Date Name GA/Weeks Outcome Route Bth Weight Infant Gen Labor Lgth Anesthesia Del Locatn Provider FOB 06/27/20 Blighted ovum 8 06/12/21 Aguila 40 live - full term 7lbs 9oz Male no ne [facility] Tawanna Gallardo 09/05/22 Danielle 39 live - full term 8#4oz Female no ne [facility] ABDIFATAH Gallardo 02/13/24 Smiley 39 live - full term 8lbs 1oz Male no ne [facility] Matt Gallardo Delivery Date: 06/27/20 Last Updated by: Carmencita Monte RN D&C Delivery Date: 06/12/21 Last Updated by: Harsha Solis ISL HPI 34wk ob Details: HALIE SANTO is a 29 year old who presents for routine OB visit. OB Visit TASHI Calculator Estimated Delivery Date Method Current WG Current Estimate 03/29/25 Ultrasound #1 34w 0d Expected Delivery Route/Plan Labor Preferences- CB/BF classes: no labor support person: Sami labor intervention preferences: [] pain management options preferred: limited cut cord/dad catch: yes : yes PP control planned: spouse has vas planned discussed possible routes of delivery and associated risks: [] special requests: [] Specific Issue/Plans Covid status: [] Flu vaccine: [] Tdap vaccine: declines Rhogam: given 01/05/25 LARC form signed: yes movement and labor precautions reviewed. Problem list reviewed and updated with the most current plan of care details and appropriate orders placed. Relevant counseling for the gestational age provided. Continue routine care and follow up unless otherwise noted in visit notes/problem list details Initial Weight: Not Recorded Date -?-?-?-?-?-?-?-?-?-?-?-?- EGA Weight BP Urine Prot -?-?-?-?-?-?-?-?-?-?-?-?- Glucose FHR FuHt Pres Dilation -?-?-?-?-?-?-?-?-?-?-?-?- Effaced St Visit Note 09/06/24 -?-?-?-?-?-?-?-?-?-?-?-?- 10w 6d 157 lb 8 oz 131/78 -?-?-?-?-?-?-?-?-?-?-?-?- 163 -?-?-?-?-?-?-?-?-?-?-?-?- JV- CRL consiste nt with 6 week ultrasound. patient declines NIPT. mild nausea, declines medication. 10/05/24 -?-?-?-?-?-?-?-?-?-?-?-?- 15w 0d 155 lb 6 oz 130/74 Nega tive -?-?-?-?-?-?-?-?-?-?-?-?- Negative 150 -?-?-?-?-?-?-?-?-?-?-?-?- SM- no vb llof c ramping 11/02/24 -?-?-?-?-?-?-?-?-?-?-?-?- 19w 0d 157 lb 8 oz 124/80 Nega tive -?-?-?-?-?-?-?-?-?-?-?-?- Negative 145 -?-?-?-?-?-?-?-?-?-?-?-?- MH-No VB, LOF. F eeling movement. 12/02/24 -?-?-?-?-?-?-?-?-?-?-?-?- 23w 2d 161 lb 6 oz 103/66 Nega tive -?-?-?-?-?-?-?-?-?-?-?-?- Negative 147 -?--?-?-?-?-?-?-?-?-?-?-?- KW- no vb/lof/ct x. good fm. US reviewed. 28 week labs discussed 01/05/25 -?-?-?-?-?-?-?-?-?-?-?-?- 28w 1d 167 lb 8 oz 100/64 Nega tive -?-?-?-?-?-?-?-?-?-?-?-?- Negative 138 28 -?-?-?-?-?-?-?-?-?-?-?-?- MH-No VB, LOF. G ood FM. 28 wk labs pending. Larc. Tdap declined. Rhogam given 01/20/25 -?-?-?-?-?-?-?-?-?-?-?-?- 30w 2d 168 lb 4 oz 109/68 Nega tive -?-?-?-?-?-?-?-?-?-?-?-?- Negative 140 30 -?-?-?-?-?-?-?-?-?-?-?-?- SM- no vb lof go od fm no regular ctx 02/02/25 -?-?-?-?-?-?-?-?-?-?-?-?- 32w 1d 170 lb 8 oz 109/64 Nega tive -?-?-?-?-?-?-?-?-?-?-?-?- Negative 145 32 -?-?-?-?-?-?-?-?-?-?-?-?- JV- no lof, vagi nal bleeding, or dec fm. no complaints. gender still a surprise. 02/15/25 -?-?-?-?-?-?-?-?-?-?-?-?- 34w 0d 172 lb 2 oz 108/67 Nega tive -?-?-?-?-?-?-?-?-?-?-?-?- Negative 145 34 -?-?-?-?-?-?-?-?-?-?-?-?- SM- no vb lof go od fm no reuglar ctx ACOG First Trimester First Trimester: Desire for , Alcohol, Tobacco Cessation, Illicit/Recreational Drug/Substance Use, Intimate Partner Violence, Barriers to care, Unstable Housing, Communication Barriers, Environmental/Work Hazards, Anticipated Course of Care, Toxoplasmosis Precations, Use of Any medications, Sexual activity, Exercise, Dental Care, Sauna/Hot tub use, Seat Belt use, Childbirth classes/Hospital facilities, Travel, Indications for Ultrasound and Screening for Aneuploidy; Discussed Second Trimester Second Trimester: Signs and Symptoms of Labor, Selecting a care provider, Reproductive Life Planning & Contreception and Care Planning; Discussed Tobacco Cessation, Discussed Depression/Anxiety and Discussed Intimate Partner Violence Third Trimester Third Trimester: Pain Management Plans, Labor support person(s), Immediate Larc, Circumcision preference, Signs and Symptoms of Preeclampsia, Feeding No , Family Medical Leave or Disability Forms and Intimate Partner Violence Results POC Urinalysis 2 Dip (Clinic) Office Urine Glucose Negative Last Edit by Abbie Marmolejo on 02/15/25 10:08 Office Urine Protein Negative Last Edit by Abbie Marmolejo on 02/15/25 10:08 Coding Level of Care Code OB Routine Diagnoses Supervision of high risk in third trimester O09.93 Trimester: third trimester 34 weeks gestation of Z3A.34 Weeks of gestation: 34 weeks History of miscarriage, currently O09.299 Rh negative status during in second trimester O26.892; Z67.91 Trimester: second trimester Assessment and Plan Assessment and Plan (1) Supervision of high-risk : Status: Acute Qualifiers: Trimester: third trimester Qualified Code(s): O09.93 - Supervision of high risk , unspecified, third trimester Comment: PRR , TASHI 03/29/25, surprise PC: Danielle Aguila & Smiley, : Sami (2) : Status: Acute Qualifiers: Weeks of gestation: 34 weeks Qualified Code(s): Z3A.34 - 34 weeks gestation of Comment: Declined genetic/carrier testing - (prior carrier testing done - negative), nl anatomy (3) History of miscarriage, currently : Status: Acute Comment: 2020 (4) Rh negative status during : Status: Acute Qualifiers: Trimester: second trimester Qualified Code(s): O26.892 - Other specified related conditions, second trimester; Z67.91 - Unspecified blood type, Rh negative Comment: A-; Rhogam PRN & 28 weeks given 01/05/25 Orders: Orders POC Urinalysis 2 Dip (Clinic) Today 02/15/25 1033 <Electronically signed by Chanel mcfarland MD> Date _ Chanel Stacy MD Cosign Signature: Date (if applicable) CC: ~ [facility] Work Phone: Progress note Author Rylee Beavers [facility] Note Date/Time March 08, 2025 11 :02am [facility] [address] [place] [address], [address] [place] [address] OFFICE VISIT Date of Service: 03/08/25 MR#: [id number] Acct: [id number] Name: HALIE SANTO Rep #: [id number] : 1995 Provider: JUSTEN Beavers Age/Sex: 29/F Location: [facility] [place] Status: Signed Intake Vital Signs 02/02/25 14:37 03/03/25 11:34 03/08/25 10:35 Height 5 ft 9 in 5 ft 9 in 5 ft 9 in Weight: 173 lb 6 oz BMI 25.6 BP 115/65 Intake Visit Reasons: 37WK OB Chief Complaint: 37wk OB Hotel Manager Required: No Is patient in pain?: No Allergies No Known Allergies Allergy (Verified 03/08/25 10:33) Medications ?Medication ?Instructions ?Recorded ?Confirmed ?Type docosahexaenoic acid 200 mg mg PO 08/27/24 03/08/25 Hi story capsule ( DHA) Last Menstrual Period: 05/10/23 : No PFSH PFSH Medical History History of miscarriage, currently Surgical History Status post vaginal delivery History of dilation and curettage S/P wrist surgery S/P ear surgery Family History Grandmother Diabetes Social History adopted: No household members: spouse and children number of children: 3 current occupational status: employed current occupation: [employer] current occupational exposures/hazards: No pets and animals: Yes pets and animals: dog(s) history of recent travel: No sexually active: Yes Smoking Status: Never smoker alcohol intake: never substance use type: does not use well-balanced diet: daily or most days caffeine: Yes Type: coffee Number of servings: 1 eating out: rarely or never during the past year weight has: remained stable what type of physical activity do you participate in: none frequency: daily sea/alevism: None seatbelt use: always do you feel safe at home: Yes additional social history: : 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 Date Name GA/Weeks Outcome Route Bth Weight Gen Labor Lgth Anesthesia Del Locatn Provider FOB 06/27/20 Blighted ovum 8 06/12/21 Aguila 40 live - full term 7lbs 9oz Male no ne [facility] Tawanna Gallardo 09/05/22 Treydley 39 live - full term 8#4oz Female no ne [facility] ABDIFATAH Gallardo 02/13/24 Smiley 39 live - full term 8lbs 1oz Male no ne [facility] Matt Gallardo Delivery Date: 06/27/20 Last Updated by: Carmencita Monte RN D&C Delivery Date: 06/12/21 Last Updated by: Harsha Solis ISL HPI 37WK OB Details: HALIE SANTO is a 29 year old who presents for routine OB visit. OB Visit TASHI Calculator Estimated Delivery Date Method Current WG Current Estimate 03/29/25 Ultrasound #1 37w 0d Expected Delivery Route/Plan Labor Preferences- CB/BF classes: no labor support person: Sami labor intervention preferences: [] pain management options preferred: limited cut cord/dad catch: yes : yes PP control planned: spouse has vas planned discussed possible routes of delivery and associated risks: [] special requests: [] Specific Issue/Plans Covid status: [] Flu vaccine: [] Tdap vaccine: declines Rhogam: given 01/05/25 LARC form signed: yes movement and labor precautions reviewed. Problem list reviewed and updated with the most current plan of care details and appropriate orders placed. Relevant counseling for the gestational age provided. Continue routine care and follow up unless otherwise noted in visit notes/problem list details Initial Weight: Not Recorded Date -?-?-?-?-?-?-?-?-?-?-?-?- EGA Weight BP Urine Prot -?-?-?-?-?-?-?-?-?-?-?-?- Glucose FHR FuHt Pres Dilation -?-?-?-?-?-?-?-?-?-?-?-?- Effaced St Visit Note 09/06/24 -?-?-?-?-?-?-?-?-?-?-?-?- 10w 6d 157 lb 8 oz 131/78 -?-?-?-?-?-?-?-?-?-?-?-?- 163 -?-?-?-?-?-?-?-?-?-?-?-?- JV- CRL consiste nt with 6 week ultrasound. patient declines NIPT. mild nausea, declines medication. 10/05/24 -?-?-?-?-?-?-?-?-?-?-?-?- 15w 0d 155 lb 6 oz 130/74 Nega tive -?-?-?-?-?-?-?-?-?-?-?-?- Negative 150 -?-?-?-?-?-?-?-?-?-?-?-?- SM- no vb llof c ramping 11/02/24 -?-?-?-?-?-?-?-?-?-?-?-?- 19w 0d 157 lb 8 oz 124/80 Nega tive -?-?-?-?-?-?-?-?-?-?-?-?- Negative 145 -?-?-?-?-?-?-?-?-?-?-?-?- MH-No VB, LOF. F eeling movement. 12/02/24 -?-?-?-?-?-?-?-?-?-?-?-?- 23w 2d 161 lb 6 oz 103/66 Nega tive -?-?-?-?-?-?-?-?-?-?-?-?- Negative 147 -?-?-?-?-?-?-?-?-?-?-?-?- KW- no vb/lof/ct x. good fm. US reviewed. 28 week labs discussed 01/05/25 -?-?-?-?-?-?-?-?-?-?-?-?- 28w 1d 167 lb 8 oz 100/64 Nega tive -?-?-?-?-?-?-?-?-?-?-?-?- Negative 138 28 -?-?-?-?-?-?-?-?-?-?-?-?- -No VB, LOF. G ood FM. 28 wk labs pending. Larc. Tdap declined. Rhogam given 01/20/25 -?-?-?-?-?-?-?-?-?-?-?-?- 30w 2d 168 lb 4 oz 109/68 Nega tive -?-?-?-?-?-?-?-?-?-?-?-?- Negative 140 30 -?-?-?-?-?-?-?-?-?-?-?-?- SM- no vb lof go od fm no regular ctx 02/02/25 -?-?-?-?-?-?-?-?-?--?-?-?- 32w 1d 170 lb 8 oz 109/64 Nega tive -?-?-?-?-?-?-?-?-?-?-?-?- Negative 145 32 -?-?-?-?-?-?-?-?-?-?-?-?- JV- no lof, vagi nal bleeding, or dec fm. no complaints. gender still a surprise. 02/15/25 -?-?-?-?-?-?-?-?-?-?-?-?- 34w 0d 172 lb 2 oz 108/67 Nega tive -?-?-?-?-?-?-?-?-?-?-?-?- Negative 145 34 -?-?-?-?-?-?-?-?-?-?-?-?- SM- no vb lof go od fm no reuglar ctx 03/03/25 -?-?-?-?-?-?-?-?-?-?-?-?- 36w 2d 172 lb 6 oz 107/70 Nega tive -?-?-?-?-?-?-?-?-?-?-?-?- Negative 140 34 Cephalic -?-?-?-?-?-?-?-?-?-?-?-?- JV- bedside ultr asound today for position and fluid. If still measuring small next visit will get a growth scan. gbs collected. declines vaginal exam. 03/08/25 -?-?-?-?-?-?-?-?-?-?-?-?- 37w 0d 173 lb 6 oz 115/65 Nega tive -?-?-?-?-?-?--?-?-?-?-?-?- Negative 120 34 Cephalic 2 .5 -?-?-?-?-?-?-?-?-?-?-?-?- 60 -2 KW- no vb/ lof/ctx. good fm. US ordered for S<D. ACOG First Trimester First Trimester: Desire for , Alcohol, Tobacco Cessation, Illicit/Recreational Drug/Substance Use, Intimate Partner Violence, Barriers to care, Unstable Housing, Communication Barriers, Environmental/Work Hazards, Anticipated Course of Care, Toxoplasmosis Precations, Use of Any medications, Sexual activity, Exercise, Dental Care, Sauna/Hot tub use, Seat Belt use, Childbirth classes/Hospital facilities, Travel, Indications for Ultrasound and Screening for Aneuploidy; Discussed Second Trimester Second Trimester: Signs and Symptoms of Labor, Selecting a care provider, Reproductive Life Planning & Contreception and Care Planning; Discussed Tobacco Cessation, Discussed Depression/Anxiety and Discussed Intimate Partner Violence Third Trimester Third Trimester: Pain Management Plans, Labor support person(s), Immediate Larc, Circumcision preference, Signs and Symptoms of Preeclampsia, Infant Feeding No , Family Medical Leave or Disability Forms and Intimate Partner Violence ROS Const Reports system reviewed and no additional complaints, except as documented Eyes Reports system reviewed and no additional complaints, except as documented ENT Reports system reviewed and no additional complaints, except as documented Card Reports system reviewed and no additional complaints, except as documented Resp Reports system reviewed and no additional complaints, except as documented GI Reports system reviewed and no additional complaints, except as documented, Denies nausea and Denies vomiting Reports system reviewed and no additional complaints, except as documented Musc Reports system reviewed and no additional complaints, except as documented Skin/Breast Reports system reviewed and no additional complaints, except as documented Neuro Yes system reviewed and no additional complaints, except as documented Psych Reports system reviewed and no additional complaints, except as documented Endo Reports system reviewed and no additional complaints, except as documented Corey/Lymph Reports system reviewed and no additional complaints, except as documented Aller/Immun Reports system reviewed and no additional complaints, except as documented Exam Const General: cooperative, healthy appearing and no acute distress Orientation: alert, awake and oriented x3 Neck Neck: normal visual inspection and full ROM Resp Effort & Inspection: normal respiratory effort, able to speak in complete sentences and symmetric chest movement GI Inspection: normal to inspection Palpation: soft and other Other: gravid Skin General: no rashes or lesions noted Neuro General: patient alert, patient awake and patient oriented x3 Cognition: normal cognition Speech: speech normal Gait: normal gait Motor: muscle tone normal throughout Extrem General: normal to inspection and full ROM Psych Appearance: grossly normal Mental Status: mental status grossly normal Mood: congruent mood Affect: normal affect Speech and Movement: speech and movement normal Attitude: cooperative Thought Process: normal Thought Content: normal Judgment: judgment good Results POC Urinalysis 2 Dip (Clinic) Office Urine Glucose Negative Last Edit by Irais Velez on 03/08/25 10:40 Office Urine Protein Negative Last Edit by Irais Velez on 03/08/25 10:40 Coding Level of Care Code OB Routine Diagnoses Supervision of high risk in third trimester O09.93 Trimester: third trimester 37 weeks gestation of Z3A.37 Weeks of gestation: 37 weeks History of miscarriage, currently O09.299 Rh negative status during in second trimester O26.892; Z67. Trimester: second trimester Uterine size date discrepancy O26.849 Assessment and Plan Assessment and Plan (1) Supervision of high-risk : Status: Acute Qualifiers: Trimester: third trimester Qualified Code(s): O09. - Supervision of high risk , unspecified, third trimester Comment: PRR , TASHI 03/29/25, surprise PC: Abdon Aguila, : Sami (2) : Status: Acute Qualifiers: Weeks of gestation: 37 weeks Qualified Code(s): Z3A.37 - 37 weeks gestation of Comment: GBS neg, Declined genetic/carrier testing - (prior carrier testing done - negative), nl anatomy (3) History of miscarriage, currently : Status: Acute Comment: [id number] (4) Rh negative status during : Status: Acute Qualifiers: Trimester: second trimester Qualified Code(s): O26.892 - Other specified related conditions, second trimester; Z. - Unspecified blood type, Rh negative Comment: A-; Rhogam PRN & 28 weeks given 01/05/25 (5) Uterine size date discrepancy : Status: Acute Comment: growth US Orders: Orders POC Urinalysis 2 Dip (Clinic) Today Plan Details Additional Comments: ACOG trimester education reviewed and updated. see problem list details for updated plan management information and see below for orders placed at this visit. GA appropriate handout given. 03/08/25 1102 <Electronically signed by Rylee lechuga CNM> Date _ Rylee Beavesr CNM Cosigner Signature: Date (if applicable) CC: ~ [facility] Work Phone: Reason for referral (narrative)No reason for referral information availableBlSpecialty [facility] Work Phone: Chief Complaint and Reason for Visit Chief Complaint NOB LMP 5 Reason for Visit Rh negative status during Short interval between pregnancies affecting , antepartum Supervision of normal Chief Complaint 14WK OB 18 WK OB 22 WK OB 26WK OB 28WK / GLUCOSE / RHOGAM Reason for Visit Rh negative status during Short interval between pregnancies affecting , antepartum Supervision of normal Rh negative status during Short interval between pregnancies affecting , antepartum Supervision of normal Rh negative status during Short interval between pregnancies affecting , antepartum Supervision of normal Rh negative status during Short interval between pregnancies affecting , antepartum Supervision of normal Abnormal glucose tolerance in Rh negative status during Short interval between pregnancies affecting , antepartum Supervision of normal Chief Complaint 14WK OB 18 WK OB 22 WK OB 26WK OB 28WK / GLUCOSE / RHOGAM SCREENING FOR DIABETES MELLITUS Reason for Visit Rh negative status during Short interval between pregnancies affecting , antepartum Supervision of normal Rh negative status during Short interval between pregnancies affecting , antepartum Supervision of normal Rh negative status during Short interval between pregnancies affecting , antepartum Supervision of normal Rh negative status during Short interval between pregnancies affecting , antepartum Supervision of normal Abnormal glucose tolerance in Rh negative status during Short interval between pregnancies affecting , antepartum Supervision of normal Chief Complaint 22 WK OB 26WK OB 28WK / GLUCOSE / RHOGAM SCREENING FOR DIABETES MELLITUS 30 WK OB 32 WK OB 34 WK OB 36 WK OB est ob 37w Reason for Visit Rh negative status during Short interval between pregnancies affecting , antepartum Supervision of normal Rh negative status during Short interval between pregnancies affecting , antepartum Supervision of normal Abnormal glucose tolerance in Rh negative status during Short interval between pregnancies affecting , antepartum Supervision of normal Abnormal glucose tolerance in Rh negative status during Short interval between pregnancies affecting , antepartum Supervision of normal Abnormal glucose tolerance in Rh negative status during Short interval between pregnancies affecting , antepartum Supervision of normal Abnormal glucose tolerance in Rh negative status during Short interval between pregnancies affecting , antepartum Supervision of normal Abnormal glucose tolerance in Rh negative status during Short interval between pregnancies affecting , antepartum Supervision of normal Abnormal glucose tolerance in Rh negative status during Short interval between pregnancies affecting , antepartum Supervision of normal Chief Complaint 26WK OB 28WK / GLUCOSE / RHOGAM SCREENING FOR DIABETES MELLITUS 30 WK OB 32 WK OB 34 WK OB 36 WK OB est ob 37w est ob 38w est ob 39w VAG DELIVERY LABOR AND DELIVERY VAG DELIVERY Reason for Visit Rh negative status d uring Short interval between pregnancies affecting , antepartum Supervision of normal Rh negative status during Abnormal glucose tolerance in Short interval between pregnancies affecting , antepartum Supervision of normal Rh negative status during Abnormal glucose tolerance in Short interval between pregnancies affecting , antepartum Supervision of normal Rh negative status during Abnormal glucose tolerance in Short interval between pregnancies affecting , antepartum Supervision of normal Rh negative status during Abnormal glucose tolerance in Short interval between pregnancies affecting , antepartum Supervision of normal Rh negative status during Abnormal glucose tolerance in Short interval between pregnancies affecting , antepartum Supervision of normal Rh negative status during Abnormal glucose tolerance in Short interval between pregnancies affecting , antepartum Supervision of normal Rh negative status during Abnormal glucose tolerance in Short interval between pregnancies affecting , antepartum Supervision of normal Rh negative status during Abnormal glucose tolerance in Short interval between pregnancies affecting , antepartum Supervision of normal Rh negative status during Vaginal delivery Abnormal glucose tolerance in Active labor at term Short interval between pregnancies affecting , antepartum Supervision of normal Chief Complaint RING FINGER RIGHT JALLOH ND Chief Complaint RING FINGER RIGHT JALLOH ND New OB LMP 05/10/23 Reason for Visit History of miscarria ge, currently Rh negative status during Supervision of high risk in first trimester Chief Complaint 13 WK OB INT LABS 17 WK OB 20 WK OB 24 WK OB 28 WK OB/GLUCOSE Reason for Visit History of miscarria ge, currently Rh negative status during Supervision of high risk in first trimester History of miscarriage, currently Rh negative status during Supervision of high risk in first trimester Circumvallate placenta History of miscarriage, currently Rh negative status during Supervision of high risk in first trimester Circumvallate placenta History of miscarriage, currently Rh negative status during Supervision of high risk in first trimester Circumvallate placenta History of miscarriage, currently Rh negative status during Supervision of high risk in first trimester Chief Complaint Admit Date 15wk ob October 05, 2024 10: 41am 19wk ob November 02, 2024 9:52 am 23wk ob December 02, 2024 10:56a m 28wk ob/glucose/rhogam January 05, 2025 8 :14am Reason for Visit Admit Date History of miscarriage, currently pregna nt October 05, 2024 10:41am October 05, 2024 10: 41am Rh negative status during Loki 2024 10:41am Supervision of high-risk October 05, 2024 10:41am History of miscarriage, currently pregna nt November 02, 2024 9:52am November 02, 2024 9:52 am Rh negative status during Apri l 2024 9:52am Supervision of high-risk November 02, 2024 9:52am History of miscarriage, currently pregna nt December 02, 2024 10:56am December 02, 2024 10:56a m Rh negative status during December 02, 2024 10:56am Supervision of high-risk December 022024 10:56am History of miscarriage, currently pregna nt January 05, 2025 8:14am January 05, 2025 8:14 am Rh negative status during January 05, 2025 8:14am Supervision of high-risk January 05, 2025 8:14am Chief Complaint Admit Date 15wk ob October 05, 2024 10: 41am 19wk ob November 02, 2024 9:52 am 23wk ob December 02, 2024 10:56a m 28wk ob/glucose/rhogam January 05, 2025 8 :14am 30wk ob January 20, 2025 10:1 7am Reason for Visit Admit Date History of miscarriage, currently pregna nt October 05, 2024 10:41am October 05, 2024 10: 41am Rh negative status during Loki 2024 10:41am Supervision of high-risk October 05, 2024 10:41am History of miscarriage, currently pregna nt November 02, 2024 9:52am November 02, 2024 9:52 am Rh negative status during Apri l 2024 9:52am Supervision of high-risk November 02, 2024 9:52am History of miscarriage, currently pregna nt December 02, 2024 10:56am December 02, 2024 10:56a m Rh negative status during December 02, 2024 10:56am Supervision of high-risk December 022024 10:56am History of miscarriage, currently pregna nt January 05, 2025 8:14am January 05, 2025 8:14 am Rh negative status during January 05, 2025 8:14am Supervision of high-risk January 05, 2025 8:14am History of miscarriage, currently pregna nt January 20, 2025 10:17am January 20, 2025 10:1 7am Rh negative status during January 20, 2025 10:17am Supervision of high-risk January 20, 2025 10:17am Chief Complaint Admit Date 15wk ob October 05, 2024 10: 41am 19wk ob November 02, 2024 9:52 am 23wk ob December 02, 2024 10:56a m 28wk ob/glucose/rhogam January 05, 2025 8 :14am 30wk ob January 20, 2025 10:1 7am 32wk ob February 02, 2025 2:31p m Reason for Visit Admit Date History of miscarriage, currently pregna nt October 05, 2024 10:41am October 05, 2024 10: 41am Rh negative status during Ol[place] 2024 10:41am Supervision of high-risk October 05, 2024 10:41am History of miscarriage, currently pregna nt November 02, 2024 9:52am November 02, 2024 9:52 am Rh negative status during Apri l 2024 9:52am Supervision of high-risk November 02, 2024 9:52am History of miscarriage, currently pregna nt December 02, 2024 10:56am December 02, 2024 10:56a m Rh negative status during December 02, 2024 10:56am Supervision of high-risk December 022024 10:56am History of miscarriage, currently pregna nt January 05, 2025 8:14am January 05, 2025 8:14 am Rh negative status during January 05, 2025 8:14am Supervision of high-risk January 05, 2025 8:14am History of miscarriage, currently pregna nt January 20, 2025 10:17am January 20, 2025 10:1 7am Rh negative status during January 20, 2025 10:17am Supervision of high-risk January 20, 2025 10:17am History of miscarriage, currently pregna nt February 02, 2025 2:31pm February 02, 2025 2:31p m Rh negative status during February 02, 2025 2:31pm Supervision of high-risk February 02, 2025 2:31pm Chief Complaint Admit Date 19wk ob November 02, 2024 9:52 am 23wk ob December 02, 2024 10:56a m 28wk ob/glucose/rhogam January 05, 2025 8 :14am 30wk ob January 20, 2025 10:1 7am 32wk ob February 02, 2025 2:31p m 34wk ob February 15, 2025 9:53 am Reason for Visit Admit Date History of miscarriage, currently pregna nt November 02, 2024 9:52am November 02, 2024 9:52 am Rh negative status during Apri l 2024 9:52am Supervision of high-risk November 02, 2024 9:52am History of miscarriage, currently pregna nt December 02, 2024 10:56am December 02, 2024 10:56a m Rh negative status during December 02, 2024 10:56am Supervision of high-risk December 022024 10:56am History of miscarriage, currently pregna nt January 05, 2025 8:14am January 05, 2025 8:14 am Rh negative status during January 05, 2025 8:14am Supervision of high-risk January 05, 2025 8:14am History of miscarriage, currently pregna nt January 20, 2025 10:17am January 20, 2025 10:1 7am Rh negative status during January 20, 2025 10:17am Supervision of high-risk January 20, 2025 10:17am History of miscarriage, currently pregna nt February 02, 2025 2:31pm February 02, 2025 2:31p m Rh negative status during February 02, 2025 2:31pm Supervision of high-risk February 02, 2025 2:31pm History of miscarriage, currently pregna nt February 15, 2025 9:53am February 15, 2025 9:53 am Rh negative status during February 15, 2025 9:53am Supervision of high-risk February 15, 2025 9:53am Chief Complaint Admit Date 23wk ob December 02, 2024 10:56a m 28wk ob/glucose/rhogam January 05, 2025 8 :14am 30wk ob January 20, 2025 10:1 7am 32wk ob February 02, 2025 2:31p m 34wk ob February 15, 2025 9:53 am 36wk ob March 03, 2025 11: 25am Reason for Visit Admit Date History of miscarriage, currently pregna nt December 02, 2024 10:56am December 02, 2024 10:56a m Rh negative status during December 02, 2024 10:56am Supervision of high-risk December 022024 10:56am History of miscarriage, currently pregna nt January 05, 2025 8:14am January 05, 2025 8:14 am Rh negative status during January 05, 2025 8:14am Supervision of high-risk January 05, 2025 8:14am History of miscarriage, currently pregna nt January 20, 2025 10:17am January 20, 2025 10:1 7am Rh negative status during January 20, 2025 10:17am Supervision of high-risk January 20, 2025 10:17am History of miscarriage, currently pregna nt February 02, 2025 2:31pm February 02, 2025 2:31p m Rh negative status during February 02, 2025 2:31pm Supervision of high-risk February 02, 2025 2:31pm History of miscarriage, currently pregna nt February 15, 2025 9:53am February 15, 2025 9:53 am Rh negative status during February 15, 2025 9:53am Supervision of high-risk February 15, 2025 9:53am History of miscarriage, currently pregna nt March 03, 2025 11:25am March 03, 2025 11: 25am Rh negative status during Augu st 2024 11:25am Supervision of high-risk Augus t 2024 11:25am Chief Complaint Admit Date 23wk ob December 02, 2024 10:56a m 28wk ob/glucose/rhogam January 05, 2025 8 :14am 30wk ob January 20, 2025 10:1 7am 32wk ob February 02, 2025 2:31p m 34wk ob February 15, 2025 9:53 am 36wk ob March 03, 2025 11: 25am 37WK OB March 08, 2025 10 :32am Reason for Visit Admit Date History of miscarriage, currently pregna nt December 02, 2024 10:56am December 02, 2024 10:56a m Rh negative status during December 02, 2024 10:56am Supervision of high-risk December 022024 10:56am History of miscarriage, currently pregna nt January 05, 2025 8:14am January 05, 2025 8:14 am Rh negative status during January 05, 2025 8:14am Supervision of high-risk January 05, 2025 8:14am History of miscarriage, currently pregna nt January 20, 2025 10:17am January 20, 2025 10:1 7am Rh negative status during January 20, 2025 10:17am Supervision of high-risk January 20, 2025 10:17am History of miscarriage, currently pregna nt February 02, 2025 2:31pm February 02, 2025 2:31p m Rh negative status during February 02, 2025 2:31pm Supervision of high-risk February 02, 2025 2:31pm History of miscarriage, currently pregna nt February 15, 2025 9:53am February 15, 2025 9:53 am Rh negative status during February 15, 2025 9:53am Supervision of high-risk February 15, 2025 9:53am History of miscarriage, currently pregna nt March 03, 2025 11:25am March 03, 2025 11: 25am Rh negative status during Febu 2024 11:25am Supervision of high-risk Augus t 2024 11:25am History of miscarriage, currently pregna nt March 08, 2025 10:32am March 08, 2025 10 :32am Rh negative status during Febu 2024 10:32am Supervision of high-risk Febus t 2024 10:32am Uterine size date discrepancy March 08, 2025 10:32am Advance Directives Advance Directive Response Recorded Date/ Time Advance Directives No May 14, 2021 10:15am Living Will No June 12 021 1:03pm Power of Freight Clerk No June 12, 2021 1:03pm Advance Directive Response Recorded Date/ Time Advance Directives No May 14, 2021 9:15am Living Will No June 12 12:03pm Power of Freight Clerk No June 12, 2021 12:03pm Advance Directive Response Recorded Date/ Time Advance Directives No May 14, 2021 9:15am Living Will No September 05 1:42pm Power of Freight Clerk No September 05, 2022 1:42pm Advance Directive Response Recorded Date/ Time Advance Directives No May 14, 2021 10:15am Living Will No May 14 8:55am Power of Freight Clerk No May 14, 2023 8:55am Advance Directive Response Recorded Date/ Time Advance Directives No May 12:19pm Living Will No June 13, 2 023 12:19pm Power of Freight Clerk No June 13, 2023 12:19pm Advance Directive Response Recorded Date/ Time Advance Directives No May 1:19pm Living Will No June 13, 2 023 1:19pm Power of Freight Clerk No June 13, 2023 1:19pm Advance Directive Response Recorded Date/ Time Advance Directives No August 06, 2024 12:56pm Summary Purpose Family History No Family History Records Found Additional Source Comments Goals (unrecognized section and content) Goals may be documented in a n alternate sectionGoals may be documented in an alternate sectionGoals may be documented in an alternate sectionGoals may be documented in an alternate sectionGoals may be documented in an alternate sectionGoals may be documented in an alternate sectionGoals may be documented in an alternate sectionGoals may be documented in an alternate sectionGoals may be documented in an alternate sectionGoals may be documented in an alternate sectionGoals may be documented in an alternate sectionGoals may be documented in an alternate sectionGoals may be documented in an alternate sectionGoals may be documented in an alternate sectionGoals may be documented in an alternate section Care Teams (unrecognized sec tion and content) Team Status: Active Member Role Status Dates Dr. Jairo Corona MD Family Provider Active No Primary Care Physician Primary Care Provider Active Team Status: Inactive Member Role Status Dates No Primary Care Physician Primary Care Provider, Refer ring Provider Active Shyla Wallace CNM Attending Provider Active Team Status: Inactive Member Role Status Dates No Primary Care Physician Primary Care Provider, Refer ring Provider Active Dr. Love Mccann DO Attending Provider Activ e Team Status: Inactive Member Role Status Dates No Primary Care Physician Primary Care Provider, Refer ring Provider Active Abbie Bronson COURT SECURITY OFFICER, COURT SECURITY OFFICER-C Attending Provider Active Team Status: Inactive Member Role Status Dates No Primary Care Physician Primary Care Provider, Refer ring Provider Active Dr. Chanel Stacy MD Attending Provider Active Team Status: Inactive Member Role Status Dates No Primary Care Physician Primary Care Provider Active Shyla Wallace CNM Attending Provider, Referring Pr ovider Active Team Status: Inactive Member Role Status Dates No Primary Care Physician Primary Care Provider Active Abbie Bronson COURT SECURITY OFFICER, COURT SECURITY OFFICER-C Attending Provider, Referring Provider Active Team Status: Inactive Member Role Status Dates No Primary Care Physician Primary Care Provider Active Dr. Chanel Stacy MD Attending Provider Active Team Status: Active Member Role Status Dates No Primary Care Physician Primary Care Provider Active Dr. Chanel Stacy MD Admit Provid er, Attending Provider, Other Provider Active Team Status: Active Member Role Status Dates No Primary Care Physician Primary Care Provider Active Dr. Chanel Stacy MD Admit Provider, Other Prov ider Active Shyla Wallace CNM Attending Provider Active Team Status: Inactive Member Role Status Dates No Primary Care Physician Primary Care Provider Active Dr. Chanel Stacy MD Admit Provider, Attending Provider Active Team Status: Inactive Member Role Status Dates No Primary Care Physician Primary Care Provider Active Dr. Aroldo Perez DO Referring Provider, Emergency P rovider Active Team Status: Inactive Member Role Status Dates No Primary Care Physician Primary Care Provider Active Dr. Aroldo Perez DO Attending Provide r, Referring Provider, Emergency Provider Active Team Status: Inactive Member Role Status Dates No Primary Care Physician Primary Care Provider Active Dr. Love Mccann DO Attending Provider, Refe rring Provider Active Team Status: Inactive Member Role Status Dates No Primary Care Physician Primary Care Provider Active Start: October 05, 2024 End: October 05, 2024 No Primary Care Physician Referring Provider Active Start: October 05, 2024 End: October 05, 2024 Dr. Chanel Stacy MD Attending Provider Active Start: October 05, 2024 End: October 05, 2024 Team Status: Inactive Member Role Status Dates No Primary Care Physician Primary Care Provider Active Start: November 02, 2024 End: November 02, 2024 No Primary Care Physician Referring Provider Active Start: November 02, 2024 End: November 02, [address] SECURITY OFFICER, COURT SECURITY OFFICER-C Attending Provider Active Start: November 02, 2024 End: November 02, 2024 Team Status: Inactive Member Role Status Dates No Primary Care Physician Primary Care Provider Active Start: December 02, 2024 End: December 02, 2024 No Primary Care Physician Referring Provider Active Start: December 02, 2024 End: December 02, 2024 Rylee Beavers CNM Attending Provider Active S tart: December 02, 2024 End: December 02, 2024 Team Status: Inactive Member Role Status Dates No Primary Care Physician Primary Care Provider Active Start: January 05, 2025 End: January 05, 2025 No Primary Care Physician Referring Provider Active Start: January 05, 2025 End: January 05, 2025 Abbie Bronson NP, COURT SECURITY OFFICER-C Attending Provider Active Start: January 05, 2025 End: January 05, 2025 Team Status: Active Member Role Status Dates No Primary Care Physician Primary Care Provider Active Start: January 05, 2025 Dr. Chanel Stacy MD Attending Provider Active Start: January 05, 2025 Dr. Chanel Stacy MD Referring Provider Active Start: January 05, 2025 Team Status: Inactive Member Role Status Dates No Primary Care Physician Primary Care Provider Active Start: January 05, 2025 End: January 05, 2025 Dr. Chanel Stacy MD Attending Provider Active Start: January 05, 2025 End: January 05, 2025 Dr. Chanel Stacy MD Referring Provider Active Start: January 05, 2025 End: January 05, 2025 Team Status: Inactive Member Role Status Dates No Primary Care Physician Primary Care Provider Active Start: January 20, 2025 End: January 20, 2025 No Primary Care Physician Referring Provider Active Start: January 20, 2025 End: January 20, 2025 Dr. Chanel Stacy MD Attending Provider Active Start: January 20, 2025 End: January 20, 2025 Team Status: Active Member Role/Relationship Status Dates Dr. Jairo Corona MD Family Provider Active No Primary Care Physician Primary Care Provider Active Team Status: Inactive Member Role/Relationship Status Dates No Primary Care Physician Primary Care Provider Active Start: October 05, 2024 End: October 05, 2024 No Primary Care Physician Referring Provider Active Start: October 05, 2024 End: October 05, 2024 Dr. Chanel Stacy MD Attending Provider Active Start: October 05, 2024 End: October 05, 2024 Team Status: Inactive Member Role/Relationship Status Dates No Primary Care Physician Primary Care Provider Active Start: November 02, 2024 End: November 02, 2024 No Primary Care Physician Referring Provider Active Start: November 02, 2024 End: November 02, [address] SECURITY OFFICER-C Attending Provider Active Start: November 02, 2024 End: November 02, 2024 Team Status: Inactive Member Role/Relationship Status Dates No Primary Care Physician Primary Care Provider Active Start: December 02, 2024 End: December 02, 2024 No Primary Care Physician Referring Provider Active Start: December 02, 2024 End: December 02, 2024 Rylee Beavers CNM Attending Provider Active S tart: December 02, 2024 End: December 02, 2024 Team Status: Inactive Member Role/Relationship Status Dates No Primary Care Physician Primary Care Provider Active Start: January 05, 2025 End: January 05, 2025 No Primary Care Physician Referring Provider Active Start: January 05, 2025 End: January 05, [address] SECURITY OFFICER-C Attending Provider Active Start: January 05, 2025 End: January 05, 2025 Team Status: Inactive Member Role/Relationship Status Dates No Primary Care Physician Primary Care Provider Active Start: January 05, 2025 End: January 05, 2025 Dr. Chanel Stacy MD Attending Provider Active Start: January 05, 2025 End: January 05, 2025 Dr. Chanel Stacy MD Referring Provider Active Start: January 05, 2025 End: January 05, 2025 Team Status: Inactive Member Role/Relationship Status Dates No Primary Care Physician Primary Care Provider Active Start: January 20, 2025 End: January 20, 2025 No Primary Care Physician Referring Provider Active Start: January 20, 2025 End: January 20, 2025 Dr. Chanel Stacy MD Attending Provider Active Start: January 20, 2025 End: January 20, 2025 Team Status: Inactive Member Role/Relationship Status Dates No Primary Care Physician Primary Care Provider Active Start: February 02, 2025 End: February 02, 2025 No Primary Care Physician Referring Provider Active Start: February 02, 2025 End: February 02, 2025 Dr. Love Mccann DO Attending Provider Activ e Start: February 02, 2025 End: February 02, 2025 Team Status: Inactive Member Role/Relationship Status Dates No Primary Care Physician Primary Care Provider Active Start: November 02, 2024 End: November 02, 2024 No Primary Care Physician Referring Provider Active Start: November 02, 2024 End: November 02, [address] SECURITY OFFICER, COURT SECURITY OFFICER-C Attending Provider Active Start: November 02, 2024 End: November 02, 2024 Team Status: Inactive Member Role/Relationship Status Dates No Primary Care Physician Primary Care Provider Active Start: December 02, 2024 End: December 02, 2024 No Primary Care Physician Referring Provider Active Start: December 02, 2024 End: December 02, 2024 Rylee Beavers CNM Attending Provider Active S tart: December 02, 2024 End: December 02, 2024 Team Status: Inactive Member Role/Relationship Status Dates No Primary Care Physician Primary Care Provider Active Start: January 05, 2025 End: January 05, 2025 No Primary Care Physician Referring Provider Active Start: January 05, 2025 End: January 05, 2025 Abbie Bronson NP, COURT SECURITY OFFICER-C Attending Provider Active Start: January 05, 2025 End: January 05, 2025 Team Status: Inactive Member Role/Relationship Status Dates No Primary Care Physician Primary Care Provider Active Start: January 05, 2025 End: January 05, 2025 Dr. Chanel Stacy MD Attending Provider Active Start: January 05, 2025 End: January 05, 2025 Dr. Chanel Stacy MD Referring Provider Active Start: January 05, 2025 End: January 05, 2025 Team Status: Inactive Member Role/Relationship Status Dates No Primary Care Physician Primary Care Provider Active Start: January 20, 2025 End: January 20, 2025 No Primary Care Physician Referring Provider Active Start: January 20, 2025 End: January 20, 2025 Dr. Chanel Stacy MD Attending Provider Active Start: January 20, 2025 End: January 20, 2025 Team Status: Inactive Member Role/Relationship Status Dates No Primary Care Physician Primary Care Provider Active Start: February 02, 2025 End: February 02, 2025 No Primary Care Physician Referring Provider Active Start: February 02, 2025 End: February 02, 2025 Dr. Love Mccann DO Attending Provider Activ e Start: February 02, 2025 End: February 02, 2025 Team Status: Inactive Member Role/Relationship Status Dates No Primary Care Physician Primary Care Provider Active Start: February 15, 2025 End: February 15, 2025 No Primary Care Physician Referring Provider Active Start: February 15, 2025 End: February 15, 2025 Dr. Chanel Stacy MD Attending Provider Active Start: February 15, 2025 End: February 15, 2025 Team Status: Inactive Member Role/Relationship Status Dates No Primary Care Physician Primary Care Provider Active Start: December 02, 2024 End: December 02, 2024 No Primary Care Physician Referring Provider Active Start: December 02, 2024 End: December 02, 2024 Rylee Beavers CNM Attending Provider Active S tart: December 02, 2024 End: December 02, 2024 Team Status: Inactive Member Role/Relationship Status Dates No Primary Care Physician Primary Care Provider Active Start: January 05, 2025 End: January 05, 2025 No Primary Care Physician Referring Provider Active Start: January 05, 2025 End: January 05, 2025 Abbie Bronson NP, COURT SECURITY OFFICER-C Attending Provider Active Start: January 05, 2025 End: January 05, 2025 Team Status: Inactive Member Role/Relationship Status Dates No Primary Care Physician Primary Care Provider Active Start: January 05, 2025 End: January 05, 2025 Dr. Chanel Stacy MD Attending Provider Active Start: January 05, 2025 End: January 05, 2025 Dr. Chanel Stacy MD Referring Provider Active Start: January 05, 2025 End: January 05, 2025 Team Status: Inactive Member Role/Relationship Status Dates No Primary Care Physician Primary Care Provider Active Start: January 20, 2025 End: January 20, 2025 No Primary Care Physician Referring Provider Active Start: January 20, 2025 End: January 20, 2025 Dr. Chanel Stacy MD Attending Provider Active Start: January 20, 2025 End: January 20, 2025 Team Status: Inactive Member Role/Relationship Status Dates No Primary Care Physician Primary Care Provider Active Start: February 02, 2025 End: February 02, 2025 No Primary Care Physician Referring Provider Active Start: February 02, 2025 End: February 02, 2025 Dr. Love Mccann DO Attending Provider Activ e Start: February 02, 2025 End: February 02, 2025 Team Status: Inactive Member Role/Relationship Status Dates No Primary Care Physician Primary Care Provider Active Start: February 15, 2025 End: February 15, 2025 No Primary Care Physician Referring Provider Active Start: February 15, 2025 End: February 15, 2025 Dr. Chanel Stacy MD Attending Provider Active Start: February 15, 2025 End: February 15, 2025 Team Status: Inactive Member Role/Relationship Status Dates No Primary Care Physician Primary Care Provider Active Start: March 03, 2025 End: March 03, 2025 No Primary Care Physician Referring Provider Active Start: March 03, 2025 End: March 03, 2025 Dr. Love Mccann DO Attending Provider Activ e Start: March 03, 2025 End: March 03, 2025 Team Status: Active Member Role/Relationship Status Dates No Primary Care Physician Primary Care Provider Active Start: March 03, 2025 Dr. Love Mccann DO Attending Provider Activ e Start: March 03, 2025 Team Status: Inactive Member Role/Relationship Status Dates No Primary Care Physician Primary Care Provider Active Start: March 08, 2025 End: March 08, 2025 No Primary Care Physician Referring Provider Active Start: March 08, 2025 End: March 08, 2025 Rylee Beavers CNM Attending Provider Active S tart: March 08, 2025 End: March 08, 2025 Team Status: Active Member Role/Relationship Status Dates No Primary Care Physician Primary Care Provider Active Team Status: Inactive Member Role/Relationship Status Dates No Primary Care Physician Primary Care Provider Active Start: March 03, 2025 End: March 03, 2025 Dr. Love Mccann DO Attending Provider Activ e Start: March 03, 2025 End: March 03, 2025 Source Comments (unrecognize d section and content) In the event this informatio n is protected by the Federal Confidentiality of Alcohol and Drug Abuse Patient Records regulations: The Federal rules restrict any use of the information to criminally investigate or prosecute any alcohol or drug abuse patient.[facility] the event this information is protected by the Federal Confidentiality of Alcohol and Drug Abuse Patient Records regulations: The Federal rules restrict any use of the information to criminally investigate or prosecute any alcohol or drug abuse patient.[facility] Reason for Visit (unrecogniz ed section and content) Reason Comments Sore Throat Fever, JALLOH, bilateral ear pain x 3 days Reason Comments Insect Bite Bug bite on right jalloh nd ring finger x 2 days INFORMATION SOURCE (unrecogn ized section and content) DATE CREATED AUTHOR 05/15/2023 [facility] DATE CREATED AUTHOR AUTHOR'S ORGANIZ ATION 11/10/2024 [facility] [place] DATE CREATED AUTHOR AUTHOR'S ORGANIZ ATION 03/09/2025 [facility] FOR RECORDS PERTAINING TO PATIENTS WHO ARE [...] BE BASED ON THE PRIMARY CLINICAL RECORDS. [employer] provides no warranty or guarantee of the accuracy or completeness of information in this document.
== END | disposition home or self-care (01) ==
LOC: US 15:45
PROVIDERS: Referring Provider Advanced Practice Midwife; Visit Provider Advanced Practice Midwife
DX: O26.849 Uterine size-date discrepancy, unspecified trimester (principal); Z3A.00 Weeks of gestation of pregnancy not specified
CPT/HCPCS: 76816

== ENCOUNTER 2025-03-24 23:30 | Inpatient (IN) | payer OTHER, SELFPAY ==
[2025-03-24 22:55] VITALS: BMI 25.7
--- OUTSIDE RECORDS SUMMARY | 2025-03-24 22:55 | XMS RPT_ITS | CCD ---
Author Organization [facility] Care Team Providers Care Sales Support Associate Name Role Phone Chanel Stacy MD Unavailable [phone] Care Physician, No Primary Primary Care Provider Unavailable Care Physician, No Primary Referring Provider Un available Dr. Chanel Stacy Attending Provider [phone] Care Physician, No Primary Primary Care Provider Unavailable Care Physician, No Primary Referring Provider Un available Dr. Chanel Stacy Attending Provider [phone] JUSTEN Wallace Attending Provider [phone] Love Mccann Attending Provider [phone] Aiyana [employer], SVETA-Maria Del Rosario Leiva Attending Provider [phone] Care Physician, No Primary Primary Care Provider Unavailable Care Physician, No Primary Referring Provider Un available Dr. Chanel Stacy Attending Provider [phone] Care Physician, No [...] Love Mccann Attending Provider [phone] Aiyana [employer], SVETA-Maria Del Rosario Leiva Attending Provider [phone] Tawanna EDDY, Dr. Buchanan Attending Provider [phone] Abbie Cantu Attending Provider [phone] Rylee Beavers CNM Attending Provider [phone] Dr. Chanel Stacy MD Referring Provider [phone] Dr. Love Mccann DO Attending Provider Care Physician, No Primary Primary Care Provider Unavailable Care Physician, No Primary Referring Provider Un available Dr. Chanel Stacy MD Attending Provider [phone] Care Physician, No Primary Primary Care Provider Unavailable Care Physician, No Primary Referring Provider Un available Abbie Cantu Attending Provider Rylee Beavers CNM Referring Provider [phone] Rylee Beavers Referring Unavailable Rylee Beavers Attending Unavailable Care Physician, No Primary Primary Care Unava ilable Care Physician, No Primary Primary Care Unava ilable Rylee Beavers Attending Unavailable Rylee Beavers Referring Unavailable Love Mccann Attending Unavailabl e Care Physician, No Primary Primary Care Unava ilable Care Physician, No Primary Referring Unava ilable Care Physician, No Primary Referring Unava ilable Care Physician, No Primary Primary Care Unava ilable Abbie Bronson NP Attending Unavailable Care Physician, No Primary Referring Unava ilable Love Mccann Attending Unavailabl e Care Physician, No Primary Primary Care Unava ilable Love Mccann Referring Unavailabl e Love Mccann Attending Unavailabl e Care Physician, No Primary Primary Care Unava ilable Care Physician, No Primary Primary Care Unava ilable Love Mccann Attending Unavailabl e Love Mccann Referring Unavailabl e Care Physician, No Primary Primary Care Unava ilable Rylee Beavers Attending Unavailable Rylee Beavers Referring Unavailable Care Physician, No Primary Primary Care Unava ilable Chanel Stacy Referring Unavailable Chanel Stacy Attending Unavailable Love Mccann Attending Unavailabl e Care Physician, No Primary Primary Care Unava ilable Rylee Beavers Referring Unavailable Rylee Beavers Attending Unavailable Care Physician, No [...] Referring Unava ilable Chanel Stacy Attending Unavailable Matt VelLove royal Attending Unavailabl e Care Physician, No Primary Primary Care Unava ilable Care Physician, No Primary Referring Unava ilable Care Physician, No Primary Primary Care Unava ilable Care Physician, No Primary Referring Unava ilable Chanel Stacy Attending Unavailable Care Physician, No Primary Referring Unava ilable Love Mccann Attending Unavailabl e Care Physician, No Primary Primary Care Unava ilable Care Physician, No Primary Primary Care Unava ilable Care Physician, No Primary Referring Unava ilable Chanel Stacy Attending Unavailable Care Physician, No Primary Referring Unava ilable Care Physician, No Primary Primary Care Unava ilable Chanel Stacy Attending Unavailable Carmencita Monte Attending Unavailable Care Physician, No Primary Primary Care Unava ilable Care Physician, No Primary Referring Unava ilable Care Physician, No Primary Primary Care Unava ilable yRlee Beavers Attending Unavailable Care Physician, No Primary Primary Care Unava ilable Care Physician, No Primary Referring Unava ilable Aiyana [employer]Abbie Attending Unavailable Medications Current Medications Medication Drug Class(es) Dates Sig (Normalized) Sig (Original) amoxicillin 500 mg oral capsule (1 source) Penicillin-class Antibacterial Start: 03-13-2023 End: 03-23-2023 take 1 capsule by mouth twice daily amoxicillin (AMOXIL) 500 mg capsule Indications: Strep throat Take 1 capsule by mouth twice daily for 10 days. 20 capsule 0 03/13/2023 03/23/2023 Active Comment on above: Take 1 capsule by mo [facility] twice daily for 10 days. Blood-Glucose Meter misc (3 sources) Start: 03-14-2025 Blood-Glucose Meter misc Active 0 .MEDSUPPLY 1 0 March 14, 2025 12:00am As directed- Test fasting and 2 hours after meals docosahexaenoic acid 200 mg oral capsule (11 sources) Start: 08-27-2024 Docosahexaenoic Acid ( Dha) 200 mg capsule Active mg PO August 27, 2024 1:00am Completed/Discontinued Medications Medication Drug Class(es) Dates Sig (Normalized) Sig (Original) acetaminophen 325 mg / HYDROcodone bitartrate 5 mg oral tablet (20 sources) Opioid Agonist Start: 11-07-2014 End: 2018 [...] 2 TABLET PO EVERY 6 HOURS NEEDED 05 03July 20, 2020 July 27, 2020 1:02am Start: [...] 40 November 08, 2014 5:59pm 2018 11:39am [id number] 200 actuat albuterol 0.09 mg/actuat metered dose [...] tablet Discontinued 875 mg PO Q12H 10 0 November 07, 2014 12:00am November 08, 2014 6:00pm ascorbic acid 500 mg oral tablet (1 source) Start: 05-22-2017 VITAMIN C 500 MG TABS ASCORBIC ACID [id number] Chanel Stacy MD docusate sodium 100 mg oral tablet (19 sources) Start: 06-12-2021 End: 07-30-2021 take 1 tablet by mouth once daily Docusate Sodium (Stool Softener) 100 mg Tablet Discontinued 100 mg PO DAILY June 12, 2021 1:00July 30, 2021 3:01pm constipation Levonorgestrel-E thinyl Estrad (20 sources) Progestin, Estrogen, Progestin-containing Intrauterine Device Start: 08-09-2019 End: 06-20-2020 take 1 tablet by mouth once daily Levonorgestrel-Ethi nyl Estrad (Aviane) 0.1-20 mg-mcg tablet Discontinued 1 {tbl} PO DAILY 84 August 09, 2019 11:06am June 20, 2020 9:35am Start: 08-09-2019 End: 06-20-2020 take 1 tablet by mouth once daily Levonorgestrel-Ethinyl Estrad (Aviane) 0.1-20 mg-mcg tablet Discontinued 1 {tbl} PO DAILY August 09, 2019 11:06June 20, 2020 9:35am Start: 08-09-2019 End: 06-20-2020 take 1 tablet by mouth once daily Levonorgestrel-Ethinyl Estrad (Aviane) 0.1-20 mg-mcg tablet Discontinued 1 TABLET PO DAILY August 09, 2019 10:06June 20, 2020 8:35am Start: 08-09-2019 End: 06-20-2020 [...] 1 TABLET PO DAILY July 18, 2018 3:26am January 13, 2019 11:55am Start: 07-18-2018 End: [...] LEVONORGESTREL-ETHINY L ESTRAD (1 source) Start: 05-22-20 17 take 1 tablet by mouth once daily AVIANE 0.1-20 MG-MCG TABS One tablet by mouth daily LEVONORGESTREL-ETHIN YL ESTRAD [id number] Chanel Stacy MD metroNIDAZOLE 500 mg oral tablet (1 source) Nitroimidazole Antimicrobial Start: 05-22-20 17 take 1 tablet by mouth twice daily FLAGYL 500 MG TABS One tablet by mouth twice daily METRONIDAZOLE [id number] Chanel Stacy MD miSOPROStol 0.2 mg oral tablet (20 sources) Prostaglandin E1 Analog Start: 07-19-20 End: 08-01-19 Misoprostol (Cytotec) 200 mcg tablet Discontinued 200 ug PO after meals and at bedtime 2 0 July 19, 2020 1:00am August 01, 2020 2:54pm Take one tablet night before procedure and one the morning of. Start: 07-03-2020 End: 07-10-2020 take 4 tablets by mouth once Misoprostol (Cytotec) 200 mcg tablet Discontinued 800 ug PO .complex 4 1 July 03, 2020 1:00am July 10, 2020 2:54pm 4 tablets vaginally or orally once. Multivit 19-Twnw-Gjlzap 1-Dh a (Pnv-Dha) 27 mg iron-1 mg -300 mg capsule (19 sources) Start: 06-20-2020 End: 02-13-2024 Multivit 98-Cuus-Kavsic 1-Dh a (Pnv-Dha) 27 mg iron-1 mg -300 mg capsule Discontinued 1 NMA PO DAILY June 20, 2020 1:00am February 13, 2024 3:37am Start: 06-20-2020 End: 02-13-2024 Multivit 65-Axgg-Uyavas 1-Dh a (Pnv-Dha) 27 mg iron-1 mg -300 mg capsule Discontinued 1 NMA PO DAILY June 20, 2020 1:00am February 13, 2024 3:37am Start: 06-20-2020 take 1 capsule by [facility] once daily Multivit 67-Hoon-Hgyoov 1-Dha (Pnv-Dha) 27 mg iron-1 mg -300 mg capsule Active 1 CAP PO DAILY June 20, 2020 12:00am Start: 06-20-2020 take 1 capsule by [facility] once daily Multivit 01-Hsjw-Ihuzbv 1-Dha (Pnv-Dha) 27 mg iron-1 mg -300 [...] 2020 2:54pm administer with food or milk (15 sources) Start: 09-05-2022 End: 10-17-2022 Discontinued 1 [...] mg / trimethoprim 160 mg oral tablet (14 sources) Dihydrofolate Reductase Inhibitor Antibacterial, Sulfonamide Antimicrobial [...] GTT Immunizations and screening for infectious disease (19 sources) Requires diphtheria, tetanus and pertussis vaccination; [...] Onset: 1 04-03-2011 Chronic Other complications of (19 sources) Missed miscarriage; Translations: [Missed ] 11-10-2020 [...] - negative), nl anatomy Other complications of (19 sources) Finding of pattern of ; Translations: [Supervision of other high risk pregnancies, unspecified trimester] 02-04-2022 Episodic Other complications of (20 sources) RhD negative; Translations: [Other specified related conditions, unspecified trimester] 06-17-2022 Episodic Comment on above: A-; Rhogam PRN & 28 weeks given 01/05/25 A neg Rhogam prn and 28 weeks. given 06/17/22 Other complications of (19 sources) Blighted ovum; Translations: [Blighted ovum and [...] high-risk ] 07-11-2023 Episodic Other complications of (12 sources) Placenta circumvallata; Translations: [Circumvallate placenta, unspecified [...] not applicable] 10-01-2023 Episodic Other complications of (11 sources) Uncertain viability of ; Translations: [ with inconclusive viability, not applicable or unspecified] 07-03-2020 Episodic Comment on above: 1.7cm yolk sac seen no pole Other complications of (14 sources) Fundal height high for dates; Translations: [Uterine size-date discrepancy, unspecified trimester] 03-08-2025 Episodic Comment on above: growth US growth US- AC is 96% checking BS starting 03/14 Other complications of (1 source) Uterine size-date discrepancy, unspecified trimester; Translations: [Uterine size-date discrepancy, unspecified trimester] Onset: 5 Episodic Other complications of (1 source) Other specified related conditions, second trimester; Translations: [Other specified related conditions, second trimester] Onset: 5 Episodic Other complications of (1 source) Supervision of high risk , unspecified, third [...] Translations: [Encounter for full-term uncomplicated delivery] Onset: Episodic Comment on above: IAL 38 boy SM Milad oker girl Maddison IAL 39 SM TASHI 01/31/21 Spou se: Sami PRR TASHI: Boy! Spouse: Sami PRR TASHI 09/07/22 girl PC Aguila Sami arom PRN epi PRN epi only if needed, prefer minimal intervention. arom clear fluid. pit prn gbs neg Other upper respiratory infections (2 sources) Sore throat symptom; Translations: [Acute pharyngitis, unspecified] 03-13-2023 Episodic Residual codes; unclassified (19 sources) Influenza vaccination declined; Translations: [Immunization not carried out because of patient refusal] 05-22-2021 Episodic Residual codes; unclassified (11 sources) History of past delivery; Translations: [Personal history of other genital system and obstetric disorders] 08-27-2024 Episodic Comment on above: Boy, JV- 02/13/24. na me TBD Residual codes; unclassified (1 source) 37 weeks gestation of ; Translations: [37 weeks gestation of ] Onset: 5 Episodic Residual codes; unclassified (1 source) Unspecified blood type, Rh negative; Translations: [Unspecified blood type, Rh negative] Onset: 5 Episodic Residual codes; unclassified (1 source) 34 weeks gestation of ; Translations: [34 weeks gestation of ] Onset: 5 Episodic Residual codes; unclassified (1 source) 30 weeks gestation of ; Translations: [30 weeks gestation of ] Onset: 5 Episodic Skin and subcutaneous tissue infections (1 source) Infection of skin; Translations: [Local infection of the skin and subcutaneous tissue, unspecified] 05-14-2023 Episodic Spondylosis; intervertebral disc disorders; other back problems (4 sources) Degeneration of intervertebral disc; Translations: [Degeneration of intervertebral disc, site unspecified] Onset: 1 05-27-2011 Chronic Spontaneous (19 sources) Retained products after miscarriage; Translations: [Incomplete [...] Test Name Value Interpretation Reference Range Facility Laboratory - Chemistry and C hemistry - challengeOrdered By: Love Dee Dee on 03-16-2025 Glucose Ql (U) Negative [facility] Laboratory - UrinalysisOrder ed By: Love Dee Dee on 03-16-2025 Protein Ql (U) Negative [facility] Mud Mixer Office Visit Reporton 03-16-2025 Mud Mixer Office Visit Report [facility]'s [address], [address] [place] [address] OFFICE VISIT Date of Service: 03/16/25 MR#: [id number] Acct: [id number] Name: HALIE SANTO Rep #: [id number] : 1995 Provider: Dr. Love Sharp, Age/Sex: 29/F Location: [facility] [place] Status: Signed Intake Vital Signs 02/02/25 14:37 03/08/25 10:35 03/16/25 14:46 03/16/25 14:47 Height 5 ft 9 in 5 ft 9 in 5 ft 9 in 5 ft 9 in Weight: 175 lb 9 oz BMI 25.9 BP 123/76 H Intake Visit Reasons: 38wk ob Visualizer Required: No Is patient in pain?: No Allergies No Known Allergies Allergy (Verified 03/16/25 14:45) Medications ???Medication ???Instructions ???Recorded ???Confirmed ???Type docosahexaenoic acid 200 mg mg PO 08/27/24 03/16/25 History capsule ( DHA) blood sugar diagnostic (Blood #120 ea 03/14/25 03/16/25 Rx Glucose Test strips) blood-glucose meter #1 ea 03/14/25 03/16/25 Rx lancets #200 ea 03/14/25 03/16/25 Rx Last Menstrual Period: 05/10/23 Zika: Zika virus screening: Negative : No PFSH PFSH Medical History History of miscarriage, currently Surgical History Status post vaginal delivery History of dilation and curettage S/P wrist surgery S/P ear surgery Family History Grandmother Diabetes Social History adopted: No household members: spouse and children number of children: 3 current occupational status: employed current occupation: [employer] current occupational exposures/hazards: No pets and animals: [...] do you participate in: none frequency: daily sea/holiness: None seatbelt use: always do you feel [...] - full term 7lbs 9oz Male none [facility] Radha funez Sami 09/05/22 Riddley 39 live - full term 8#4oz Female none [facility] ABDIFATAH Sami 02/13/24 Kolter 39 live - full term 8lbs 1oz Male none [facility] Olaf Escobedoer Delivery Date: 06/27/20 Last Updated by: JG Owen C Delivery Date: 06/12/21 Last Updated by: Harhsa ROE HPI 38wk ob Details: HALIE SANTO is a 29 year old who presents for routine OB visit. OB Visit TASHI Calculator Estimated Delivery Date Method Current WG Current Estimate 03/29/25 Ultrasound #1 38w 1d Expected Delivery Route/Plan Labor Preferences- CB/BF [...] NIPT. mild nausea, declines medication. 10/05/24 -???-???-???-???-???-?? ?-???-???-???-???-?? (more content not included)... Normal [facility] OB Limited With Biometricson 03-11-2025 OB Limited With Biometrics [facility] [address] [place] [address] OB Limited With Biometrics MR#: [id number] Acct: [id number] Name: HALIE SANTO Rep #: [id number] : 1995 F 29 From: Erick Quintanilla DO PCP: Care Physician,No Primary Status: REG CLI Study: OB Limited With Biometrics Date of Exam: 03/11 Exam# [id number] Ordering Dr: Rylee Beavers CNM PROCEDURE: OB LIMITED WITH BIOMETRICS 03/11/2025 REASON FOR EXAM: GROWTH AND DATES TECHNIQUE: OB LIMITED WITH BIOMETRICS FINDINGS Number: 1 Position: Cephalic Placental Position: Posterior Placental Abnormalities: None. Not low-lying placenta grade 2. DIMENSIONS: Biparietal Diameter: 9.0/36 weeks, 2 days Head Circumference: 32.8 cm/37 weeks, 2 days Abdominal Circumference: 35.3 cm/39 weeks, 2 days Femur Length: 7.2 cm/36 weeks, 6 days ESTIMATED WEIGHT: 3446 +/-517 ESTIMATED WEIGHT PERCENTILE (24+ weeks): 78 % ESTIMATED GESTATIONAL AGE: Baseline: 37 weeks, 3 days By Ultrasound: 37 weeks, 5 days ESTIMATED DATE OF DELIVERY: Baseline: March 29, 2025 By Ultrasound: March 27, 2025 BIOPHYSICAL ASSESSMENT: Amniotic Fluid Volume: 6.39 deepest pocket Amniotic Fluid Index: 12.8 (8-24 cm normal range) Cardiac Motion: 155 bpm (average) Trunk and Limb Motion: Present. MATERNAL ANATOMY: Adnexa: Neither maternal ovary is successfully identified. Cervical Length (if measured): US/OB Limited With Biometrics IMPRESSION: Total biophysical profile score 8/8 Reading Location: [facility] CC: JUSTEN Beavers; No Primary Care Physician Weighmaster: Signed Normal [facility] Laboratory - Chemistry and C hemistry - challengeOrdered By: Rylee Beavers on 03-08-2025 Glucose Ql (U) Negative [facility] Laboratory - UrinalysisOrder ed By: Rylee Beavers on 03-08-2025 Protein Ql (U) Negative [facility] Mud Mixer Office Visit Reporton 03-08-2025 Mud Mixer Office Visit Report [facility]'s [address], [address] [place] [address] OFFICE VISIT Date of Service: 03/08/25 MR#: [id number] Acct: [id number] Name: HALIE SANTO Rep #: [id number] : 1995 Provider: JUSTEN Jolly ams Age/Sex: 29/F Location: [facility] [place] Status: Signed Intake Vital Signs 02/02/25 14:37 03/03/25 11:34 03/08/25 10:35 Height 5 ft 9 in 5 ft 9 in 5 ft 9 in Weight: 173 lb 6 oz BMI 25.6 BP 115/65 Intake Visit Reasons: 37WK OB Chief Complaint: 37wk OB Visualizer Required: No Is patient in pain?: No [...] 3 current occupational status: employed current occupation: [employer] current occupational exposures/hazards: No pets and animals: [...] do you participate in: none frequency: daily sea/holiness: None seatbelt use: always do you feel [...] - full term 7lbs 9oz Male none [facility] Mar canthony [place] 09/05/22 Riddley 39 live - full term 8#4oz Female none [facility] ABDIFATAH Sami 02/13/24 Kolter 39 live - full term 8lbs 1oz Male none [facility] Olaf Escobedoer Delivery Date: 06/27/20 Last Updated by: JG Owen C Delivery Date: 06/12/21 Last Updated by: Harsha Solis ISBeatriz HPI 37WK OB Details: HALIE SANTO is a 29 year old who presents for routine OB visit. OB Visit TSAHI Calculator Estimated Delivery Date Method Current Current Estimate 03/29/25 Ultrasound #1 37w 0d [...] -???-???-???-???-???-?? ?-???-???-???-???-? (more content not included)... Normal [facility] Rule out Beta Strep (Grp. B) on 03-05-2025 ADRIEN Group B Beta Streptococcus is not isolated. Normal [facility] Comment on above: Performed By: #### M 100.3400 #### [facility] Laboratory [address] [place], [address] Laboratory - Chemistry and C hemistry - challengeOrdered By: Love Funez on 03-03-2025 Glucose Ql (U) Negative [facility] Laboratory - UrinalysisOrder ed By: Love Funez on 03-03-2025 Protein Ql (U) Negative [facility] Mud Mixer Office Visit Reporton 03-03-2025 Mud Mixer Office Visit Report [facility]'s [address], [address] [place] [address] OFFICE VISIT Date of Service: 03/03/25 MR#: [id number] Acct: [id number] Name: HALIE SANTO Rep #: [id number] : 1995 Provider: Dr. Love Sharp DO Age/Sex: 29/F [place] [facility] Status: Signed Intake Vital Signs 01/05/25 08:18 02/15/25 10:03 03/03/25 11:32 03/03/25 11:34 Height 5 ft 9 in 5 ft 9 in 5 ft 9 in 5 ft 9 in Weight: 172 lb 6 oz BMI 25.4 BP 107/70 Intake Visit Reasons: 36wk ob Visualizer Required: No Is patient in pain?: No [...] 3 current occupational status: employed current occupation: [employer] current occupational exposures/hazards: No pets and animals: [...] do you participate in: none frequency: daily sea/holiness: None seatbelt use: always do you feel [...] - full term 7lbs 9oz Male none [facility] Radha funez Sami 09/05/22 Riddley 39 live - full term 8#4oz Female none [facility] ABDIFATAH Gallardo 02/13/24 Kolter 39 live - full term 8lbs 1oz Male none [facility] Olaf Silvestre Delivery Date: 06/27/20 Last Updated by: JG Owen Delivery Date: 06/12/21 Last Updated by: aHrsha ROE HPI 36wk ob Details: HALIE SANTO is [...] vb ll (more content not included)... Normal [facility] Screening beta-hemolytic Str eptococcus cultureOrdered By: Love Funez on 03-03-2025 Beta-hemolytic Streptococcus culture Group B Beta Streptococcus is not isolated. [facility] Laboratory - Chemistry and C hemistry - challengeOrdered By: Chanel Stacy on 02-15-2025 Glucose Ql (U) Negative [facility] Laboratory - UrinalysisOrder ed By: Chanel Stacy on 02-15-2025 Protein Ql (U) Negative [facility] Mud Mixer Office Visit Reporton 02-15-2025 Mud Mixer Office Visit Report [facility] [address], [address] [place] [address] OFFICE VISIT Date of Service: 02/15/25 MR#: [id number] Acct: [id number] Name: HALIE SANTO Rep #: [id number] : 1995 Provider: Dr. Chanel nicholas MD Age/Sex: 29/F Location[place] [facility] Status: Signed Intake Vital Signs 01/05/25 08:18 01/20/25 10:24 02/02/25 14:37 02/15/25 10:03 Height 5 ft 9 in 5 ft 9 in 5 ft 9 in 5 ft 9 in Weight: 172 lb 2 oz BMI 25.4 BP 108/67 Intake Visit Reasons: 34wk ob Visualizer Required: No Is patient in pain?: No [...] 3 current occupational status: employed current occupation: [employer] current occupational exposures/hazards: No pets and animals: [...] do you participate in: none frequency: daily sea/holiness: None seatbelt use: always do you feel [...] - full term 7lbs 9oz Male none [facility] Radha dee dee Sami 09/05/22 Riddley 39 live - full term 8#4oz Female none [facility] ABDIFATAH Sami 02/13/24 Smiley 39 live - full term 8lbs 1oz Male none [facility] Olaf Silvestre Delivery Date: 06/27/20 Last Updated by: JG Owen C Delivery Date: 06/12/21 Last Updated by: Harsha Solis ISBeatriz HPI 34wk ob Details: HALIE SANTO is [...] of crampin (more content not included)... Normal [facility] Laboratory - Chemistry and C hemistry - challengeOrdered By: Love Funez on 02-02-2025 Glucose Ql (U) Negative [facility] Laboratory - UrinalysisOrder ed By: Love Funez on 02-02-2025 Protein Ql (U) Negative [facility] Mud Mixer Office Visit Reporton 02-02-2025 Mud Mixer Office Visit Report [facility]'s [address], [address] [place] [address] OFFICE VISIT Date of Service: 02/02/25 MR#: [id number] Acct: [id number] Name: HALIE SANTO Rep #: [id number] : 1995 Provider: Dr. Love Sharp, Age/Sex: 29/F Location: [facility] [place] Status: Signed Intake Vital Signs 01/05/25 08:18 01/20/25 10:24 02/02/25 14:34 02/02/25 14:37 Height 5 ft 9 in 5 ft 9 in 5 ft 9 in 5 ft 9 in Weight: 170 lb 8 oz BMI 25.2 BP 109/64 Intake Visit Reasons: 32wk ob Visualizer Required: No Is patient in pain?: No [...] occupational status: employed current occupation: [employer] current occupational exposures/hazards: No pets and animals: [...] do you participate in: none frequency: daily sea/holiness: None seatbelt use: always do you feel [...] - full term 7lbs 9oz Male none [facility] Radha Gallardo 09/05/22 Riddley 39 live - full term 8#4oz Female none [facility] ABDIFATAH Gallardo 02/13/24 Purviter 39 live - full term 8lbs 1oz Male none [facility] Olaf royal VelLugo Delivery Date: 06/27/20 Last Updated by: JG [...] -???-???-???-???-???-?? ?-???-? (more content not included)... Normal [facility] Laboratory - Chemistry and C hemistry - challengeOrdered By: Chanel Stacy on 01-20-2025 Glucose Ql (U) Negative [facility] Laboratory - UrinalysisOrder ed By: Chanel Stacy on 01-20-2025 Protein Ql (U) Negative [facility] Mud Mixer Office Visit Reporton 01-20-2025 Mud Mixer Office Visit Report [facility] [address], [address] [place] [address] OFFICE VISIT Date of Service: 01/20/25 MR#: [id number] Acct: [id number] Name: HALIE SANTO Rep #: [id number] : 1995 Provider: Dr. Chanel nicholas MD Age/Sex: 29/F Location: [facility] [place] Status: Signed Intake Vital Signs 11/02/24 09:57 01/05/25 08:18 01/20/25 10:24 01/20/25 10:24 Height 5 ft 9 in 5 ft 9 in 5 ft 9 in 5 ft 9 in Weight: 167 lb 8 oz 168 lb 4 oz BMI 24.7 24.8 BP 100/64 109/68 Intake Visit Reasons: 30wk ob Visualizer Required: No Is patient in pain?: No [...] do you participate in: none frequency: daily sea/holiness: None seatbelt use: always do you feel [...] - full term 7lbs 9oz Male none [facility] Mar canthony [place] 09/05/22 Riddley 39 live - full term 8#4oz Female none [facility] ABDIFATAH [place] 02/13/24 Kolter 39 live - full term 8lbs 1oz Male none [facility] Van de Velde [place] Delivery Date: 06/27/20 Last Updated by: JG Owne C Delivery Date: 06/12/21 Last Updated by: [...] ?-???-???-???-???-???-? ??- SM- no vb ll of craing 11/02/24 (more content not included)... Normal [facility] Absolute lymphocyte countOrd ered By: Rylee Beavers on 01-05-2025 Lymphocytes Auto (Unsp spec) [#/Vol] 1.22 10*3/uL 0.83-4.[address] [facility] Absolute neutrophil countOrd ered By: Rylee Beavers on 01-05-2025 Neutrophils (Bld) [#/Vol] 9.4 10*3/uL High 2.0-7.[address] [facility] Automated lymphocyte count a s percentage of total leukocytesOrdered By: Rylee Beavers on 01-05-2025 Lymphocytes/100 WBC Auto (Unsp spec) 10.6 % Low 19-[address] [facility] Basophil percentageOrdered B y: Rylee Beavers on 01-05-2025 Basophils/100 WBC (Bld) 0.3 % 0-[address] [facility] CBC W/Diff, Automatedon 12-26 Absolute Lymph 1.22 X10 3/uL Normal 0.83-4.[address] [facility] Comment on above: Performed By: #### L 501.0250, BTS, L3890.6006, L509.8002, L100.0100 #### [facility] Laboratory [address] [place], [address] Absolute Neut 9.4 X10 3/uL High 2.0-7.[address] [facility] Comment on above: Performed By: #### L 501.0250, BTS, L3890.6006, L509.8002, L100.0100 #### [facility] Laboratory [address] [place], [address] Basophils/100 WBC (Bld) 0.3 % Normal 0-[address] [facility] Comment on above: Performed By: #### L 501.0250, BTS, L3890.6006, L509.8002, L100.0100 #### [facility] Laboratory [address] [place], [address] Eosinophils/100 WBC (Bld) 0.7 % Normal 0-[address] [facility] Comment on above: Performed By: #### L 501.0250, BTS, L3890.6006, L509.8002, L100.0100 #### [facility] Laboratory [address] [place], [address] Erythrocyte distribution width (RBC) [Ratio] 12.7 % Normal 11.6-14.[address] [facility] Comment on above: Performed By: #### L 501.0250, BTS, L3890.6006, L509.8002, L100.0100 #### [facility] Laboratory [address] [place], [address] Hematocrit (Bld) [Volume fraction] 34.4 % Low 37-[address] [facility] Comment on above: Performed By: #### L 501.0250, BTS, L3890.6006, L509.8002, L100.0100 #### [facility] Laboratory [address] [place], [address] Hemoglobin (Bld) [Mass/Vol] 11.3 g/dL Low 12.0-15.[address] [facility] Comment on above: Performed By: #### L 501.0250, BTS, L3890.6006, L509.8002, L100.0100 #### [facility] Laboratory [address] [place], [address] IG% 0.700 Normal 0.0-0.[address] [facility] Comment on above: Result Comment: IG% - Immature Granulocytes (promyelocytes, myelocytes and metamyelocytes) > 1% indicates that a LEFT SHIFT is Present. Performed By: #### L 501.0250, BTS, L3890.6006, L509.8002, L100.0100 #### [facility] [address] [place], [address] Lymphocytes/100 WBC (Bld) 10.6 % Low 19-[address] [facility] Comment on above: Performed By: #### L 501.0250, BTS, L3890.6006, L509.8002, L100.0100 #### [facility] Laboratory [address] [place], [address] MCH (RBC) [Entitic mass] 28.6 pg Normal 27.0-32.[address] [facility] Comment on above: Performed By: #### L 501.0250, BTS, L3890.6006, L509.8002, L100.0100 #### [facility] Laboratory [address] [place], [address] MCHC (RBC) [Mass/Vol] 32.8 g/dL Normal 32-[address] [facility] Comment on above: Performed By: #### L 501.0250, BTS, L3890.6006, L509.8002, L100.0100 #### [facility] Laboratory [address] [place], [address] MCV (RBC) [Entitic vol] 87.1 fL Normal 81-[address] [facility] Comment on above: Performed By: #### L 501.0250, BTS, L3890.6006, L509.8002, L100.0100 #### [facility] [address] [place], [address] Monocytes/100 WBC (Bld) 6.1 % Normal 0-[address] [facility] Comment on above: Performed By: #### L 501.0250, BTS, L3890.6006, L509.8002, L100.0100 #### [facility] [address] [place], [address] Neutrophils/100 WBC (Bld) 81.6 % High 47-[address] [facility] Comment on above: Performed By: #### L 501.0250, BTS, L3890.6006, L509.8002, L100.0100 #### [facility] Laboratory [address] [place], [address] Nucleated RBC (Bld) [#/Vol] 0 10*3/uL Normal 0-[address] [facility] Comment on above: Performed By: #### L 501.0250, BTS, L3890.6006, L509.8002, L100.0100 #### [facility] [address] [place], [address] Platelet mean volume (Bld) [Entitic vol] 9.9 fL Normal 6.2-12.[address] [facility] Comment on above: Performed By: #### L 501.0250, BTS, L3890.6006, L509.8002, L100.0100 #### [facility] Laboratory [address] [place], [address] Platelets (Bld) [#/Vol] 253 10*3/uL Normal 150-[address] [facility] Comment on above: Performed By: #### L 501.0250, BTS, L3890.6006, L509.8002, L100.0100 #### [facility] [address] [place], [address] RBC (Bld) [#/Vol] 3.95 10*6/uL Low 4.2-5.4 [facility] Comment on above: Performed By: #### L 501.0250, BTS, L3890.6006, L509.8002, L100.0100 #### [facility] Laboratory [address] [place], [address] RDW SD 40.3 fl Normal 35.1-43.[address] [facility] Comment on above: Performed By: #### L 501.0250, BTS, L3890.6006, L509.8002, L100.0100 #### [facility] Laboratory [address] [place], [address] WBC (Bld) [#/Vol] 11.5 10*3/uL High 4.4-11.0 [facility] Comment on above: Performed By: #### L 501.0250, BTS, L3890.6006, L509.8002, L100.0100 #### [facility] Laboratory [address] [place], [address] Eosinophil percentageOrdered By: Rylee Beavers on 01-05-2025 Eosinophils/100 WBC (Bld) 0.7 % 0-[address] [facility] Erythrocyte distribution wid th ratioOrdered By: Rylee Beavers on 01-05-2025 Erythrocyte distribution width (RBC) [Ratio] 12.7 % 11.6-14.[address] [facility] Erythrocyte distribution wid th standard deviationOrdered By: Rylee Beavers on 01-05-2025 Erythrocyte distribution width (RBC) [Ratio] 40.3 fl 35.1-43.[address] [facility] Glucose Challenge Gest 1H 50 nicole 01-05-2025 GLU GEST 50g 1H 85 mg/dL Normal 70-[address] [facility] Comment on above: Performed By: #### L 501.0250, BTS, L3890.6006, L509.8002, L100.0100 ####[facility] [address] [place], [place], [address] Glucose measurement at 2 april rs post-dose gestational glucose tolerance testOrdered By: Rylee Beavers on 01-05-2025 Glucose [Mass/Vol] 85 mg/dL 70-140 [facility] HIVon 01-05-2025 HIV Non-Reactive Normal Nonreactive [facility] Comment on above: Result Comment: Non- Reactive Reactive Repeatedly reactive samples must be confirmed according to CDC recommended confirmatory algorithms. The subresults for either HIVAG or AHIV can be used as an aid in the selection of the confirmation algorithm for reactive samples. Send out specimens with Reactive results to [facility] for confirmation. Order the HIV antibody detection and differentiation: lc#[id number] Performed By: #### L 501.0250, BTS, L3890.6006, L509.8002, L100.0100 ####[facility] [address] [place], [address] Hematocrit Auto (Bld) [Volum e fraction]Ordered By: Rylee Beavers on 01-05-2025 Hematocrit (Bld) [Volume fraction] 34.4 % Low 37-[address] [facility] Hemoglobin measurementOrdere d By: Rylee Beavers on 01-05-2025 Hemoglobin (Bld) [Mass/Vol] 11.3 g/dL Low 12.0-15.[address] [facility] Immature granulocytes/100 WB C Auto (Bld)Ordered By: Rylee Beavers on 01-05-2025 Immature granulocytes/100 WBC (Bld) 0.700 % 0.0-0.[address] [facility] Comment on above: IG% - Immature Granu locytes (promyelocytes, myelocytes and metamyelocytes) > 1% indicates that a LEFT SHIFT is Present. Laboratory - Chemistry and C hemistry - challengeOrdered By: Abbie Bronson on 01-05-2025 Glucose Ql (U) Negative [facility] Laboratory - UrinalysisOrder ed By: Abbie Bronson on 01-05-2025 Protein Ql (U) Negative [facility] MCV (mean corpuscular volume ) determinationOrdered By: Rylee Beavers on 01-05-2025 MCV (RBC) [Entitic vol] 87.1 fL 81-[address] [facility] Mean corpuscular hemoglobin (MCH) determinationOrdered By: Rylee Beavers on 01-05-2025 MCH (RBC) [Entitic mass] 28.6 pg 27.0-32.[address] [facility] Mean corpuscular hemoglobin concentration (MCHC) determinationOrdered By: Rylee Beavers on 01-05-2025 MCHC (RBC) [Mass/Vol] 32.8 g/dL 32-[address] [facility] Mean platelet volume determi nationOrdered By: Rylee Beavers on 01-05-2025 Platelet mean volume (Bld) [Entitic vol] 9.9 fL 6.2-12.[address] [facility] Monocyte percentageOrdered B y: Rylee Beavers on 01-05-2025 Monocytes/100 WBC (Bld) 6.1 % 0-[address] [facility] Neutrophil percentageOrdered By: Rylee Beavers on 01-05-2025 Neutrophils/100 WBC (Bld) 81.6 % High 47-[address] [facility] No Panel InformationOrdered By: Rylee Beavers on 01-05-2025 HIV (1&2) Antibody Non-Reactive Nonreactive [facility] Comment on above: Non-ReactiveReactive Repeatedly reactive samples must be confirmed according to CDC recommended confirmatory algorithms. The subresults for either HIVAG or AHIV can be used as an aid in the selection of the confirmation algorithm for reactive samples.Send out specimens with Reactive results to [facility] for confirmation.Order the HIV antibody detection and differentiation: #[id number] Nucleated red blood cell per centageOrdered By: Rylee Beavers on 01-05-2025 Nucleated RBC/100 WBC (Bld) [Ratio] 0 % 0-[address] [facility] Mud Mixer Office Visit Reporton 01-05-2025 Mud Mixer Office Visit Report [facility] [address], [address] [place] [address] OFFICE VISIT Date of Service: 01/05/25 MR#: [id number] Acct: [id number] Name: HALIE SANTO Rep #: [id number] : 1995 Provider: FREDERIC hdz Age/Sex: 29/F Location: [facility] [place] Status: Signed Intake Vital Signs 11/02/24 09:57 12/02/24 11:01 01/05/25 08:18 Height 5 ft 9 in 5 ft 9 in 5 ft 9 in Weight: 167 lb 8 oz BMI 24.7 BP 100/64 Intake Visit Reasons: 28wk ob/glucose/rhogam Chief Complaint: 28 Week OB/Glucose Visualizer Required: No Is patient in pain?: No Allergies No Known Allergies Allergy (Verified 01/05/25 08:21) Medications ???Medication ???Instructions ???Recorded ???Confirmed ???Type docosahexaenoic acid 200 mg mg PO 08/27/24 01/05/25 History capsule ( DHA) Last Menstrual Period: 05/10/23 Zika: Zika virus screening: Negative : Yes PFSH PFS Medical History History of miscarriage, currently Surgical History Status post vaginal delivery History of dilation and curettage S/P wrist surgery S/P ear surgery Family History Grandmother Diabetes Social History adopted: No household members: spouse and children number of children: 3 current occupational status: employed current occupation: [employer] current occupational exposures/hazards: No pets and animals: [...] do you participate in: none frequency: daily sea/holiness: None seatbelt use: always do you feel [...] - full term 7lbs 9oz Male none [facility] Radha funez Sami 09/05/22 Riddley 39 live - full term 8#4oz Female none [facility] ABDIFATAH Sami 02/13/24 Kolter 39 live - full term 8lbs 1oz Male none [facility] Olaf royal Velde Sami Delivery Date: 06/27/20 Last Updated by: JG Owen C Delivery Date: 06/12/21 Last Updated by: Harsha ROE HPI 28wk ob/glucose/rhogam Details: HALIE SANTO is [...] of cramping (more content not included)... Normal [facility] Platelet countOrdered By: Roman Beavers on 01-05-2025 Platelets (Bld) [#/Vol] 253 10*3/uL 150-[address] [facility] RBC Auto (Bld) [#/Vol]Ordere d By: Rylee Beavers on 01-05-2025 RBC (Bld) [#/Vol] 3.95 10*6/uL Low 4.2-5.4 [facility] Syphilis Antibodieson 2024 Syphilis Abs Non-Reactive Normal Nonreactive [facility] Comment on above: Performed By: #### L 501.0250, BTS, L3890.6006, L509.8002, L100.0100 ####[facility] [address] [place], [address] Type AND Screenon 01-05-2025 Ab SCREEN GEL Negative Normal [facility] Comment on above: Order Comment: PN Performed By: #### L 501.0250, BTS, L3890.6006, L509.8002, L100.0100 #### [facility] Laboratory [address] [place], [address] White blood cell (WBC) count Ordered By: Rylee Beavers on 01-05-2025 WBC (Bld) [#/Vol] 11.5 10*3/uL High 4.4-11.0 [facility] Laboratory - Chemistry and C hemistry - challengeOrdered By: Rylee Beavers on 12-02-2024 Glucose Ql (U) Negative [facility] Laboratory - UrinalysisOrder ed By: Rylee Beavers on 12-02-2024 Protein Ql (U) Negative [facility] Mud Mixer Office Visit Reporton 12-02-2024 Mud Mixer Office Visit Report [facility] [address], [address] [place] [address] OFFICE VISIT Date of Service: 12/02/24 MR#: [id number] Acct: [id number] Name: HALIE SANTO Rep #: [id number] : 1995 Provider: JUSTEN Jolly ams Age/Sex: 29/F Location: [facility] [place] Status: Signed Intake Vital Signs 10/05/24 10:47 11/02/24 09:57 12/02/24 11:01 Height 5 ft 9 in 5 ft 9 in 5 ft 9 in Weight: 161 lb 6 oz BMI 23.8 BP 103/66 Intake Visit Reasons: 23wk ob Chief Complaint: 23wk OB Visualizer Required: No Is patient in pain?: No [...] 3 current occupational status: employed current occupation: [employer] current occupational exposures/hazards: No pets and animals: [...] do you participate in: none frequency: daily sea/holiness: None seatbelt use: always do you feel [...] - full term 7lbs 9oz Male none [facility] Radha funez [place] 09/05/22 Riddley 39 live - full term 8#4oz Female none [facility] ABDIFATAH [place] 02/13/24 Kolter 39 live - full term 8lbs 1oz Male none [facility] Van genny Velde [place] Delivery Date: 06/27/20 Last Updated by: JG Owen C Delivery Date: 06/12/21 Last Updated by: Harsha ROE HPI 23wk ob Details: HALIE SANTO is [...] ?-???-???-???-???-???-? ?? (more content not included)... Normal [facility] Laboratory - Chemistry and C hemistry - challengeOrdered By: Abbie Bronson on 11-02-2024 Glucose Ql (U) Negative [facility] Laboratory - UrinalysisOrder ed By: Abbie Bronson on 11-02-2024 Protein Ql (U) Negative [facility] Mud Mixer Office Visit Reporton 11-02-2024 Mud Mixer Office Visit Report [facility]'s [address], [address] [place] [address] OFFICE VISIT Date of Service: 11/02/24 MR#: [id number] Acct: [id number] Name: GALHALIE MCLEOD Rep #: [id number] : 1995 Provider: FREDERIC hdz Age/Sex: 29/F [place] [facility] Status: Signed Intake Vital Signs 10/05/24 10:47 11/02/24 09:57 Height 5 ft 9 in 5 ft 9 in Weight: 157 lb 8 oz BMI 23.2 BP 124/80 H Intake Visit Reasons: 19wk ob Chief Complaint: 19 Week OB Visualizer Required: No Is patient in pain?: No [...] 3 current occupational status: employed current occupation: [employer] current occupational exposures/hazards: No pets and animals: [...] do you participate in: none frequency: daily sea/holiness: None seatbelt use: always do you feel [...] - full term 7lbs 9oz Male none [facility] Radha funez Sami 09/05/22 Danielle 39 live - full term 8#4oz Female none [facility] ABDIFATAH Sami 02/13/24 Smiley 39 live - full term 8lbs 1oz Male none [facility] Olaf Silvestre Delivery Date: 06/27/20 Last Updated by: JG Owen C Delivery Date: 06/12/21 Last Updated by: Harsha ROE HPI 19wk ob Details: HALIE SANTO is [...] Negative -???-? (more content not included)... Normal [facility] Laboratory - Chemistry and C hemistry - challengeOrdered By: Chanel Stacy on 10-05-2024 Glucose Ql (U) Negative [facility] Laboratory - UrinalysisOrder ed By: Chanel Stacy on 10-05-2024 Protein Ql (U) Negative [facility] Mud Mixer Office Visit Reporton 10-05-2024 Mud Mixer Office Visit Report [facility]'s [address], [address] [place] [address] OFFICE VISIT Date of Service: 10/05/24 MR#: [id number] Acct: [id number] Name: GALHALIE Rep #: [id number] : 1995 Provider: Dr. Chanel nicholas MD Age/Sex: 29/F Location: [facility] [place] Status: Signed Intake Vital Signs 08/06/24 11:56 09/06/24 14:55 10/05/24 10:45 10/05/24 10:47 Height 5 ft 9 in 5 ft 9 in 5 ft 9 in 5 ft 9 in Weight: 155 lb 6 oz BMI 22.9 BP 130/74 H Intake Visit Reasons: 14wk OB Visualizer Required: No Is patient in pain?: No [...] 3 current occupational status: employed current occupation: [employer] current occupational exposures/hazards: No pets and animals: [...] do you participate in: none frequency: daily sea/holiness: None seatbelt use: always do you feel [...] full term 7lbs 9oz Male none [facility] Radha Gallardo 09/05/22 Danielle 39 live - full term 8#4oz Female none [facility] ABDIFATAH Aguileraer 02/13/24 Smiley 39 live - full term 8lbs 1oz Male none [facility] Olaf Silvestre Delivery Date: 06/27/20 Last Updated [...] First Tr (more content not included)... Normal [facility] Urine Cultureon 09-10-2024 URC Mixed Gram Positive Organisms [place] Count 25,000-50,000 MIXC Mixed contaminants. Submit a new specimen if indicated. Normal [facility] Comment on above: Performed By: #### L 7000.1800, M100.2200 ####[facility] [address] [place], [place], [id number] Chlamydia/GC MINI aptimaon CHLAMY,NUC ACID Negative Normal Negative [facility] Comment on above: Performed By: #### L 0.1800, M100.2200 ####[facility] [address] [place], [address] GC BY NUC ACID Negative Normal Negative [facility] Comment on above: Result Comment: Perf ormed at: =G - [facility] [address] [place] [id number] Building Rental Superintendent: Tiff Vivas MD, Phone: [phone] Performed By: #### L 7000.1800, M100.2200 ####[facility] [address] [place], [address] ABORh Blood Type, Patienton 09-06-2024 ABO and Rh group Nom (Bld) Blood group A Rh(D) negative Normal [facility] Comment on above: Order Comment: PN Performed By: #### L 3890.6005, BTS, F41313-5, BtABORH, L100.0100, L3890.6100, L3890.6300, L509.4005 ####[facility] [address] [place], [address] CBC W/Diff, Automatedon 08-28 Absolute Lymph 2.05 X10 3/uL Normal 0.83-4.[address] [facility] Comment on above: Performed By: #### L 3890.6005, BTS, J31685-1, BtABORH, L100.0100, L3890.6100, L3890.6300, L509.4005 ####[facility] [address] [place], [address] Absolute Neut 8.1 X10 3/uL High 2.0-7.[address] [facility] Comment on above: Performed By: #### L 3890.6005, BTS, [id number], BtABORH, L100.0100, L3890.6100, L3890.6300, L509.4005 ####[facility] [address] [place], [address] Basophils/100 WBC (Bld) 0.3 % Normal 0-[address] [facility] Comment on above: Performed By: #### L 3890.6005, BTS, [id number], BtABORH, L100.0100, L3890.6100, L3890.6300, L509.4005 ####[facility] [address] [place], [address] Eosinophils/100 WBC (Bld) 0.7 % Normal 0-[address] [facility] Comment on above: Performed By: #### L 3890.6005, BTS, [id number], BtABORH, L100.0100, L3890.6100, L3890.6300, L509.4005 ####[facility] [address] [place], [address] Erythrocyte distribution width (RBC) [Ratio] 13.3 % Normal 11.6-14.[address] [facility] Comment on above: Performed By: #### L 3890.6005, BTS, [id number], BtABORH, L100.0100, L3890.6100, L3890.6300, L509.4005 ####[facility] [address] [place], [address] Hematocrit (Bld) [Volume fraction] 37.8 % Normal 37-[address] [facility] Comment on above: Performed By: #### L 3890.6005, BTS, [id number], BtABORH, L100.0100, L3890.6100, L3890.6300, L509.4005 ####[facility] [address] [place], [address] Hemoglobin (Bld) [Mass/Vol] 12.5 g/dL Normal 12.0-15.[address] [facility] Comment on above: Performed By: #### L 3890.6005, BTS, [id number], BtABORH, L100.0100, L3890.6100, L3890.6300, L509.4005 ####[facility] [address] [place], [address] IG% 0.400 Normal 0.0-0.[address] [facility] Comment on above: Result Comment: IG% - Immature Granulocytes (promyelocytes, myelocytes and metamyelocytes) > 1% indicates that a LEFT SHIFT is Present. Performed By: #### L 3890.6005, BTS, B13912-3, BtABORH, L100.0100, L3890.6100, L3890.6300, L509.4005 ####[facility] [address] [place], [address] Lymphocytes/100 WBC (Bld) 18.5 % Low 19-[address] [facility] Comment on above: Performed By: #### L 3890.6005, BTS, N29503-1, BtABORH, L100.0100, L3890.6100, L3890.6300, L509.4005 ####[facility] [address] [place], [address] MCH (RBC) [Entitic mass] 28.0 pg Normal 27.0-32.[address] [facility] Comment on above: Performed By: #### L 3890.6005, BTS, I63806-6, BtABORH, L100.0100, L3890.6100, L3890.6300, L509.4005 ####[facility] [address] [place], [address] MCHC (RBC) [Mass/Vol] 33.1 g/dL Normal 32-[address] [facility] Comment on above: Performed By: #### L 3890.6005, BTS, Y46656-1, BtABORH, L100.0100, L3890.6100, L3890.6300, L509.4005 ####[facility] [address] [place], [address] MCV (RBC) [Entitic vol] 84.6 fL Normal 81-[address] [facility] Comment on above: Performed By: #### L 3890.6005, BTS, W23071-7, BtABORH, L100.0100, L3890.6100, L3890.6300, L509.4005 ####[facility] [address] [place], [address] Monocytes/100 WBC (Bld) 7.1 % Normal 0-[address] [facility] Comment on above: Performed By: #### L 3890.6005, BTS, O75430-2, BtABORH, L100.0100, L3890.6100, L3890.6300, L509.4005 ####[facility] [address] [place], [address] Neutrophils/100 WBC (Bld) 73.0 % High 47-[address] [facility] Comment on above: Performed By: #### L 3890.6005, BTS, A64476-4, BtABORH, L100.0100, L3890.6100, L3890.6300, L509.4005 ####[facility] [address] [place], [address] Nucleated RBC (Bld) [#/Vol] 0 10*3/uL Normal 0-[address] [facility] Comment on above: Performed By: #### L 3890.6005, BTS, X35184-9, BtABORH, L100.0100, L3890.6100, L3890.6300, L509.4005 ####[facility] [address] [place], [address] Platelet mean volume (Bld) [Entitic vol] 10.7 fL Normal 6.2-12.[address] [facility] Comment on above: Performed By: #### L 3890.6005, BTS, B78835-4, BtABORH, L100.0100, L3890.6100, L3890.6300, L509.4005 ####[facility] [address] [place], [address] Platelets (Bld) [#/Vol] 233 10*3/uL Normal 150-[address] [facility] Comment on above: Performed By: #### L 3890.6005, BTS, D74908-0, BtABORH, L100.0100, L3890.6100, L3890.6300, L509.4005 ####[facility] [address] [place], [address] RBC (Bld) [#/Vol] 4.47 10*6/uL Normal 4.2-5.4 [facility] Comment on above: Performed By: #### L 3890.6005, BTS, Z03074-8, BtABORH, L100.0100, L3890.6100, L3890.6300, L509.4005 ####[facility] [address] [place], [address] RDW SD 41.1 fl Normal 35.1-43.[address] [facility] Comment on above: Performed By: #### L 3890.6005, BTS, J60803-6, BtABORH, L100.0100, L3890.6100, L3890.6300, L509.4005 ####[facility] [address] [place], [address] WBC (Bld) [#/Vol] 11.1 10*3/uL High 4.4-11.0 [facility] Comment on above: Performed By: #### L 3890.6005, BTS, P65501-4, BtABORH, L100.0100, L3890.6100, L3890.6300, L509.4005 ####[facility] [address] [place], [place], [id number] HIV - WCHon 09-06-2024 HIV Non-Reactive Normal Nonreactive [facility] Comment on above: Order Comment: Reaso n for Exam: Performed By: #### L 3890.6005, BTS, L11338-7, BtABORH, L100.0100, L3890.6100, L3890.6300, L509.4005 ####[facility] [address] [place], [place], [address] Hepatitis B Surface Antigeno n 09-06-2024 HEP B Surf Ag Non-Reactive Normal Nonreactive [facility] Comment on above: Order Comment: Reaso n for Exam: Performed By: #### L 3890.6005, BTS, J66142-4, BtABORH, L100.0100, L3890.6100, L3890.6300, L509.4005 ####[facility] [address] [place], [place], [address] Hepatitis C Antibodyon 09-06 Hepatitis C AB Non-Reactive Normal Nonreactive [facility] Comment on above: Order Comment: Reaso n for Exam: Result Comment: Non Reactive: < 0.8 Equivocal: >/= 0.8 to < 1.0 Reactive: >/= 1.0 The CDC requires that a reactive/equivocal HCV antibody result be sent out for confirmation. HCV Quant by PCR testing. Performed By: #### L 3890.6005, BTS, F03108-5, BtABORH, L100.0100, L3890.6100, L3890.6300, L509.4005 ####[facility] [address] [place], [place], [address] L509.8000on 09-06-2024 Syphilis Abs Non-Reactive Normal [facility] Comment on above: Performed By: #### L 509.8000 ####[facility] [address] [place], [place], [address] Mud Mixer Office Visit Reporton 09-06-2024 Mud Mixer Office Visit Report [facility] [address], [address] [place] [address] OFFICE VISIT Date of Service: 09/06/24 MR#: [id number] Acct: [id number] Name: HALIE SANTO Rep #: [id number] : 1995 Provider: Dr. Love Sharp DO Age/Sex: 29/F Location: [facility] [place] Status: Signed Intake Vital Signs 03/22/24 15:03 08/06/24 11:56 09/06/24 14:54 09/06/24 14:55 Height 5 ft 9 in 5 ft 9 in 5 ft 9 in 5 ft 9 in Weight: 157 lb 8 oz BMI 23.2 BP 131/78 H Intake Visit Reasons: NOB, Unknown LMP/ US 08/03, TASHI 03/29/25 Visualizer Required: No Is patient in pain?: No Allergies No Known Allergies Allergy (Verified 09/06/24 14:53) Medications ???Medication ???Instructions ???Recorded ???Confirmed ???Type docosahexaenoic acid 200 mg mg PO 08/27/24 09/06/24 History capsule ( DHA) Last Menstrual Period: 05/10/23 Zika: Zika virus screening: Negative : Yes [facility] Medical History History of miscarriage, currently Surgical [...] do you participate in: none frequency: daily sea/holiness: None seatbelt use: always do you feel [...] - full term 7lbs 9oz Male none [facility] Mar dee dee [place] 09/05/22 Riddley 39 live - full term 8#4oz Female none [facility] ABDIFATAH [place] 02/13/24 Kolter 39 live - full term 8lbs 1oz Male none [facility] Olaf royal VelPappaser Delivery Date: 06/27/20 Last Updated by: Carmencita [...] Varicella immun (more content not included)... Normal [facility] Rubella IgGon 09-06-2024 Rubella IgG Reactive Normal Nonreactive [facility] Comment on above: Order Comment: Reaso n for Exam: Result Comment: Anti body Results Interpretation of Immune Status Non Reactive Presumed Non-Immune Equivocal Equivocal Reactive Presumed Immune Performed By: #### L 3890.6005, BTS, M78744-7, BtABORH, L100.0100, L3890.6100, L3890.6300, L509.4005 ####[facility] [address] [place], [address] Type AND Screenon 09-06-2024 Ab SCREEN GEL TNP Normal [facility] Comment on above: Order Comment: PN Performed By: #### L 3890.6005, BTS, C71783-7, BtABORH, L100.0100, L3890.6100, L3890.6300, L509.4005 ####[facility] [address] [place], [address] ABO and Rh group Nom (Bld) TNP Normal [facility] Comment on above: Order Comment: PN Performed By: #### L 3890.6005, BTS, M03063-7, BtABORH, L100.0100, L3890.6100, L3890.6300, L509.4005 ####[facility] [address] [place], [address] Transvaginal w/Preg USon Transvaginal w/Preg US [facility] [address] [place] [address] Transvaginal w/Preg US MR#: [id number] Acct: [id number] Name: GALHALIE MCLEOD Rep #: [id number] : 1995 F 29 From: Yannick mojica MD PCP: Care Physician,No Primary Status: REG CLI Study: Transvaginal w/Preg US Date of Exam: 08/03/24 Exam# [id number] Ordering Dr: Rylee Beavers CNM [id number] STUDY: FIRST TRIMESTER OBSTETRICAL ULTRASOUND REASON FOR [...] Signed: Yannick Batista MD at 14:22 EST , CC: JUSETN Beavers; No Primary Care Physician Weighmaster: Signed Normal [facility] hCG Titer Quant., Serumon HCG QUANT. 5525 mIU/mL High 1-[address] [facility] Comment on above: Result Comment: hCG levels with Gestational Age Gestational Age hCG mIU/mL (IU/L) 0.2 - 1 week 5 - 50 1-2 weeks 50 - 500 2-3 weeks 100 - 5000 3-4 weeks 500 - 56573 4-5 weeks 1000 - 91326 5-6 weeks 09487 - 100,000 6-8 weeks 90326 - 200,000 2-3 months 19401 - 100,000 Performed By: #### L 700.8000 #### [facility] [address] [place], [address] hCG Titer Quant., Serumon HCG QUANT. 3279 mIU/mL High 1-[address] [facility] Comment on above: Result Comment: hCG levels with Gestational Age Gestational Age hCG mIU/mL (IU/L) 0.2 - 1 week 5 - 50 1-2 weeks 50 - 500 2-3 weeks 100 - 5000 3-4 weeks 500 - 76421 4-5 weeks 1000 - 93890 5-6 weeks 74419 - 100,000 6-8 weeks 17147 - 200,000 2-3 months 31390 - 100,000 Performed By: #### L 700.8000 #### [facility] [address] [place], [address] PAP IG HPV APTIMA 16/18,45on 03-26-2024 ADEQ Comment Normal . [facility] Comment on above: Order Comment: Speci men Comment: [id number] Specimen Comment: Source.............Cervix Specimen Comment: Other..............Post- Specimen Comment: No. of containers..01 ThinPrep Vial Result Comment: Sati sfactory for evaluation. Endocervical and/or squamous metaplastic cells (endocervical component) are present. Performed By: #### L 7400.0280 #### [facility] [address] [place], [place], [address] COMM . Normal . [facility] Comment on above: Order Comment: Speci men Comment: [id number] Specimen Comment: Source.............Cervix Specimen Comment: Other..............Post- Specimen Comment: No. of containers..01 ThinPrep Vial Performed By: #### L 7400.0280 #### [facility] [address] [place], [place], [address] COMMENT Comment Normal . [facility] Comment on above: Order Comment: Speci men Comment: [id number] Specimen Comment: Source.............Cervix Specimen Comment: Other..............Post- Specimen Comment: No. of containers..01 ThinPrep Vial Result Comment: This liquid based ThinPrep(R) pap test was screened with the use of an image guided system. Performed By: #### L 7400.0280 #### [facility] [address] [place], [place], [address] DIAG Comment Normal . [facility] Comment on above: Order Comment: Speci men Comment: [id number] Specimen Comment: Source.............Cervix Specimen Comment: Other..............Post- Specimen Comment: No. of containers..01 ThinPrep Vial Result Comment: NEGA TIVE FOR INTRAEPITHELIAL LESION OR MALIGNANCY. CELLULAR CHANGES ASSOCIATED WITH INFLAMMATION ARE PRESENT. Performed By: #### L 7400.0280 #### [facility] [address] [place], [place], [address] HPV APTIMA, HR Negative Normal Negative [facility] Comment on above: Order Comment: Speci men Comment: [id number] Specimen Comment: Source.............Cervix Specimen Comment: Other..............Post- Specimen Comment: No. of containers..01 ThinPrep Vial Result Comment: This nucleic acid amplification test detects fourteen high- risk HPV types (16,18,31,33,35,39,45,51,52,56,58,59,66,68) without differentiation. Performed By: #### L 7400.0280 #### [facility] [address] [place], [place], [address] HPV Ashlyn Rfx Comment Normal . [facility] Comment on above: Order Comment: Speci men Comment: [id number] Specimen Comment: Source.............Cervix Specimen Comment: Other..............Post- Specimen Comment: No. of containers..01 ThinPrep Vial Result Comment: Crit eria not met, HPV Genotype not performed. Performed at: - [address] [id number] Building Rental Superintendent: Tiff Vivas MD, Phone: [phone] Performed at: = - [address] [id number] Building Rental Superintendent: Tiff Vivas MD, Phone: [phone] Performed By: #### L 7400.0280 #### [facility] [address] [place], [place], [address] PAPSMR Comment Normal . [facility] Comment on above: Order Comment: Speci men Comment: [id number] Specimen Comment: Source.............Cervix Specimen Comment: Other..............Post- Specimen [...] occur. Performed By: #### L 7400.0280 #### [facility] [address] [place], [address] PERFORM Comment Normal . [facility] Comment on above: Order Comment: Speci men Comment: [id number] Specimen Comment: Source.............Cervix Specimen Comment: Other..............Post- Specimen Comment: No. of containers..01 ThinPrep Vial Result Comment: Ebony Eason Educational Program Assistant (ASCP) Performed By: #### L 7400.0280 #### [facility] [address] [place], [place], [address] Mud Mixer Office Visit Reporton 03-22-2024 Mud Mixer Office Visit Report [facility] [address], [address] [place] [address] OFFICE VISIT Date of Service: 03/22/24 MR#: [id number] Acct: [id number] Name: HALIE SANTO Rep #: [id number] : 1995 Provider: Dr. Love Sharp DO Age/Sex: 28/F Location: [facility] [place] Status: Signed Intake Vital Signs 02/13/24 02:57 03/22/24 15:01 03/22/24 15:03 Height 5 ft 9 in 5 ft 9 in 5 ft 9 in Weight: 154 lb 8 oz BMI 22.8 BP 118/74 Intake Visit Reasons: visit (obstetrics) Visualizer Required: No Is patient in pain?: No Allergies No Known Allergies Allergy (Verified 03/22/24 15:01) Medications ???Medication ???Instructions ???Recorded ???Confirmed ???Type NK 03/22/24 03/22/24 [facility] : [facility] History History of miscarriage, currently Placental abnormality Vaginal delivery Rh negative status during Surgical History History of dilation and curettage S/P wrist surgery S/P ear surgery Family History Grandmother Diabetes Social History adopted: No household members: spouse and children number of children: 2 current occupational status: employed current occupation: [employer] current occupational exposures/hazards: No pets and [...] do you participate in: walking frequency: daily sea/holiness: None seatbelt use: always do you feel [...] Aguila 40 live - full term Male [facility] Troy nicholas Sami 09/05/22 Riddley 39 live - full term 8#4oz Female [facility] ABDIFATAH 02/13/24 39 live - full term Male [facility] Matt Funez Delivery Date: 06/12/21 Last Updated [...] old who presents for her post visit. Infant Feeding: Breast Menses resumed: No [place] since delivery: No Emotional Support: Yes Last [...] Vagina Uterus: (more content not included)... Normal [facility] Absolute lymphocyte countOrd ered By: Love Funez on 11-25-2023 Lymphocytes Auto (Unsp spec) [#/Vol] 1.56 10*3/uL 0.83-4.[address] [facility] Automated lymphocyte count a s percentage of total leukocytesOrdered By: Love Funez on 11-25-2023 Lymphocytes/100 WBC Auto (Unsp spec) 17.0 % 19-[address] [facility] Basophil percentageOrdered B y: Love Funez on 11-25-2023 Basophils/100 WBC (Bld) 0.3 % 0-[address] [facility] Eosinophils/100 WBC (Bld) 0.8 % 0-[address] [facility] Hemoglobin (Bld) [Mass/Vol] 11.9 g/dL 12.0-15.[address] [facility] Monocytes/100 WBC (Bld) 3.7 % 0-[address] [facility] Neutrophils (Bld) [#/Vol] 7.1 10*3/uL 2.0-7.[address] [facility] Neutrophils/100 WBC (Bld) 77.7 % 47-[address] [facility] WBC (Bld) [#/Vol] 9.2 10*3/uL 4.4-11.0 [facility] Determination of erythrocyte mean corpuscular volume (MCV)Ordered By: Love Funez on 11-25-2023 MCV (RBC) [Entitic vol] 85.1 fL 81-[address] [facility] Erythrocyte distribution wid th ratioOrdered By: Love Funez on 11-25-2023 Erythrocyte distribution width (RBC) [Ratio] 12.6 % 11.6-14.[address] [facility] Erythrocyte distribution wid th standard deviationOrdered By: Love Funez on 11-25-2023 Erythrocyte distribution width (RBC) [Entitic vol] 38.6 fL 35.1-43.[address] [facility] Gestational diabetes screen 1-hour screen with 50g oral glucose loadOrdered By: Love Funez on 11-25-2023 Glucose 1 Hr post 50 g glucose PO [Mass/Vol] 102 mg/dL 70-[address] [facility] HIV 1 and HIV-2 antibody ass ay with HIV-1 p24 antigen detectionOrdered By: Love Funez on 11-25-2023 HIV 1+2 Ab+HIV1 p24 Ag IA Ql Non-Reactive Nonreactive [facility] Hematocrit Auto (Bld) [Volum e fraction]Ordered By: Love Funez on 11-25-2023 Hematocrit (Bld) [Volume fraction] 35.5 % 37-[address] [facility] Immature granulocytes/100 WB C Auto (Bld)Ordered By: Love Funez on 11-25-2023 Immature granulocytes/100 WBC (Bld) 0.500 % 0.0-0.[address] [facility] Comment on above: IG% - Immature Granu locytes (promyelocytes, myelocytes and metamyelocytes) > 1% indicates that a LEFT SHIFT is Present. Laboratory - Chemistry and C hemistry - challengeon 11-25-2023 Glucose Ql (U) Negative [facility] Laboratory - Hematology and Cell countsOrdered By: Love Funez on 11-25-2023 MCH (RBC) [Entitic mass] 28.5 pg 27.0-32.[address] [facility] MCHC (RBC) [Mass/Vol] 33.5 g/dL 32-[address] [facility] Nucleated RBC/100 WBC (Bld) [Ratio] 0 % 0-[address] [facility] Platelet mean volume (Bld) [Entitic vol] 9.5 fL 6.2-12.[address] [facility] Platelets (Bld) [#/Vol] 236 10*3/uL 150-[address] [facility] Laboratory - Urinalysison Protein Ql (U) Negative [facility] RBC Auto (Bld) [#/Vol]Ordere d By: Love Funez on 11-25-2023 RBC (Bld) [#/Vol] 4.17 10*6/uL 4.2-5.4 [facility] Serum Treponema species anti body detectionOrdered By: Love Funez on 11-25-2023 Treponema sp Ab Ql (S) Non-Reactive [facility] Laboratory - Chemistry and C hemistry - challengeon 10-01-2023 Glucose Ql (U) Negative [facility] Laboratory - Urinalysison Protein Ql (U) Negative [facility] Laboratory - Chemistry and C hemistry - challengeon 09-01-2023 Glucose Ql (U) Negative [facility] Laboratory - Urinalysison Protein Ql (U) Negative [facility] Absolute lymphocyte countOrd ered By: Shyla Wallace on 08-12-2023 Lymphocytes Auto (Unsp spec) [#/Vol] 2.13 10*3/uL 0.83-4.[address] [facility] Basophil percentageOrdered B y: Shyla Wallace on 08-12-2023 Basophils/100 WBC (Bld) 0.4 % 0-[address] [facility] Eosinophils/100 WBC (Bld) 1.0 % 0-[address] [facility] Neutrophils (Bld) [#/Vol] 6.2 10*3/uL 2.0-7.[address] [facility] Neutrophils/100 WBC (Bld) 68.6 % 47-[address] [facility] WBC (Bld) [#/Vol] 9.0 10*3/uL 4.4-11.0 [facility] Blood erythrocytes count (nu mber/volume)Ordered By: Shyla Wallace on 08-12-2023 RBC (Bld) [#/Vol] 4.56 10*6/uL 4.2-5.4 [facility] Blood hemoglobin measurement (mass/volume)Ordered By: Shyla Wallace on 08-12-2023 Hemoglobin (Bld) [Mass/Vol] 13.5 g/dL 12.0-15.[address] [facility] Blood lymphocytes/100 leukoc ytesOrdered By: Shyla Wallace on 08-12-2023 Lymphocytes/100 WBC (Bld) 23.6 % 19-[address] [facility] Blood monocytes/100 leukocyt esOrdered By: Shyla Wallace on 08-12-2023 Monocytes/100 WBC (Bld) 6.2 % 0-[address] [facility] Blood platelet mean volumeOr dered By: Shyla Wallace on 08-12-2023 Platelet mean volume (Bld) [Entitic vol] 10.3 fL 6.2-12.[address] [facility] Determination of erythrocyte mean corpuscular volume (MCV)Ordered By: Shyla Wallace on 08-12-2023 MCV (RBC) [Entitic vol] 86.2 fL 81-[address] [facility] HIV 1 and HIV-2 antibody ass ay with HIV-1 p24 antigen detectionOrdered By: Shyla Wallace on 08-12-2023 HIV 1+2 Ab+HIV1 p24 Ag IA Ql Non-Reactive Nonreactive [facility] Hematocrit Auto (Bld) [Volum e fraction]Ordered By: Shyla Wallace on 08-12-2023 Hematocrit (Bld) [Volume fraction] 39.3 % 37-[address] [facility] Laboratory - Hematology and Cell countsOrdered By: Shyla Wallace on 08-12-2023 Erythrocyte distribution width (RBC) [Entitic vol] 39.5 fL 35.1-43.[address] [facility] Erythrocyte distribution width (RBC) [Ratio] 12.7 % 11.6-14.[address] [facility] Immature granulocytes/100 WBC (Bld) 0.200 % 0.0-0.[address] [facility] Comment on above: IG% - Immature Granu locytes (promyelocytes, myelocytes and metamyelocytes) > 1% indicates that a LEFT SHIFT is Present. MCH (RBC) [Entitic mass] 29.6 pg 27.0-32.[address] [facility] Nucleated RBC/100 WBC (Bld) [Ratio] 0 % 0-[address] [facility] MCHC Auto (RBC) [Mass/Vol]Or dered By: Shyla Wallace on 08-12-2023 MCHC (RBC) [Mass/Vol] 34.4 g/dL 32-[address] [facility] No Panel InformationOrdered By: Shyla Wallace on 08-12-2023 Hepatitis B Surface Antigen Non-Reactive Nonreactive [facility] Hepatitis C Antibody Non-Reactive Nonreactive [facility] Comment on above: Non Reactive: < 0.8 Equivocal: >/= 0.8 to < 1.0 Reactive: >/= 1.0The CDC recommends that a reactive/equivocal HCV antibody result be followed up by the HCV Nucleic Acid Amplificationtest (620694) Rubella IgG Antibody Reactive Nonreactive [facility] Comment on above: Antibody Results Int erpretation of Immune Status Non Reactive Presumed Non-Immune Equivocal Equivocal Reactive Presumed Immune Platelets bldOrdered By: Charley Wallace on 08-12-2023 Platelets (Bld) [#/Vol] 238 10*3/uL 150-[address] [facility] Serum Treponema species anti body detectionOrdered By: Shyla Wallace on 08-12-2023 Treponema sp Ab Ql (S) Non-Reactive [facility] Laboratory - Chemistry and C hemistry - challengeon 08-08-2023 Glucose Ql (U) Negative [facility] Laboratory - Urinalysison Protein Ql (U) Negative [facility] Culture, urineOrdered By: Shanta Wallace on 07-11-2023 Bacteria identified Cx Nom (U) Positive [facility] CNOVon 05-14-2023 CNOV Office Visit (UCWSTR ) GALHALIE ([id number]) 1995 F Date Time Provider Department 05/14/23 8:30 AM ESTEFANY FOSTER During your visit today, we recorded the following information about you: Temperature Pulse Respiration Blood pressure 97.1 degrees 86/minute 20/minute 102/68 Weight 72.4 kg Estefany Foster APRN.[facility]ENS LOCKER ROOM ATTENDANT 05/14/2023 8:45 AM Signed Patient came in [...] Encounter Status:Closed by ESTEFANY FOSTER on 05/14/23 [facility] CNOVon 03-13-2023 CNOV Office Visit (TR ) HALIE SANTO ([id number]) 1995 F Date Time Provider Department 03/13/23 7:15 AM EDUARDO [facility]SC[facility] During your visit today, we recorded the following information about you: Temperature Pulse Respiration Blood pressure 99.3 degrees 111/minute 21/minute 102/60 Weight 71.4 kg Eduardo Oscar APRN.[employer] ATTENDANT 03/13/2023 7:43 AM Signed Subjective HPI HPI [...] Date Reviewed: 03/13/2023 Reviewed by: Eduardo Oscar APRN.[employer] ATTENDANT - Fully Assessed Reason for Visit: Sore Throat [200] Cmt: Fever, JALLOH, bilateral ear pain x 3 days Primary Visit Diagnosis:Strep throat [J02.0] Other Visit Diagnosis:Sore throat [J02.9] Order(s):STREP A MOLECULAR (POC) [[id number]] Order #: [id number]. #:[id number] amoxicillin (AMOXIL) 500 mg capsuleTake 1 capsule by mouth twice daily for 10 days.Disp: 20 capsuleRfl: 0 Prescriptions as of 03/13/2023 - amoxicillin (AMOXIL) 500 mg (more content not included)... Normal [facility] STREP A MOLECULAR (POC)on Procedural Control Valid [facility] Strep A (POCT) Positive Abnormal Negative [facility] Absolute lymphocyte countOrd ered By: Dr. Stacy on 09-05-2022 Lymphocytes Auto (Unsp spec) [#/Vol] 1.25 10*3/uL 0.83-4.[address] [facility] Basophil percentageOrdered B y: Dr. Stacy on 09-05-2022 Basophils/100 WBC (Bld) 0.2 % 0-[address] [facility] Eosinophils/100 WBC (Bld) 0.3 % 0-[address] [facility] Neutrophils (Bld) [#/Vol] 8.9 10*3/uL 2.0-7.[address] [facility] Neutrophils/100 WBC (Bld) 79.1 % 47-[address] [facility] WBC (Bld) [#/Vol] 11.2 10*3/uL 4.4-11.0 [facility] Blood erythrocytes count (nu mber/volume)Ordered By: Dr. Stacy on 09-05-2022 RBC (Bld) [#/Vol] 4.19 10*6/uL 4.2-5.4 [facility] Blood hemoglobin measurement (mass/volume)Ordered By: Dr. Stacy on 09-05-2022 Hemoglobin (Bld) [Mass/Vol] 11.5 g/dL 12.0-15.[address] [facility] Blood lymphocytes/100 leukoc ytesOrdered By: Dr. Stacy on 09-05-2022 Lymphocytes/100 WBC (Bld) 11.2 % 19-[address] [facility] Blood monocytes/100 leukocyt esOrdered By: Dr. Stacy on 09-05-2022 Monocytes/100 WBC (Bld) 8.3 % 0-[address] [facility] Blood platelet mean volumeOr dered By: Dr. Stacy on 09-05-2022 Platelet mean volume (Bld) [Entitic vol] 9.8 fL 6.2-12.[address] [facility] Determination of erythrocyte mean corpuscular volume (MCV)Ordered By: Dr. Stacy on 09-05-2022 MCV (RBC) [Entitic vol] 83.8 fL 81-[address] [facility] Hematocrit Auto (Bld) [Volum e fraction]Ordered By: Dr. Stacy on 09-05-2022 Hematocrit (Bld) [Volume fraction] 35.1 % 37-[address] [facility] Laboratory - Hematology and Cell countsOrdered By: Dr. Stacy on 09-05-2022 Erythrocyte distribution width (RBC) [Entitic vol] 39.1 fL 35.1-43.[address] [facility] Erythrocyte distribution width (RBC) [Ratio] 13.0 % 11.6-14.[address] [facility] Immature granulocytes/100 WBC (Bld) 0.900 % 0.0-0.[address] [facility] Comment on above: IG% - Immature Granu locytes (promyelocytes, myelocytes and metamyelocytes) > 1% indicates that a LEFT SHIFT is Present. MCH (RBC) [Entitic mass] 27.4 pg 27.0-32.[address] [facility] Nucleated RBC/100 WBC (Bld) [Ratio] 0 % 0-[address] [facility] MCHC Auto (RBC) [Mass/Vol]Or dered By: Dr. Stacy on 09-05-2022 MCHC (RBC) [Mass/Vol] 32.8 g/dL 32-[address] [facility] Platelets bldOrdered By: Dr. Stacy on 09-05-2022 Platelets (Bld) [#/Vol] 293 10*3/uL 150-[address] [facility] Laboratory - Chemistry and C hemistry - challengeon 08-29-2022 Glucose Ql (U) Negative [facility] Laboratory - Urinalysison Protein Ql (U) Negative [facility] Laboratory - Chemistry and C hemistry - challengeon 08-22-2022 Glucose Ql (U) Negative [facility] Laboratory - Urinalysison Protein Ql (U) Negative [facility] No Panel InformationOrdered By: Dr. Stacy on 08-14-2022 Group B Streptococcus Culture Group B Beta Streptococcus is not isolated. [facility] Laboratory - Chemistry and C hemistry - challengeon 08-01-2022 Glucose Ql (U) Negative [facility] Laboratory - Urinalysison Protein Ql (U) Negative [facility] Laboratory - Chemistry and C hemistry - challengeon 07-17-2022 Glucose Ql (U) Negative [facility] Laboratory - Urinalysison Protein Ql (U) Negative [facility] Laboratory - Chemistry and C hemistry - challengeon 07-04-2022 Glucose Ql (U) Negative [facility] Laboratory - Urinalysison Protein Ql (U) Negative [facility] No Panel InformationOrdered By: Abbie Bronson on 06-21-2022 Glucose 3 Hour See comment 70-[address] [facility] Comment on above: FASTING 67 [...] Auto (Unsp spec) [#/Vol] 1.57 10*3/uL 0.83-4.[address] [facility] Basophil percentageOrdered B y: Shyla Wallace on 06-17-2022 Basophils/100 WBC (Bld) 0.3 % 0-[address] [facility] Eosinophils/100 WBC (Bld) 0.7 % 0-[address] [facility] Neutrophils (Bld) [#/Vol] 10.4 10*3/uL 2.0-7.[address] [facility] Neutrophils/100 WBC (Bld) 82.2 % 47-[address] [facility] WBC (Bld) [#/Vol] 12.7 10*3/uL 4.4-11.0 [facility] Blood erythrocytes count (nu mber/volume)Ordered By: Shyla Wallace on 06-17-2022 RBC (Bld) [#/Vol] 3.80 10*6/uL 4.2-5.4 [facility] Blood hemoglobin measurement (mass/volume)Ordered By: Shyla Wallace on 06-17-2022 Hemoglobin (Bld) [Mass/Vol] 11.4 g/dL 12.0-15.[address] [facility] Blood lymphocytes/100 leukoc ytesOrdered By: Shyla Wallace on 06-17-2022 Lymphocytes/100 WBC (Bld) 12.4 % 19-[address] [facility] Blood monocytes/100 leukocyt esOrdered By: Shyla Wallace on 06-17-2022 Monocytes/100 WBC (Bld) 4.0 % 0-[address] [facility] Blood platelet mean volumeOr dered By: Shyla Wallace on 06-17-2022 Platelet mean volume (Bld) [Entitic vol] 9.3 fL 6.2-12.[address] [facility] Determination of erythrocyte mean corpuscular volume (MCV)Ordered By: Shyla Wallace on 06-17-2022 MCV (RBC) [Entitic vol] 87.9 fL 81-[address] [facility] Gestational diabetes screen 1-hour screen with 50g oral glucose loadOrdered By: Shyla Wallace on 06-17-2022 Glucose 1 Hr post 50 g glucose PO [Mass/Vol] 139 mg/dL 70-[address] [facility] HIV 1 and HIV-2 antibody ass ay with HIV-1 p24 antigen detectionOrdered By: Shyla Wallace on 06-17-2022 HIV 1+2 Ab+HIV1 p24 Ag IA Ql Non-Reactive Nonreactive [facility] Hematocrit Auto (Bld) [Volum e fraction]Ordered By: Shyla Wallace on 06-17-2022 Hematocrit (Bld) [Volume fraction] 33.4 % 37-[address] [facility] Laboratory - Chemistry and C hemistry - challengeon 06-17-2022 Glucose Ql (U) Negative [facility] Laboratory - Hematology and Cell countsOrdered By: Shyla Wallace on 06-17-2022 Erythrocyte distribution width (RBC) [Entitic vol] 42.5 fL 35.1-43.[address] [facility] Erythrocyte distribution width (RBC) [Ratio] 13.2 % 11.6-14.[address] [facility] Immature granulocytes/100 WBC (Bld) 0.400 % 0.0-0.[address] [facility] Comment on above: IG% - Immature Granu locytes (promyelocytes, myelocytes and metamyelocytes) > 1% indicates that a LEFT SHIFT is Present. MCH (RBC) [Entitic mass] 30.0 pg 27.0-32.[address] [facility] Nucleated RBC/100 WBC (Bld) [Ratio] 0 % 0-[address] [facility] Laboratory - Urinalysison Protein Ql (U) Negative [facility] MCHC Auto (RBC) [Mass/Vol]Or dered By: Shyla Wallace on 06-17-2022 MCHC (RBC) [Mass/Vol] 34.1 g/dL 32-[address] [facility] Platelets bldOrdered By: Charley Wallace on 06-17-2022 Platelets (Bld) [#/Vol] 214 10*3/uL 150-[address] [facility] Serum Treponema species anti body detectionOrdered By: Shyla Wallace on 06-17-2022 Treponema sp Ab Ql (S) Non-Reactive [facility] Laboratory - Chemistry and C hemistry - challengeon 06-05-2022 Glucose Ql (U) Negative [facility] Laboratory - Urinalysison Protein Ql (U) Negative [facility] Laboratory - Chemistry and C hemistry - challengeon 05-07-2022 Glucose Ql (U) Negative [facility] Laboratory - Urinalysison Protein Ql (U) Negative [facility] Laboratory - Chemistry and C hemistry - challengeon 04-09-2022 Glucose Ql (U) Negative [facility] Work Phone: Laboratory - Urinalysison Protein Ql (U) Negative [facility] Work Phone: Laboratory - Chemistry and C hemistry - challengeon 03-11-2022 Glucose Ql (U) Negative [facility] Work Phone: Laboratory - Urinalysison Protein Ql (U) Negative [facility] Work Phone: Absolute lymphocyte counton 02-19-2022 Lymphocytes Auto (Unsp spec) [#/Vol] 1.36 10*3/uL 0.83-4.[address] [facility] Work Phone: Basophil percentageon 2021 Basophils/100 WBC (Bld) 0.3 % 0-[address] [facility] Work Phone: Eosinophils/100 WBC (Bld) 0.7 % 0-[address] [facility] Work Phone: Neutrophils (Bld) [#/Vol] 7.2 10*3/uL 2.0-7.[address] [facility] Work Phone: Neutrophils/100 WBC (Bld) 78.3 % 47-[address] [facility] Work Phone: WBC (Bld) [#/Vol] 9.1 10*3/uL 4.4-11.0 [facility] Work Phone: Blood erythrocytes count (nu mber/volume)on 02-19-2022 RBC (Bld) [#/Vol] 4.96 10*6/uL 4.2-5.4 [facility] Work Phone: Blood hemoglobin measurement (mass/volume)on 02-19-2022 Hemoglobin (Bld) [Mass/Vol] 14.5 g/dL 12.0-15.[address] [facility] Work Phone: Blood lymphocytes/100 leukoc yteson 02-19-2022 Lymphocytes/100 WBC (Bld) 14.9 % 19-[address] [facility] Work Phone: [phone] Blood monocytes/100 leukocyt eson 02-19-2022 Monocytes/100 WBC (Bld) 5.5 % 0-[address] [facility] Work Phone: [phone] Blood platelet mean volumeon 02-19-2022 Platelet mean volume (Bld) [Entitic vol] 9.8 fL 6.2-12.[address] [facility] Work Phone: [phone] Determination of erythrocyte mean corpuscular volume (MCV)on 02-19-2022 MCV (RBC) [Entitic vol] 85.7 fL 81-[address] [facility] Work Phone: [phone] HIV 1 and HIV-2 antibody ass ay with HIV-1 p24 antigen detectionon 02-19-2022 HIV 1+2 Ab+HIV1 p24 Ag IA Ql Non-Reactive Nonreactive [facility] Work Phone: [phone] Hematocrit Auto (Bld) [Volum e fraction]on 02-19-2022 Hematocrit (Bld) [Volume fraction] 42.5 % 37-[address] [facility] Work Phone: [phone] Laboratory - Hematology and Cell countson 02-19-2022 Erythrocyte distribution width (RBC) [Entitic vol] 38.6 fL 35.1-43.[address] [facility] Work Phone: [phone] Erythrocyte distribution width (RBC) [Ratio] 12.4 % 11.6-14.[address] [facility] Work Phone: [phone] Immature granulocytes/100 WBC (Bld) 0.300 % 0.0-0.[address] [facility] Work Phone: [phone] Comment on above: IG% - Immature Granu locytes (promyelocytes, myelocytes and metamyelocytes) > 1% indicates that a LEFT SHIFT is Present. MCH (RBC) [Entitic mass] 29.2 pg 27.0-32.[address] [facility] Work Phone: [phone] Nucleated RBC/100 WBC (Bld) [Ratio] 0 % 0-[address] [facility] Work Phone: [phone] MCHC Auto (RBC) [Mass/Vol]on 02-19-2022 MCHC (RBC) [Mass/Vol] 34.1 g/dL 32-[address] [facility] Work Phone: [phone] No Panel Informationon 02-19 Miscellaneous Test Comment MAILED SPECIMEN [facility] Work Phone: [phone] Hepatitis B Surface Antigen Non-Reactive Nonreactive [facility] Work Phone: [phone] Hepatitis C Antibody Non-Reactive Nonreactive [facility] Work Phone: [phone] Comment on above: Non Reactive: < 0.8 Equivocal: >/= 0.8 to < 1.0 Reactive: >/= 1.0The CDC recommends that a reactive/equivocal HCV antibody result be followed up by the HCV Nucleic Acid Amplificationtest (411410) Rubella IgG Antibody Reactive Nonreactive [facility] Work Phone: [phone] Comment on above: Antibody Results Int erpretation of Immune Status Non Reactive Presumed Non-Immune Equivocal Equivocal Reactive Presumed Immune Platelets bldon 02-19-2022 Platelets (Bld) [#/Vol] 235 10*3/uL 150-[address] [facility] Work Phone: [phone] Serum Treponema species anti body detectionon 02-19-2022 Treponema sp Ab Ql (S) Non-Reactive [facility] Work Phone: [phone] Chlamydia trachomatis rRNA d etection by probe and target amplification methodon 02-04-2022 C. trachomatis rRNA MINI+probe Ql (Unsp spec) Negative Negative [facility] Work Phone: [phone] Laboratory - Drug toxicology on 02-04-2022 Amphetamines Ql (U) Negative <1000 ng/mL [facility] Work Phone: [phone] Benzodiazepines Ql (U) Negative < 200 ng/mL [facility] Work Phone: [phone] Cannabinoids Screen Ql (U) Negative < 50 ng/mL [facility] Work Phone: Cocaine Ql (U) Negative < 300 ng/mL [facility] Work Phone: [phone] Opiates Ql (U) Negative < 300 ng/mL [facility] Work Phone: Laboratory - Microbiology an d Antimicrobial susceptibilityon 02-04-2022 N. gonorrhoeae DNA MINI+probe Ql (Unsp spec) Negative Negative [facility] Work Phone: Comment on above: Performed at: =G - L [address] [id number] Director: Tiff Vivas MD, Phone: [phone] No Panel Informationon 02-04 MDMA (Ecstasy) Screen Negative < 500 ng/mL [facility] Work Phone: [phone] Urine Barbiturates Screen Negative < 200 ng/mL [facility] Work Phone: [phone] Urine Drug Screen Comment [facility] Work Phone: Comment on above: [...] Urine Methadone Screen Negative < 300 ng/mL [facility] Work Phone: Urine phencyclidine (PCP) de tectionon 02-04-2022 Phencyclidine Ql (U) Negative < 25 ng/mL [facility] Work Phone: Office Visit: new annualon 1 Documentation of current medications (procedure) Done Invalid Interpretation Code [facility] Fall risk assessment No Invalid Interpretation Code [facility] Tobacco smoking status NHIS Never Invalid Interpretation Code [facility] Tobacco use CPHS Never smoker Invalid Interpretation Code [facility] Office Visit: new annualon 0 07-28-2015 General categories [Interpretation] of Cervical or vaginal smear or scraping by Cyto stain Normal Invalid Interpretation Code [facility] Office Visit: postop surgery 11/08/14on 12-14-2014 Dietary management education, guidance, and counseling (procedure) yes Invalid Interpretation Code [facility] External Other: Preferred Me thod of Contacton 11-18-2014 methcontact secmsg Invalid Interpretation Code [facility] Lab Report: ,Urineo n 11-08-2014 HCGUQUAL Negative Invalid Interpretation Code [facility] Culture, urine Bacteria identified Cx Nom (U) GNR lactose manager file [facility] Work Phone: Vital Signs Date Time Vital Sign Value Performing Clinician Faci treyy 03-24-2025 10:46-0400 Body height 175.26 cm No Primary Care Physician [facility] 03-24-2025 10:46-0400 Body mass index (BMI) [Ratio] 26 kg/m2 No Primary Care Physician [facility] 03-24-2025 10:46-0400 Body weight 80.08 kg No Primary Care Physician [facility] 03-24-2025 10:46-0400 Diastolic blood pressure 82 mm[Hg] No Primary Care Physician [facility] 03-24-2025 10:46-0400 Systolic blood pressure 126 mm[Hg] No Primary Care Physician [facility] 03-16-2025 14:47-0400 Body height 175.26 cm No Primary Care Physician [facility] 03-16-2025 14:46-0400 Body mass index (BMI) [Ratio] 25.9 kg/m2 No Primary Care Physician [facility] 03-16-2025 14:46-0400 Body weight 79.63 kg No Primary Care Physician [facility] 03-16-2025 14:46-0400 Diastolic blood pressure 76 mm[Hg] No Primary Care Physician [facility] 03-16-2025 14:46-0400 Systolic blood pressure 123 mm[Hg] No Primary Care Physician [facility] 03-08-2025 10:35-0400 Body height 175.26 cm No Primary Care Physician [facility] 03-08-2025 10:35-0400 Body mass index (BMI) [Ratio] 25.6 kg/m2 No Primary Care Physician [facility] 03-08-2025 10:35-0400 Body weight 78.64 kg No Primary Care Physician [facility] 03-08-2025 10:35-0400 Diastolic blood pressure 65 mm[Hg] No Primary Care Physician [facility] 03-08-2025 10:35-0400 Systolic blood pressure 115 mm[Hg] No Primary Care Physician [facility] 03-03-2025 11:34-0400 Body height 175.26 cm No Primary Care Physician [facility] 03-03-2025 11:32-0400 Body mass index (BMI) [Ratio] 25.4 kg/m2 No Primary Care Physician [facility] 03-03-2025 11:32-0400 Body weight 78.18 kg No Primary Care Physician [facility] 03-03-2025 11:32-0400 Diastolic blood pressure 70 mm[Hg] No Primary Care Physician [facility] 03-03-2025 11:32-0400 Systolic blood pressure 107 mm[Hg] No Primary Care Physician [facility] 02-15-2025 10:03-0400 Body height 175.26 cm No Primary Care Physician [facility] 02-15-2025 10:03-0400 Body mass index (BMI) [Ratio] 25.4 kg/m2 No Primary Care Physician [facility] 02-15-2025 10:03-0400 Body weight 78.07 kg No Primary Care Physician [facility] 02-15-2025 10:03-0400 Diastolic blood pressure 67 mm[Hg] No Primary Care Physician [facility] 02-15-2025 10:03-0400 Systolic blood pressure 108 mm[Hg] No Primary Care Physician [facility] 02-02-2025 14:37-0400 Body height 175.26 cm No Primary Care Physician [facility] 02-02-2025 14:34-0400 Body mass index (BMI) [Ratio] 25.2 kg/m2 No Primary Care Physician [facility] 02-02-2025 14:34-0400 Body weight 77.33 kg No Primary Care Physician [facility] 02-02-2025 14:34-0400 Diastolic blood pressure 64 mm[Hg] No Primary Care Physician [facility] 02-02-2025 14:34-0400 Systolic blood pressure 109 mm[Hg] No Primary Care Physician [facility] 01-20-2025 10:24-0400 Body height 175.26 cm No Primary Care Physician [facility] 01-20-2025 10:24-0400 Body mass index (BMI) [Ratio] 24.8 kg/m2 No Primary Care Physician [facility] 01-20-2025 10:24-0400 Body weight 76.31 kg No Primary Care Physician [facility] 01-20-2025 10:24-0400 Diastolic blood pressure 68 mm[Hg] No Primary Care Physician [facility] 01-20-2025 10:24-0400 Systolic blood pressure 109 mm[Hg] No Primary Care Physician [facility] 01-05-2025 08:18-0400 Body height 175.26 cm No Primary Care Physician [facility] 01-05-2025 08:18-0400 Body mass index (BMI) [Ratio] 24.7 kg/m2 No Primary Care Physician [facility] 01-05-2025 08:18-0400 Body weight 75.97 kg No Primary Care Physician [facility] 01-05-2025 08:18-0400 Diastolic blood pressure 64 mm[Hg] No Primary Care Physician [facility] 01-05-2025 08:18-0400 Systolic blood pressure 100 mm[Hg] No Primary Care Physician [facility] 12-02-2024 11:01-0400 Body mass index (BMI) [Ratio] 23.8 kg/m2 No Primary Care Physician [facility] 12-02-2024 11:01-0400 Body weight 73.19 kg No Primary Care Physician [facility] 12-02-2024 11:01-0400 Diastolic blood pressure 66 mm[Hg] No Primary Care Physician [facility] 12-02-2024 11:01-0400 Systolic blood pressure 103 mm[Hg] No Primary Care Physician [facility] 11-02-2024 09:57-0400 Body mass index (BMI) [Ratio] 23.2 kg/m2 No Primary Care Physician [facility] 11-02-2024 09:57-0400 Body weight 71.44 kg No Primary Care Physician [facility] 11-02-2024 09:57-0400 Diastolic blood pressure 80 mm[Hg] No Primary Care Physician [facility] 11-02-2024 09:57-0400 Systolic blood pressure 124 mm[Hg] No Primary Care Physician [facility] 10-05-2024 10:45-0400 Body mass index (BMI) [Ratio] 22.9 kg/m2 No Primary Care Physician [facility] 10-05-2024 10:45-0400 Body weight 70.47 kg No Primary Care Physician [facility] 10-05-2024 10:45-0400 Diastolic blood pressure 74 mm[Hg] No Primary Care Physician [facility] 10-05-2024 10:45-0400 Systolic blood pressure 130 mm[Hg] No Primary Care Physician [facility] 11-25-2023 08:47-0400 Body height 172.72 cm No Primary Care Physician [facility] 11-25-2023 08:47-0400 Body mass index (BMI) [Ratio] 25 kg/m2 No Primary Care Physician [facility] 11-25-2023 08:47-0400 Body weight 74.84 kg No Primary Care Physician [facility] 11-25-2023 08:47-0400 Diastolic blood pressure 62 mm[Hg] No Primary Care Physician [facility] 11-25-2023 08:47-0400 Systolic blood pressure 118 mm[Hg] No Primary Care Physician [facility] 10-29-2023 11:36-0400 Body weight 73.93 kg No Primary Care Physician [facility] 10-29-2023 11:36-0400 Diastolic blood pressure 71 mm[Hg] No Primary Care Physician [facility] 10-29-2023 11:36-0400 Systolic blood pressure 116 mm[Hg] No Primary Care Physician [facility] 10-29-2023 11:25-0400 Body mass index (BMI) [Ratio] 24.7 kg/m2 No Primary Care Physician [facility] 10-01-2023 10:56-0500 Body mass index (BMI) [Ratio] 24 kg/m2 No Primary Care Physician [facility] 10-01-2023 10:56-0500 Body weight 71.78 kg No Primary Care Physician [facility] 10-01-2023 10:56-0500 Diastolic blood pressure 60 mm[Hg] No Primary Care Physician [facility] 10-01-2023 10:56-0500 Systolic blood pressure 114 mm[Hg] No Primary Care Physician [facility] 09-01-2023 11:20-0500 Body mass index (BMI) [Ratio] 23.8 kg/m2 No Primary Care Physician [facility] 09-01-2023 11:20-0500 Body weight 70.93 kg No Primary Care Physician [facility] 09-01-2023 11:20-0500 Diastolic blood pressure 72 mm[Hg] No Primary Care Physician [facility] 09-01-2023 11:20-0500 Systolic blood pressure 112 mm[Hg] No Primary Care Physician [facility] 08-08-2023 15:21-0500 Body mass index (BMI) [Ratio] 23.8 kg/m2 No Primary Care Physician [facility] 08-08-2023 15:21-0500 Body weight 71.21 kg No Primary Care Physician [facility] 08-08-2023 15:21-0500 Diastolic blood pressure 73 mm[Hg] No Primary Care Physician [facility] 08-08-2023 15:21-0500 Systolic blood pressure 115 mm[Hg] No Primary Care Physician [facility] 07-11-2023 09:01-0500 Body height 172.72 cm No Primary Care Physician [facility] 07-11-2023 09:00-0500 Body mass index (BMI) [Ratio] 23.9 kg/m2 No Primary Care Physician [facility] 07-11-2023 09:00-0500 Body weight 71.32 kg No Primary Care Physician [facility] 07-11-2023 09:00-0500 Diastolic blood pressure 70 mm[Hg] No Primary Care Physician [facility] 07-11-2023 09:00-0500 Systolic blood pressure 107 mm[Hg] No Primary Care Physician [facility] 05-14-2023 08:49-0400 Body height 172.72 cm [facility] 05-14-2023 08:49-0400 Body mass index (BMI) [Ratio] 22.8 kg/m2 [facility] 05-14-2023 08:49-0400 Body temperature 97.7 [degF] [facility] 05-14-2023 08:49-0400 Body weight 68.03 kg [facility] 05-14-2023 08:49-0400 Diastolic blood pressure 66 mm[Hg] [facility] 05-14-2023 08:49-0400 Heart rate 88 /min [facility] 05-14-2023 08:49-0400 Respiratory rate 14 /min [facility] 05-14-2023 08:49-0400 SaO2% (BldA) [Mass fraction] 100 % [facility] 05-14-2023 08:49-0400 Systolic blood pressure 110 mm[Hg] [facility] 05-14-2023 08:36-0400 Body temperature 97.11 [degF] Estefany Foster APRN.[employer] ROOM ATTENDANT Work Phone: [facility] 05-14-2023 08:36-0400 Body weight 72.39 kg Estefany Foster APRN.[employer] RO[employer] ATTENDANT Work Phone: [facility] 05-14-2023 08:36-0400 Diastolic blood pressure 68 mm[Hg] Estefany Foster APRN.[employer] RO[employer] ATTENDANT Work Phone: [facility] 05-14-2023 08:36-0400 Heart rate 86 /min Estefany Foster APRN.[employer] RO[employer] ATTENDANT Work Phone: [facility] 05-14-2023 08:36-0400 Respiratory rate 20 /min Estefany Foster APRN.[employer] ROOM ATTENDANT Work Phone: [facility] 05-14-2023 08:36-0400 SaO2% (BldA) [Mass fraction] 99 % Estefany Foster APRN.[employer] ROOM ATTENDANT Work Phone: [facility] 05-14-2023 08:36-0400 Systolic blood pressure 102 mm[Hg] Estefany Foster APRN.[employer] RO[employer] ATTENDANT Work Phone: [facility] 03-13-2023 07:14-0400 Body temperature 99.3 [degF] Eduardo Oscar APRN.[employer] RO[employer] ATTENDANT Work Phone: [facility] 03-13-2023 07:14-0400 Body weight 71.4 kg Eduardo Oscar JAVASCRIPT ENGINEER.[employer] ROOM ATTENDANT Work Phone: [facility] 03-13-2023 07:14-0400 Diastolic blood pressure 60 mm[Hg] Eduardo Oscar JAVASCRIPT ENGINEER.[employer] ROOM ATTENDANT Work Phone: [facility] 03-13-2023 07:14-0400 Heart rate 111 /min Eduardo Oscar JAVASCRIPT ENGINEER.[employer] ROOM ATTENDANT Work Phone: [facility] 03-13-2023 07:14-0400 Respiratory rate 21 /min Eduardo Oscar JAVASCRIPT ENGINEER.[employer] ROOM ATTENDANT Work Phone: [facility] 03-13-2023 07:14-0400 SaO2% (BldA) [Mass fraction] 99 % Eduardo Oscar JAVASCRIPT ENGINEER.[employer] ROOM ATTENDANT Work Phone: [facility] 03-13-2023 07:14-0400 Systolic blood pressure 102 mm[Hg] Eduardo Oscar JAVASCRIPT ENGINEER.[employer] ROOM ATTENDANT Work Phone: [facility] 09-06-2022 15:33-0500 Body temperature 98.1 [degF] No Primary Care Physician [facility] 09-06-2022 15:33-0500 Diastolic blood pressure 65 mm[Hg] No Primary Care Physician [facility] 09-06-2022 15:33-0500 Heart rate 76 /min No Primary Care Physician [facility] 09-06-2022 15:33-0500 Respiratory rate 16 /min No Primary Care Physician [facility] 09-06-2022 15:33-0500 Systolic blood pressure 113 mm[Hg] No Primary Care Physician [facility] 09-06-2022 04:18-0500 SaO2% (BldA) [Mass fraction] 98 % No Primary Care Physician [facility] 09-05-2022 12:42-0500 Body height 175.26 cm No Primary Care Physician [facility] 09-05-2022 12:42-0500 Body mass index (BMI) [Ratio] 25 kg/m2 No Primary Care Physician [facility] 09-05-2022 12:42-0500 Body weight 77 kg No Primary Care Physician [facility] 09-05-2022 11:05-0500 Body mass index (BMI) [Ratio] 26 kg/m2 No Primary Care Physician [facility] 09-05-2022 11:05-0500 Body weight 77.79 kg No Primary Care Physician [facility] 09-05-2022 11:05-0500 Diastolic blood pressure 84 mm[Hg] No Primary Care Physician [facility] 09-05-2022 11:05-0500 Systolic blood pressure 119 mm[Hg] No Primary Care Physician [facility] 08-29-2022 11:39-0500 Diastolic blood pressure 74 mm[Hg] No Primary Care Physician [facility] 08-29-2022 11:39-0500 Systolic blood pressure 108 mm[Hg] No Primary Care Physician [facility] 08-29-2022 11:06-0500 Body mass index (BMI) [Ratio] 26.3 kg/m2 No Primary Care Physician [facility] 08-29-2022 11:06-0500 Body weight 78.47 kg No Primary Care Physician [facility] 08-22-2022 10:46-0500 Body height 172.72 cm No Primary Care Physician [facility] 08-22-2022 10:45-0500 Body mass index (BMI) [Ratio] 26 kg/m2 No Primary Care Physician [facility] 08-22-2022 10:45-0500 Body weight 77.62 kg No Primary Care Physician [facility] 08-22-2022 10:45-0500 Diastolic blood pressure 80 mm[Hg] No Primary Care Physician [facility] 08-22-2022 10:45-0500 Systolic blood pressure 131 mm[Hg] No Primary Care Physician [facility] 08-12-2022 10:53-0500 Body mass index (BMI) [Ratio] 25.8 kg/m2 No Primary Care Physician [facility] 08-12-2022 10:53-0500 Body weight 77.11 kg No Primary Care Physician [facility] 08-12-2022 10:53-0500 Diastolic blood pressure 77 mm[Hg] No Primary Care Physician [facility] 08-12-2022 10:53-0500 Systolic blood pressure 118 mm[Hg] No Primary Care Physician [facility] 08-01-2022 10:53-0500 Diastolic blood pressure 76 mm[Hg] No Primary Care Physician [facility] 08-01-2022 10:53-0500 Systolic blood pressure 120 mm[Hg] No Primary Care Physician [facility] 08-01-2022 10:34-0500 Body mass index (BMI) [Ratio] 25.5 kg/m2 No Primary Care Physician [facility] 08-01-2022 10:34-0500 Body weight 76.2 kg No Primary Care Physician [facility] 07-17-2022 10:48-0500 Body mass index (BMI) [Ratio] 25 kg/m2 No Primary Care Physician [facility] 07-17-2022 10:48-0500 Body weight 74.84 kg No Primary Care Physician [facility] 07-17-2022 10:48-0500 Diastolic blood pressure 64 mm[Hg] No Primary Care Physician [facility] 07-17-2022 10:48-0500 Systolic blood pressure 100 mm[Hg] No Primary Care Physician [facility] 07-04-2022 10:23-0500 Body mass index (BMI) [Ratio] 25 kg/m2 No Primary Care Physician [facility] 07-04-2022 10:23-0500 Body weight 74.61 kg No Primary Care Physician [facility] 07-04-2022 10:23-0500 Diastolic blood pressure 69 mm[Hg] No Primary Care Physician [facility] 07-04-2022 10:23-0500 Systolic blood pressure 104 mm[Hg] No Primary Care Physician [facility] 06-17-2022 08:22-0500 Body height 172.72 cm No Primary Care Physician [facility] Work Phone: 06-17-2022 08:22-0500 Body mass index (BMI) [Ratio] 25.1 kg/m2 No Primary Care Physician [facility] 06-17-2022 08:22-0500 Body weight 74.89 kg No Primary Care Physician [facility] 06-17-2022 08:22-0500 Diastolic blood pressure 64 mm[Hg] No Primary Care Physician [facility] 06-17-2022 08:22-0500 Systolic blood pressure 99 mm[Hg] No Primary Care Physician [facility] 06-05-2022 10:21-0500 Body mass index (BMI) [Ratio] 25.1 kg/m2 No Primary Care Physician [facility] 06-05-2022 10:21-0500 Body weight 74.89 kg No Primary Care Physician [facility] 06-05-2022 10:21-0500 Diastolic blood pressure 72 mm[Hg] No Primary Care Physician [facility] 06-05-2022 10:21-0500 Systolic blood pressure 129 mm[Hg] No Primary Care Physician [facility] 05-07-2022 10:57-0400 Body mass index (BMI) [Ratio] 24.5 kg/m2 No Primary Care Physician [facility] 05-07-2022 10:57-0400 Body weight 73.02 kg No Primary Care Physician [facility] 05-07-2022 10:57-0400 Diastolic blood pressure 62 mm[Hg] No Primary Care Physician [facility] 05-07-2022 10:57-0400 Systolic blood pressure 94 mm[Hg] No Primary Care Physician [facility] 04-09-2022 09:51-0400 Body mass index (BMI) [Ratio] 24.3 kg/m2 No Primary Care Physician [facility] Work Phone: 04-09-2022 09:51-0400 Body weight 72.57 kg No Primary Care Physician [facility] Work Phone: 04-09-2022 09:51-0400 Diastolic blood pressure 74 mm[Hg] No Primary Care Physician [facility] Work Phone: 04-09-2022 09:51-0400 Systolic blood pressure 117 mm[Hg] No Primary Care Physician [facility] Work Phone: 03-11-2022 14:23-0400 Body mass index (BMI) [Ratio] 24.5 kg/m2 No Primary Care Physician [facility] Work Phone: 03-11-2022 14:23-0400 Body weight 73.02 kg No Primary Care Physician [facility] Work Phone: 03-11-2022 14:23-0400 Diastolic blood pressure 60 mm[Hg] No Primary Care Physician [facility] Work Phone: 03-11-2022 14:23-0400 Systolic blood pressure 112 mm[Hg] No Primary Care Physician [facility] Work Phone: 02-04-2022 13:26-0400 Body weight 73.65 kg No Primary Care Physician [facility] Work Phone: 02-04-2022 13:23-0400 Body height 172.72 cm No Primary Care Physician [facility] Work Phone: 02-04-2022 13:23-0400 Body mass index (BMI) [Ratio] 24.7 kg/m2 No Primary Care Physician [facility] Work Phone: 02-04-2022 13:23-0400 Diastolic blood pressure 79 mm[Hg] No Primary Care Physician [facility] Work Phone: 02-04-2022 13:23-0400 Systolic blood pressure 127 mm[Hg] No Primary Care Physician [facility] Work Phone: 05-22-2017 08:32-0400 BMI (Body Mass Index) 19.64 kg/m2 Chanel Stacy MD [facility] 05-22-2017 08:32-0400 Body Temperature 96.9 [degF] Chanel Stacy MD [facility] 05-22-2017 08:32-0400 Body Temperature 96.91 [degF] Chanel Stacy MD [facility] 05-22-2017 08:32-0400 BP Diastolic 75 mm[Hg] Chanel Stacy MD [facility] 05-22-2017 08:32-0400 BP Systolic 112 mm[Hg] Chanel Stacy MD [facility] 05-22-2017 08:32-0400 Height 172.72 cm Chanel Stacy MD [facility] 05-22-2017 08:32-0400 Pulse (Heart Rate) 87 /min Chanel Stacy MD [facility] 05-22-2017 08:32-0400 Respiratory Rate 16 /min Chanel Stacy MD [facility] 05-22-2017 08:32-0400 Weight 58.61 kg Chanel Stacy MD [facility] 05-22-2017 08:32-0400 Weight 58.6 kg Chanel Stacy MD [facility] 12-14-2014 16:40-0400 BSA (Body Surface Area) 1.71 m2 Chanel Stacy MD [facility] Encounters Encounter Date Encounter Type Care Provider Facility Start: 03-24-2025 End: 03-24-2025 ambulatory No Primary Care Physician [facility] Start: 03-24-2025 End: 03-24-[address] Chanel Stacy MD -[facility] Work Phone: Start: 03-16-2025 End: 03-16-[address] Love Mccann DO -[facility] Work Phone: Start: 03-16-2025 End: 03-16-2025 ambulatory No Primary Care Physician -[facility] Start: 03-11-2025 End: 03-11-2025 ambulatory No Primary Care Physician -[facility] Start: 03-11-2025 End: 03-11-2025 Patient encounter procedure Rylee Beavers CNM -[facility] Work Phone: Start: 03-11-2025 End: 03-11-2025 ambulatory No Primary Care Physician Facility:[facility] Start: 03-08-2025 End: 03-08-2025 Patient encounter procedure Rylee Beavers CNM -[facility] Work Phone: Start: 03-08-2025 End: 03-08-2025 ambulatory No Primary Care Physician -[facility] Start: 03-03-2025 End: 03-03-2025 ambulatory No Primary Care Physician -Laboratory [facility]imen Start: 03-03-2025 End: 03-03-[address] Love Mccann DO -[facility] Work Phone: Start: 03-03-2025 End: 03-03-[address] Love Mccann DO -[facility] Work Phone: Start: 03-03-2025 End: 03-03-2025 ambulatory No Primary Care Physician -[facility] Start: 03-03-2025 End: 03-03-2025 ambulatory Love Mccann Facility:[facility] Start: 02-15-2025 End: 02-15-[address] Chanel Stacy MD -[facility] Work Phone: Start: 02-15-2025 End: 02-15-2025 ambulatory No Primary Care Physician -[facility] Start: 02-02-2025 End: 02-02-[address] Love Mccann DO -[facility] Work Phone: Start: 02-02-2025 End: 02-02-2025 ambulatory No Primary Care Physician -[facility] Start: 01-20-2025 End: 01-20-[address] Chanel Stacy MD -[facility] Work Phone: Start: 01-20-2025 End: 01-20-2025 ambulatory No Primary Care Physician [facility] Work Phone: Start: 01-05-2025 End: 01-05-2025 Patient encounter procedure Abbie DE LA GARZA -[facility] Work Phone: Start: 01-05-2025 End: 01-05-2025 ambulatory No Primary Care Physician [facility] Work Phone: Start: 01-05-2025 End: 01-05-2025 ambulatory No Primary Care Physician Facility:[facility] Start: 12-02-2024 End: 12-02-2024 Patient encounter procedure Rylee Beavers CNM -[facility] Work Phone: Start: 12-02-2024 End: 12-02-2024 ambulatory No Primary Care Physician [facility] Start: 11-09-2024 End: 11-09-2024 ambulatory FRANCISCA PATTON [facility] Start: 11-02-2024 End: 11-02-2024 Patient encounter procedure Abbie DE LA GARZA -[facility] Work Phone: Start: 11-02-2024 End: 11-02-2024 ambulatory No Primary Care Physician Facility[place] Start: 10-05-2024 End: 10-05-[address] Chanel Stacy MD -[facility] Work Phone: Start: 10-05-2024 End: 10-05-2024 ambulatory No Primary Care Physician Facility[place] Start: 09-06-2024 End: 09-06-2024 ambulatory No Primary Care Physician Facility[place] Start: 09-06-2024 End: 09-06-2024 ambulatory No Primary Care Physician Facility:[facility] Start: 08-27-2024 ambulatory Carmencita Monte Facility [facility] Start: 08-03-2024 End: 08-03-2024 ambulatory Rylee Glencoe Facility:[facility] Start: 08-01-2024 End: 08-01-2024 ambulatory Rylee Beavers Facility:[facility] Start: 07-30-2024 End: 07-30-2024 ambulatory No Primary Care Physician Facility:[facility] Start: 03-22-2024 End: 03-22-2024 ambulatory No Primary Care Physician Facility[place] Start: 03-22-2024 End: 03-22-2024 ambulatory Love Mccann Facility:[facility] Start: 02-09-2024 End: 02-09-2024 ambulatory NO PRIMARY CARE [facility] Start: 01-12-2024 End: 01-12-2024 ambulatory NO PRIMARY CARE [facility] Start: 12-11-2023 End: 12-11-2023 ambulatory VICENTE SIMPSON [facility] Start: 11-25-2023 End: 11-25-2023 ambulatory No Primary Care Physician [facility] Work Phone: Start: 11-25-2023 End: 11-25-2023 Patient encounter procedure No Primary Care Physician [facility] Work Phone: Start: 11-13-2023 End: 11-13-2023 ambulatory LOVE Huber PHAM [facility] Start: 10-29-2023 End: 10-29-2023 Patient encounter procedure No Primary Care Physician [facility] Work Phone: Start: 10-01-2023 End: 10-01-2023 Patient encounter procedure No Primary Care Physician [facility] Work Phone: Start: 09-01-2023 End: 09-01-2023 Patient encounter procedure No Primary Care Physician [facility] Work Phone: Start: 08-12-2023 End: 08-12-2023 Patient encounter procedure No Primary Care Physician [facility] Work Phone: Start: 08-08-2023 End: 08-08-2023 Patient encounter procedure No Primary Care Physician [facility] Work Phone: Start: 07-11-2023 End: 07-11-2023 ambulatory No Primary Care Physician [facility] Work Phone: Start: 07-11-2023 End: 07-11-2023 Patient encounter procedure No Primary Care Physician [facility]Laboratory, Specimen Work Phone: Start: 07-11-2023 End: 07-11-2023 Patient encounter procedure No Primary Care Physician [facility] Work Phone: Start: 05-14-2023 End: 05-14-2023 ambulatory Facility:[facility] Start: 05-14-2023 End: 05-14-2023 Emergency department patient visit [facility] Work Phone: Start: 05-14-2023 End: 05-14-2023 Patient encounter procedure Estefany Foster APRN.[employer] ROOM ATTENDANT Work Phone: [facility] Comment on above: Skin infection (Prim vielka Dx) Start: 03-13-2023 End: 03-13-2023 ambulatory Facility:[facility] Start: 03-13-2023 End: 03-13-2023 Patient encounter procedure Eduardo Oscar GARRETTLisaRADHA Work Phone: [facility] Comment on above: Strep throat (Primar y Dx); Sore throat Start: 09-06-2022 Non-patient / Non-visit No Primary Care Physician [facility] Start: 09-05-2022 Non-patient / Non-visit No Primary Care Physician [facility] Start: 09-05-2022 End: 09-06-2022 Evaluation and management of inpatient No [facility] Start: 09-05-2022 End: 09-05-2022 Patient encounter procedure No Primary Care Physician [facility] Start: 08-29-2022 End: 08-29-2022 Patient encounter procedure No Primary Care Physician [facility] Start: 08-22-2022 End: 08-22-2022 Patient encounter procedure No Primary Care Physician [facility] Start: 08-12-2022 End: 08-12-2022 ambulatory No Primary Care Physician [facility] Work Phone: Start: 08-12-2022 End: 08-12-2022 Patient encounter procedure No Primary Care Physician [facility]-Laboratory, Specimen Start: 08-12-2022 End: 08-12-2022 Patient encounter procedure No Primary Care Physician [facility] Start: 08-01-2022 End: 08-01-2022 Patient encounter procedure No Primary Care Physician [facility] Start: 07-17-2022 End: 07-17-2022 Patient encounter procedure No Primary Care Physician [facility] Start: 07-04-2022 End: 07-04-2022 Patient encounter procedure No Primary Care Physician [facility] Start: 06-21-2022 End: 06-21-2022 ambulatory No Primary Care Physician [facility] Work Phone: Start: 06-21-2022 End: 06-21-2022 Patient encounter procedure No Primary Care Physician [facility] Start: 06-17-2022 End: 06-17-2022 ambulatory No Primary Care Physician [facility] Work Phone: Start: 06-17-2022 End: 06-17-2022 Patient encounter procedure No Primary Care Physician [facility] Start: 06-05-2022 End: 06-05-2022 Patient encounter procedure No Primary Care Physician [facility] Start: 05-07-2022 End: 05-07-2022 Patient encounter procedure No Primary Care Physician [facility] Start: 04-09-2022 End: 04-09-2022 Patient encounter procedure No Primary Care Physician [facility] Start: 03-11-2022 End: 03-11-2022 Patient encounter procedure No Primary Care Physician [facility] Start: 02-19-2022 End: 02-19-2022 Patient encounter procedure No Primary Care Physician [facility] Start: 02-04-2022 End: 02-04-2022 Patient encounter procedure No Primary Care Physician [facility]Laboratory, Specimen Start: 02-04-2022 End: 02-04-2022 Patient encounter procedure No Primary Care Physician [facility] Procedures Date Procedure Procedure Detail Performing Clinician Start: 03-11-2025 Ultrasound scan for growth No Primary Care Physician Start: 03-03-2025 Beta-hemolytic Streptococcus culture No Primary Care Physician Start: 01-05-2025 Serologic test for syphilis No Primary Care Physician Start: 09-06-2024 Antibody screen Rylee romo Comment on above: Order Comment: PN Performed By: #### L [id number], BTS, [id number], BtABORH, [id number], [id number], [id number], [id number] ####[facility] [id number] [place], [id number] Start: 07-11-2023 Urine culture No Primar y [...] DTaP,Tdap,Td Vaccine (11 - Td or Tdap) [facility] Start: 01-05-2025 CBC W Auto Differential panel - Blood [facility] Start: 01-05-2025 Measurement of glucose 2 hours after glucose challenge for glucose tolerance test [facility] Start: 01-05-2025 Serologic test for syphilis [facility] Start: 01-05-[address] [facility] Start: 07-11-2023 Chlamydia deoxyribonucleic acid detection [facility] Start: 05-14-[address] [facility] Start: 03-28-2023 Influenza vaccination [facility] Start: 09-06-2022 Patient discharge [facility] Start: 09-05-2022 Administration of medication [facility] Start: 09-05-2022 Application of ice collar, cap or bag [facility] Start: 09-05-2022 Catheterization of vein [facility] Start: 09-05-2022 Introduction of urinary catheter [facility] Start: 09-05-2022 Measuring intake and output [facility] Start: 09-05-2022 Notification of physician [facility] Start: 09-05-2022 Procedure discontinued [facility] Start: 09-05-2022 Provision of activity privileges [facility] Start: 09-05-2022 Vital signs measurements [facility] Start: 09-05-[address] [facility] Start: 09-05-2022 Admission procedure [facility] Start: 07-28-2022 DEPRESSION ASSESSMENT DEPRESSION ASSESSMENT [facility] Start: 04-10-2018 PAP TESTING PAP TESTING [facility] Start: 09-25-2016 Urine microalbumin profile DTAP,TDAP,TD (7 - Td or Tdap) [facility] Start: 12-20-2014 End: 12-20-2014 OT-Hand Therapy [facility], [address] [place] [address], [id number] [facility] Start: 12-14-2014 End: 01-23-2015 Follow Up Appt Other Follow Up Appt Other [facility] Start: 12-02-2014 End: 12-06-2014 Follow Up Appt 2 weeks Follow Up Appt 2 weeks [facility] Start: 11-18-2014 End: 11-29-2014 Follow Up Appt 2 weeks Follow Up Appt 2 weeks [facility] Start: 11-18-2014 End: 12-12-2014 OT-Hand Therapy OT-Hand Therapy Physical Therapy [facility], [address] [place] [address], [address] [facility] Start: 11-11-2014 End: 11-29-2014 Follow up Appt 1 week Follow up Appt 1 week [facility] Start: 11-08-2014 End: 11-30-2014 Follow Up Appt Other Follow Up Appt Other [facility] Start: 2011 HEPATITIS C SCREENING HEPATITIS C SCREENING [facility] Start: 2011 HIV SCREENING HIV SCREENING [facility] Start: 01-12-1994 COVID-19 VACCINE (#1) COVID-19 VACCINE (#1) [facility] Anti-D (Rh) immunoglobulin [facility] Work Phone: Anti-D (Rh) immunoglobulin [facility] Anti-D (Rh) immunoglobulin [facility] CBC W Auto Different ial panel - Blood [facility] Erythrocyte mean corpuscular volume determination [facility] Hematocrit [Volume Fraction] of Blood [facility] Hemoglobin [Mass/vol ume] in Blood [facility] Hepatitis B surface antigen measurement [facility] Hepatitis C antibody measurement [facility] HIV 1+2 Ab+HIV1 p24 Ag [Presence] in Serum or Plasma by Immunoassay [facility] Leukocytes [#/volume ] in Blood [facility] Mean corpuscular hem oglobin concentration determination [facility] Mean corpuscular hem oglobin determination [facility] Measurement of gluco se 3 hours after glucose challenge for glucose tolerance test [facility] Work Phone: Neisseria gonorrhoea e rRNA [Presence] in Unspecified specimen by MINI with probe detection [facility] Neutrophil count [facility] Neutrophil percent differential count [facility] Patient Education [facility] Patient referral [facility] Work Phone: PCR test for Chlamyd ia trachomatis [facility] Platelets [#/volume] in Blood [facility] Red blood cell count [facility] Red cell distributio n width determination [facility] Rubella IgG measurement [facility] Streptococcus agalac tiae [Presence] in Unspecified specimen by Organism specific culture [facility] Treponema sp Ab [Pre sence] in Serum [facility] Ultrasound scan for growth [facility] Immunizations Immunization Date Immunization Notes Care Provider Fa cility 12-10-2023 tetanus toxoid, redu carolyn diphtheria toxoid, and acellular pertussis vaccine, adsorbed No Primary Care Physician [facility] 07-04-2022 tetanus toxoid, redu carolyn diphtheria toxoid, and acellular pertussis vaccine, adsorbed No Primary Care Physician [facility] 04-09-2021 tetanus toxoid, redu carolyn diphtheria toxoid, and acellular pertussis vaccine, adsorbed No Primary Care Physician [facility] 10-28-2011 Meningococcal, MCV4, unspecified conjugate formulation(groups A, C, Y and W-135) Eduardo Oscar JAVASCRIPT ENGINEER.MENS LOCKER ROOM ATTENDANT Work Phone: [facility] 08-14-2010 human papilloma viru s vaccine, quadrivalent Eduardo Dayne JAVASCRIPT ENGINEER.M[employer] LOCKER ROOM ATTENDANT Work Phone: [facility] 10-26-2009 human papilloma viru s vaccine, quadrivalent Eduardo Dayne JAVASCRIPT ENGINEER.MENS LOCKER ROOM ATTENDANT Work Phone: [facility] 06-03-2008 human papilloma viru s vaccine, quadrivalent Eduardo Dayne JAVASCRIPT ENGINEER.MENS LOCKER ROOM ATTENDANT Work Phone: [facility] 09-25-2006 Meningococcal, MCV4, unspecified conjugate formulation(groups A, C, Y and W-135) Eduardo Oscar JAVASCRIPT ENGINEER.MENS LOCKER ROOM ATTENDANT Work Phone: [facility] 09-25-2006 tetanus toxoid, redu carolyn diphtheria toxoid, and acellular pertussis vaccine, adsorbed Eduardo Oscar JAVASCRIPT ENGINEER.M[employer] LOCKER ROOM ATTENDANT Work Phone: [facility] 11-16-1998 diphtheria, tetanus toxoids and acellular pertussis vaccine Eduardo Oscar JAVASCRIPT ENGINEER.MENS LOCKER ROOM ATTENDANT Work Phone: [facility] 11-16-1998 trivalent poliovirus vaccine, live, oral Eduardo Oscar JAVASCRIPT ENGINEER.M[employer] LOCKER ROOM ATTENDANT Work Phone: [facility] 12-19-1995 diphtheria, tetanus toxoids and pertussis vaccine Eduardo Oscar JAVASCRIPT ENGINEER.M[employer] LOCKER ROOM ATTENDANT Work Phone: [facility] 12-19-1995 haemophilus influenz ae type b vaccine, conjugate unspecified formulation Eduardo Oscar JAVASCRIPT ENGINEER.M[employer] LOCKER ROOM ATTENDANT Work Phone: [facility] 12-19-1995 measles, mumps and rubella virus vaccine Eduardo Oscar JAVASCRIPT ENGINEER.M[employer] LOCKER ROOM ATTENDANT Work Phone: [facility] 08-02-1994 diphtheria, tetanus toxoids and pertussis vaccine Eduardo Oscar JAVASCRIPT ENGINEER.MENS LOCKER ROOM ATTENDANT Work Phone: [facility] 08-02-1994 hepatitis B vaccine, pediatric or pediatric/adolescent dosage Eduardo Oscar JAVASCRIPT ENGINEER.MENS LOCKER ROOM ATTENDANT Work Phone: [facility] 08-02-1994 measles, mumps and rubella virus vaccine Eduardo Dayne JAVASCRIPT ENGINEER.MENS LOCKER ROOM ATTENDANT Work Phone: [facility] 08-02-1994 trivalent poliovirus vaccine, live, oral Eduardo Dayne JAVASCRIPT ENGINEER.MENS LOCKER ROOM ATTENDANT Work Phone: [facility] 05-21-1994 diphtheria, tetanus toxoids and pertussis vaccine Eduardo Dayne JAVASCRIPT ENGINEER.MENS LOCKER ROOM ATTENDANT Work Phone: [facility] 05-21-1994 haemophilus influenz ae type b vaccine, conjugate unspecified formulation Eduardo Dayne JAVASCRIPT ENGINEER.MENS LOCKER ROOM ATTENDANT Work Phone: [facility] 05-21-1994 hepatitis B vaccine, pediatric or pediatric/adolescent dosage Eduardo Dayne JAVASCRIPT ENGINEER.M[employer] LOCKER ROOM ATTENDANT Work Phone: [facility] 05-21-1994 trivalent poliovirus vaccine, live, oral Eduardo Dayne JAVASCRIPT ENGINEER.MENS LOCKER ROOM ATTENDANT Work Phone: [facility] 1993 diphtheria, tetanus toxoids and pertussis vaccine Eduardo Dayne JAVASCRIPT ENGINEER.MENS LOCKER ROOM ATTENDANT Work Phone: [facility] 1993 haemophilus influenz ae type b vaccine, conjugate unspecified formulation Eduardo Dayne JAVASCRIPT ENGINEER.MENS LOCKER ROOM ATTENDANT Work Phone: [facility] 1993 hepatitis B vaccine, pediatric or pediatric/adolescent dosage Eduardo Dayne JAVASCRIPT ENGINEER.MENS LOCKER ROOM ATTENDANT Work Phone: [facility] 1993 trivalent poliovirus vaccine, live, oral Eduarod Dayne JAVASCRIPT ENGINEER.MENS LOCKER ROOM ATTENDANT Work Phone: [facility] Payers Date Payer Category Payer Private Health Insurance [id number] 2024 Self-pay [id number] 2022 Unknown MMO MMO [employer] PPO [id number] 2022-Present [phone] [address] [place] [address] PPO [id number] 2014 Unknown [id number] 1993 Unknown [id number] 2.16.840.1.934038.3.579.2.4 79 1993 Unknown [id number] 2.16840.1.361142.3.579.2.4 79 1993 Unknown [id number] 2.16840.1.609686.3.579.2.4 79 1993 Unknown [id number] 2.840.1.208304.3.579.2.4 79 1993 Unknown [id number] .840.1.940022.3.579.2.4 79 Private Health Insurance [facility] [id number] Private Health Insurance [id number] Private Health Insurance [id number] Unknown [id number] Unknown [id number] 840.1.836847.3.579.2.4 62 Unknown [id number] 840.1.198750.3.579.2.4 62 Unknown [id number] 840.1.896064.3.579.2.4 62 Unknown [id number] .840.1.900846.3.579.2.4 62 Unknown [id number] 840.1.503205.3.579.2.4 62 Unknown [id number] 2.840.1.006469.3.579.2.4 62 Unknown [id number] 2840.1.831533.3.579.2.4 62 Unknown [id number] 2.16.840.1.037791.3.579.2.4 62 Unknown [id number] 2.16.840.1.381405.3.579.2.4 62 Unknown [id number] 2.16.840.1.480582.3.579.2.4 62 Unknown [id number] 2.16.840.1.727997.3.579.2.4 62 Unknown [id number] 2.16.840.1.694078.3.579.2.4 62 Unknown [id number] 2.16.840.1.162266.3.579.2.4 62 Unknown [id number] 2.16.840.1.006570.3.579.2.4 62 Unknown [id number] 2.16.840.1.401365.3.579.2.4 62 Unknown [id number] 2.16.840.1.290682.3.579.2.4 62 Unknown [id number] 2.16.840.1.902439.3.579.2.4 62 Unknown [id number] 2.16.840.1.463655.3.579.2.4 62 Unknown [id number] 2.16.840.1.074012.3.579.2.4 62 Unknown [id number] 2.16.840.1.439497.3.579.2.4 62 Unknown [id number] 2.16.840.1.078525.3.579.2.4 62 Unknown [id number] 2.16.840.1.932872.3.579.2.4 62 Social History Date Type Detail Facility Start: 02-04-2022 End: 10-29-2023 Tobacco smoking status IDIS Unknown if ever smoked [facility] Start: 07-11-2020 Non-smoker [facility] Start: 1995 Sex Assigned At Female [facility] Start: 08-27-2024 [facility] Never smoked tobacco [facility] Start: 03-13-2023 End: 05-14-2023 Alcohol intake Current non-drinker of alcohol (finding) [facility] Start: 07-05-2020 End: 03-13-2023 History of Social function [facility] Start: 07-05-2020 End: 03-13-2023 Tobacco use panel [facility] National Score (1-10 0), lower number is lower risk Not on file [facility] Start: 1995 Sex Assigned At Not on file [facility] Medical Equipment Procedure Code Equipment Code Equipment Origin al Text Equipment Identifier Dates Blood Sugar Diagnostic (Blood Glucose Test) strip Start: 03-14-2025 Lancets misc Start: 03-14-2025 Blood Sugar Diagnostic (Blood Glucose Test) strip Start: 03-14-2025 Lancets misc Start: 03-14-2025 Blood Sugar Diagnostic (Blood Glucose Test) strip Start: 03-14-2025 Lancets misc Start: 03-14-2025 Goals Date Patient Goal Desired Activity /State Clinical Notes 04-26-2008 to 03-24-2025 Note Date & Type Note Facility 03-24-2025 Progress note [facility] 03-16-2025 Progress note [facility] 03-16-2025 Progress note Note Date/Time March 16, 2025 3:06pm [facility] [address], [address] [place] [address] OFFICE VISIT Date of Service: 03/16/25 MR#: [id number] Acct: [id number] Name: HALIE SANTO Rep #: [id number] : 1995 Provider: Dr. Tasha Mccann DO Age/Sex: 29/F Location: [facility] Status: Signed Intake Vital Signs 02/02/25 14:37 03/08/25 10:35 03/16/25 14:46 03/16/25 14:47 Height 5 ft 9 in 5 ft 9 in 5 ft 9 in 5 ft 9 in Weight: 175 lb 9 oz BMI 25.9 BP 123/76 H Intake Visit Reasons: 38wk ob Visualizer Required: No Is patient in pain?: No Allergies No Known Allergies Allergy (Verified 03/16/25 14:45) Medications ?Medication ?Instructions ?Recorded ?Confirmed ?Type docosahexaenoic acid 200 mg mg PO 08/27/24 03/16/25 Hi story capsule ( DHA) blood sugar diagnostic (Blood #120 ea 03/14/25 5 Rx Glucose Test strips) blood-glucose meter #1 ea 03/14/25 03/16/25 Rx lancets #200 ea 03/14/25 03/16/25 Rx Last Menstrual Period: 05/10/23 Zika: Zika virus screening: Negative : No PFSH PFSH Medical History History of miscarriage, currently Surgical History Status post vaginal delivery History of dilation and curettage S/P wrist surgery S/P ear surgery Family History Grandmother Diabetes Social History adopted: No household members: spouse and children number of children: 3 current occupational status: employed current occupation: [employer] current occupational exposures/hazards: No pets and animals: [...] do you participate in: none frequency: daily sea/holiness: None seatbelt use: always do you feel [...] full term 7lbs 9oz Male no ne [facility] Tawanna Gallardo 09/05/22 Riddley 39 live - full term 8#4oz Female no ne [facility] ABDIFATAH Tyl er 02/13/24 Smiley 39 live - full term 8lbs 1oz Male no ne [facility] Matt Gallardo Delivery Date: 06/27/20 Last Updated by: Carmencita Monte RN D&C Delivery Date: 06/12/21 Last Updated by: Harsha ROE HPI 38wk ob Details: HALIE SANTO is a 29 year old who presents for routine OB visit. OB Visit TASHI Calculator Estimated Delivery Date Method Current WG Current Estimate 03/29/25 Ultrasound #1 38w 1d Expected Delivery Route/Plan Labor Preferences- CB/BF [...] oz 103/66 Nega tive -?-?-?-?-?-?-?-?-?-?-?-?- Negative 147 -?-?-?-?-?-?-?--?-?-?-?-?- KW- no vb/lof/ct x. good fm. US [...] 173 lb 6 oz 115/65 Nega tive -?-?-?-?-?-?-?-?-?-?-?-?- Negative 120 34 Cephalic 2 .5 -?-?-?-?-?-?-?-?-?-?-?-?- 60 -2 KW- no vb/ lof/ctx. good fm. US ordered for S<D. 03/16/25 -?-?-?-?-?-?-?-?-?-?-?-?- 38w 1d 175 lb 9 oz 123/76 Nega tive -?-?-?-?-?-?-?-?-?-?-?-?- Negative 124 34 Cephalic 2 .5 -?-?-?-?-?-?-?-?-?-?-?-?- 60 -2 JV- AC is 96th%. She jsut got a monitor but did not know to check postprandial and fasting levels. so far did 2 fasting levels and they are in the 80's. She did the rest pre-prandial. parameters given. and when to call or send portal messages. declines IOL at 3 9weeks. ACOG First Trimester First Trimester: Desire for [...] Negative Last Edit by Toña Calderon on 03/16/25 14: 57 Office Urine Protein Negative Last Edit by Toña Calderon on 03/16/25 14: 57 Coding Level of Care Code OB Routine Diagnoses Uterine size date discrepancy O26.849 Supervision of high risk in third trimester O09.93 Trimester: third trimester 38 weeks gestation of Z3A.38 Weeks of gestation: 38 weeks History of miscarriage, currently O09.299 Rh negative status during in second trimester O26.892; Z67.91 Trimester: second trimester Assessment and Plan Assessment and Plan (1) Uterine size date discrepancy : Status: Acute Comment: growth US- AC is 96% checking BS starting 03/14 (2) Supervision of high-risk : Status: Acute Qualifiers: Trimester: third trimester Qualified Code(s): O09.93 - Supervision of high risk , unspecified, third trimester Comment: PRR , TASHI 03/29/25, surprise PC: Danielle Aguila & Smiley, : Sami (3) : Status: Acute Qualifiers: Weeks of gestation: 38 weeks Qualified Code(s): Z3A.38 - 38 weeks gestation of Comment: GBS neg, Declined genetic/carrier testing - (prior carrier testing done - negative), nl anatomy (4) History of miscarriage, currently : Status: Acute Comment: 2020 (5) Rh negative status during : Status: Acute Qualifiers: Trimester: second trimester Qualified Code(s): O26.892 - Other specified related conditions, second trimester; Z67.91 - Unspecified blood type, Rh negative Comment: A-; Rhogam PRN & 28 weeks given 01/05/25 Orders: Orders POC Urinalysis 2 Dip (Clinic) Today 03/16/25 1506 <Electronically signed by Love Geller DO> Date _ Love Mccann DO Cosignjenaro Signature: Date (if applicable) CC: ~ [facility] Work Phone: [phone]) 886-769308-15-2025 Radiology Diagnostic study note [facility] [address] [address] [place], [place] [address] OB Limited With Biometrics MR#: [id number] Acct: [id number] Name: HALIE SANTO Rep #: [id number] : 1995 F 29 From: Pet er Peer PCP: Care Physician,No Primary Status: REG CLI Study:OB Limited With Biometrics Date of Exam : 03/11/25 Exam# [id number] Ordering Dr: Rylee Beavers CNM PROCEDURE: OB LIMITED WITH BIOMETRICS 03/11/2025 REASON FOR EXAM: GROWTH AND DATES TECHNIQUE: OB LIMITED WITH BIOMETRICS FINDINGS Number: 1 Position: Cephalic Placental Position: Posterior Placental Abnormalities: None. Not low-lying placenta grade 2. DIMENSIONS: Biparietal Diameter: 9.0/36 weeks, 2 days Head Circumference: 32.8 cm/37 weeks, 2 days Abdominal Circumference: 35.3 cm/39 weeks, 2 days Femur Length: 7.2 cm/36 weeks, 6 days ESTIMATED WEIGHT: 3446 +/-517 ESTIMATED WEIGHT PERCENTILE (24+ weeks): 78 % ESTIMATED GESTATIONAL AGE: Baseline: 37 weeks, 3 days By Ultrasound: 37 weeks, 5 days ESTIMATED DATE OF DELIVERY: Baseline: March 29, 2025 By Ultrasound: March 27, 2025 BIOPHYSICAL ASSESSMENT: Amniotic Fluid Volume: 6.39 deepest pocket Amniotic Fluid Index: 12.8 (8-24 cm normal range) Cardiac Motion: 155 bpm (average) Trunk and Limb Motion: Present. MATERNAL ANATOMY: Adnexa: Neither maternal ovary is successfully identified. Cervical Length (if measured): US/OB Limited With Biometrics IMPRESSION: Total biophysical profile score 8/8 Reading Location: [facility] CC: JUSTEN Beavers; No Primary Care Physician ~ Weighmaster: Signed [facility]08-12-2025 [facility] [address], [address] [place] [address] OFFICE VISIT Date of Service: 03/08/25 MR#: [id number] Acct: [id number] Name: HALIE SANTO Rep #: [id number] : 1995 Provider: JUSTEN Beavers Age/Sex: 29/F Location: [facility] Status: Signed Intake Vital Signs 02/02/25 14:37 03/03/25 11:34 03/08/25 10:35 Height 5 ft 9 in 5 ft 9 in 5 ft 9 in Weight: 173 lb 6 oz BMI 25.6 BP 115/65 Intake Visit Reasons: 37WK OB Chief Complaint: 37wk OB Visualizer Required: No Is patient in pain?: No [...] 3 current occupational status: employed current occupation: [employer] current occupational exposures/hazards: No pets and animals: [...] do you participate in: none frequency: daily sea/holiness: None seatbelt use: always do you feel [...] full term 7lbs 9oz Male no ne [facility] Tawanna Gallardo 09/05/22 Danielle 39 live - full term 8#4oz Female no ne [facility] ABDIFATAH Aguileraer 02/13/24 Smiley 39 live - full term 8lbs 1oz Male no ne [facility] Matt Gallardo Delivery Date: 06/27/20 Last Updated [...] vb/ lof/ctx. good fm. US ordered for S ACOG First Trimester First Trimester: Desire for [...] second trimester O26.892; Z67.91 Trimester: second trimester Uterine size date discrepancy [...] information and see below for orders placed atthis visit. GA appropriate handout given. 03/08/25 1102 s CNM> Date _ Rylee Meyers Signature: Date (if applicable) CC: ~ [facility]07-22-2025 [facility] [address] [place] [address], [address] [place] [address] OFFICE VISIT Date of Service: 02/15/25 MR#: [id number] Acct: [id number] Name: HALIE SANTO Rep #: [id number] : 1995 Provider: Dr. Adis Stacy MD Age/Sex: 29/F Location: [facility] Status: Signed Intake Vital Signs 01/05/25 08:18 01/20/25 10:24 02/02/25 14:37 02/15/25 10:03 Height 5 ft 9 in 5 ft 9 in 5 ft 9 in 5 ft 9 in Weight: 172 lb 2 oz BMI 25.4 BP 108/67 Intake Visit Reasons: 34wk ob Visualizer Required: No Is patient in pain?: No [...] 3 current occupational status: employed current occupation: [employer] current occupational exposures/hazards: No pets and animals: [...] do you participate in: none frequency: daily sea/holiness: None seatbelt use: always do you feel [...] full term 7lbs 9oz Male no ne [facility] Tawanna Gallardo 09/05/22 Riddley 39 live - full term 8#4oz Female no ne [facility] ABDIFATAH Gallardo 02/13/24 Purviter 39 live - full term 8lbs 1oz Male no ne [facility] Matt Gallardo Delivery Date: 06/27/20 Last Updated by: Carmencita Monte RN D&C Delivery Date: 06/12/21 Last Updated by: Harsha Solis ISBeatriz HPI 34wk ob Details: HALIE SANTO is [...] Urinalysis 2 Dip (Clinic) Today 02/15/25 1033 bartolo EDDY> Date _ Chanel Stacy MD [facility] Signature: Date (if applicable) CC: ~ [facility] [id number] [facility] [address] [place] [address], [address] [place] [address] OFFICE VISIT Date of Service: 02/02/25 MR#: [id number] Acct: [id number] Name: GALHALIE Rep #: [id number] : 1995 Provider: Dr. Tasha Mccann DO Age/Sex: 29/F Location: [facility] Status: Signed Intake Vital Signs 01/05/25 08:18 01/20/25 10:24 02/02/25 14:34 02/02/25 14:37 Height 5 ft 9 in 5 ft 9 in 5 ft 9 in 5 ft 9 in Weight: 170 lb 8 oz BMI 25.2 BP 109/64 Intake Visit Reasons: 32wk ob Visualizer Required: No Is patient in pain?: No [...] 3 current occupational status: employed current occupation: [employer] current occupational exposures/hazards: No pets and animals: [...] do you participate in: none frequency: daily sea/holiness: None seatbelt use: always do you feel [...] full term 7lbs 9oz Male no ne [facility] Tawanna Gallardo 09/05/22 Danielle 39 live - full term 8#4oz Female no ne [facility] ABDIFATAH Gallardo 02/13/24 Smiley 39 live - full term 8lbs 1oz Male no ne [facility] Matt Gallardo Delivery Date: 06/27/20 Last Updated [...] Urinalysis 2 Dip (Clinic) Today 02/02/25 1451 reilly Funez DO> Date _ Love Mccann DO [facility] Signature: Date (if applicable) CC: ~ [facility] [id number] Progress note Author Love Funez [facility] Note Date/Time February 02, 2025 2:51p [facility] [address], [address] [place] [address] OFFICE VISIT Date of Service: 02/02/25 MR#: [id number] Acct: [id number] Name: HALIE SANTO Rep #: [id number] : 1995 Provider: Dr. Tasha Mccann DO Age/Sex: 29/F Location: [facility] Status: Signed Intake Vital Signs 01/05/25 08:18 01/20/25 10:24 02/02/25 14:34 02/02/25 14:37 Height 5 ft 9 in 5 ft 9 in 5 ft 9 in 5 ft 9 in Weight: 170 lb 8 oz BMI 25.2 BP 109/64 Intake Visit Reasons: 32wk ob Visualizer Required: No Is patient in pain?: No [...] 3 current occupational status: employed current occupation: [employer] current occupational exposures/hazards: No pets and animals: [...] do you participate in: none frequency: daily sea/holiness: None seatbelt use: always do you feel [...] full term 7lbs 9oz Male no ne [facility] Tawanna Gallardo 09/05/22 Riddley 39 live - full term 8#4oz Female no ne [facility] ABDIFATAH Gallardo 02/13/24 Smiley 39 live - full term 8lbs 1oz Male no ne [facility] Matt Gallardo Delivery Date: 06/27/20 Last Updated by: Carmencita Monte RN D&C Delivery Date: 06/12/21 Last Updated by: Harsha Solis ISL HPI 32wk ob Details: HALIE SANTO is a 29 year old who presents for routine OB visit. OB Visit TASHI Calculator Estimated Delivery Date Method Current WG Current Estimate 03/29/25 Ultrasound #1 32w 1d Expected Delivery Route/Plan Labor Preferences- CB/BF classes: no labor support person: aSmi labor intervention preferences: [] pain management options [...] Geller DO> Date _ Love Mccann DO [facility] Signature: Date (if applicable) CC: ~ [facility] Work Phone: 1(421) 251-335306-26-2025 Progress [facility] [address] [place] [address], [address] [place] [address] OFFICE VISIT Date of Service: 01/20/25 MR#: [id number] Acct: [id number] Name: GALHALIE MCLEOD Rep #: [id number] : 1995 Provider: Dr. Adis Stacy MD Age/Sex: 29/F Location: [facility] Status: Signed Intake Vital Signs 11/02/24 09:57 01/05/25 08:18 01/20/25 10:24 01/20/25 10:24 Height 5 ft 9 in 5 ft 9 in 5 ft 9 in 5 ft 9 in Weight: 167 lb 8 oz 168 lb 4 oz BMI 24.7 24.8 BP 100/64 109/68 Intake Visit Reasons: 30wk ob Visualizer Required: No Is patient in pain?: No [...] 3 current occupational status: employed current occupation: [employer] current occupational exposures/hazards: No pets and animals: [...] do you participate in: none frequency: daily sea/holiness: None seatbelt use: always do you feel [...] full term 7lbs 9oz Male no ne [facility] Tawanna Gallardo 09/05/22 Danielle 39 live - full term 8#4oz Female no ne [facility] ABDIFATAH Gallardo 02/13/24 Smiley 39 live - full term 8lbs 1oz Male no ne [facility] Matt Gallardo Delivery Date: 06/27/20 Last Updated [...] Urinalysis 2 Dip (Clinic) Today 01/20/25 1056 bartolo EDDY> Date _ Chanel Stacy MD [facility] Signature: Date (if applicable) CC: ~ [facility]05-08-2025 Evaluation note* Diagnosis Onset Date Resolution Status [...] 9:53am History of miscarriage, currently acute March 03 11:25am acute March 03 11:25am Rh negative status during acute March 03, 2025 11:25am Supervision of high-risk acute March 03, 2025 11:25am [facility] Work Phone: 1(650) 147-535205-08-2025 Evaluation note* Diagnosis Onset Date Resolution Status [...] acute March 08, 2025 10:32am acute March 08 10:32am Rh negative status during acute March 08 10:32am Supervision of high-risk acute March 08 10:32am Uterine size date discrepanc y acute March 08 10:32am [facility] Work Phone: 1(854) 207-348405-08-2025 Evaluation note* Diagnosis Onset Date Resolution Status [...] March 08, 2025 10:32am acute March 08, 2 025 10:32am Rh negative status during acute March 08 10:32am Supervision of high-risk acute March 08 10:32am Uterine size date discrepanc y acute March 08 10:32am History of miscarriage, currently acute March 16, 2025 2:44pm acute March 16, 2:44pm Rh negative status during acute March 16 2:44pm Supervision of high-risk acute March 16 2:44pm Uterine size date discrepanc y acute March 16 2:44pm [facility] Work Phone: 1([phone]) 703-770005-08-2025 Evaluation note* Diagnosis Onset Date Resolution Status [...] History of miscarriage, currently acute March 03, 11:25am acute March 03 11:25am Rh negative status during acute March 03, 2025 11:25am Supervision of high-risk acute March 03, 2025 11:25am History of miscarriage, currently acute March 08, 2025 10:32am acute March 08 10:32am Rh negative status during acute March 08 10:32am Supervision of high-risk acute March 08 10:32am Uterine size date discrepanc y acute March 08 10:32am History of miscarriage, currently acute March 16, 2025 2:44pm acute March 16, 2:44pm Rh negative status during acute March 16 2:44pm Supervision of high-risk acute March 16 2:44pm Uterine size date discrepanc y acute March 16 2:44pm History of miscarriage, currently acute March 24, 2025 10:37am acute March 24, 10:37am Rh negative status during acute March 24 10:37am Supervision of high-risk acute March 24 10:37am Uterine size date discrepanc y acute March 24 10:37am [facility] Work Phone: 1(186) 193-674004-08-2025 Evaluation note* Diagnosis Onset Date Resolution Status [...] of high-risk acute February 15, 2025 9:53am [facility] Work Phone: 1(175) 205-313803-11-2025 Evaluation note* Diagnosis Onset Date Resolution Status [...] of high-risk acute January 05, 2025 8:14am [facility] Work Phone: 1(782) 648-646303-11-2025 Evaluation note* Diagnosis Onset Date Resolution Status [...] of high-risk acute January 20, 2025 10:17am [facility] Work Phone: 1(239) 941-369003-11-2025 Evaluation note* Diagnosis Onset Date Resolution Status [...] high-risk acute February 02, 2025 2 :31pm [facility] Work Phone: 1([phone]) [phone] NoteHNO ID: [id number] Author: Estefany Foster APRN.MENS LOCKER ROOM ATTENDANT Service: ? Author Type: Nurse Practitioner Type: [...] with this care plan. Will take her self.[facility]10-18-2023 History of Present illness Narrative* Estefany Foster APRN.MENS LOCKER ROOM ATTENDANT - 05/14/2023 8:44 AM EDT Patient came [...] Will take her self. [facility]23 NoteHNO ID: [id number] Author: Eduardo Oscar APRN.M[employer] LOCKER ROOM ATTENDANT Service: ? Author Type: Nurse Practitioner Type: [...] - STREP A MOLECULAR (POC) Eduardo Oscar APRN.[facility]08-17-2023 History of Present illness Narrative* Eduardo Oscar APRN.MENS LOCKER ROOM ATTENDANT - 03/13/2023 7:17 AM EDT Subjective HPI [...] - STREP A MOLECULAR (POC) Eduardo Oscar APRN.MENS LOCKER ROOM ATTENDANT documented in this [facility]02-10-2023 Progress note Author Shyla Wallaec [facility] September 06, 2022 3:12pm Note Date/Time September 06, 2022 3:12pm [facility] Medical Records Department [address] [place] [address] Progress Note - OBGYN 09/06/22809 MR#: [id number] Acct: [id number] Name: HALIE SANTO Rep #:[id number] : 1995 27 From: Shyla Wallace CNM PCP: Care Physician,No Primary Status :ADM IN Location: UA248-5 Subjective Subjective Patient doing well without complaints. [...] Cosigner Signature (if applicable): CC: ~ Signed [facility] Work Phone: 1(197) 589-945302-09-2023 Procedure [facility] 09-05-2022 History and physical note Author Dr. Stacy [facility] September 05, 2022 1:41pm Note Date/Time September 05, 2022 1 :41pm [facility] Medical Records Department [address] [place] [address] H&P Exam - LINOLEUM PRINTER 09/05/22 1338 MR#: [id number] Acct: [id number] Name: HALIE SANTO Rep #:[id number] : 1995 27 From: Chanel goel MD PCP: Care Physician,No Primary Status :ADM IN Location: AK177-5 HPI - General General Date of Admission: [...] spouse current occupational status: employed current occupation: [employer] pets and animals: Yes Smoking Status: Former [...] Aguila 40 live - full term Male [facility] Tawanna Gallardo Delivery Date: 06/12/21 Last Updated [...] Nega tive -?-?-?-?-?-?-?-?-?-?-?-?- Negative 152 28 -?-?-?-?-?-?-?-?-?-?-?-?- MH-no VB, LOF. Good FM. Had fall onto [...] MD> Cosigner Signature (if applicable): CC: Dr. hCanel Stacy MD; No Primary Care Physician~ Signed [facility] Work Phone: [phone]) [phone] History of Past illness Narrative* Problem Noted Date Diagnosed Date Resolved Date WOUND (NOT COMPLICATED) - OP EN FOOT (NOT TOES) 04/26/2008 11/13/2011 documented as of this encounter (statuses as of 03/13/2023) [facility]09-30-2008 History of Past illness Narrative* Problem Noted Date Diagnosed Date Resolved Date WOUND (NOT COMPLICATED) - OP EN FOOT (NOT TOES) 04/26/2008 11/13/2011 documented as of this encounter (statuses as of 05/14/2023) [facility] Diagnosis Onset Date Resolution Status acute Rh negative status during acute Short interval between pregn ancies affecting , antepartum acute Supervision of normal acute [facility] Work Phone: Evaluation note* Diagnosis Onset Date Resolution Status acute [...] , antepartum acute Supervision of normal acute [facility] Work Phone: evaluation note* Diagnosis [...] , antepartum acute Supervision of normal acute [facility] Work Phone: Evaluation note* Diagnosis Onset Date Resolution Status Rh [...] , antepartum resolved Supervision of normal resolved [facility] Work Phone: Evaluation note* Diagnosis Strep throat- Primary Streptococcal sore throat Sore throat Acute pharyngitis documented in this encounter [facility] noteNo assessment information availableWDoctors [facility] Work Phone: Evaluation note* Diagnosis Skin infection- Primary Unspecified local infection of skin and subcutaneous tissue documented in this encounter [facility] note* Diagnosis Onset Date Resolution Status History of miscarriage, currently acute acute Rh negative status during acute Supervision of high risk in first trimester acute [facility] Work Phone: Evaluation note* Diagnosis Onset Date Resolution Status History [...] of high risk in first trimester acute [facility] Work Phone: Hospital Discharge instructions [...] days for wound recheck with your PCP. [facility] Work Phone: Progress note Author Chanel Stacy [facility] Note Date/Time January 20, 2025 10:5 6am [facility] [address], [address] [place] [address] OFFICE VISIT Date of Service: 01/20/25 MR#: [id number] Acct: [id number] Name: GALHALIE HARSHA Rep #: [id number] : 1995 Provider: Dr. Adis Stacy MD Age/Sex: 29/F Location: [facility] Status: Signed Intake Vital Signs 11/02/24 09:57 01/05/25 08:18 01/20/25 10:24 06/26/25 10:24 Height 5 ft 9 in 5 ft 9 in 5 ft 9 in 5 ft 9 in Weight: 167 lb 8 oz 168 lb 4 oz BMI 24.7 24.8 BP 100/64 109/68 Intake Visit Reasons: 30wk ob Visualizer Required: No Is patient in pain?: No [...] 3 current occupational status: employed current occupation: [employer] current occupational exposures/hazards: No pets and animals: [...] do you participate in: none frequency: daily sea/holiness: None seatbelt use: always do you feel [...] full term 7lbs 9oz Male no ne [facility] Tawanna Gallardo 09/05/22 Danielle 39 live - full term 8#4oz Female no ne [facility] ABDIFATAH Gallardo 02/13/24 Smiley 39 live - full term 8lbs 1oz Male no ne [facility] Matt Gallardo Delivery Date: 06/27/20 Last Updated [...] Cosign Signature: Date (if applicable) CC: ~ [facility] Work Phone: Progress note Author Chanel Stacy [facility] Note Date/Time February 15, 2025 10:3 3am [facility] [address] [place] [address], [address] [place] [address] OFFICE VISIT Date of Service: 02/15/25 MR#: [id number] Acct: [id number] Name: HALIE SANTO Rep #: [id number] : 1995 Provider: Dr. Adis Stacy MD Age/Sex: 29/F Location: [facility] Status: Signed Intake Vital Signs 01/05/25 08:18 01/20/25 10:24 02/02/25 14:37 02/15/25 10:03 Height 5 ft 9 in 5 ft 9 in 5 ft 9 in 5 ft 9 in Weight: 172 lb 2 oz BMI 25.4 BP 108/67 Intake Visit Reasons: 34wk ob Visualizer Required: No Is patient in pain?: No [...] 3 current occupational status: employed current occupation: [employer] current occupational exposures/hazards: No pets and animals: [...] do you participate in: none frequency: daily sea/holiness: None seatbelt use: always do you feel [...] full term 7lbs 9oz Male no ne [facility] Tawanna Gallardo 09/05/22 Danielle 39 live - full term 8#4oz Female no ne [facility] ABDIFTAAH Gallardo 02/13/24 Smiley 39 live - full term 8lbs 1oz Male no ne [facility] Matt Gallardo Delivery Date: 06/27/20 Last Updated by: Carmencita Monte RN D&C Delivery Date: 06/12/21 Last Updated by: Harsha Solis ISBeatriz HPI 34wk ob Details: HALIE SANTO is [...] mcfarland MD> Date _ Chanel Stacy MD [facility] Signature: Date (if applicable) CC: ~ [facility] Work Phone: Progress note Author Rylee Beavers [facility] Note Date/Time March 08, 2025 11 :02am [facility] Women[facility] Care [address] [place] [address], [address] [place] [address] OFFICE VISIT Date of Service: 03/08/25 MR#: [id number] Acct: [id number] Name: HALIE SANTO Rep #: [id number] : 1995 Provider: JUSTEN Beavers Age/Sex: 29/F Location: [facility] Status: Signed Intake Vital Signs 02/02/25 14:37 03/03/25 11:34 03/08/25 10:35 Height 5 ft 9 in 5 ft 9 in 5 ft 9 in Weight: 173 lb 6 oz BMI 25.6 BP 115/65 Intake Visit Reasons: 37WK OB Chief Complaint: 37wk OB Visualizer Required: No Is patient in pain?: No [...] current occupational status: employed current occupation: [employer] current occupational exposures/hazards: No pets and animals: [...] do you participate in: none frequency: daily sea/holiness: None seatbelt use: always do you feel [...] full term 7lbs 9oz Male no ne [facility] Tawanna Sami 09/05/22 Riddley 39 live - full term 8#4oz Female no ne [facility] ABDIFATAH Sami 02/13/24 Smiley 39 live - full term 8lbs 1oz Male no ne [facility] Matt Funez Smai Delivery Date: 06/27/20 Last Updated by: Carmencita Monte RN D&C Delivery Date: 06/12/21 Last Updated by: Harsha Solis ISBeatriz HPI 37WK OB Details: HALIE SANTO is [...] second trimester O26.892; Z67.91 Trimester: second trimester Uterine size date discrepancy [...] by Rylee lechuga CNM> Date _ Rylee Beavers CNM Cosigner Signature: Date (if applicable) CC: ~ [facility] Work Phone: Progrwrv note Author Chanel Stacy [facility] Note Date/Time March 24, 2025 10 :58am [facility] Women[facility] Care [address] [place] [address], [address] [place] [address] OFFICE VISIT Date of Service: 03/24/25 MR#: [id number] Acct: [id number] Name: HALIE SANTO Rep #: [id number] : 1995 Provider: Dr. Adis Stacy MD Age/Sex: 29/F Location: [facility] Status: Signed Intake Vital Signs 02/02/25 14:37 03/16/25 14:47 03/24/25 10:46 03/24/25 10:46 Height 5 ft 9 in 5 ft 9 in 5 ft 9 in 5 ft 9 in Weight: 176 lb 9 oz BMI 26.0 BP 126/82 H Intake Visit Reasons: 39wk ob Visualizer Required: No Is patient in pain?: No Allergies No Known Allergies Allergy (Verified 03/24/25 10:43) Medications ?Medication ?Instructions ?Recorded ?Confirmed ?Type docosahexaenoic acid 200 mg mg PO 08/27/24 03/24/25 Hi story capsule ( DHA) blood sugar diagnostic (Blood #120 ea 03/14/25 5 Rx Glucose Test strips) blood-glucose meter #1 ea 03/14/25 03/24/25 Rx lancets #200 ea 03/14/25 03/24/25 Rx Last Menstrual Period: 05/10/23 Zika: Zika virus screening: Negative : No PFSH PFSH Medical History History of miscarriage, currently Surgical History Status post vaginal delivery History of dilation and curettage S/P wrist surgery S/P ear surgery Family History Grandmother Diabetes Social History adopted: No household members: spouse and children number of children: 3 current occupational status: employed current occupation: [employer] current occupational exposures/hazards: No pets and animals: [...] do you participate in: none frequency: daily sea/holiness: None seatbelt use: always do you feel [...] full term 7lbs 9oz Male no ne [facility] Tawanna Gallardo 09/05/22 Danielle 39 live - full term 8#4oz Female no ne [facility] ABDIFATAH Gallardo 02/13/24 Smiley 39 live - full term 8lbs 1oz Male no ne [facility] Matt Gallardo Delivery Date: 06/27/20 Last Updated by: Carmencita Monte RN D&C Delivery Date: 06/12/21 Last Updated by: Harsha ROE HPI 39wk ob Details: HALIE SANTO is a 29 year old who presents for routine OB visit. OB Visit TASHI Calculator Estimated Delivery Date Method Current WG Current Estimate 03/29/25 Ultrasound #1 39w 2d Expected Delivery Route/Plan Labor Preferences- CB/BF [...] 157 lb 8 oz 131/78 -?-?-?-?-?-?-?-?-?-?-?-?- 163 -?-?-?-?-?-?--?-?-?-?-?-?- JV- CRL consiste nt with 6 week ultrasound. patient declines NIPT. mild nausea, declines medication. 10/05/24 -?-?-?-?-?-?-?-?-?-?-?-?- 15w 0d 155 lb 6 oz 130/74 Nega tive -?-?-?-?-?-?-?-?-?-?-?-?- Negative 150 -?-?-?-?-?-?-?-?-?-?-?-?- SM- no vb llof c ramping 11/02/24 -?-?-?-?-?-?-?-?-?-?--?-?- 19w 0d 157 lb 8 oz 124/80 Nega tive -?-?-?-?-?-?-?-?-?-?-?-?- Negative 145 -?-?-?-?-?-?-?-?-?-?-?-?- -No VB, LOF. F eeling movement. 12/02/24 -?-?-?-?-?-?-?-?-?-?-?-?- 23w 2d 161 lb 6 oz 103/66 Nega tive -?-?-?-?-?-?-?-?-?-?-?-?- Negative 147 -?-?-?-?-?-?-?-?-?-?-?-?- KW- no vb/lof/ct x. good fm. US reviewed. 28 week labs discussed 01/05/25 -?-?-?-?-?-?-?-?-?-?-?-?- 28w 1d 167 lb 8 oz 100/64 Nega tive -?-?-?-?-?-?-?-?--?-?-?-?- Negative 138 28 -?-?-?-?-?-?-?-?-?-?-?-?- -No VB, LOF. [...] go od fm no reuglar ctx 03/03/25 -?-?-?-?--?-?-?-?-?-?-?-?- 36w 2d 172 lb 6 oz 107/70 Nega tive -?-?-?-?-?-?-?-?-?-?-?-?- Negative 140 34 Cephalic -?-?-?-?-?-?-?-?-?-?-?-?- JV- bedside ultr asound today for position and fluid. If still measuring small next visit will get a growth scan. gbs collected. declines vaginal exam. 03/08/25 -?-?-?-?-?-?-?-?-?-?-?-?- 37w 0d 173 lb 6 oz 115/65 Nega tive -?-?-?-?-?-?-?-?-?-?-?-?- Negative 120 34 Cephalic 2 .5 -?-?-?-?-?-?-?-?-?-?-?-?- 60 -2 KW- no vb/ lof/ctx. good fm. US ordered for S<D. 03/16/25 -?-?-?-?-?-?-?-?-?-?-?-?- 38w 1d 175 lb 9 oz 123/76 Nega tive -?-?-?-?-?-?-?-?-?-?-?-?- Negative 124 34 Cephalic 2 .5 -?-?-?-?-?-?-?-?-?-?-?-?- 60 -2 JV- AC is 96th%. She jsut got a monitor but did not know to check postprandial and fasting levels. so far did 2 fasting levels and they are in the 80's. She did the rest pre-prandial. parameters given. and when to call or send portal messages. declines IOL at 3 9weeks. 03/24/25 -?-?-?-?-?-?-?-?-?-?-?-?- 39w 2d 176 lb 9 oz 126/82 Nega tive -?-?-?-?-?-?-?-?-?-?-?-?- Negative 120 37 Cephalic 4 -?-?-?-?-?-?-?-?-?-?-?-?- 70 -2 SM- no vb lof good fm no regular ctx declines IOL ACOG First Trimester First Trimester: Desire for [...] Negative Last Edit by Abbie Marmolejo on 03/24/25 10:48 Office Urine Protein Negative Last Edit by Abbie Marmolejo on 03/24/25 10:48 Coding Level of Care Code OB Routine Diagnoses Uterine size date discrepancy O26.849 Supervision of high risk in third trimester O09.93 Trimester: third trimester 39 weeks gestation of Z3A.39 Weeks of gestation: 39 weeks History of miscarriage, currently O09.299 Rh negative status during in second trimester O26.892; Z67.91 Trimester: second trimester Assessment and Plan Assessment and Plan (1) Uterine size date discrepancy : Status: Acute Comment: growth US- AC is 96% checking BS starting 03/14 (2) Supervision of high-risk : Status: Acute Qualifiers: Trimester: third trimester Qualified Code(s): O09.93 - Supervision of high risk , unspecified, third trimester Comment: PRR , TASHI 03/29/25, surprise PC: Danielle Aguila & Smiley, : Sami (3) : Status: Acute Qualifiers: Weeks of gestation: 39 weeks Qualified Code(s): Z3A.39 - 39 weeks gestation of Comment: GBS neg, Declined genetic/carrier testing - (prior carrier testing done - negative), nl anatomy (4) History of miscarriage, currently : Status: Acute Comment: 2020 (5) Rh negative status during : Status: Acute Qualifiers: Trimester: second trimester Qualified Code(s): O26.892 - Other specified related conditions, second trimester; Z67.91 - Unspecified blood type, Rh negative Comment: A-; Rhogam PRN & 28 weeks given 01/05/25 Orders: Orders POC Urinalysis 2 Dip (Clinic) Today 03/24/25 1058 <Electronically signed by Chanel mcfarland MD> Date _ Chanel Stacy MD Cosigner Signature: Date (if applicable) CC: ~ [facility] Work Phone: Reason for referral (narrative)No reason for referral information availableRobert F. [facility] Work Phone: Chief Complaint and Reason for Visit Chief Complaint NOB LMP 12/01 Reason for Visit Rh negative status during [...] FINGER RIGHT JALLOH ND New OB LMP 10/14/23 Reason for Visit History of miscarria ge, [...] 2024 10: 41am Rh negative status during [facility] 2024 10:41am Supervision of high-risk October 05, [...] 2025 11: 25am Rh negative status during 2024 11:25am Supervision of high-risk Febus 2024 11:25am History of miscarriage, currently pregna nt March 08, 2025 10:32am March 08, 2025 10 :32am Rh negative status during Febu st 2024 10:32am Supervision of high-risk Augus t 2024 10:32am Uterine size date discrepancy March 08, 2025 10:32am Chief Complaint Admit Date 23wk ob December 02, 2024 10:56a m 28wk ob/glucose/rhogam January 05, 2025 8 :14am 30wk ob January 20, 2025 10:1 7am 32wk ob February 02, 2025 2:31p m 34wk ob February 15, 2025 9:53 am 36wk ob March 03, 2025 11: 25am 37WK OB March 08, 2025 10 :32am GROWTH AND DATES March 11, 2025 3:45pm 38wk ob March 16, 2025 2: 44pm Reason for Visit Admit Date History of [...] 2025 11: 25am Rh negative status during 2024 11:25am Supervision of high-risk Febus 2024 11:25am History of miscarriage, currently pregna nt March 08, 2025 10:32am March 08, 2025 10 :32am Rh negative status during Febu st 2024 10:32am Supervision of high-risk Augus t 2024 10:32am Uterine size date discrepancy March 08, 2025 10:32am History of miscarriage, currently pregna nt March 16, 2025 2:44pm March 16, 2025 2: 44pm Rh negative status during Febu 2024 2:44pm Supervision of high-risk Augus t 2024 2:44pm Uterine size date discrepancy March 16, 2025 2:44pm Chief Complaint Admit Date 23wk ob December 02, 2024 10:56a m 28wk ob/glucose/rhogam January 05, 2025 8 :14am 30wk ob January 20, 2025 10:1 7am 32wk ob February 02, 2025 2:31p m 34wk ob February 15, 2025 9:53 am 36wk ob March 03, 2025 11: 25am 37WK OB March 08, 2025 10 :32am GROWTH AND DATES March 11, 2025 3:45pm 38wk ob March 16, 2025 2: 44pm 39wk ob March 24, 2025 10 :37am Reason for Visit Admit Date History of [...] 2025 11: 25am Rh negative status during 2024 11:25am Supervision of high-risk 2024 11:25am History of miscarriage, currently pregna nt March 08, 2025 10:32am March 08, 2025 10 :32am Rh negative status during 2024 10:32am Supervision of high-risk Augus 2024 10:32am Uterine size date discrepancy March 08, 2025 10:32am History of miscarriage, currently pregna nt March 16, 2025 2:44pm March 16, 2025 2: 44pm Rh negative status during 2024 2:44pm Supervision of high-risk Augus 2024 2:44pm Uterine size date discrepancy March 16, 2025 2:44pm History of miscarriage, currently pregna nt March 24, 2025 10:37am March 24, 2025 10 :37am Rh negative status during Febu 2024 10:37am Supervision of high-risk Augus t 2024 10:37am Uterine size date discrepancy March 24, 2025 10:37am Advance Directives Advance Directive Response Recorded Date/ Time Advance Directives No May 14, 2021 10:15am Living Will No June 12 021 1:03pm Power of Sagger Filler No June 12, 2021 1:03pm Advance Directive Response Recorded Date/ Time Advance Directives No May 14, 2021 9:15am Living Will No June 12, 021 12:03pm Power of Sagger Filler No June 12, 2021 12:03pm Advance Directive Response Recorded Date/ Time Advance Directives No May 14, 2021 9:15am Living Will No September 05 1:42pm Power of Sagger Filler No September 05, 2022 1:42pm Advance Directive Response Recorded Date/ Time Advance Directives No May 14, 2021 10:15am Living Will No May 14 8:55am Power of Sagger Filler No May 14, 2023 8:55am Advance Directive Response Recorded Date/ Time Advance Directives No May 12:19pm Living Will No June 13, 2 023 12:19pm Power of Sagger Filler No June 13, 2023 12:19pm Advance Directive Response Recorded Date/ Time Advance Directives No May 1:19pm Living Will No June 13, 2 023 1:19pm Power of Sagger Filler No June 13, 2023 1:19pm Advance Directive [...] Provider, Refer ring Provider Active Abbie Bronson [employer] Attending Provider Active Team Status: Inactive Member [...] Physician Primary Care Provider Active Abbie Bronson [employer], [employer] Attending Provider, Referring Provider Active Team Status: [...] 2024 End: November 02, 2024 Abbie Bronson [employer], [employer] Attending Provider Active Start: November 02, 2024 [...] 2025 End: January 05, 2025 Abbie Bronson [employer], [employer] Attending Provider Active Start: January 05, 2025 [...] 2024 End: November 02, 2024 Abbie Bronson NP, [employer] Attending Provider Active Start: November 02, 2024 [...] End: January 05, 2025 Abbie Bronson NP [employer] Attending Provider Active Start: January 05, 2025 [...] End: November 02, 2024 Abbie Bronson NP [employer] Attending Provider Active Start: November 02, 2024 [...] January 05, 2025 End: January 05, 2025 FREDERIC Jaimes NP Attending Provider Active Start: January 05, 2025 [...] End: January 05, 2025 Abbie Bronson NP, [employer] Attending Provider Active Start: January 05, 2025 [...] March 08, 2025 End: March 08, 2025 Rlyee Beavers CNM Attending Provider Active S tart: [...] Physician Primary Care Provider Active Start: March 11, 2025 Rylee Beavers CNM Attending Provider Active S tart: March 11, 2025 Rylee Beavers CNM Referring Provider Active S tart: March 11, 2025 Team Status: Inactive Member Role/Relationship Status Dates No Primary Care Physician Primary Care Provider Active Start: March 16, 2025 End: March 16, 2025 No Primary Care Physician Referring Provider Active Start: March 16, 2025 End: March 16, 2025 Dr. Love Mccann DO Attending Provider Activ e Start: March 16, 2025 End: March 16, 2025 Team Status: Inactive Member Role/Relationship Status Dates No Primary Care Physician Primary Care Provider Active Start: March 11, 2025 End: March 11, 2025 Rylee Beavers CNM Attending Provider Active S tart: March 11, 2025 End: March 11, 2025 Rylee Beavers CNM Referring Provider Active S tart: March 11, 2025 End: March 11, 2025 Team Status: Inactive Member Role/Relationship Status Dates No Primary Care Physician Primary Care Provider Active Start: March 24, 2025 End: March 24, 2025 No Primary Care Physician Referring Provider Active Start: March 24, 2025 End: March 24, 2025 Dr. Chanel Stacy MD Attending Provider Active Start: March 24, 2025 End: March 24, 2025 Source Comments (unrecognize d section and content) In the event this informatio n is protected by the Federal Confidentiality of Alcohol and Drug Abuse Patient Records regulations: The Federal rules restrict any use of the information to criminally investigate or prosecute any alcohol or drug abuse patient.[facility] the event this information is protected by the Federal Confidentiality of Alcohol and Drug Abuse Patient Records regulations: The Federal rules restrict any use of the information to criminally investigate or prosecute any alcohol or drug abuse patient.[facility] Reason for Visit (unrecogniz ed section and content) Reason Comments Sore Throat Fever, JALLOH, bilateral ear pain x 3 days Reason Comments Insect Bite Bug bite on right jalloh nd ring finger x 2 days INFORMATION SOURCE (unrecogn ized section and content) DATE CREATED AUTHOR 05/15/2023 [facility] DATE CREATED AUTHOR AUTHOR'S ORGANIZ ATION 11/10/2024 [facility] DATE CREATED AUTHOR AUTHOR'S ORGANIZ ATION 03/18/2025 [facility] FOR RECORDS PERTAINING TO PATIENTS WHO [...] BE BASED ON THE PRIMARY CLINICAL RECORDS. [facility] [employer] [facility]. provides no warranty or guarantee of the accuracy or completeness of information in this document."
[2025-03-24 23:07] VITALS: PULSE 80; RESP 16; TEMP 36.1; O2SAT 99
[2025-03-24 23:35] VITALS: BP 121/76; PULSE 87
--- OUTSIDE RECORDS SUMMARY | 2025-03-24 23:35 | XMS RPT_ITS | CCD ---
Author Organization [facility] Care Team Providers Care Gem Carver Name Role Phone Chanel Stacy MD Unavailable [...] Love Mccann Attending Provider [phone] Aiyana COUNSEL, SVETA-Maria Del Rosario Leiva Attending Provider [phone] Love Mccann Attending Provider [phone] Aiyana COUNSEL, VSETA-Maria Del Rosario Leiva Attending Provider [phone] FRANCISCA PATTON Attending Unavailable NO PRIMARY CARE, Primary Care Unavailable LOVE PHAM Referring Unavailab le LOVE HPAM Referring Unavailab le NO PRIMARY CARE, Primary Care Unavailable LOVE PHAM Attending Unavailab VICENTE Cobos Attending Unavailable NO PRIMARY CARE, Primary Care Unavailable LOVE PHAM Referring Unavailab le NO PRIMARY CARE, Primary Care Unavailable ZANA WRAY Attending Unavailable LOVE PHAM Referring Unavailab le NO PRIMARY CARE, Primary Care Unavailable ZANA RWAY Attending Unavailable LOVE PHAM Referring Unavailab le Care Physician, No Primary Primary Care Provider Unavailable Care Physician, No Primary Referring Provider Un available Tawanna EDDY, Dr. Buchanan Attending Provider [phone] Abbie Cantu Attending Provider [phone] Rylee Beavers CNM Attending Provider [phone] Dr. Chanel Stacy MD Referring Provider [phone] Dr. Love Mccann DO Attending Provider Care Physician, No Primary Primary Care Provider Unavailable Care Physician, No Primary Referring Provider Un available Dr. Chanel Stacy MD Attending Provider [phone] Care Physician, No Primary Primary Care Provider Unavailable Care Physician, No Primary Referring Provider Un available Abbie Cantu Attending Provider [phone] Rylee Beavers CNM Referring Provider [phone] Rylee Beavers Referring Unavailable Rylee Beavers Attending [...] Physician, No Primary Referring Unava ilable Aiyana COUNSELAbbie Attending Unavailable Medications Current Medications Medication Drug [...] on above: Take 1 capsule by mo [facility] twice daily for 10 days. Blood-Glucose [...] 40 November 08, 2014 5:59pm 2018 11:39am [id number] 200 actuat albuterol 0.09 mg/actuat metered dose [...] VITAMIN C 500 MG TABS ASCORBIC ACID [id number] Chanel Stacy MD docusate sodium 100 mg [...] tablet by mouth daily LEVONORGESTREL-ETHIN YL ESTRAD [id number] Chanel Stacy MD metroNIDAZOLE 500 mg oral tablet (1 source) Nitroimidazole Antimicrobial Start: 05-22-20 17 take 1 tablet by mouth twice daily FLAGYL 500 MG TABS One tablet by mouth twice daily METRONIDAZOLE [id number] Chanel Stacy MD miSOPROStol 0.2 mg oral [...] 4 tablets vaginally or orally once. Multivit 87-Vlrh-Eckhli 1-Dh a (Pnv-Dha) 27 mg iron-1 mg -300 mg capsule (19 sources) Start: 06-20-2020 End: 02-13-2024 Multivit 22-Ohle-Qyvwlc 1-Dh a (Pnv-Dha) 27 mg iron-1 mg -300 mg capsule Discontinued 1 NMA PO DAILY June 20, 2020 1:00am February 13, 2024 3:37am Start: 06-20-2020 End: 02-13-2024 Multivit 08-Zuzo-Zlcccc 1-Dh a (Pnv-Dha) 27 mg iron-1 mg -300 mg capsule Discontinued 1 NMA PO DAILY June 20, 2020 1:00am February 13, 2024 3:37am Start: 06-20-2020 take 1 capsule by [facility] once daily Multivit 29-Ccml-Zusquw 1-Dha (Pnv-Dha) 27 mg iron-1 mg -300 mg capsule Active 1 CAP PO DAILY June 20, 2020 12:00am Start: 06-20-2020 take 1 capsule by [facility] once daily Multivit 58-Tvqy-Svotyv 1-Dha (Pnv-Dha) 27 mg iron-1 mg -300 [...] IAL 39 SM TASHI 01/31/21 Spou se: aSmi PRR TASHI: Boy! Spouse: Sami PRR TASHI [...] Dee on 03-16-2025 Glucose Ql (U) Negative [facility] - UrinalysisOrder ed By: Love Dee Dee on 03-16-2025 Protein Ql (U) Negative [facility] Stripper Preliminary Office Visit Reporton 03-16-2025 Stripper Preliminary Office Visit Report [facility] [address], [address] [place] [address] OFFICE VISIT Date of Service: 03/16/25 MR#: [id number] Acct: [id number] Name: HALIE SANTO Rep #: [id number] : 1995 Provider: Dr. Love Sharp, Age/Sex: 29/F Location: [facility] [place] Status: Signed Intake Vital Signs 02/02/25 14:37 03/08/25 10:35 03/16/25 14:46 03/16/25 14:47 Height 5 ft 9 in 5 ft 9 in 5 ft 9 in 5 ft 9 in Weight: 175 lb 9 oz BMI 25.9 BP 123/76 H Intake Visit Reasons: 38wk ob Secondary Social Studies Teacher Required: No Is patient in pain?: No [...] do you participate in: none frequency: daily sea/scientologist: None seatbelt use: always do you feel [...] - full term 7lbs 9oz Male none [facility] Radha funez Sami 09/05/22 Riddley 39 live - full term 8#4oz Female none [facility] ABDIFATAH Sami 02/13/24 Kolter 39 live - full term 8lbs 1oz Male none [facility] Olaf Escobedoer Delivery Date: 06/27/20 Last Updated [...] -???-???-???-???-???-?? ?-???-???-???-???-?? (more content not included)... Normal [facility] OB Limited With Biometricson 03-11-2025 OB Limited With Biometrics [facility] [address] [place] [address] OB Limited With Biometrics MR#: [id number] Acct: [id number] Name: HALIE SANTO Rep #: [id number] : 1995 F 29 From: Erick Quintanilla DO PCP: Care Physician,No Primary Status: REG CLI Study: OB Limited With Biometrics Date of Exam: 03/11 Exam# [id number] Ordering Dr: Rylee Beavers CNM PROCEDURE: OB [...] Total biophysical profile score 8/8 Reading Location: [facility] CC: JUSTEN Beavers; No Primary Care Physician Direct Support Professional Caregiver: Signed Normal [facility] - Chemistry and C hemistry - challengeOrdered By: Rylee Beavers on 03-08-2025 Glucose Ql (U) Negative [facility] - UrinalysisOrder ed By: Rylee Beavers on 03-08-2025 Protein Ql (U) Negative [facility] Stripper Preliminary Office Visit Reporton 03-08-2025 Stripper Preliminary Office Visit Report [facility] [address], [address] [place] [address] OFFICE VISIT Date of Service: 03/08/25 MR#: [id number] Acct: [id number] Name: HALIE SANTO Rep #: [id number] : 1995 Provider: JUSTEN Jolly ams Age/Sex: 29/F Location: [facility] [place] Status: Signed Intake Vital Signs 02/02/25 14:37 03/03/25 11:34 03/08/25 10:35 Height 5 ft 9 in 5 ft 9 in 5 ft 9 in Weight: 173 lb 6 oz BMI 25.6 BP 115/65 Intake Visit Reasons: 37WK OB Chief Complaint: 37wk OB Secondary Social Studies Teacher Required: No Is patient in pain?: No [...] 3 current occupational status: employed current occupation: [employer] current occupational exposures/hazards: No pets and animals: [...] do you participate in: none frequency: daily sea/scientologist: None seatbelt use: always do you feel safe at home: Yes additional social history: : Sami carrlol History 5 Elective abortions Hx Para 3 Spontaneous abortions 1 Hx # Term Pregnancies 3 Ectopic pregnancies Hx # Pregnancies Multiple births # of living children 3 Past Pregnancies Del. Date Name GA/Weeks Outcome Route Bth Weight Infant Gen Labor Lgth Anesthesia Del Locatn Provider FOB 06/27/20 Blighted ovum 8 06/12/21 Aguila 40 live - full term 7lbs 9oz Male none [facility] Mar canthony [place] 09/05/22 Riddley 39 live - full term 8#4oz Female none [facility] ABDIFATAH Sami 02/13/24 Kolter 39 live - full term 8lbs 1oz Male none [facility] Olaf Escobedoer Delivery Date: 06/27/20 Last Updated by: JG Owen C Delivery Date: 06/12/21 Last Updated by: Harsha Solis ISBeatriz HPI 37WK OB Details: HALIE SANTO is a 29 year old who presents for routine OB visit. OB Visit TASHI Calculator Estimated Delivery Date Method Current Current [...] -???-???-???-???-???-?? ?-???-???-???-???-? (more content not included)... Normal [facility] Rule out Beta Strep (Grp. B) on 03-05-2025 ADRIEN Group B Beta Streptococcus is not isolated. Normal [facility] Comment on above: Performed By: #### M 100.3400 #### [facility] [address] [place], [address] Laboratory - Chemistry and C hemistry - challengeOrdered By: Love Funez on 03-03-2025 Glucose Ql (U) Negative [facility] - UrinalysisOrder ed By: Love Funez on 03-03-2025 Protein Ql (U) Negative [facility] Stripper Preliminary Office Visit Reporton 03-03-2025 Stripper Preliminary Office Visit Report [facility] [address], [address] [place] [address] OFFICE VISIT Date of Service: 03/03/25 MR#: [id number] Acct: [id number] Name: HALIE SANTO Rep #: [id number] : 1995 Provider: Dr. Love Sharp DO Age/Sex: 29/F Location: [facility] [place] Status: Signed Intake Vital Signs 01/05/25 08:18 02/15/25 10:03 03/03/25 11:32 03/03/25 11:34 Height 5 ft 9 in 5 ft 9 in 5 ft 9 in 5 ft 9 in Weight: 172 lb 6 oz BMI 25.4 BP 107/70 Intake Visit Reasons: 36wk ob Secondary Social Studies Teacher Required: No Is patient in pain?: No [...] 3 current occupational status: employed current occupation: [employer] current occupational exposures/hazards: No pets and [...] do you participate in: none frequency: daily sea/scientologist: None seatbelt use: always do you feel [...] - full term 7lbs 9oz Male none [facility] Radha funez Sami 09/05/22 Riddley 39 live - full term 8#4oz Female none [facility] ABDIFATAH Gallardo 02/13/24 Kolter 39 live - full term 8lbs 1oz Male none [facility] Olaf Silvestre Delivery Date: 06/27/20 Last Updated by: JG Owen Delivery Date: 06/12/21 Last Updated by: Harsha ROE HPI 36wk ob Details: HALIE SANTO [...] vb ll (more content not included)... Normal [facility] Screening beta-hemolytic Str eptococcus cultureOrdered By: Love Funez on 03-03-2025 Beta-hemolytic Streptococcus culture Group B Beta Streptococcus is not isolated. [facility] - Chemistry and C hemistry - challengeOrdered By: Chanel Stacy on 02-15-2025 Glucose Ql (U) Negative [facility] - UrinalysisOrder ed By: Chanel Stacy on 02-15-2025 Protein Ql (U) Negative [facility] Stripper Preliminary Office Visit Reporton 02-15-2025 Stripper Preliminary Office Visit Report [facility] [address], [address] [place] [address] OFFICE VISIT Date of Service: 02/15/25 MR#: [id number] Acct: [id number] Name: HALIE SANTO Rep #: [id number] : 1995 Provider: Dr. Chanel nicholas MD Age/Sex: 29/F Location: [facility] [place] Status: Signed Intake Vital Signs 01/05/25 08:18 01/20/25 10:24 02/02/25 14:37 02/15/25 10:03 Height 5 ft 9 in 5 ft 9 in 5 ft 9 in 5 ft 9 in Weight: 172 lb 2 oz BMI 25.4 BP 108/67 Intake Visit Reasons: 34wk ob Secondary Social Studies Teacher Required: No Is patient in pain?: No [...] 3 current occupational status: employed current occupation: [employer] current occupational exposures/hazards: No pets and animals: [...] do you participate in: none frequency: daily sea/scientologist: None seatbelt use: always do you feel [...] - full term 7lbs 9oz Male none [facility] Radha dee dee Sami 09/05/22 Riddley 39 live - full term 8#4oz Female none [facility] ABDIFATAH Sami 02/13/24 Smiley 39 live - full term 8lbs 1oz Male none [facility] Olaf Silvestre Delivery Date: 06/27/20 Last Updated [...] of crampin (more content not included)... Normal [facility] - Chemistry and C hemistry - challengeOrdered By: Love Funez on 02-02-2025 Glucose Ql (U) Negative [facility] - UrinalysisOrder ed By: Love Funez on 02-02-2025 Protein Ql (U) Negative [facility] Stripper Preliminary Office Visit Reporton 02-02-2025 Stripper Preliminary Office Visit Report [facility] [address], [address] [place] [address] OFFICE VISIT Date of Service: 02/02/25 MR#: [id number] Acct: [id number] Name: HALIE SANTO Rep #: [id number] : 1995 Provider: Dr. Love Sharp, Age/Sex: 29/F Location: [facility] [place] Status: Signed Intake Vital Signs 01/05/25 08:18 01/20/25 10:24 02/02/25 14:34 02/02/25 14:37 Height 5 ft 9 in 5 ft 9 in 5 ft 9 in 5 ft 9 in Weight: 170 lb 8 oz BMI 25.2 BP 109/64 Intake Visit Reasons: 32wk ob Secondary Social Studies Teacher Required: No Is patient in pain?: No [...] occupational status: employed current occupation: [employer] current occupational exposures/hazards: No pets and animals: [...] do you participate in: none frequency: daily sea/scientologist: None seatbelt use: always do you feel [...] - full term 7lbs 9oz Male none [facility] Radha Gallardo 09/05/22 Riddley 39 live - full term 8#4oz Female none [facility] ABDIFATAH Gallardo 02/13/24 Purviter 39 live - full term 8lbs 1oz Male none [facility] Olaf royal VelLugo Delivery Date: 06/27/20 Last [...] -???-???-???-???-???-?? ?-???-? (more content not included)... Normal [facility] - Chemistry and C hemistry - challengeOrdered By: Chanel Stacy on 01-20-2025 Glucose Ql (U) Negative [facility] - UrinalysisOrder ed By: Chanel Stacy on 01-20-2025 Protein Ql (U) Negative [facility] Stripper Preliminary Office Visit Reporton 01-20-2025 Stripper Preliminary Office Visit Report [facility] [address], [address] [place] [address] OFFICE VISIT Date of Service: 01/20/25 MR#: [id number] Acct: [id number] Name: HALIE SANTO Rep #: [id number] : 1995 Provider: Dr. Chanel nicholas MD Age/Sex: 29/F Location: [facility] [place] Status: Signed Intake Vital Signs 11/02/24 09:57 01/05/25 08:18 01/20/25 10:24 01/20/25 10:24 Height 5 ft 9 in 5 ft 9 in 5 ft 9 in 5 ft 9 in Weight: 167 lb 8 oz 168 lb 4 oz BMI 24.7 24.8 BP 100/64 109/68 Intake Visit Reasons: 30wk ob Secondary Social Studies Teacher Required: No Is patient in pain?: No [...] do you participate in: none frequency: daily sea/scientologist: None seatbelt use: always do you feel [...] - full term 7lbs 9oz Male none [facility] Mar canthony [place] 09/05/22 Riddley 39 live - full term 8#4oz Female none [facility] ABDIFATAH [place] 02/13/24 Kolter 39 live - full term 8lbs 1oz Male none [facility] Van de Velde [place] Delivery Date: 06/27/20 Last Updated by: JG [...] craing 11/02/24 (more content not included)... Normal [facility] Absolute lymphocyte countOrd ered By: Rylee Beavers on 01-05-2025 Lymphocytes Auto (Unsp spec) [#/Vol] 1.22 10*3/uL 0.83-4.51 [facility] Absolute neutrophil countOrd ered By: Rylee Beavers on 01-05-2025 Neutrophils (Bld) [#/Vol] 9.4 10*3/uL High 2.0-7.7 [facility] Automated lymphocyte count a s percentage of total leukocytesOrdered By: Rylee Beavers on 01-05-2025 Lymphocytes/100 WBC Auto (Unsp spec) 10.6 % Low 19-41 [facility] Basophil percentageOrdered B y: Rylee Beavers on 01-05-2025 Basophils/100 WBC (Bld) 0.3 % 0-1 [facility] CBC W/Diff, Automatedon 12-26 Absolute Lymph 1.22 X10 3/uL Normal 0.83-4.51 [facility] Comment on above: Performed By: #### L 501.0250, BTS, L3890.6006, L509.8002, L100.0100 #### [facility] [address] [place], [address] Absolute Neut 9.4 X10 3/uL High 2.0-7.7 [facility] Comment on above: Performed By: #### L 501.0250, BTS, L3890.6006, L509.8002, L100.0100 #### [facility] [address] [place], [address] Basophils/100 WBC (Bld) 0.3 % Normal 0-1 [facility] Comment on above: Performed By: #### L 501.0250, BTS, L3890.6006, L509.8002, L100.0100 #### [facility] [address] [place], [address] Eosinophils/100 WBC (Bld) 0.7 % Normal 0-5 [facility] Comment on above: Performed By: #### L 501.0250, BTS, L3890.6006, L509.8002, L100.0100 #### [facility] [address] [place], [address] Erythrocyte distribution width (RBC) [Ratio] 12.7 % Normal 11.6-14.6 [facility] Comment on above: Performed By: #### L 501.0250, BTS, L3890.6006, L509.8002, L100.0100 #### [facility] [address] [place], [address] Hematocrit (Bld) [Volume fraction] 34.4 % Low 37-47 [facility] Comment on above: Performed By: #### L 501.0250, BTS, L3890.6006, L509.8002, L100.0100 #### [facility] [address] [place], [address] Hemoglobin (Bld) [Mass/Vol] 11.3 g/dL Low 12.0-15.0 [facility] Comment on above: Performed By: #### L 501.0250, BTS, L3890.6006, L509.8002, L100.0100 #### [facility] [address] [place], [address] IG% 0.700 Normal 0.0-0.9 [facility] Comment on above: Result Comment: IG% - Immature Granulocytes (promyelocytes, myelocytes and metamyelocytes) > 1% indicates that a LEFT SHIFT is Present. Performed By: #### L 501.0250, BTS, L3890.6006, L509.8002, L100.0100 #### [facility] [address] [place], [address] Lymphocytes/100 WBC (Bld) 10.6 % Low 19-41 [facility] Comment on above: Performed By: #### L 501.0250, BTS, L3890.6006, L509.8002, L100.0100 #### [facility] [address] [place], [address] MCH (RBC) [Entitic mass] 28.6 pg Normal 27.0-32.0 [facility] Comment on above: Performed By: #### L 501.0250, BTS, L3890.6006, L509.8002, L100.0100 #### [facility] [address] [place], [address] MCHC (RBC) [Mass/Vol] 32.8 g/dL Normal 32-36 [facility] Comment on above: Performed By: #### L 501.0250, BTS, L3890.6006, L509.8002, L100.0100 #### [facility] [address] [place], [address] MCV (RBC) [Entitic vol] 87.1 fL Normal 81-99 [facility] Comment on above: Performed By: #### L 501.0250, BTS, L3890.6006, L509.8002, L100.0100 #### [facility] [address] [place], [address] Monocytes/100 WBC (Bld) 6.1 % Normal 0-10 [facility] Comment on above: Performed By: #### L 501.0250, BTS, L3890.6006, L509.8002, L100.0100 #### [facility] [address] [place], [address] Neutrophils/100 WBC (Bld) 81.6 % High 47-70 [facility] Comment on above: Performed By: #### L 501.0250, BTS, L3890.6006, L509.8002, L100.0100 #### [facility] [address] [place], [address] Nucleated RBC (Bld) [#/Vol] 0 10*3/uL Normal 0-5 [facility] Comment on above: Performed By: #### L 501.0250, BTS, L3890.6006, L509.8002, L100.0100 #### [facility] [address] [place], [address] Platelet mean volume (Bld) [Entitic vol] 9.9 fL Normal 6.2-12.0 [facility] Comment on above: Performed By: #### L 501.0250, BTS, L3890.6006, L509.8002, L100.0100 #### [facility] [address] [place], [address] Platelets (Bld) [#/Vol] 253 10*3/uL Normal 150-450 [facility] Comment on above: Performed By: #### L 501.0250, BTS, L3890.6006, L509.8002, L100.0100 #### [facility] [address] [place], [address] RBC (Bld) [#/Vol] 3.95 10*6/uL Low 4.2-5.4 [facility] Comment on above: Performed By: #### L 501.0250, BTS, L3890.6006, L509.8002, L100.0100 #### [facility] [address] [place], [address] RDW SD 40.3 fl Normal 35.1-43.9 [facility] Comment on above: Performed By: #### L 501.0250, BTS, L3890.6006, L509.8002, L100.0100 #### [facility] [address] [place], [address] WBC (Bld) [#/Vol] 11.5 10*3/uL High 4.4-11.0 [facility] Comment on above: Performed By: #### L 501.0250, BTS, L3890.6006, L509.8002, L100.0100 #### [facility] [address] [place], [address] Eosinophil percentageOrdered By: Rylee Beavers on 01-05-2025 Eosinophils/100 WBC (Bld) 0.7 % 0-5 [facility] Erythrocyte distribution wid th ratioOrdered By: Rylee Beavers on 01-05-2025 Erythrocyte distribution width (RBC) [Ratio] 12.7 % 11.6-14.6 [facility] Erythrocyte distribution wid th standard deviationOrdered By: Rylee Beavers on 01-05-2025 Erythrocyte distribution width (RBC) [Ratio] 40.3 fl 35.1-43.9 [facility] Glucose Challenge Gest 1H 50 nicole 01-05-2025 GLU GEST 50g 1H 85 mg/dL Normal 70-140 [facility] Comment on above: Performed By: #### L 501.0250, BTS, L3890.6006, L509.8002, L100.0100 ####[facility] [address] [place], [place], [address] Glucose measurement at 2 april rs post-dose gestational glucose tolerance testOrdered By: Rylee Beavers on 01-05-2025 Glucose [Mass/Vol] 85 mg/dL 70-140 [facility] HIVon 01-05-2025 HIV Non-Reactive Normal Nonreactive [facility] Comment on above: Result Comment: Non- Reactive Reactive Repeatedly reactive samples must be confirmed according to CDC recommended confirmatory algorithms. The subresults for either HIVAG or AHIV can be used as an aid in the selection of the confirmation algorithm for reactive samples. Send out specimens with Reactive results to [facility] for confirmation. Order the HIV antibody detection and differentiation: lc#[id number] Performed By: #### L 501.0250, BTS, L3890.6006, L509.8002, L100.0100 ####[facility] [address] [place], [address] Hematocrit Auto (Bld) [Volum e fraction]Ordered By: Rylee Beavers on 01-05-2025 Hematocrit (Bld) [Volume fraction] 34.4 % Low 37-47 [facility] Hemoglobin measurementOrdere d By: Rylee Beavers on 01-05-2025 Hemoglobin (Bld) [Mass/Vol] 11.3 g/dL Low 12.0-15.0 [facility] Immature granulocytes/100 WB C Auto (Bld)Ordered By: Rylee Beavers on 01-05-2025 Immature granulocytes/100 WBC (Bld) 0.700 % 0.0-0.9 [facility] Comment on above: IG% - Immature Granu locytes (promyelocytes, myelocytes and metamyelocytes) > 1% indicates that a LEFT SHIFT is Present. Laboratory - Chemistry and C hemistry - challengeOrdered By: Abbie Bronson on 01-05-2025 Glucose Ql (U) Negative [facility] - UrinalysisOrder ed By: Abbie Bronson on 01-05-2025 Protein Ql (U) Negative [facility] MCV (mean corpuscular volume ) determinationOrdered By: Rylee Beavers on 01-05-2025 MCV (RBC) [Entitic vol] 87.1 fL 81-99 [facility] Mean corpuscular hemoglobin (MCH) determinationOrdered By: Rylee Beavers on 01-05-2025 MCH (RBC) [Entitic mass] 28.6 pg 27.0-32.0 [facility] Mean corpuscular hemoglobin concentration (MCHC) determinationOrdered By: Rylee Beavers on 01-05-2025 MCHC (RBC) [Mass/Vol] 32.8 g/dL 32-36 [facility] Mean platelet volume determi nationOrdered By: Rylee Beavers on 01-05-2025 Platelet mean volume (Bld) [Entitic vol] 9.9 fL 6.2-12.0 [facility] Monocyte percentageOrdered B y: Rylee Beavers on 01-05-2025 Monocytes/100 WBC (Bld) 6.1 % 0-10 [facility] Neutrophil percentageOrdered By: Rylee Beavers on 01-05-2025 Neutrophils/100 WBC (Bld) 81.6 % High 47-70 [facility] No Panel InformationOrdered By: Rylee Beavers on 01-05-2025 HIV (1&2) Antibody Non-Reactive Nonreactive [facility] Comment on above: Non-ReactiveReactive Repeatedly reactive samples must be confirmed according to CDC recommended confirmatory algorithms. The subresults for either HIVAG or AHIV can be used as an aid in the selection of the confirmation algorithm for reactive samples.Send out specimens with Reactive results to [facility] for confirmation.Order the HIV antibody detection and differentiation: #[id number] Nucleated red blood cell per centageOrdered By: Rylee Beavers on 01-05-2025 Nucleated RBC/100 WBC (Bld) [Ratio] 0 % 0-5 [facility] Stripper Preliminary Office Visit Reporton 01-05-2025 Stripper Preliminary Office Visit Report [facility] [address], [address] [place] [address] OFFICE VISIT Date of Service: 01/05/25 MR#: [id number] Acct: [id number] Name: HALIE SANTO Rep #: [id number] : 1995 Provider: FREDERIC hdz Age/Sex: 29/F Location: [facility] Status: Signed Intake Vital Signs 11/02/24 09:57 12/02/24 11:01 01/05/25 08:18 Height 5 ft 9 in 5 ft 9 in 5 ft 9 in Weight: 167 lb 8 oz BMI 24.7 BP 100/64 Intake Visit Reasons: 28wk ob/glucose/rhogam Chief Complaint: 28 Week OB/Glucose Secondary Social Studies Teacher Required: No Is patient in pain?: No [...] do you participate in: none frequency: daily sea/scientologist: None seatbelt use: always do you feel [...] - full term 7lbs 9oz Male none [facility] Radha funez Sami 09/05/22 Riddley 39 live - full term 8#4oz Female none [facility] ABDIFATAH Sami 02/13/24 Kolter 39 live - full term 8lbs 1oz Male none [facility] Olaf royal Velde Sami Delivery Date: 06/27/20 [...] of cramping (more content not included)... [facility] Platelet countOrdered By: Roman Beavers on 01-05-2025 Platelets (Bld) [#/Vol] 253 10*3/uL 150-450 [facility] RBC Auto (Bld) [#/Vol]Ordere d By: Rylee Beavers on 01-05-2025 RBC (Bld) [#/Vol] 3.95 10*6/uL Low 4.2-5.4 [facility] Syphilis Antibodieson 2024 Syphilis Abs Non-Reactive Normal Nonreactive [facility] Comment on above: Performed By: #### L 501.0250, BTS, L3890.6006, L509.8002, L100.0100 ####[facility] [address] [place], [address] Type AND Screenon 01-05-2025 Ab SCREEN GEL Negative Normal [facility] Comment on above: Order Comment: PN Performed By: #### L 501.0250, BTS, L3890.6006, L509.8002, L100.0100 #### [facility] [address] [place], [address] White blood cell (WBC) count Ordered By: Rylee Beavers on 01-05-2025 WBC (Bld) [#/Vol] 11.5 10*3/uL High 4.4-11.0 [facility] Laboratory - Chemistry and C hemistry - challengeOrdered By: Rylee Beavers on 12-02-2024 Glucose Ql (U) Negative [facility] - UrinalysisOrder ed By: Rylee Beavers on 12-02-2024 Protein Ql (U) Negative [facility] Stripper Preliminary Office Visit Reporton 12-02-2024 Stripper Preliminary Office Visit Report [facility] [address], [address] [place] [address] OFFICE VISIT Date of Service: 12/02/24 MR#: [id number] Acct: [id number] Name: HALIE SANTO Rep #: [id number] : 1995 Provider: JUSTEN Jolly ams Age/Sex: 29/F Location: [facility] [place] Status: Signed Intake Vital Signs 10/05/24 10:47 11/02/24 09:57 12/02/24 11:01 Height 5 ft 9 in 5 ft 9 in 5 ft 9 in Weight: 161 lb 6 oz BMI 23.8 BP 103/66 Intake Visit Reasons: 23wk ob Chief Complaint: 23wk OB Secondary Social Studies Teacher Required: No Is patient in pain?: No [...] 3 current occupational status: employed current occupation: [employer] current occupational exposures/hazards: No pets and animals: [...] do you participate in: none frequency: daily sea/scientologist: None seatbelt use: always do you feel [...] - full term 7lbs 9oz Male none [facility] Radha funez [place] 09/05/22 Riddley 39 live - full term 8#4oz Female none [facility] ABDIFATAH [place] 02/13/24 Kolter 39 live - full term 8lbs 1oz Male none [facility] Van genny Velde [place] Delivery Date: 06/27/20 Last Updated by: JG [...] ?-???-???-???-???-???-? ?? (more content not included)... Normal [facility] - Chemistry and C hemistry - challengeOrdered By: Abbie Bronson on 11-02-2024 Glucose Ql (U) Negative [facility] - UrinalysisOrder ed By: Abbie Bronson on 11-02-2024 Protein Ql (U) Negative [facility] Stripper Preliminary Office Visit Reporton 11-02-2024 Stripper Preliminary Office Visit Report [facility] [address], [address] [place] [address] OFFICE VISIT Date of Service: 11/02/24 MR#: [id number] Acct: [id number] Name: GALHALIE MCLEOD Rep #: [id number] : 1995 Provider: FREDERIC hdz Age/Sex: 29/F Location: [facility] [place] Status: Signed Intake Vital Signs 10/05/24 10:47 11/02/24 09:57 Height 5 ft 9 in 5 ft 9 in Weight: 157 lb 8 oz BMI 23.2 BP 124/80 H Intake Visit Reasons: 19wk ob Chief Complaint: 19 Week OB Secondary Social Studies Teacher Required: No Is patient in pain?: No [...] 3 current occupational status: employed current occupation: [employer] current occupational exposures/hazards: No pets and animals: [...] do you participate in: none frequency: daily sea/scientologist: None seatbelt use: always do you feel [...] - full term 7lbs 9oz Male none [facility] Radha funez Sami 09/05/22 Danielle 39 live - full term 8#4oz Female none [facility] ABDIFATAH Sami 02/13/24 Smiley 39 live - full term 8lbs 1oz Male none [facility] Olaf Silvestre Delivery Date: 06/27/20 Last Updated [...] Negative -???-? (more content not included)... Normal [facility] - Chemistry and C hemistry - challengeOrdered By: Chanel Stacy on 10-05-2024 Glucose Ql (U) Negative [facility] - UrinalysisOrder ed By: Chanel Stacy on 10-05-2024 Protein Ql (U) Negative [facility] Stripper Preliminary Office Visit Reporton 10-05-2024 Stripper Preliminary Office Visit Report [facility] [address], [address] [place] [address] OFFICE VISIT Date of Service: 10/05/24 MR#: [id number] Acct: [id number] Name: GALHALIE Rep #: [id number] : 1995 Provider: Dr. Chanel nicholas MD Age/Sex: 29/F Location: [facility] [place] Status: Signed Intake Vital Signs 08/06/24 11:56 09/06/24 14:55 10/05/24 10:45 10/05/24 10:47 Height 5 ft 9 in 5 ft 9 in 5 ft 9 in 5 ft 9 in Weight: 155 lb 6 oz BMI 22.9 BP 130/74 H Intake Visit Reasons: 14wk OB Secondary Social Studies Teacher Required: No Is patient in pain?: No [...] 3 current occupational status: employed current occupation: [employer] current occupational exposures/hazards: No pets and animals: [...] do you participate in: none frequency: daily sea/scientologist: None seatbelt use: always do you feel safe at home: Yes additional social history: : Saim Almanza cows History 5 Elective abortions Hx [...] live - full term 8#4oz Female none [facility] ABDIFATAH Aguileraer 02/13/24 Smiley 39 live - full term 8lbs 1oz Male none [facility] Olaf Silvestre Delivery Date: 06/27/20 Last Updated [...] First Tr (more content not included)... Normal [facility] Urine Cultureon 09-10-2024 URC Mixed Gram Positive Organisms [place] Count 25,000-50,000 MIXC Mixed contaminants. Submit a new specimen if indicated. Normal [facility] Comment on above: Performed By: #### L 7000.1800, M100.2200 ####[facility] [address] [place], [place], [address] Chlamydia/GC MINI aptimaon CHLAMY,NUC ACID Negative Normal Negative [facility] Comment on above: Performed By: #### L 0.1800, M100.2200 ####[facility] [address] [place], [address] GC BY NUC ACID Negative Normal Negative [facility] Comment on above: Result Comment: Perf ormed at: =G - [facility] [address] [place] [id number] Numerical Control Tool Programmer: Tiff Vivas MD, Phone: [phone] Performed By: #### L 7000.1800, M100.2200 ####[facility] [address] [place], [address] ABORh Blood Type, Patienton 09-06-2024 ABO and Rh group Nom (Bld) Blood group A Rh(D) negative Normal [facility] Comment on above: Order Comment: PN Performed By: #### L 3890.6005, BTS, O46553-1, BtABORH, L100.0100, L3890.6100, L3890.6300, L509.4005 ####[facility] [address] [place], [address] CBC W/Diff, Automatedon 08-28 Absolute Lymph 2.05 X10 3/uL Normal 0.83-4.51 [facility] Comment on above: Performed By: #### L 3890.6005, BTS, W04701-1, BtABORH, L100.0100, L3890.6100, L3890.6300, L509.4005 ####[facility] [address] [place], [address] Absolute Neut 8.1 X10 3/uL High 2.0-7.7 [facility] Comment on above: Performed By: #### L 3890.6005, BTS, P30464-9, BtABORH, L100.0100, L3890.6100, L3890.6300, L509.4005 ####[facility] [address] [place], [address] Basophils/100 WBC (Bld) 0.3 % Normal 0-1 [facility] Comment on above: Performed By: #### L 3890.6005, BTS, M80925-5, BtABORH, L100.0100, L3890.6100, L3890.6300, L509.4005 ####[facility] [address] [place], [address] Eosinophils/100 WBC (Bld) 0.7 % Normal 0-5 [facility] Comment on above: Performed By: #### L 3890.6005, BTS, R12460-6, BtABORH, L100.0100, L3890.6100, L3890.6300, L509.4005 ####[facility] [address] [place], [address] Erythrocyte distribution width (RBC) [Ratio] 13.3 % Normal 11.6-14.6 [facility] Comment on above: Performed By: #### L 3890.6005, BTS, Z64045-7, BtABORH, L100.0100, L3890.6100, L3890.6300, L509.4005 ####[facility] [address] [place], [address] Hematocrit (Bld) [Volume fraction] 37.8 % Normal 37-47 [facility] Comment on above: Performed By: #### L 3890.6005, BTS, K60069-6, BtABORH, L100.0100, L3890.6100, L3890.6300, L509.4005 ####[facility] [address] [place], [address] Hemoglobin (Bld) [Mass/Vol] 12.5 g/dL Normal 12.0-15.0 [facility] Comment on above: Performed By: #### L 3890.6005, BTS, L70512-0, BtABORH, L100.0100, L3890.6100, L3890.6300, L509.4005 ####[facility] [address] [place], [address] IG% 0.400 Normal 0.0-0.9 [facility] Comment on above: Result Comment: IG% - Immature Granulocytes (promyelocytes, myelocytes and metamyelocytes) > 1% indicates that a LEFT SHIFT is Present. Performed By: #### L 3890.6005, BTS, H94160-2, BtABORH, L100.0100, L3890.6100, L3890.6300, L509.4005 ####[facility] [address] [place], [address] Lymphocytes/100 WBC (Bld) 18.5 % Low 19-41 [facility] Comment on above: Performed By: #### L 3890.6005, BTS, Z70908-4, BtABORH, L100.0100, L3890.6100, L3890.6300, L509.4005 ####[facility] [address] [place], [address] MCH (RBC) [Entitic mass] 28.0 pg Normal 27.0-32.0 [facility] Comment on above: Performed By: #### L 3890.6005, BTS, Q97937-0, BtABORH, L100.0100, L3890.6100, L3890.6300, L509.4005 ####[facility] [address] [place], [address] MCHC (RBC) [Mass/Vol] 33.1 g/dL Normal 32-36 [facility] Comment on above: Performed By: #### L 3890.6005, BTS, Z53187-3, BtABORH, L100.0100, L3890.6100, L3890.6300, L509.4005 ####[facility] [address] [place], [address] MCV (RBC) [Entitic vol] 84.6 fL Normal 81-99 [facility] Comment on above: Performed By: #### L 3890.6005, BTS, V55402-3, BtABORH, L100.0100, L3890.6100, L3890.6300, L509.4005 ####[facility] [address] [place], [address] Monocytes/100 WBC (Bld) 7.1 % Normal 0-10 [facility] Comment on above: Performed By: #### L 3890.6005, BTS, X95686-8, BtABORH, L100.0100, L3890.6100, L3890.6300, L509.4005 ####[facility] [address] [place], [address] Neutrophils/100 WBC (Bld) 73.0 % High 47-70 [facility] Comment on above: Performed By: #### L 3890.6005, BTS, N76267-3, BtABORH, L100.0100, L3890.6100, L3890.6300, L509.4005 ####[facility] [address] [place], [address] Nucleated RBC (Bld) [#/Vol] 0 10*3/uL Normal 0-5 [facility] Comment on above: Performed By: #### L 3890.6005, BTS, Q04550-2, BtABORH, L100.0100, L3890.6100, L3890.6300, L509.4005 ####[facility] [address] [place], [address] Platelet mean volume (Bld) [Entitic vol] 10.7 fL Normal 6.2-12.0 [facility] Comment on above: Performed By: #### L 3890.6005, BTS, I04144-0, BtABORH, L100.0100, L3890.6100, L3890.6300, L509.4005 ####[facility] [address] [place], [address] Platelets (Bld) [#/Vol] 233 10*3/uL Normal 150-450 [facility] Comment on above: Performed By: #### L 3890.6005, BTS, J93584-8, BtABORH, L100.0100, L3890.6100, L3890.6300, L509.4005 ####[facility] [address] [place], [address] RBC (Bld) [#/Vol] 4.47 10*6/uL Normal 4.2-5.4 [facility] Comment on above: Performed By: #### L 3890.6005, BTS, M38232-4, BtABORH, L100.0100, L3890.6100, L3890.6300, L509.4005 ####[facility] [address] [place], [address] RDW SD 41.1 fl Normal 35.1-43.9 [facility] Comment on above: Performed By: #### L 3890.6005, BTS, R33774-2, BtABORH, L100.0100, L3890.6100, L3890.6300, L509.4005 ####[facility] [address] [place], [address] WBC (Bld) [#/Vol] 11.1 10*3/uL High 4.4-11.0 [facility] Comment on above: Performed By: #### L 3890.6005, BTS, S24334-7, BtABORH, L100.0100, L3890.6100, L3890.6300, L509.4005 ####[facility] [address] [place], [place], [address] HIV - WCHon 09-06-2024 HIV Non-Reactive Normal Nonreactive [facility] Comment on above: Order Comment: Reaso n for Exam: Performed By: #### L 3890.6005, BTS, C27453-8, BtABORH, L100.0100, L3890.6100, L3890.6300, L509.4005 ####[facility] [address] [place], [place], [address] Hepatitis B Surface Antigeno n 09-06-2024 HEP B Surf Ag Non-Reactive Normal Nonreactive [facility] Comment on above: Order Comment: Reaso n for Exam: Performed By: #### L 3890.6005, BTS, C96274-9, BtABORH, L100.0100, L3890.6100, L3890.6300, L509.4005 ####[facility] [address] [place], [place], [address] Hepatitis C Antibodyon 09-06 Hepatitis C AB Non-Reactive Normal Nonreactive [facility] Comment on above: Order Comment: Reaso n for Exam: Result Comment: Non Reactive: < 0.8 Equivocal: >/= 0.8 to < 1.0 Reactive: >/= 1.0 The CDC requires that a reactive/equivocal HCV antibody result be sent out for confirmation. HCV Quant by PCR testing. Performed By: #### L 3890.6005, BTS, S25408-1, BtABORH, L100.0100, L3890.6100, L3890.6300, L509.4005 ####[facility] [address] [place], [place], [address] L509.8000on 09-06-2024 Syphilis Abs Non-Reactive Normal [facility] Comment on above: Performed By: #### L 509.8000 ####[facility] [address] [place], [place], [address] Stripper Preliminary Office Visit Reporton 09-06-2024 Stripper Preliminary Office Visit Report [facility] [address], [address] [place] [address] OFFICE VISIT Date of Service: 09/06/24 MR#: [id number] Acct: [id number] Name: HALIE SANTO Rep #: [id number] : 1995 Provider: Dr. Love Sharp DO Age/Sex: 29/F Location: [facility] [place] Status: Signed Intake Vital Signs 03/22/24 15:03 08/06/24 11:56 09/06/24 14:54 09/06/24 14:55 Height 5 ft 9 in 5 ft 9 in 5 ft 9 in 5 ft 9 in Weight: 157 lb 8 oz BMI 23.2 BP 131/78 H Intake Visit Reasons: NOB, Unknown LMP/ US 08/03, TASHI 03/29/25 Secondary Social Studies Teacher Required: No Is patient in pain?: No Allergies No Known Allergies Allergy (Verified 09/06/24 14:53) Medications ???Medication ???Instructions ???Recorded ???Confirmed ???Type docosahexaenoic acid 200 mg mg PO 08/27/24 09/06/24 History capsule ( DHA) Last Menstrual Period: 05/10/23 Zika: Zika virus screening: Negative : Yes [facility] Medical History History of miscarriage, currently Surgical [...] do you participate in: none frequency: daily sea/scientologist: None seatbelt use: always do you feel [...] - full term 7lbs 9oz Male none [facility] Mar dee dee [place] 09/05/22 Riddley 39 live - full term 8#4oz Female none [facility] ABDIFATAH [place] 02/13/24 Kolter 39 live - full term 8lbs 1oz Male none [facility] Olaf royal VelPappaser Delivery Date: 06/27/20 Last [...] Varicella immun (more content not included)... Normal [facility] Rubella IgGon 09-06-2024 Rubella IgG Reactive Normal Nonreactive [facility] Comment on above: Order Comment: Reaso n for Exam: Result Comment: Anti body Results Interpretation of Immune Status Non Reactive Presumed Non-Immune Equivocal Equivocal Reactive Presumed Immune Performed By: #### L 3890.6005, BTS, C58087-7, BtABORH, L100.0100, L3890.6100, L3890.6300, L509.4005 ####[facility] [address] [place], [address] Type AND Screenon 09-06-2024 Ab SCREEN GEL TNP Normal [facility] Comment on above: Order Comment: PN Performed By: #### L 3890.6005, BTS, M81904-1, BtABORH, L100.0100, L3890.6100, L3890.6300, L509.4005 ####[facility] [address] [place], [address] ABO and Rh group Nom (Bld) TNP Normal [facility] Comment on above: Order Comment: PN Performed By: #### L 3890.6005, BTS, T45989-2, BtABORH, L100.0100, L3890.6100, L3890.6300, L509.4005 ####[facility] [address] [place], [address] Transvaginal w/Preg USon Transvaginal w/Preg US [facility] [address] [place] [address] Transvaginal w/Preg US MR#: [id number] Acct: [id number] Name: GALHALIE MCLEOD Rep #: [id number] : 1995 F 29 From: Yannick mojica MD PCP: Care Physician,No Primary Status: REG CLI Study: Transvaginal w/Preg US Date of Exam: 08/03/24 Exam# [id number] Ordering Dr: Rylee Beavers CNM [id number] STUDY: FIRST TRIMESTER OBSTETRICAL ULTRASOUND REASON FOR [...] Batista MD at 14:22 EST , CC: JUSTEN Beavers; No Primary Care Physician Direct Support Professional Caregiver: Signed Normal [facility] hCG Titer Quant., Serumon HCG QUANT. 5525 mIU/mL High 1-3 [facility] Comment on above: Result Comment: hCG levels with Gestational Age Gestational Age hCG mIU/mL (IU/L) 0.2 - 1 week 5 - 50 1-2 weeks 50 - 500 2-3 weeks 100 - 5000 3-4 weeks 500 - 33127 4-5 weeks 1000 - 70937 5-6 weeks 42040 - 100,000 6-8 weeks 53539 - 200,000 2-3 months 37618 - 100,000 Performed By: #### L 700.8000 #### [facility] [address] [place], [address] hCG Titer Quant., Serumon HCG QUANT. 3279 mIU/mL High 1-3 [facility] Comment on above: Result Comment: hCG levels with Gestational Age Gestational Age hCG mIU/mL (IU/L) 0.2 - 1 week 5 - 50 1-2 weeks 50 - 500 2-3 weeks 100 - 5000 3-4 weeks 500 - 89513 4-5 weeks 1000 - 37892 5-6 weeks 77527 - 100,000 6-8 weeks 11953 - 200,000 2-3 months 73172 - 100,000 Performed By: #### L 700.8000 #### [facility] [address] [place], [address] PAP IG HPV APTIMA 16/18,45on 03-26-2024 ADEQ Comment Normal . [facility] Comment on above: Order Comment: Speci men Comment: [id number] Specimen Comment: Source.............Cervix Specimen Comment: Other..............Post- Specimen Comment: No. of containers..01 ThinPrep Vial Result Comment: Sati sfactory for evaluation. Endocervical and/or squamous metaplastic cells (endocervical component) are present. Performed By: #### L 7400.0280 #### [facility] [address] [place], [place], [address] COMM . Normal . [facility] Comment on above: Order Comment: Speci men Comment: [id number] Specimen Comment: Source.............Cervix Specimen Comment: Other..............Post- Specimen Comment: No. of containers..01 ThinPrep Vial Performed By: #### L 7400.0280 #### [facility] [address] [place], [place], [address] COMMENT Comment Normal . [facility] Comment on above: Order Comment: Speci men Comment: [id number] Specimen Comment: Source.............Cervix Specimen Comment: Other..............Post- Specimen Comment: No. of containers..01 ThinPrep Vial Result Comment: This liquid based ThinPrep(R) pap test was screened with the use of an image guided system. Performed By: #### L 7400.0280 #### [facility] [address] [place], [place], [address] DIAG Comment Normal . [facility] Comment on above: Order Comment: Speci men Comment: [id number] Specimen Comment: Source.............Cervix Specimen Comment: Other..............Post- Specimen Comment: No. of containers..01 ThinPrep Vial Result Comment: NEGA TIVE FOR INTRAEPITHELIAL LESION OR MALIGNANCY. CELLULAR CHANGES ASSOCIATED WITH INFLAMMATION ARE PRESENT. Performed By: #### L 7400.0280 #### [facility] [address] [place], [place], [address] HPV APTIMA, HR Negative Normal Negative [facility] Comment on above: Order Comment: Speci men Comment: [id number] Specimen Comment: Source.............Cervix Specimen Comment: Other..............Post- Specimen Comment: No. of containers..01 ThinPrep Vial Result Comment: This nucleic acid amplification test detects fourteen high- risk HPV types (16,18,31,33,35,39,45,51,52,56,58,59,66,68) without differentiation. Performed By: #### L 7400.0280 #### [facility] [address] [place], [place], [address] HPV Ashlyn Rfx Comment Normal . [facility] Comment on above: Order Comment: Speci men Comment: [id number] Specimen Comment: Source.............Cervix Specimen Comment: Other..............Post- Specimen Comment: No. of containers..01 ThinPrep Vial Result Comment: Crit eria not met, HPV Genotype not performed. Performed at: - [address] [id number] Numerical Control Tool Programmer: Tiff Vivas MD, Phone: [phone] Performed at: = - [address] [id number] Numerical Control Tool Programmer: Tiff Vivas MD, Phone: [phone] Performed By: #### L 7400.0280 #### [facility] [address] [place], [place], [address] PAPSMR Comment Normal . [facility] Comment on above: Order Comment: Speci men Comment: [id number] Specimen Comment: Source.............Cervix Specimen Comment: Other..............Post- Specimen [...] occur. Performed By: #### L 7400.0280 #### [facility] [address] [place], [address] PERFORM Comment Normal . [facility] Comment on above: Order Comment: Speci men Comment: [id number] Specimen Comment: Source.............Cervix Specimen Comment: Other..............Post- Specimen Comment: No. of containers..01 ThinPrep Vial Result Comment: Ebony Eason Electrical Maintenance Technician (ASCP) Performed By: #### L 7400.0280 #### [facility] [address] [place], [place], [address] Stripper Preliminary Office Visit Reporton 03-22-2024 Stripper Preliminary Office Visit Report [facility] [address], [address] [place] [address] OFFICE VISIT Date of Service: 03/22/24 MR#: [id number] Acct: [id number] Name: HALIE SANTO Rep #: [id number] : 1995 Provider: Dr. Love Sharp DO Age/Sex: 28/F Location: [facility] [place] Status: Signed Intake Vital Signs 02/13/24 02:57 03/22/24 15:01 03/22/24 15:03 Height 5 ft 9 in 5 ft 9 in 5 ft 9 in Weight: 154 lb 8 oz BMI 22.8 BP 118/74 Intake Visit Reasons: visit (obstetrics) Secondary Social Studies Teacher Required: No Is patient in pain?: No Allergies No Known Allergies Allergy (Verified 03/22/24 15:01) Medications ???Medication ???Instructions ???Recorded ???Confirmed ???Type NK 03/22/24 03/22/24 History : Yes [facility] Medical History History of miscarriage, currently Placental [...] do you participate in: walking frequency: daily sea/scientologist: None seatbelt use: always do you feel [...] Aguila 40 live - full term Male [facility] Troy nicholas Sami 09/05/22 Riddley 39 live - full term 8#4oz Female [facility] ABDIFATAH 02/13/24 39 live - full term Male [facility] Matt Funez Delivery Date: 06/12/21 Last Updated [...] visit. Infant Feeding: Breast Menses resumed: No [place] since delivery: No Emotional Support: Yes Last [...] Vagina Uterus: (more content not included)... Normal [facility] Absolute lymphocyte countOrd ered By: Love Funez on 11-25-2023 Lymphocytes Auto (Unsp spec) [#/Vol] 1.56 10*3/uL 0.83-4.51 [facility] Automated lymphocyte count a s percentage of total leukocytesOrdered By: Love Funez on 11-25-2023 Lymphocytes/100 WBC Auto (Unsp spec) 17.0 % 19-41 [facility] Basophil percentageOrdered B y: Love Funez on 11-25-2023 Basophils/100 WBC (Bld) 0.3 % 0-1 [facility] Eosinophils/100 WBC (Bld) 0.8 % 0-5 [facility] Hemoglobin (Bld) [Mass/Vol] 11.9 g/dL 12.0-15.0 [facility] Monocytes/100 WBC (Bld) 3.7 % 0-10 [facility] Neutrophils (Bld) [#/Vol] 7.1 10*3/uL 2.0-7.7 [facility] Neutrophils/100 WBC (Bld) 77.7 % 47-70 [facility] WBC (Bld) [#/Vol] 9.2 10*3/uL 4.4-11.0 [facility] Determination of erythrocyte mean corpuscular volume (MCV)Ordered By: Love Funez on 11-25-2023 MCV (RBC) [Entitic vol] 85.1 fL 81-99 [facility] Erythrocyte distribution wid th ratioOrdered By: Love Funez on 11-25-2023 Erythrocyte distribution width (RBC) [Ratio] 12.6 % 11.6-14.6 [facility] Erythrocyte distribution wid th standard deviationOrdered By: Love Funez on 11-25-2023 Erythrocyte distribution width (RBC) [Entitic vol] 38.6 fL 35.1-43.9 [facility] Gestational diabetes screen 1-hour screen with 50g oral glucose loadOrdered By: Love Funez on 11-25-2023 Glucose 1 Hr post 50 g glucose PO [Mass/Vol] 102 mg/dL 70-140 [facility] HIV 1 and HIV-2 antibody ass ay with HIV-1 p24 antigen detectionOrdered By: Love Funez on 11-25-2023 HIV 1+2 Ab+HIV1 p24 Ag IA Ql Non-Reactive Nonreactive [facility] Hematocrit Auto (Bld) [Volum e fraction]Ordered By: Love Funez on 11-25-2023 Hematocrit (Bld) [Volume fraction] 35.5 % 37-47 [facility] Immature granulocytes/100 WB C Auto (Bld)Ordered By: Love Funez on 11-25-2023 Immature granulocytes/100 WBC (Bld) 0.500 % 0.0-0.9 [facility] Comment on above: IG% - Immature Granu locytes (promyelocytes, myelocytes and metamyelocytes) > 1% indicates that a LEFT SHIFT is Present. Laboratory - Chemistry and C hemistry - challengeon 11-25-2023 Glucose Ql (U) Negative [facility] Laboratory - Hematology and Cell countsOrdered By: Love Funez on 11-25-2023 MCH (RBC) [Entitic mass] 28.5 pg 27.0-32.0 [facility] MCHC (RBC) [Mass/Vol] 33.5 g/dL 32-36 [facility] Nucleated RBC/100 WBC (Bld) [Ratio] 0 % 0-5 [facility] Platelet mean volume (Bld) [Entitic vol] 9.5 fL 6.2-12.0 [facility] Platelets (Bld) [#/Vol] 236 10*3/uL 150-450 [facility] Laboratory - Urinalysison Protein Ql (U) Negative [facility] RBC Auto (Bld) [#/Vol]Ordere d By: Love Funez on 11-25-2023 RBC (Bld) [#/Vol] 4.17 10*6/uL 4.2-5.4 [facility] Serum Treponema species anti body detectionOrdered By: Love Funez on 11-25-2023 Treponema sp Ab Ql (S) Non-Reactive [facility] Laboratory - Chemistry and C hemistry - challengeon 10-01-2023 Glucose Ql (U) Negative [facility] Laboratory - Urinalysison Protein Ql (U) Negative [facility] Laboratory - Chemistry and C hemistry - challengeon 09-01-2023 Glucose Ql (U) Negative [facility] Laboratory - Urinalysison Protein Ql (U) Negative [facility] Absolute lymphocyte countOrd ered By: Shyla Wallace on 08-12-2023 Lymphocytes Auto (Unsp spec) [#/Vol] 2.13 10*3/uL 0.83-4.51 [facility] Basophil percentageOrdered B y: Shyla Wallace on 08-12-2023 Basophils/100 WBC (Bld) 0.4 % 0-1 [facility] Eosinophils/100 WBC (Bld) 1.0 % 0-5 [facility] Neutrophils (Bld) [#/Vol] 6.2 10*3/uL 2.0-7.7 [facility] Neutrophils/100 WBC (Bld) 68.6 % 47-70 [facility] WBC (Bld) [#/Vol] 9.0 10*3/uL 4.4-11.0 [facility] Blood erythrocytes count (nu mber/volume)Ordered By: Shyla Wallace on 08-12-2023 RBC (Bld) [#/Vol] 4.56 10*6/uL 4.2-5.4 [facility] Blood hemoglobin measurement (mass/volume)Ordered By: Shyla Wallace on 08-12-2023 Hemoglobin (Bld) [Mass/Vol] 13.5 g/dL 12.0-15.0 [facility] Blood lymphocytes/100 leukoc ytesOrdered By: Shyla Wallace on 08-12-2023 Lymphocytes/100 WBC (Bld) 23.6 % 19-41 [facility] Blood monocytes/100 leukocyt esOrdered By: Shyla Wallace on 08-12-2023 Monocytes/100 WBC (Bld) 6.2 % 0-10 [facility] Blood platelet mean volumeOr dered By: Shyla Wallace on 08-12-2023 Platelet mean volume (Bld) [Entitic vol] 10.3 fL 6.2-12.0 [facility] Determination of erythrocyte mean corpuscular volume (MCV)Ordered By: Shyla Wallace on 08-12-2023 MCV (RBC) [Entitic vol] 86.2 fL 81-99 [facility] HIV 1 and HIV-2 antibody ass ay with HIV-1 p24 antigen detectionOrdered By: Shyla Wallace on 08-12-2023 HIV 1+2 Ab+HIV1 p24 Ag IA Ql Non-Reactive Nonreactive [facility] Hematocrit Auto (Bld) [Volum e fraction]Ordered By: Shyla Wallace on 08-12-2023 Hematocrit (Bld) [Volume fraction] 39.3 % 37-47 [facility] Laboratory - Hematology and Cell countsOrdered By: Shyla Wallace on 08-12-2023 Erythrocyte distribution width (RBC) [Entitic vol] 39.5 fL 35.1-43.9 [facility] Erythrocyte distribution width (RBC) [Ratio] 12.7 % 11.6-14.6 [facility] Immature granulocytes/100 WBC (Bld) 0.200 % 0.0-0.9 [facility] Comment on above: IG% - Immature Granu locytes (promyelocytes, myelocytes and metamyelocytes) > 1% indicates that a LEFT SHIFT is Present. MCH (RBC) [Entitic mass] 29.6 pg 27.0-32.0 [facility] Nucleated RBC/100 WBC (Bld) [Ratio] 0 % 0-5 [facility] MCHC Auto (RBC) [Mass/Vol]Or dered By: Shyla Wallace on 08-12-2023 MCHC (RBC) [Mass/Vol] 34.4 g/dL 32-36 [facility] No Panel InformationOrdered By: Shyla Wallace on 08-12-2023 Hepatitis B Surface Antigen Non-Reactive Nonreactive [facility] Hepatitis C Antibody Non-Reactive Nonreactive [facility] Comment on above: Non Reactive: < 0.8 Equivocal: >/= 0.8 to < 1.0 Reactive: >/= 1.0The CDC recommends that a reactive/equivocal HCV antibody result be followed up by the HCV Nucleic Acid Amplificationtest (095695) Rubella IgG Antibody Reactive Nonreactive [facility] Comment on above: Antibody Results Int erpretation of Immune Status Non Reactive Presumed Non-Immune Equivocal Equivocal Reactive Presumed Immune Platelets bldOrdered By: Charley Wallace on 08-12-2023 Platelets (Bld) [#/Vol] 238 10*3/uL 150-450 [facility] Serum Treponema species anti body detectionOrdered By: Shyla Wallace on 08-12-2023 Treponema sp Ab Ql (S) Non-Reactive [facility] Laboratory - Chemistry and C hemistry - challengeon 08-08-2023 Glucose Ql (U) Negative [facility] Laboratory - Urinalysison Protein Ql (U) Negative [facility] Culture, urineOrdered By: Shanta Wallace on 07-11-2023 Bacteria identified Cx Nom (U) Positive [facility] CNOVon 05-14-2023 CNOV Office Visit (UCWSTR ) GALHALIE ([id number]) 1995 F Date Time Provider Department 05/14/23 8:30 AM ESTEFANY FOSTER During your visit today, we recorded the following information about you: Temperature Pulse Respiration Blood pressure 97.1 degrees 86/minute 20/minute 102/68 Weight 72.4 kg Estefany Foster APRN.DIRECTOR OF KNOWLEDGE MANAGEMENT 05/14/2023 8:45 AM Signed Patient came in [...] Encounter Status:Closed by ESTEFANY FOSTER on 05/14/23 [facility] CNOVon 03-13-2023 CNOV Office Visit (TR ) HALIE SANTO ([id number]) 1995 F Date Time Provider Department 03/13/23 7:15 AM EDUARDO [facility] During your visit today, we recorded the following information about you: Temperature Pulse Respiration Blood pressure 99.3 degrees 111/minute 21/minute 102/60 Weight 71.4 kg Eduardo Oscar APRN.DIRECTOR OF KNOWLEDGE MANAGEMENT 03/13/2023 7:43 AM Signed Subjective HPI HPI [...] Date Reviewed: 03/13/2023 Reviewed by: Eduardo Oscar APRN.DIRECTOR OF KNOWLEDGE MANAGEMENT - Fully Assessed Reason for Visit: Sore Throat [200] Cmt: Fever, JALLOH, bilateral ear pain x 3 days Primary Visit Diagnosis:Strep throat [J02.0] Other Visit Diagnosis:Sore throat [J02.9] Order(s):STREP A MOLECULAR (POC) [2389278] Order #: [id number]. #:[id number] amoxicillin (AMOXIL) 500 mg capsuleTake 1 capsule by mouth twice daily for 10 days.Disp: 20 capsuleRfl: 0 Prescriptions as of 03/13/2023 - amoxicillin (AMOXIL) 500 mg (more content not included)... Normal [facility] STREP A MOLECULAR (POC)on Procedural Control Valid [facility] Strep A (POCT) Positive Abnormal Negative [facility] Absolute lymphocyte countOrd ered By: Dr. Stacy on 09-05-2022 Lymphocytes Auto (Unsp spec) [#/Vol] 1.25 10*3/uL 0.83-4.51 [facility] Basophil percentageOrdered B y: Dr. Stacy on 09-05-2022 Basophils/100 WBC (Bld) 0.2 % 0-1 [facility] Eosinophils/100 WBC (Bld) 0.3 % 0-5 [facility] Neutrophils (Bld) [#/Vol] 8.9 10*3/uL 2.0-7.7 [facility] Neutrophils/100 WBC (Bld) 79.1 % 47-70 [facility] WBC (Bld) [#/Vol] 11.2 10*3/uL 4.4-11.0 [facility] Blood erythrocytes count (nu mber/volume)Ordered By: Dr. Stacy on 09-05-2022 RBC (Bld) [#/Vol] 4.19 10*6/uL 4.2-5.4 [facility] Blood hemoglobin measurement (mass/volume)Ordered By: Dr. Stacy on 09-05-2022 Hemoglobin (Bld) [Mass/Vol] 11.5 g/dL 12.0-15.0 [facility] Blood lymphocytes/100 leukoc ytesOrdered By: Dr. Stacy on 09-05-2022 Lymphocytes/100 WBC (Bld) 11.2 % 19-41 [facility] Blood monocytes/100 leukocyt esOrdered By: Dr. Stacy on 09-05-2022 Monocytes/100 WBC (Bld) 8.3 % 0-10 [facility] Blood platelet mean volumeOr dered By: Dr. Stacy on 09-05-2022 Platelet mean volume (Bld) [Entitic vol] 9.8 fL 6.2-12.0 [facility] Determination of erythrocyte mean corpuscular volume (MCV)Ordered By: Dr. Stacy on 09-05-2022 MCV (RBC) [Entitic vol] 83.8 fL 81-99 [facility] Hematocrit Auto (Bld) [Volum e fraction]Ordered By: Dr. Stacy on 09-05-2022 Hematocrit (Bld) [Volume fraction] 35.1 % 37-47 [facility] Laboratory - Hematology and Cell countsOrdered By: Dr. Stacy on 09-05-2022 Erythrocyte distribution width (RBC) [Entitic vol] 39.1 fL 35.1-43.9 [facility] Erythrocyte distribution width (RBC) [Ratio] 13.0 % 11.6-14.6 [facility] Immature granulocytes/100 WBC (Bld) 0.900 % 0.0-0.9 [facility] Comment on above: IG% - Immature Granu locytes (promyelocytes, myelocytes and metamyelocytes) > 1% indicates that a LEFT SHIFT is Present. MCH (RBC) [Entitic mass] 27.4 pg 27.0-32.0 [facility] Nucleated RBC/100 WBC (Bld) [Ratio] 0 % 0-5 [facility] MCHC Auto (RBC) [Mass/Vol]Or dered By: Dr. Stacy on 09-05-2022 MCHC (RBC) [Mass/Vol] 32.8 g/dL 32-36 [facility] Platelets bldOrdered By: Dr. Stacy on 09-05-2022 Platelets (Bld) [#/Vol] 293 10*3/uL 150-450 [facility] Laboratory - Chemistry and C hemistry - challengeon 08-29-2022 Glucose Ql (U) Negative [facility] Laboratory - Urinalysison Protein Ql (U) Negative [facility] Laboratory - Chemistry and C hemistry - challengeon 08-22-2022 Glucose Ql (U) Negative [facility] Laboratory - Urinalysison Protein Ql (U) Negative [facility] No Panel InformationOrdered By: Dr. Stacy on 08-14-2022 Group B Streptococcus Culture Group B Beta Streptococcus is not isolated. [facility] Laboratory - Chemistry and C hemistry - challengeon 08-01-2022 Glucose Ql (U) Negative [facility] Laboratory - Urinalysison Protein Ql (U) Negative [facility] Laboratory - Chemistry and C hemistry - challengeon 07-17-2022 Glucose Ql (U) Negative [facility] Laboratory - Urinalysison Protein Ql (U) Negative [facility] Laboratory - Chemistry and C hemistry - challengeon 07-04-2022 Glucose Ql (U) Negative [facility] Laboratory - Urinalysison Protein Ql (U) Negative [facility] No Panel InformationOrdered By: Abbie Bronson on 06-21-2022 Glucose 3 Hour See comment 70-120 [facility] Comment on above: FASTING 67 L Col: [...] Auto (Unsp spec) [#/Vol] 1.57 10*3/uL 0.83-4.51 [facility] Basophil percentageOrdered B y: Shyla Wallace on 06-17-2022 Basophils/100 WBC (Bld) 0.3 % 0-1 [facility] Eosinophils/100 WBC (Bld) 0.7 % 0-5 [facility] Neutrophils (Bld) [#/Vol] 10.4 10*3/uL 2.0-7.7 [facility] Neutrophils/100 WBC (Bld) 82.2 % 47-70 [facility] WBC (Bld) [#/Vol] 12.7 10*3/uL 4.4-11.0 [facility] Blood erythrocytes count (nu mber/volume)Ordered By: Shyla Wallace on 06-17-2022 RBC (Bld) [#/Vol] 3.80 10*6/uL 4.2-5.4 [facility] Blood hemoglobin measurement (mass/volume)Ordered By: Shyla Wallace on 06-17-2022 Hemoglobin (Bld) [Mass/Vol] 11.4 g/dL 12.0-15.0 [facility] Blood lymphocytes/100 leukoc ytesOrdered By: Shyla Wallace on 06-17-2022 Lymphocytes/100 WBC (Bld) 12.4 % 19-41 [facility] Blood monocytes/100 leukocyt esOrdered By: Shyla Wallace on 06-17-2022 Monocytes/100 WBC (Bld) 4.0 % 0-10 [facility] Blood platelet mean volumeOr dered By: Shyla Wallace on 06-17-2022 Platelet mean volume (Bld) [Entitic vol] 9.3 fL 6.2-12.0 [facility] Determination of erythrocyte mean corpuscular volume (MCV)Ordered By: Shyla Wallace on 06-17-2022 MCV (RBC) [Entitic vol] 87.9 fL 81-99 [facility] Gestational diabetes screen 1-hour screen with 50g oral glucose loadOrdered By: Shyla Wallace on 06-17-2022 Glucose 1 Hr post 50 g glucose PO [Mass/Vol] 139 mg/dL 70-140 [facility] HIV 1 and HIV-2 antibody ass ay with HIV-1 p24 antigen detectionOrdered By: Shyla Wallace on 06-17-2022 HIV 1+2 Ab+HIV1 p24 Ag IA Ql Non-Reactive Nonreactive [facility] Hematocrit Auto (Bld) [Volum e fraction]Ordered By: Shyla Wallace on 06-17-2022 Hematocrit (Bld) [Volume fraction] 33.4 % 37-47 [facility] Laboratory - Chemistry and C hemistry - challengeon 06-17-2022 Glucose Ql (U) Negative [facility] Laboratory - Hematology and Cell countsOrdered By: Shyla Wallace on 06-17-2022 Erythrocyte distribution width (RBC) [Entitic vol] 42.5 fL 35.1-43.9 [facility] Erythrocyte distribution width (RBC) [Ratio] 13.2 % 11.6-14.6 [facility] Immature granulocytes/100 WBC (Bld) 0.400 % 0.0-0.9 [facility] Comment on above: IG% - Immature Granu locytes (promyelocytes, myelocytes and metamyelocytes) > 1% indicates that a LEFT SHIFT is Present. MCH (RBC) [Entitic mass] 30.0 pg 27.0-32.0 [facility] Nucleated RBC/100 WBC (Bld) [Ratio] 0 % 0-5 [facility] Laboratory - Urinalysison Protein Ql (U) Negative [facility] MCHC Auto (RBC) [Mass/Vol]Or dered By: Shyla Wallace on 06-17-2022 MCHC (RBC) [Mass/Vol] 34.1 g/dL 32-36 [facility] Platelets bldOrdered By: Charley Wallace on 06-17-2022 Platelets (Bld) [#/Vol] 214 10*3/uL 150-450 [facility] Serum Treponema species anti body detectionOrdered By: Shyla Wallace on 06-17-2022 Treponema sp Ab Ql (S) Non-Reactive [facility] Laboratory - Chemistry and C hemistry - challengeon 06-05-2022 Glucose Ql (U) Negative [facility] Laboratory - Urinalysison Protein Ql (U) Negative [facility] Laboratory - Chemistry and C hemistry - challengeon 05-07-2022 Glucose Ql (U) Negative [facility] Laboratory - Urinalysison Protein Ql (U) Negative [facility] Laboratory - Chemistry and C hemistry - challengeon 04-09-2022 Glucose Ql (U) Negative [facility] Work Phone: Laboratory - Urinalysison Protein Ql (U) Negative [facility] Work Phone: Laboratory - Chemistry and C hemistry - challengeon 03-11-2022 Glucose Ql (U) Negative [facility] Work Phone: Laboratory - Urinalysison Protein Ql (U) Negative [facility] Work Phone: Absolute lymphocyte counton 02-19-2022 Lymphocytes Auto (Unsp spec) [#/Vol] 1.36 10*3/uL 0.83-4.51 [facility] Work Phone: Basophil percentageon 2021 Basophils/100 WBC (Bld) 0.3 % 0-1 [facility] Work Phone: Eosinophils/100 WBC (Bld) 0.7 % 0-5 [facility] Work Phone: Neutrophils (Bld) [#/Vol] 7.2 10*3/uL 2.0-7.7 [facility] Work Phone: Neutrophils/100 WBC (Bld) 78.3 % 47-70 [facility] Work Phone: WBC (Bld) [#/Vol] 9.1 10*3/uL 4.4-11.0 [facility] Work Phone: Blood erythrocytes count (nu mber/volume)on 02-19-2022 RBC (Bld) [#/Vol] 4.96 10*6/uL 4.2-5.4 [facility] Work Phone: Blood hemoglobin measurement (mass/volume)on 02-19-2022 Hemoglobin (Bld) [Mass/Vol] 14.5 g/dL 12.0-15.0 [facility] Work Phone: Blood lymphocytes/100 leukoc yteson 02-19-2022 Lymphocytes/100 WBC (Bld) 14.9 % 19-41 [facility] Work Phone: [phone] Blood monocytes/100 leukocyt eson 02-19-2022 Monocytes/100 WBC (Bld) 5.5 % 0-10 [facility] Work Phone: [phone] Blood platelet mean volumeon 02-19-2022 Platelet mean volume (Bld) [Entitic vol] 9.8 fL 6.2-12.0 [facility] Work Phone: [phone] Determination of erythrocyte mean corpuscular volume (MCV)on 02-19-2022 MCV (RBC) [Entitic vol] 85.7 fL 81-99 [facility] Work Phone: [phone] HIV 1 and HIV-2 antibody ass ay with HIV-1 p24 antigen detectionon 02-19-2022 HIV 1+2 Ab+HIV1 p24 Ag IA Ql Non-Reactive Nonreactive [facility] Work Phone: [phone] Hematocrit Auto (Bld) [Volum e fraction]on 02-19-2022 Hematocrit (Bld) [Volume fraction] 42.5 % 37-47 [facility] Work Phone: [phone] Laboratory - Hematology and Cell countson 02-19-2022 Erythrocyte distribution width (RBC) [Entitic vol] 38.6 fL 35.1-43.9 [facility] Work Phone: [phone] Erythrocyte distribution width (RBC) [Ratio] 12.4 % 11.6-14.6 [facility] Work Phone: [phone] Immature granulocytes/100 WBC (Bld) 0.300 % 0.0-0.9 [facility] Work Phone: [phone] Comment on above: IG% - Immature Granu locytes (promyelocytes, myelocytes and metamyelocytes) > 1% indicates that a LEFT SHIFT is Present. MCH (RBC) [Entitic mass] 29.2 pg 27.0-32.0 [facility] Work Phone: [phone] Nucleated RBC/100 WBC (Bld) [Ratio] 0 % 0-5 [facility] Work Phone: [phone] MCHC Auto (RBC) [Mass/Vol]on 02-19-2022 MCHC (RBC) [Mass/Vol] 34.1 g/dL 32-36 [facility] Work Phone: [phone] No Panel Informationon 02-19 Miscellaneous Test Comment MAILED SPECIMEN [facility] Work Phone: [phone] Hepatitis B Surface Antigen Non-Reactive Nonreactive [facility] Work Phone: [phone] Hepatitis C Antibody Non-Reactive Nonreactive [facility] Work Phone: [phone] Comment on above: Non Reactive: < 0.8 Equivocal: >/= 0.8 to < 1.0 Reactive: >/= 1.0The CDC recommends that a reactive/equivocal HCV antibody result be followed up by the HCV Nucleic Acid Amplificationtest (945209) Rubella IgG Antibody Reactive Nonreactive [facility] Work Phone: [phone] Comment on above: Antibody Results Int erpretation of Immune Status Non Reactive Presumed Non-Immune Equivocal Equivocal Reactive Presumed Immune Platelets bldon 02-19-2022 Platelets (Bld) [#/Vol] 235 10*3/uL 150-450 [facility] Work Phone: [phone] Serum Treponema species anti body detectionon 02-19-2022 Treponema sp Ab Ql (S) Non-Reactive [facility] Work Phone: [phone] Chlamydia trachomatis rRNA d etection by probe and target amplification methodon 02-04-2022 C. trachomatis rRNA MINI+probe Ql (Unsp spec) Negative Negative [facility] Work Phone: [phone] Laboratory - Drug toxicology on 02-04-2022 Amphetamines Ql (U) Negative <1000 ng/mL [facility] Work Phone: [phone] Benzodiazepines Ql (U) Negative < 200 ng/mL [facility] Work Phone: [phone] Cannabinoids Screen Ql (U) Negative < 50 ng/mL [facility] Work Phone: Cocaine Ql (U) Negative < 300 ng/mL [facility] Work Phone: [phone] Opiates Ql (U) Negative < 300 ng/mL [facility] Work Phone: Laboratory - Microbiology an d Antimicrobial susceptibilityon 02-04-2022 N. gonorrhoeae DNA MINI+probe Ql (Unsp spec) Negative Negative [facility] Work Phone: Comment on above: Performed at: =G - L [address] [id number] Director: Tiff Vivas MD, Phone: [phone] No Panel Informationon 02-04 MDMA (Ecstasy) Screen Negative < 500 ng/mL [facility] Work Phone: [phone] Urine Barbiturates Screen Negative < 200 ng/mL [facility] Work Phone: [phone] Urine Drug Screen Comment [facility] Work Phone: Comment on above: CONFIRMATORY TESTING [...] Methadone Screen Negative < 300 ng/mL [facility] Work Phone: Urine phencyclidine (PCP) de tectionon 02-04-2022 Phencyclidine Ql (U) Negative < 25 ng/mL [facility] Work Phone: Office Visit: new annualon 1 Documentation of current medications (procedure) Done Invalid Interpretation Code [facility] Fall risk assessment No Invalid Interpretation Code [facility] Tobacco smoking status NHIS Never Invalid Interpretation Code [facility] Tobacco use CPHS Never smoker Invalid Interpretation Code [facility] Office Visit: new annualon 0 07-28-2015 General categories [Interpretation] of Cervical or vaginal smear or scraping by Cyto stain Normal Invalid Interpretation Code [facility] Office Visit: postop surgery 11/08/14on 12-14-2014 Dietary management education, guidance, and counseling (procedure) yes Invalid Interpretation Code [facility] External Other: Preferred Me thod of Contacton 11-18-2014 methcontact secmsg Invalid Interpretation Code [facility] Lab Report: ,Urineo n 11-08-2014 HCGUQUAL Negative Invalid Interpretation Code [facility] Culture, urine Bacteria identified Cx Nom (U) GNR lactose gage designer [facility] Work Phone: Vital Signs Date Time Vital Sign Value Performing Clinician Faci treyy 03-24-2025 10:46-0400 Body height 175.26 cm No Primary Care Physician [facility] 03-24-2025 10:46-0400 Body mass index (BMI) [Ratio] 26 kg/m2 No Primary Care Physician [facility] 03-24-2025 10:46-0400 Body weight 80.08 kg No Primary Care Physician [facility] 03-24-2025 10:46-0400 Diastolic blood pressure 82 mm[Hg] No Primary Care Physician [facility] 03-24-2025 10:46-0400 Systolic blood pressure 126 mm[Hg] No Primary Care Physician [facility] 03-16-2025 14:47-0400 Body height 175.26 cm No Primary Care Physician [facility] 03-16-2025 14:46-0400 Body mass index (BMI) [Ratio] 25.9 kg/m2 No Primary Care Physician [facility] 03-16-2025 14:46-0400 Body weight 79.63 kg No Primary Care Physician [facility] 03-16-2025 14:46-0400 Diastolic blood pressure 76 mm[Hg] No Primary Care Physician [facility] 03-16-2025 14:46-0400 Systolic blood pressure 123 mm[Hg] No Primary Care Physician [facility] 03-08-2025 10:35-0400 Body height 175.26 cm No Primary Care Physician [facility] 03-08-2025 10:35-0400 Body mass index (BMI) [Ratio] 25.6 kg/m2 No Primary Care Physician [facility] 03-08-2025 10:35-0400 Body weight 78.64 kg No Primary Care Physician [facility] 03-08-2025 10:35-0400 Diastolic blood pressure 65 mm[Hg] No Primary Care Physician [facility] 03-08-2025 10:35-0400 Systolic blood pressure 115 mm[Hg] No Primary Care Physician [facility] 03-03-2025 11:34-0400 Body height 175.26 cm No Primary Care Physician [facility] 03-03-2025 11:32-0400 Body mass index (BMI) [Ratio] 25.4 kg/m2 No Primary Care Physician [facility] 03-03-2025 11:32-0400 Body weight 78.18 kg No Primary Care Physician [facility] 03-03-2025 11:32-0400 Diastolic blood pressure 70 mm[Hg] No Primary Care Physician [facility] 03-03-2025 11:32-0400 Systolic blood pressure 107 mm[Hg] No Primary Care Physician [facility] 02-15-2025 10:03-0400 Body height 175.26 cm No Primary Care Physician [facility] 02-15-2025 10:03-0400 Body mass index (BMI) [Ratio] 25.4 kg/m2 No Primary Care Physician [facility] 02-15-2025 10:03-0400 Body weight 78.07 kg No Primary Care Physician [facility] 02-15-2025 10:03-0400 Diastolic blood pressure 67 mm[Hg] No Primary Care Physician [facility] 02-15-2025 10:03-0400 Systolic blood pressure 108 mm[Hg] No Primary Care Physician [facility] 02-02-2025 14:37-0400 Body height 175.26 cm No Primary Care Physician [facility] 02-02-2025 14:34-0400 Body mass index (BMI) [Ratio] 25.2 kg/m2 No Primary Care Physician [facility] 02-02-2025 14:34-0400 Body weight 77.33 kg No Primary Care Physician [facility] 02-02-2025 14:34-0400 Diastolic blood pressure 64 mm[Hg] No Primary Care Physician [facility] 02-02-2025 14:34-0400 Systolic blood pressure 109 mm[Hg] No Primary Care Physician [facility] 01-20-2025 10:24-0400 Body height 175.26 cm No Primary Care Physician [facility] 01-20-2025 10:24-0400 Body mass index (BMI) [Ratio] 24.8 kg/m2 No Primary Care Physician [facility] 01-20-2025 10:24-0400 Body weight 76.31 kg No Primary Care Physician [facility] 01-20-2025 10:24-0400 Diastolic blood pressure 68 mm[Hg] No Primary Care Physician [facility] 01-20-2025 10:24-0400 Systolic blood pressure 109 mm[Hg] No Primary Care Physician [facility] 01-05-2025 08:18-0400 Body height 175.26 cm No Primary Care Physician [facility] 01-05-2025 08:18-0400 Body mass index (BMI) [Ratio] 24.7 kg/m2 No Primary Care Physician [facility] 01-05-2025 08:18-0400 Body weight 75.97 kg No Primary Care Physician [facility] 01-05-2025 08:18-0400 Diastolic blood pressure 64 mm[Hg] No Primary Care Physician [facility] 01-05-2025 08:18-0400 Systolic blood pressure 100 mm[Hg] No Primary Care Physician [facility] 12-02-2024 11:01-0400 Body mass index (BMI) [Ratio] 23.8 kg/m2 No Primary Care Physician [facility] 12-02-2024 11:01-0400 Body weight 73.19 kg No Primary Care Physician [facility] 12-02-2024 11:01-0400 Diastolic blood pressure 66 mm[Hg] No Primary Care Physician [facility] 12-02-2024 11:01-0400 Systolic blood pressure 103 mm[Hg] No Primary Care Physician [facility] 11-02-2024 09:57-0400 Body mass index (BMI) [Ratio] 23.2 kg/m2 No Primary Care Physician [facility] 11-02-2024 09:57-0400 Body weight 71.44 kg No Primary Care Physician [facility] 11-02-2024 09:57-0400 Diastolic blood pressure 80 mm[Hg] No Primary Care Physician [facility] 11-02-2024 09:57-0400 Systolic blood pressure 124 mm[Hg] No Primary Care Physician [facility] 10-05-2024 10:45-0400 Body mass index (BMI) [Ratio] 22.9 kg/m2 No Primary Care Physician [facility] 10-05-2024 10:45-0400 Body weight 70.47 kg No Primary Care Physician [facility] 10-05-2024 10:45-0400 Diastolic blood pressure 74 mm[Hg] No Primary Care Physician [facility] 10-05-2024 10:45-0400 Systolic blood pressure 130 mm[Hg] No Primary Care Physician [facility] 11-25-2023 08:47-0400 Body height 172.72 cm No Primary Care Physician [facility] 11-25-2023 08:47-0400 Body mass index (BMI) [Ratio] 25 kg/m2 No Primary Care Physician [facility] 11-25-2023 08:47-0400 Body weight 74.84 kg No Primary Care Physician [facility] 11-25-2023 08:47-0400 Diastolic blood pressure 62 mm[Hg] No Primary Care Physician [facility] 11-25-2023 08:47-0400 Systolic blood pressure 118 mm[Hg] No Primary Care Physician [facility] 10-29-2023 11:36-0400 Body weight 73.93 kg No Primary Care Physician [facility] 10-29-2023 11:36-0400 Diastolic blood pressure 71 mm[Hg] No Primary Care Physician [facility] 10-29-2023 11:36-0400 Systolic blood pressure 116 mm[Hg] No Primary Care Physician [facility] 10-29-2023 11:25-0400 Body mass index (BMI) [Ratio] 24.7 kg/m2 No Primary Care Physician [facility] 10-01-2023 10:56-0500 Body mass index (BMI) [Ratio] 24 kg/m2 No Primary Care Physician [facility] 10-01-2023 10:56-0500 Body weight 71.78 kg No Primary Care Physician [facility] 10-01-2023 10:56-0500 Diastolic blood pressure 60 mm[Hg] No Primary Care Physician [facility] 10-01-2023 10:56-0500 Systolic blood pressure 114 mm[Hg] No Primary Care Physician [facility] 09-01-2023 11:20-0500 Body mass index (BMI) [Ratio] 23.8 kg/m2 No Primary Care Physician [facility] 09-01-2023 11:20-0500 Body weight 70.93 kg No Primary Care Physician [facility] 09-01-2023 11:20-0500 Diastolic blood pressure 72 mm[Hg] No Primary Care Physician [facility] 09-01-2023 11:20-0500 Systolic blood pressure 112 mm[Hg] No Primary Care Physician [facility] 08-08-2023 15:21-0500 Body mass index (BMI) [Ratio] 23.8 kg/m2 No Primary Care Physician [facility] 08-08-2023 15:21-0500 Body weight 71.21 kg No Primary Care Physician [facility] 08-08-2023 15:21-0500 Diastolic blood pressure 73 mm[Hg] No Primary Care Physician [facility] 08-08-2023 15:21-0500 Systolic blood pressure 115 mm[Hg] No Primary Care Physician [facility] 07-11-2023 09:01-0500 Body height 172.72 cm No Primary Care Physician [facility] 07-11-2023 09:00-0500 Body mass index (BMI) [Ratio] 23.9 kg/m2 No Primary Care Physician [facility] 07-11-2023 09:00-0500 Body weight 71.32 kg No Primary Care Physician [facility] 07-11-2023 09:00-0500 Diastolic blood pressure 70 mm[Hg] No Primary Care Physician [facility] 07-11-2023 09:00-0500 Systolic blood pressure 107 mm[Hg] No Primary Care Physician [facility] 05-14-2023 08:49-0400 Body height 172.72 cm [facility] 05-14-2023 08:49-0400 Body mass index (BMI) [Ratio] 22.8 kg/m2 [facility] 05-14-2023 08:49-0400 Body temperature 97.7 [degF] [facility] 05-14-2023 08:49-0400 Body weight 68.03 kg [facility] 05-14-2023 08:49-0400 Diastolic blood pressure 66 mm[Hg] [facility] 05-14-2023 08:49-0400 Heart rate 88 /min [facility] 05-14-2023 08:49-0400 Respiratory rate 14 /min [facility] 05-14-2023 08:49-0400 SaO2% (BldA) [Mass fraction] 100 % [facility] 05-14-2023 08:49-0400 Systolic blood pressure 110 mm[Hg] [facility] 05-14-2023 08:36-0400 Body temperature 97.11 [degF] Estefany Foster APRN.DIRECTOR OF KNOWLEDGE MANAGEMENT Work Phone: [facility] 05-14-2023 08:36-0400 Body weight 72.39 kg Estefany Foster APRN.DIRECTOR OF KNOWLEDGE MANAGEMENT Work Phone: [facility] 05-14-2023 08:36-0400 Diastolic blood pressure 68 mm[Hg] Estefany Foster APRN.DIRECTOR OF KNOWLEDGE MANAGEMENT Work Phone: [facility] 05-14-2023 08:36-0400 Heart rate 86 /min Estefany Foster APRN.DIRECTOR OF KNOWLEDGE MANAGEMENT Work Phone: [facility] 05-14-2023 08:36-0400 Respiratory rate 20 /min Estefany Foster APRN.DIRECTOR OF KNOWLEDGE MANAGEMENT Work Phone: [facility] 05-14-2023 08:36-0400 SaO2% (BldA) [Mass fraction] 99 % Estefany Foster APRN.DIRECTOR OF KNOWLEDGE MANAGEMENT Work Phone: [facility] 05-14-2023 08:36-0400 Systolic blood pressure 102 mm[Hg] Estefany Foster APRN.DIRECTOR OF KNOWLEDGE MANAGEMENT Work Phone: [facility] 03-13-2023 07:14-0400 Body temperature 99.3 [degF] Eduardo Oscar APRN.DIRECTOR OF KNOWLEDGE MANAGEMENT Work Phone: [facility] 03-13-2023 07:14-0400 Body weight 71.4 kg Eduardo Oscar SHIELD OPERATOR.DIRECTOR OF KNOWLEDGE MANAGEMENT Work Phone: [facility] 03-13-2023 07:14-0400 Diastolic blood pressure 60 mm[Hg] Eduardo Oscar SHIELD OPERATOR.DIRECTOR OF KNOWLEDGE MANAGEMENT Work Phone: [facility] 03-13-2023 07:14-0400 Heart rate 111 /min Eduardo Oscar SHIELD OPERATOR.DIRECTOR OF KNOWLEDGE MANAGEMENT Work Phone: [facility] 03-13-2023 07:14-0400 Respiratory rate 21 /min Eduardo Oscar SHIELD OPERATOR.DIRECTOR OF KNOWLEDGE MANAGEMENT Work Phone: [facility] 03-13-2023 07:14-0400 SaO2% (BldA) [Mass fraction] 99 % Eduardo Oscar SHIELD OPERATOR.DIRECTOR OF KNOWLEDGE MANAGEMENT Work Phone: [facility] 03-13-2023 07:14-0400 Systolic blood pressure 102 mm[Hg] Eduardo Oscar SHIELD OPERATOR.DIRECTOR OF KNOWLEDGE MANAGEMENT Work Phone: [facility] 09-06-2022 15:33-0500 Body temperature 98.1 [degF] No Primary Care Physician [facility] 09-06-2022 15:33-0500 Diastolic blood pressure 65 mm[Hg] No Primary Care Physician [facility] 09-06-2022 15:33-0500 Heart rate 76 /min No Primary Care Physician [facility] 09-06-2022 15:33-0500 Respiratory rate 16 /min No Primary Care Physician [facility] 09-06-2022 15:33-0500 Systolic blood pressure 113 mm[Hg] No Primary Care Physician [facility] 09-06-2022 04:18-0500 SaO2% (BldA) [Mass fraction] 98 % No Primary Care Physician [facility] 09-05-2022 12:42-0500 Body height 175.26 cm No Primary Care Physician [facility] 09-05-2022 12:42-0500 Body mass index (BMI) [Ratio] 25 kg/m2 No Primary Care Physician [facility] 09-05-2022 12:42-0500 Body weight 77 kg No Primary Care Physician [facility] 09-05-2022 11:05-0500 Body mass index (BMI) [Ratio] 26 kg/m2 No Primary Care Physician [facility] 09-05-2022 11:05-0500 Body weight 77.79 kg No Primary Care Physician [facility] 09-05-2022 11:05-0500 Diastolic blood pressure 84 mm[Hg] No Primary Care Physician [facility] 09-05-2022 11:05-0500 Systolic blood pressure 119 mm[Hg] No Primary Care Physician [facility] 08-29-2022 11:39-0500 Diastolic blood pressure 74 mm[Hg] No Primary Care Physician [facility] 08-29-2022 11:39-0500 Systolic blood pressure 108 mm[Hg] No Primary Care Physician [facility] 08-29-2022 11:06-0500 Body mass index (BMI) [Ratio] 26.3 kg/m2 No Primary Care Physician [facility] 08-29-2022 11:06-0500 Body weight 78.47 kg No Primary Care Physician [facility] 08-22-2022 10:46-0500 Body height 172.72 cm No Primary Care Physician [facility] 08-22-2022 10:45-0500 Body mass index (BMI) [Ratio] 26 kg/m2 No Primary Care Physician [facility] 08-22-2022 10:45-0500 Body weight 77.62 kg No Primary Care Physician [facility] 08-22-2022 10:45-0500 Diastolic blood pressure 80 mm[Hg] No Primary Care Physician [facility] 08-22-2022 10:45-0500 Systolic blood pressure 131 mm[Hg] No Primary Care Physician [facility] 08-12-2022 10:53-0500 Body mass index (BMI) [Ratio] 25.8 kg/m2 No Primary Care Physician [facility] 08-12-2022 10:53-0500 Body weight 77.11 kg No Primary Care Physician [facility] 08-12-2022 10:53-0500 Diastolic blood pressure 77 mm[Hg] No Primary Care Physician [facility] 08-12-2022 10:53-0500 Systolic blood pressure 118 mm[Hg] No Primary Care Physician [facility] 08-01-2022 10:53-0500 Diastolic blood pressure 76 mm[Hg] No Primary Care Physician [facility] 08-01-2022 10:53-0500 Systolic blood pressure 120 mm[Hg] No Primary Care Physician [facility] 08-01-2022 10:34-0500 Body mass index (BMI) [Ratio] 25.5 kg/m2 No Primary Care Physician [facility] 08-01-2022 10:34-0500 Body weight 76.2 kg No Primary Care Physician [facility] 07-17-2022 10:48-0500 Body mass index (BMI) [Ratio] 25 kg/m2 No Primary Care Physician [facility] 07-17-2022 10:48-0500 Body weight 74.84 kg No Primary Care Physician [facility] 07-17-2022 10:48-0500 Diastolic blood pressure 64 mm[Hg] No Primary Care Physician [facility] 07-17-2022 10:48-0500 Systolic blood pressure 100 mm[Hg] No Primary Care Physician [facility] 07-04-2022 10:23-0500 Body mass index (BMI) [Ratio] 25 kg/m2 No Primary Care Physician [facility] 07-04-2022 10:23-0500 Body weight 74.61 kg No Primary Care Physician [facility] 07-04-2022 10:23-0500 Diastolic blood pressure 69 mm[Hg] No Primary Care Physician [facility] 07-04-2022 10:23-0500 Systolic blood pressure 104 mm[Hg] No Primary Care Physician [facility] 06-17-2022 08:22-0500 Body height 172.72 cm No Primary Care Physician [facility] Work Phone: 06-17-2022 08:22-0500 Body mass index (BMI) [Ratio] 25.1 kg/m2 No Primary Care Physician [facility] 06-17-2022 08:22-0500 Body weight 74.89 kg No Primary Care Physician [facility] 06-17-2022 08:22-0500 Diastolic blood pressure 64 mm[Hg] No Primary Care Physician [facility] 06-17-2022 08:22-0500 Systolic blood pressure 99 mm[Hg] No Primary Care Physician [facility] 06-05-2022 10:21-0500 Body mass index (BMI) [Ratio] 25.1 kg/m2 No Primary Care Physician [facility] 06-05-2022 10:21-0500 Body weight 74.89 kg No Primary Care Physician [facility] 06-05-2022 10:21-0500 Diastolic blood pressure 72 mm[Hg] No Primary Care Physician [facility] 06-05-2022 10:21-0500 Systolic blood pressure 129 mm[Hg] No Primary Care Physician [facility] 05-07-2022 10:57-0400 Body mass index (BMI) [Ratio] 24.5 kg/m2 No Primary Care Physician [facility] 05-07-2022 10:57-0400 Body weight 73.02 kg No Primary Care Physician [facility] 05-07-2022 10:57-0400 Diastolic blood pressure 62 mm[Hg] No Primary Care Physician [facility] 05-07-2022 10:57-0400 Systolic blood pressure 94 mm[Hg] No Primary Care Physician [facility] 04-09-2022 09:51-0400 Body mass index (BMI) [Ratio] 24.3 kg/m2 No Primary Care Physician [facility] Work Phone: 04-09-2022 09:51-0400 Body weight 72.57 kg No Primary Care Physician [facility] Work Phone: 04-09-2022 09:51-0400 Diastolic blood pressure 74 mm[Hg] No Primary Care Physician [facility] Work Phone: 04-09-2022 09:51-0400 Systolic blood pressure 117 mm[Hg] No Primary Care Physician [facility] Work Phone: 03-11-2022 14:23-0400 Body mass index (BMI) [Ratio] 24.5 kg/m2 No Primary Care Physician [facility] Work Phone: 03-11-2022 14:23-0400 Body weight 73.02 kg No Primary Care Physician [facility] Work Phone: 03-11-2022 14:23-0400 Diastolic blood pressure 60 mm[Hg] No Primary Care Physician [facility] Work Phone: 03-11-2022 14:23-0400 Systolic blood pressure 112 mm[Hg] No Primary Care Physician [facility] Work Phone: 02-04-2022 13:26-0400 Body weight 73.65 kg No Primary Care Physician [facility] Work Phone: 02-04-2022 13:23-0400 Body height 172.72 cm No Primary Care Physician [facility] Work Phone: 02-04-2022 13:23-0400 Body mass index (BMI) [Ratio] 24.7 kg/m2 No Primary Care Physician [facility] Work Phone: 02-04-2022 13:23-0400 Diastolic blood pressure 79 mm[Hg] No Primary Care Physician [facility] Work Phone: 02-04-2022 13:23-0400 Systolic blood pressure 127 mm[Hg] No Primary Care Physician [facility] Work Phone: 05-22-2017 08:32-0400 BMI (Body Mass Index) 19.64 kg/m2 Chanel Stacy MD [facility] 05-22-2017 08:32-0400 Body Temperature 96.9 [degF] Chanel Stacy MD [facility] 05-22-2017 08:32-0400 Body Temperature 96.91 [degF] Chanel Stacy MD [facility] 05-22-2017 08:32-0400 BP Diastolic 75 mm[Hg] Chanel Stacy MD [facility] 05-22-2017 08:32-0400 BP Systolic 112 mm[Hg] Chanel Stacy MD [facility] 05-22-2017 08:32-0400 Height 172.72 cm Chanel Stacy MD [facility] 05-22-2017 08:32-0400 Pulse (Heart Rate) 87 /min Chanel Stacy MD [facility] 05-22-2017 08:32-0400 Respiratory Rate 16 /min Chanel Stacy MD [facility] 05-22-2017 08:32-0400 Weight 58.61 kg Chanel Stacy MD [facility] 05-22-2017 08:32-0400 Weight 58.6 kg Chanel Stacy MD [facility] 12-14-2014 16:40-0400 BSA (Body Surface Area) 1.71 m2 Chanel Stacy MD [facility] Encounters Encounter Date Encounter Type Care Provider Facility Start: 03-24-2025 End: 03-24-2025 ambulatory No Primary Care Physician Facility:[facility] Start: 03-24-2025 End: 03-24-[address] Chanel Stacy MD -[facility] Work Phone: Start: 03-16-2025 End: 03-16-[address] Love Mccann DO -[facility] Work Phone: Start: 03-16-2025 End: 03-16-2025 ambulatory No Primary Care Physician -[facility] Start: 03-11-2025 End: 03-11-2025 ambulatory No Primary Care Physician -[facility] Start: 03-11-2025 End: 03-11-2025 Patient encounter procedure Rylee Beavers CNM -Ultrasound [facility] Work Phone: Start: 03-11-2025 End: 03-11-2025 ambulatory No Primary Care Physician Facility:[facility] Start: 03-08-2025 End: 03-08-2025 Patient encounter procedure Rylee Beavers CNM -[facility] Work Phone: Start: 03-08-2025 End: 03-08-2025 ambulatory No Primary Care Physician -[facility] Start: 03-03-2025 End: 03-03-2025 ambulatory No Primary Care Physician -Laboratory Specimen Start: 03-03-2025 End: 03-03-[address] Love Mccann DO -[facility] Work Phone: Start: 03-03-2025 End: 03-03-[address] Love Mccann DO -[facility] Work Phone: Start: 03-03-2025 End: 03-03-2025 ambulatory No Primary Care Physician -[facility] Start: 03-03-2025 End: 03-03-2025 ambulatory Love Mccann Facility:[facility] Start: 02-15-2025 End: 02-15-[address] Chanel Stacy MD -[facility] Work Phone: Start: 02-15-2025 End: 02-15-2025 ambulatory No Primary Care Physician -[facility] Start: 02-02-2025 End: 02-02-[address] Love Mccann DO -[facility] Work Phone: Start: 02-02-2025 End: 02-02-2025 ambulatory No Primary Care Physician -[facility] Start: 01-20-2025 End: 01-20-[address] Chanel Stacy MD -[facility] Work Phone: Start: 01-20-2025 End: 01-20-2025 ambulatory No Primary Care Physician [facility] Work Phone: Start: 01-05-2025 End: 01-05-2025 Patient encounter procedure Abbie DE LA GARZA -[facility] Work Phone: Start: 01-05-2025 End: 01-05-2025 ambulatory No Primary Care Physician [facility] Work Phone: Start: 01-05-2025 End: 01-05-2025 ambulatory No Primary Care Physician Facility:[facility] Start: 12-02-2024 End: 12-02-2024 Patient encounter procedure Rylee Beavers CNM -[facility] Work Phone: Start: 12-02-2024 End: 12-02-2024 ambulatory No Primary Care Physician Facility:[facility] Start: 11-09-2024 End: 11-09-[address] [facility] Start: 11-02-2024 End: 11-02-2024 Patient encounter procedure Abbie DE LA GARZA -[facility] Work Phone: Start: 11-02-2024 End: 11-02-2024 ambulatory No Primary Care Physician Facility:[facility] Start: 10-05-2024 End: 10-05-[address] Chanel Stacy MD -[facility] Work Phone: Start: 10-05-2024 End: 10-05-2024 ambulatory No Primary Care Physician Facility:[facility] Start: 09-06-2024 End: 09-06-2024 ambulatory No Primary Care Physician Facility:[facility] Start: 09-06-2024 End: 09-06-2024 ambulatory No Primary Care Physician Facility:[facility] Start: 08-27-2024 ambulatory Carmencita Monte Facility :[facility] Start: 08-03-2024 End: 08-03-2024 ambulatory Rylee Copeland Facility:[facility] Start: 08-01-2024 End: 08-01-2024 ambulatory Rylee Beavers Facility:[facility] Start: 07-30-2024 End: 07-30-2024 ambulatory No Primary Care Physician Facility:[facility] Start: 03-22-2024 End: 03-22-2024 ambulatory No Primary Care Physician Facility:[facility] Start: 03-22-2024 End: 03-22-2024 ambulatory Love Mccann Facility:[facility] Start: 02-09-2024 End: 02-09-2024 ambulatory NO PRIMARY CARE [facility] Start: 01-12-2024 End: 01-12-[address] PRIMARY CARE [facility] Start: 12-11-2023 End: 12-11-[address] [facility] Start: 11-25-2023 End: 11-25-2023 ambulatory No Primary Care Physician [facility] Work Phone: Start: 11-25-2023 End: 11-25-2023 Patient encounter procedure No Primary Care Physician [facility] Work Phone: Start: 11-13-2023 End: 11-13-2023 [address] Huber [address]AM [facility] Start: 10-29-2023 End: 10-29-2023 Patient encounter procedure No Primary Care Physician [facility] Work Phone: Start: 10-01-2023 End: 10-01-2023 Patient encounter procedure No Primary Care Physician [facility] Work Phone: Start: 09-01-2023 End: 09-01-2023 Patient encounter procedure No Primary Care Physician [facility] Work Phone: Start: 08-12-2023 End: 08-12-2023 Patient encounter procedure No Primary Care Physician [facility] Work Phone: Start: 08-08-2023 End: 08-08-2023 Patient encounter procedure No Primary Care Physician [facility] Work Phone: Start: 07-11-2023 End: 07-11-2023 ambulatory No Primary Care Physician [facility] Work Phone: Start: 07-11-2023 End: 07-11-2023 Patient encounter procedure No Primary Care Physician [facility]Laboratory, Specimen Work Phone: Start: 07-11-2023 End: 07-11-2023 Patient encounter procedure No Primary Care Physician [facility] Work Phone: Start: 05-14-2023 End: 05-14-2023 ambulatory Facility:[facility] Start: 05-14-2023 End: 05-14-2023 Emergency department patient visit [facility] Work Phone: Start: 05-14-2023 End: 05-14-2023 Patient encounter procedure Estefany Foster APRN.DIRECTOR OF KNOWLEDGE MANAGEMENT Work Phone: [facility] Comment on above: Skin infection (Prim vielka Dx) Start: 03-13-2023 End: 03-13-2023 ambulatory Facility:[facility] Start: 03-13-2023 End: 03-13-2023 Patient encounter procedure Eduardo Oscar GARRETTiLsaRADHA Work Phone: [facility] Comment on above: Strep throat (Primar y Dx); Sore throat Start: 09-06-2022 Non-patient / Non-visit No Primary Care Physician [facility] Start: 09-05-2022 Non-patient / Non-visit No Primary Care Physician [facility] Start: 09-05-2022 End: 09-06-2022 Evaluation and management of inpatient No [facility] Start: 09-05-2022 End: 09-05-2022 Patient encounter procedure No Primary Care Physician [facility] Start: 08-29-2022 End: 08-29-2022 Patient encounter procedure No Primary Care Physician [facility] Start: 08-22-2022 End: 08-22-2022 Patient encounter procedure No Primary Care Physician [facility] Start: 08-12-2022 End: 08-12-2022 ambulatory No Primary Care Physician [facility] Work Phone: Start: 08-12-2022 End: 08-12-2022 Patient encounter procedure No Primary Care Physician [facility]Laboratory, Specimen Start: 08-12-2022 End: 08-12-2022 Patient encounter procedure No Primary Care Physician [facility] Start: 08-01-2022 End: 08-01-2022 Patient encounter procedure No Primary Care Physician [facility] Start: 07-17-2022 End: 07-17-2022 Patient encounter procedure No Primary Care Physician [facility] Start: 07-04-2022 End: 07-04-2022 Patient encounter procedure No Primary Care Physician [facility] Start: 06-21-2022 End: 06-21-2022 ambulatory No Primary Care Physician [facility] Work Phone: Start: 06-21-2022 End: 06-21-2022 Patient encounter procedure No Primary Care Physician [facility] Start: 06-17-2022 End: 06-17-2022 ambulatory No Primary Care Physician [facility] Work Phone: Start: 06-17-2022 End: 06-17-2022 Patient encounter procedure No Primary Care Physician [facility] Start: 06-05-2022 End: 06-05-2022 Patient encounter procedure No Primary Care Physician [facility] Start: 05-07-2022 End: 05-07-2022 Patient encounter procedure No Primary Care Physician [facility] Start: 04-09-2022 End: 04-09-2022 Patient encounter procedure No Primary Care Physician [facility] Start: 03-11-2022 End: 03-11-2022 Patient encounter procedure No Primary Care Physician [facility] Start: 02-19-2022 End: 02-19-2022 Patient encounter procedure No Primary Care Physician [facility] Start: 02-04-2022 End: 02-04-2022 Patient encounter procedure No Primary Care Physician [facility] Spec[facility] Start: 02-04-2022 End: 02-04-2022 Patient encounter procedure No Primary Care Physician [facility] Procedures Date Procedure Procedure Detail Performing Clinician Start: 03-11-2025 Ultrasound scan for growth No Primary Care Physician Start: 03-03-2025 Beta-hemolytic Streptococcus culture No Primary Care Physician Start: 01-05-2025 Serologic test for syphilis No Primary Care Physician Start: 09-06-2024 Antibody screen Rylee romo Comment on above: Order Comment: PN Performed By: #### L 3890.6005, BTS, Q74481-0, BtABORH, L100.0100, L3890.6100, L3890.6300, L509.4005 ####[facility] [id number] [place], [address] Start: 07-11-2023 Urine culture No Primar y [...] DTaP,Tdap,Td Vaccine (11 - Td or Tdap) [facility] Start: 01-05-2025 CBC W Auto Differential panel - Blood [facility] Start: 01-05-2025 Measurement of glucose 2 hours after glucose challenge for glucose tolerance test [facility] Start: 01-05-2025 Serologic test for syphilis [facility] Start: 01-05-2025 [facility] Start: 07-11-2023 Chlamydia deoxyribonucleic acid detection [facility] Start: 05-14-2023 [facility] Start: 03-28-2023 Influenza vaccination [facility] Start: 09-06-2022 Patient discharge [facility] Start: 09-05-2022 Administration of medication [facility] Start: 09-05-2022 Application of ice collar, cap or bag [facility] Start: 09-05-2022 Catheterization of vein [facility] Start: 09-05-2022 Introduction of urinary catheter [facility] Start: 09-05-2022 Measuring intake and output [facility] Start: 09-05-2022 Notification of physician [facility] Start: 09-05-2022 Procedure discontinued [facility] Start: 09-05-2022 Provision of activity privileges [facility] Start: 09-05-2022 Vital signs measurements [facility] Start: 09-05-2022 [facility] Start: 09-05-2022 Admission procedure [facility] Start: 07-28-2022 DEPRESSION ASSESSMENT DEPRESSION ASSESSMENT [facility] Start: 04-10-2018 PAP TESTING PAP TESTING [facility] Start: 09-25-2016 Urine microalbumin profile DTAP,TDAP,TD (7 - Td or Tdap) [facility] Start: 12-20-2014 End: 12-20-2014 OT-Hand Therapy OT-Hand Therapy [facility], [address] [place] [address], [id number] [facility] Start: 12-14-2014 End: 01-23-2015 Follow Up Appt Other Follow Up Appt Other [facility] Start: 12-02-2014 End: 12-06-2014 Follow Up Appt 2 weeks Follow Up Appt [address] [facility] Start: 11-18-2014 End: 11-29-2014 Follow Up Appt 2 weeks Follow Up Appt [address] [facility] Start: 11-18-2014 End: 12-12-2014 OT-Hand Therapy OT-Hand Therapy Physical Therapy [facility], [address] [place] [address], [id number] [facility] Start: 11-11-2014 End: 11-29-2014 Follow up Appt 1 week Follow up Appt [address] [facility] Start: 11-08-2014 End: 11-30-2014 Follow Up Appt Other Follow Up Appt Other [facility] Start: 2011 HEPATITIS C SCREENING HEPATITIS C SCREENING [facility] Start: 2011 HIV SCREENING HIV SCREENING [facility] Start: 01-12-1994 COVID-19 VACCINE (#1) COVID-19 VACCINE (#1) [facility] Anti-D (Rh) immunoglobulin [facility] Work Phone: Anti-D (Rh) immunoglobulin [facility] Anti-D (Rh) immunoglobulin [facility] CBC W Auto Different ial panel - Blood [facility] Erythrocyte mean corpuscular volume determination [facility] Hematocrit [Volume Fraction] of Blood [facility] Hemoglobin [Mass/vol ume] in Blood [facility] Hepatitis B surface antigen measurement [facility] Hepatitis C antibody measurement [facility] HIV 1+2 Ab+HIV1 p24 Ag [Presence] in Serum or Plasma by Immunoassay [facility] Leukocytes [#/volume ] in Blood [facility] Mean corpuscular hem oglobin concentration determination [facility] Mean corpuscular hem oglobin determination [facility] Measurement of gluco se 3 hours after glucose challenge for glucose tolerance test [facility] Work Phone: Neisseria gonorrhoea e rRNA [Presence] in Unspecified specimen by MINI with probe detection [facility] Neutrophil count [facility] Neutrophil percent differential count [facility] Patient Education [facility] Patient referral [facility] Work Phone: PCR test for Chlamyd ia trachomatis [facility] Platelets [#/volume] in Blood [facility] Red blood cell count [facility] Red cell distributio n width determination [facility] Rubella IgG measurement [facility] Streptococcus agalac tiae [Presence] in Unspecified specimen by Organism specific culture [facility] Treponema sp Ab [Pre sence] in Serum [facility] Ultrasound scan for growth [facility] Immunizations Immunization Date Immunization Notes Care Provider Fa cility 12-10-2023 tetanus toxoid, redu carolyn diphtheria toxoid, and acellular pertussis vaccine, adsorbed No Primary Care Physician [facility] 07-04-2022 tetanus toxoid, redu carolyn diphtheria toxoid, and acellular pertussis vaccine, adsorbed No Primary Care Physician [facility] 04-09-2021 tetanus toxoid, redu carolyn diphtheria toxoid, and acellular pertussis vaccine, adsorbed No Primary Care Physician [facility] 10-28-2011 Meningococcal, MCV4, unspecified conjugate formulation(groups A, C, Y and W-135) Eduardo Oscar SHIELD OPERATOR.DIRECTOR OF KNOWLEDGE MANAGEMENT Work Phone: [facility] 08-14-2010 human papilloma viru s vaccine, quadrivalent Eduardo Dayne SHIELD OPERATOR.DIRECTOR OF KNOWLEDGE MANAGEMENT Work Phone: [facility] 10-26-2009 human papilloma viru s vaccine, quadrivalent Eduardo Dayne SHIELD OPERATOR.DIRECTOR OF KNOWLEDGE MANAGEMENT Work Phone: [facility] 06-03-2008 human papilloma viru s vaccine, quadrivalent Eduardo Dayne SHIELD OPERATOR.DIRECTOR OF KNOWLEDGE MANAGEMENT Work Phone: [facility] 09-25-2006 Meningococcal, MCV4, unspecified conjugate formulation(groups A, C, Y and W-135) Eduardo Oscar SHIELD OPERATOR.DIRECTOR OF KNOWLEDGE MANAGEMENT Work Phone: [facility] 09-25-2006 tetanus toxoid, redu carolyn diphtheria toxoid, and acellular pertussis vaccine, adsorbed Eduardo Oscar SHIELD OPERATOR.DIRECTOR OF KNOWLEDGE MANAGEMENT Work Phone: [facility] 11-16-1998 diphtheria, tetanus toxoids and acellular pertussis vaccine Eduardo Oscar SHIELD OPERATOR.DIRECTOR OF KNOWLEDGE MANAGEMENT Work Phone: [facility] 11-16-1998 trivalent poliovirus vaccine, live, oral Eduardo Oscar SHIELD OPERATOR.DIRECTOR OF KNOWLEDGE MANAGEMENT Work Phone: [facility] 12-19-1995 diphtheria, tetanus toxoids and pertussis vaccine Eduardo Oscar SHIELD OPERATOR.DIRECTOR OF KNOWLEDGE MANAGEMENT Work Phone: [facility] 12-19-1995 haemophilus influenz ae type b vaccine, conjugate unspecified formulation Eduardo Oscar SHIELD OPERATOR.DIRECTOR OF KNOWLEDGE MANAGEMENT Work Phone: [facility] 12-19-1995 measles, mumps and rubella virus vaccine Eduardo Oscar SHIELD OPERATOR.DIRECTOR OF KNOWLEDGE MANAGEMENT Work Phone: [facility] 08-02-1994 diphtheria, tetanus toxoids and pertussis vaccine Eduardo Oscar SHIELD OPERATOR.DIRECTOR OF KNOWLEDGE MANAGEMENT Work Phone: [facility] 08-02-1994 hepatitis B vaccine, pediatric or pediatric/adolescent dosage Eduardo Oscar SHIELD OPERATOR.DIRECTOR OF KNOWLEDGE MANAGEMENT Work Phone: [facility] 08-02-1994 measles, mumps and rubella virus vaccine Eduardo Dayne SHIELD OPERATOR.DIRECTOR OF KNOWLEDGE MANAGEMENT Work Phone: [facility] 08-02-1994 trivalent poliovirus vaccine, live, oral Eduardo Dayne SHIELD OPERATOR.DIRECTOR OF KNOWLEDGE MANAGEMENT Work Phone: [facility] 05-21-1994 diphtheria, tetanus toxoids and pertussis vaccine Eduardo Dayne SHIELD OPERATOR.DIRECTOR OF KNOWLEDGE MANAGEMENT Work Phone: [facility] 05-21-1994 haemophilus influenz ae type b vaccine, conjugate unspecified formulation Eduardo Dayne SHIELD OPERATOR.DIRECTOR OF KNOWLEDGE MANAGEMENT Work Phone: [facility] 05-21-1994 hepatitis B vaccine, pediatric or pediatric/adolescent dosage Eduardo Dayne SHIELD OPERATOR.DIRECTOR OF KNOWLEDGE MANAGEMENT Work Phone: [facility] 05-21-1994 trivalent poliovirus vaccine, live, oral Eduardo Dayne SHIELD OPERATOR.DIRECTOR OF KNOWLEDGE MANAGEMENT Work Phone: [facility] 1993 diphtheria, tetanus toxoids and pertussis vaccine Eduardo Dayne SHIELD OPERATOR.DIRECTOR OF KNOWLEDGE MANAGEMENT Work Phone: [facility] 1993 haemophilus influenz ae type b vaccine, conjugate unspecified formulation Eduardo Dayne SHIELD OPERATOR.DIRECTOR OF KNOWLEDGE MANAGEMENT Work Phone: [facility] 1993 hepatitis B vaccine, pediatric or pediatric/adolescent dosage Eduardo Dayne SHIELD OPERATOR.DIRECTOR OF KNOWLEDGE MANAGEMENT Work Phone: [facility] 1993 trivalent poliovirus vaccine, live, oral Eduardo Dayne SHIELD OPERATOR.DIRECTOR OF KNOWLEDGE MANAGEMENT Work Phone: [facility] Payers Date Payer Category Payer Private Health Insurance [id number] 2024 Self-pay [id number] 2022 Unknown MMO MMO [employer] PPO [id number] 2022-Present [phone] [address] [place] [address] PPO [id number] 2014 Unknown [id number] 1993 Unknown [id number] 2.16.840.1.742744.3.579.2.4 79 1993 Unknown [id number] 2.16840.1.218787.3.579.2.4 79 1993 Unknown [id number] 2.16840.1.810687.3.579.2.4 79 1993 Unknown [id number] 2.840.1.489350.3.579.2.4 79 1993 Unknown [id number] .840.1.564003.3.579.2.4 79 Private Health Insurance [id number] Private Health Insurance [id number] Private Health Insurance [id number] Unknown [id number] Unknown [id number] 840.1.777481.3.579.2.4 62 Unknown [id number] 840.1.746320.3.579.2.4 62 Unknown [id number] 840.1.679135.3.579.2.4 62 Unknown [id number] .840.1.012195.3.579.2.4 62 Unknown [id number] 840.1.801878.3.579.2.4 62 Unknown [id number] 2.840.1.155906.3.579.2.4 62 Unknown [id number] 2840.1.686578.3.579.2.4 62 Unknown [id number] 2.16.840.1.262803.3.579.2.4 62 Unknown [id number] 2.16.840.1.031887.3.579.2.4 62 Unknown [id number] 2.16.840.1.424678.3.579.2.4 62 Unknown [id number] 2.16.840.1.936697.3.579.2.4 62 Unknown [id number] 2.16.840.1.296547.3.579.2.4 62 Unknown [id number] 2.16.840.1.658521.3.579.2.4 62 Unknown [id number] 2.16.840.1.139708.3.579.2.4 62 Unknown [id number] 2.16.840.1.176312.3.579.2.4 62 Unknown [id number] 2.16.840.1.466453.3.579.2.4 62 Unknown [id number] 2.16.840.1.927026.3.579.2.4 62 Unknown [id number] 2.16.840.1.132424.3.579.2.4 62 Unknown [id number] 2.16.840.1.589093.3.579.2.4 62 Unknown [id number] 2.16.840.1.994135.3.579.2.4 62 Unknown [id number] 2.16.840.1.766821.3.579.2.4 62 Unknown [id number] 2.16.840.1.956408.3.579.2.4 62 Social History Date Type Detail Facility Start: 02-04-2022 End: 10-29-2023 Tobacco smoking status [facility] Unknown if ever smoked [facility] Start: 07-11-2020 Non-smoker [facility] Start: 1995 Sex Assigned At Female [facility] Start: 08-27-2024 [facility] Start: 03-13-2023 End: 05-14-2023 Alcohol intake Current non-drinker of alcohol (finding) [facility] Start: 07-05-2020 End: 03-13-2023 History of Social function [facility] Start: 07-05-2020 End: 03-13-2023 Tobacco use panel [facility] National Score (1-10 0), lower number is lower risk Not on file [facility] Start: 1995 Sex Assigned At Not on file [facility] Medical Equipment Procedure Code Equipment Code Equipment [...] & Type Note Facility 03-24-2025 Progress note [facility] 03-16-2025 Progress note [facility] 03-16-2025 Progress note Note Date/Time March 16, 2025 3:06pm [facility] [address], [address] [place] [address] OFFICE VISIT Date of Service: 03/16/25 MR#: [id number] Acct: [id number] Name: HALIE SANTO Rep #: [id number] : 1995 Provider: Dr. Tasha Mccann DO Age/Sex: 29/F Location: [facility] Status: Signed Intake Vital Signs 02/02/25 14:37 03/08/25 10:35 03/16/25 14:46 03/16/25 14:47 Height 5 ft 9 in 5 ft 9 in 5 ft 9 in 5 ft 9 in Weight: 175 lb 9 oz BMI 25.9 BP 123/76 H Intake Visit Reasons: 38wk ob Secondary Social Studies Teacher Required: No Is patient in pain?: No [...] 3 current occupational status: employed current occupation: [employer] current occupational exposures/hazards: No pets and animals: [...] do you participate in: none frequency: daily sea/scientologist: None seatbelt use: always do you feel [...] full term 7lbs 9oz Male no ne [facility] Tawanna Gallardo 09/05/22 Riddley 39 live - full term 8#4oz Female no ne [facility] ABDIFATAH Tyl er 02/13/24 Smiley 39 live - full term 8lbs 1oz Male no ne [facility] Matt Gallardo Delivery Date: 06/27/20 Last Updated [...] Cosignjenaro Signature: Date (if applicable) CC: ~ [facility] Work Phone: 1(523) 841-160808-15-2025 Radiology Diagnostic study note [facility] Imaging Services [address] [place], [place] [address] OB Limited With Biometrics MR#: [id number] Acct: [id number] Name: HALIE SANTO Rep #: [id number] : 1995 F 29 From: Pet er Peer PCP: Care Physician,No Primary Status: REG CLI Study:OB Limited With Biometrics Date of Exam : 03/11/25 Exam# [id number] Ordering Dr: Rylee Beavers CNM PROCEDURE: OB [...] Total biophysical profile score 8/8 Reading Location: [facility] CC: JUSTEN Beavers; No Primary Care Physician ~ Direct Support Professional Caregiver: Signed [facility]08-12-2025 [facility] [address], [address] [place] [address] OFFICE VISIT Date of Service: 03/08/25 MR#: [id number] Acct: [id number] Name: HALIE SANTO Rep #: [id number] : 1995 Provider: JUSTEN Beavers Age/Sex: 29/F Location: [facility] Status: Signed Intake Vital Signs 02/02/25 14:37 03/03/25 11:34 03/08/25 10:35 Height 5 ft 9 in 5 ft 9 in 5 ft 9 in Weight: 173 lb 6 oz BMI 25.6 BP 115/65 Intake Visit Reasons: 37WK OB Chief Complaint: 37wk OB Secondary Social Studies Teacher Required: No Is patient in pain?: No [...] 3 current occupational status: employed current occupation: [employer] current occupational exposures/hazards: No pets and animals: [...] do you participate in: none frequency: daily sea/scientologist: None seatbelt use: always do you feel [...] full term 7lbs 9oz Male no ne [facility] Tawanna Gallardo 09/05/22 Danielle 39 live - full term 8#4oz Female no ne [facility] ABDIFATAH Aguileraer 02/13/24 Smiley 39 live - full term 8lbs 1oz Male no ne [facility] Matt Gallardo Delivery Date: 06/27/20 Last Updated [...] ~ [facility]07-22-2025 Progress [facility] [address] [place] [address], [address] [place] [address] OFFICE VISIT Date of Service: 02/15/25 MR#: [id number] Acct: [id number] Name: HALIE SANTO Rep #: [id number] : 1995 Provider: Dr. Adis Stacy MD Age/Sex: 29/F Location: [facility] Status: Signed Intake Vital Signs 01/05/25 08:18 01/20/25 10:24 02/02/25 14:37 02/15/25 10:03 Height 5 ft 9 in 5 ft 9 in 5 ft 9 in 5 ft 9 in Weight: 172 lb 2 oz BMI 25.4 BP 108/67 Intake Visit Reasons: 34wk ob Secondary Social Studies Teacher Required: No Is patient in pain?: No [...] 3 current occupational status: employed current occupation: [employer] current occupational exposures/hazards: No pets and animals: [...] do you participate in: none frequency: daily sea/scientologist: None seatbelt use: always do you feel [...] full term 7lbs 9oz Male no ne [facility] Tawanna Gallardo 09/05/22 Riddley 39 live - full term 8#4oz Female no ne [facility] ABDIFATAH Gallardo 02/13/24 Purviter 39 live - full term 8lbs 1oz Male no ne [facility] Matt Gallardo Delivery Date: 06/27/20 Last Updated [...] bartolo EDDY> Date _ Chanel Stacy MD [facility] Signature: Date (if applicable) CC: ~ [facility] [id number] Progress [facility] [address] [place] [address], [address] [place] [address] OFFICE VISIT Date of Service: 02/02/25 MR#: [id number] Acct: [id number] Name: GALHALIE Rep #: [id number] : 1995 Provider: Dr. Tasha Mccann DO Age/Sex: 29/F Location: [facility] Status: Signed Intake Vital Signs 01/05/25 08:18 01/20/25 10:24 02/02/25 14:34 02/02/25 14:37 Height 5 ft 9 in 5 ft 9 in 5 ft 9 in 5 ft 9 in Weight: 170 lb 8 oz BMI 25.2 BP 109/64 Intake Visit Reasons: 32wk ob Secondary Social Studies Teacher Required: No Is patient in pain?: No [...] 3 current occupational status: employed current occupation: [employer] current occupational exposures/hazards: No pets and animals: [...] do you participate in: none frequency: daily sea/scientologist: None seatbelt use: always do you feel [...] full term 7lbs 9oz Male no ne [facility] Tawanna Gallardo 09/05/22 Danielle 39 live - full term 8#4oz Female no ne [facility] ABDIFATAH Gallardo 02/13/24 Smiley 39 live - full term 8lbs 1oz Male no ne [facility] Matt Gallardo Delivery Date: 06/27/20 Last Updated [...] Funez DO> Date _ Love [facility]ccann [facility] Signature: Date (if applicable) CC: ~ [facility] [id number] Progress note Author Love Funez [facility] Note Date/Time February 02, 2025 2:51p [facility] [address], [address] [place] [address] OFFICE VISIT Date of Service: 02/02/25 MR#: [id number] Acct: [id number] Name: HALIE SANTO Rep #: [id number] : 1995 Provider: Dr. Tasha Mccann DO Age/Sex: 29/F Location: [facility] Status: Signed Intake Vital Signs 01/05/25 08:18 01/20/25 10:24 02/02/25 14:34 02/02/25 14:37 Height 5 ft 9 in 5 ft 9 in 5 ft 9 in 5 ft 9 in Weight: 170 lb 8 oz BMI 25.2 BP 109/64 Intake Visit Reasons: 32wk ob Secondary Social Studies Teacher Required: No Is patient in pain?: No [...] 3 current occupational status: employed current occupation: [employer] current occupational exposures/hazards: No pets and animals: [...] do you participate in: none frequency: daily sea/scientologist: None seatbelt use: always do you feel [...] full term 7lbs 9oz Male no ne [facility] Tawanna Gallardo 09/05/22 Riddley 39 live - full term 8#4oz Female no ne [facility] ABDIFATAH Gallardo 02/13/24 Smiley 39 live - full term 8lbs 1oz Male no ne [facility] Matt Gallardo Delivery Date: 06/27/20 Last Updated [...] Geller DO> Date _ Love Mccann DO [facility] Signature: Date (if applicable) CC: ~ [facility] Work Phone: 1(554) 167-573906-26-2025 Progress [facility] [address] [place] [address], [address] [place] [address] OFFICE VISIT Date of Service: 01/20/25 MR#: [id number] Acct: [id number] Name: GALHALIE MCLEOD Rep #: [id number] : 1995 Provider: Dr. Adis Stacy MD Age/Sex: 29/F Location: [facility] Status: Signed Intake Vital Signs 11/02/24 09:57 01/05/25 08:18 01/20/25 10:24 01/20/25 10:24 Height 5 ft 9 in 5 ft 9 in 5 ft 9 in 5 ft 9 in Weight: 167 lb 8 oz 168 lb 4 oz BMI 24.7 24.8 BP 100/64 109/68 Intake Visit Reasons: 30wk ob Secondary Social Studies Teacher Required: No Is patient in pain?: No [...] 3 current occupational status: employed current occupation: [employer] current occupational exposures/hazards: No pets and animals: [...] do you participate in: none frequency: daily sea/scientologist: None seatbelt use: always do you feel [...] full term 7lbs 9oz Male no ne [facility] Tawanna Gallardo 09/05/22 Danielle 39 live - full term 8#4oz Female no ne [facility] ABDIFATAH Gallardo 02/13/24 Smiley 39 live - full term 8lbs 1oz Male no ne [facility] Matt Gallardo Delivery Date: 06/27/20 Last Updated [...] bartolo EDDY> Date _ Chanel Stacy MD [facility] Signature: Date (if applicable) CC: ~ [facility] [...] of high-risk acute March 03, 2025 11:25am [facility] Work Phone: 1(211) 987-346605-08-2025 Evaluation note* Diagnosis Onset Date Resolution Status [...] date discrepanc y acute March 08 10:32am [facility] Work Phone: 1(670) 781-735405-08-2025 Evaluation note* Diagnosis Onset Date Resolution Status [...] date discrepanc y acute March 16 2:44pm [facility] Work Phone: 1(693) 916-571405-08-2025 Evaluation note* Diagnosis Onset Date Resolution Status [...] [facility] Work Phone: 1(429) 270-547704-08-2025 Evaluation note* Diagnosis Onset Date Resolution Status [...] [facility] Work Phone: 1(283) 763-618803-11-2025 Evaluation note* Diagnosis Onset Date Resolution Status [...] [facility] Work Phone: 1(266) 721-764803-11-2025 Evaluation note* Diagnosis Onset Date Resolution Status [...] [facility] Work Phone: 1(939) 731-696803-11-2025 Evaluation note* Diagnosis Onset Date Resolution Status [...] high-risk acute February 02, 2025 2 :31pm [facility] Work Phone: 1(855) 380-7105489236-98-9082 NoteHNO ID: [id number] Author: Estefany Foster APRN.DIRECTOR OF KNOWLEDGE MANAGEMENT Service: ? Author Type: Nurse Practitioner Type: [...] with this care plan. Will take her self.[facility]10-18-2023 History of Present illness Narrative* Estefany Foster APRN.DIRECTOR OF KNOWLEDGE MANAGEMENT - 05/14/2023 8:44 AM EDT Patient came [...] Will take her self. [facility] NoteHNO ID: [id number] Author: Eduardo Oscar APRN.DIRECTOR OF KNOWLEDGE MANAGEMENT Service: ? Author Type: Nurse Practitioner Type: [...] - STREP A MOLECULAR (POC) Eduardo Oscar APRN.[facility]08-17-2023 History of Present illness Narrative* Eduardo Oscar APRN.DIRECTOR OF KNOWLEDGE MANAGEMENT - 03/13/2023 7:17 AM EDT Subjective HPI [...] - STREP A MOLECULAR (POC) Eduardo Oscar APRN.DIRECTOR OF KNOWLEDGE MANAGEMENT [facility]2023 Progress note Author Shyla Wallace [facility] September 06, 2022 3:12pm Note Date/Time September 06, 2022 3:12pm [facility] Medical Records Department [address] [place] [address] Progress Note - OBGYN 09/06/22809 MR#: [id number] Acct: [id number] Name: HALIE SANTO Rep #[id number] : 1995 27 From: Shyla Wallace CNM PCP: Care Physician,No Primary Status :ADM IN Location: GB245-1 Subjective Subjective Patient doing well without complaints. [...] Cosigner Signature (if applicable): CC: ~ Signed [facility] Work Phone: 1(540) 610-437802-09-2023 Procedure [facility] 09-05-2022 History and physical note Author Dr. Stacy [facility] September 05, 2022 1:41pm Note Date/Time September 05, 2022 1 :41pm [facility] Medical Records Department [address] [place] [address] H&P Exam - LOOPER FIXER 09/05/22 1338 MR#: [id number] Acct: [id number] Name: HALIE SANTO Rep #:[id number] : 1995 27 From: Chanel goel MD PCP: Care Physician,No Primary Status :ADM IN Location: HN118-2 HPI - General General Date of Admission: [...] spouse current occupational status: employed current occupation: [employer] pets and animals: Yes Smoking Status: Former [...] Aguila 40 live - full term Male [facility] Tawanna Gallardo Delivery Date: 06/12/21 Last Updated [...] Stacy MD; No Primary Care Physician~ Signed [facility] Work Phone: [phone]) 146-796809-30-2008 History of Past illness Narrative* Problem Noted Date Diagnosed Date Resolved Date WOUND (NOT COMPLICATED) - OP EN FOOT (NOT TOES) 04/26/2008 11/13/2011 documented as of this encounter (statuses as of 03/13/2023) [facility] History of Past illness Narrative* Problem Noted Date Diagnosed Date Resolved Date WOUND (NOT COMPLICATED) - OP EN FOOT (NOT TOES) 04/26/2008 11/13/2011 documented as of this encounter (statuses as of 05/14/2023) [facility] Diagnosis Onset Date Resolution Status acute Rh negative status during acute Short interval between pregn ancies affecting , antepartum acute Supervision of normal acute [facility] Work Phone: Evaluation note* Diagnosis Onset Date [...] , antepartum acute Supervision of normal acute [facility] Work Phone: evaluation note* Diagnosis Onset Date [...] , antepartum acute Supervision of normal acute [facility] Work Phone: Evaluation note* Diagnosis Onset Date [...] , antepartum resolved Supervision of normal resolved [facility] Work Phone: Evaluation note* Diagnosis Strep throat- Primary Streptococcal sore throat Sore throat Acute pharyngitis documented in this encounter [facility]No assessment [facility] Work Phone: Evaluation note* Diagnosis Skin infection- Primary Unspecified local infection of skin and subcutaneous tissue documented in this encounter [facility] note* Diagnosis Onset Date Resolution Status History of miscarriage, currently acute acute Rh negative status during acute Supervision of high risk in first trimester acute [facility] Work Phone: Evaluation note* Diagnosis Onset Date [...] of high risk in first trimester acute [facility] Work Phone: Hospital Discharge instructions Additional Instructions [...] days for wound recheck with your PCP. [facility] Work Phone: Progress note Author Chanel Stacy [facility] Note Date/Time January 20, 2025 10:5 6am [facility] [address], [address] [place] [address] OFFICE VISIT Date of Service: 01/20/25 MR#: [id number] Acct: [id number] Name: GALHALIE HARSHA Rep #: [id number] : 1995 Provider: Dr. Adis Stacy MD Age/Sex: 29/F Location: [facility] Status: Signed Intake Vital Signs 11/02/24 09:57 01/05/25 08:18 01/20/25 10:24 06/26/25 10:24 Height 5 ft 9 in 5 ft 9 in 5 ft 9 in 5 ft 9 in Weight: 167 lb 8 oz 168 lb 4 oz BMI 24.7 24.8 BP 100/64 109/68 Intake Visit Reasons: 30wk ob Secondary Social Studies Teacher Required: No Is patient in pain?: No [...] 3 current occupational status: employed current occupation: [employer] current occupational exposures/hazards: No pets and animals: [...] do you participate in: none frequency: daily sea/scientologist: None seatbelt use: always do you feel [...] full term 7lbs 9oz Male no ne [facility] Tawanna Gallardo 09/05/22 Danielle 39 live - full term 8#4oz Female no ne [facility] ABDIFATAH Gallardo 02/13/24 Simley 39 live - full term 8lbs 1oz Male no ne [facility] Matt Gallardo Delivery Date: 06/27/20 Last Updated [...] Cosign Signature: Date (if applicable) CC: ~ [facility] Work Phone: Progress note Author Chanel Stacy [facility] Note Date/Time February 15, 2025 10:3 3am [facility] [address] [place] [address], [address] [place] [address] OFFICE VISIT Date of Service: 02/15/25 MR#: [id number] Acct: [id number] Name: HALIE SANTO Rep #: [id number] : 1995 Provider: Dr. Adis Stacy MD Age/Sex: 29/F Location: [facility] Status: Signed Intake Vital Signs 01/05/25 08:18 01/20/25 10:24 02/02/25 14:37 02/15/25 10:03 Height 5 ft 9 in 5 ft 9 in 5 ft 9 in 5 ft 9 in Weight: 172 lb 2 oz BMI 25.4 BP 108/67 Intake Visit Reasons: 34wk ob Secondary Social Studies Teacher Required: No Is patient in pain?: No [...] 3 current occupational status: employed current occupation: [employer] current occupational exposures/hazards: No pets and animals: [...] do you participate in: none frequency: daily sea/scientologist: None seatbelt use: always do you feel [...] full term 7lbs 9oz Male no ne [facility] Tawanna Gallardo 09/05/22 Danielle 39 live - full term 8#4oz Female no ne [facility] ABDIFATAH Gallardo 02/13/24 Smiley 39 live - full term 8lbs 1oz Male no ne [facility] Matt Gallardo Delivery Date: 06/27/20 Last Updated [...] mcfarland MD> Date _ Chanel Stacy [facility] Signature: Date (if applicable) CC: ~ [facility] Work Phone: Progress note Author Rylee Beavers [facility] Note Date/Time March 08, 2025 11 :02am [facility] [address] [place] [address], [address] [place] [address] OFFICE VISIT Date of Service: 03/08/25 MR#: [id number] Acct: [id number] Name: HALIE SANTO Rep #: [id number] : 1995 Provider: JUSTEN Beavers Age/Sex: 29/F Location: [facility] Status: Signed Intake Vital Signs 02/02/25 14:37 03/03/25 11:34 03/08/25 10:35 Height 5 ft 9 in 5 ft 9 in 5 ft 9 in Weight: 173 lb 6 oz BMI 25.6 BP 115/65 Intake Visit Reasons: 37WK OB Chief Complaint: 37wk OB Secondary Social Studies Teacher Required: No Is patient in pain?: No [...] current occupational status: employed current occupation: [employer] current occupational exposures/hazards: No pets and animals: [...] do you participate in: none frequency: daily sea/scientologist: None seatbelt use: always do you feel [...] full term 7lbs 9oz Male no ne [facility] Tawanna Sami 09/05/22 Riddley 39 live - full term 8#4oz Female no ne [facility] ABDIFATAH Sami 02/13/24 Smiley 39 live - full term 8lbs 1oz Male no ne [facility] Matt Funez Sami Delivery Date: 06/27/20 Last Updated by: Carmencita [...] [facility] Work Phone: Progrhbs note Author Chanel Stacy [facility] Note Date/Time March 24, 2025 10 :58am [facility] [address] [place] [address], [address] [place] [address] OFFICE VISIT Date of Service: 03/24/25 MR#: [id number] Acct: [id number] Name: HALIE SANTO Rep #: [id number] : 1995 Provider: Dr. Adis Stacy MD Age/Sex: 29/F Location: [facility] Status: Signed Intake Vital Signs 02/02/25 14:37 03/16/25 14:47 03/24/25 10:46 03/24/25 10:46 Height 5 ft 9 in 5 ft 9 in 5 ft 9 in 5 ft 9 in Weight: 176 lb 9 oz BMI 26.0 BP 126/82 H Intake Visit Reasons: 39wk ob Secondary Social Studies Teacher Required: No Is patient in pain?: No [...] 3 current occupational status: employed current occupation: [employer] current occupational exposures/hazards: No pets and animals: [...] do you participate in: none frequency: daily sea/scientologist: None seatbelt use: always do you feel [...] full term 7lbs 9oz Male no ne [facility] Tawanna Gallardo 09/05/22 Danielle 39 live - full term 8#4oz Female no ne [facility] ABDIFATAH Gallardo 02/13/24 Smiley 39 live - full term 8lbs 1oz Male no ne [facility] Matt Gallardo Delivery Date: 06/27/20 Last Updated [...] 2024 10: 41am Rh negative status during [facility] 2024 10:41am Supervision of high-risk October 05, [...] No June 12 021 1:03pm Power of Wash Mill Operator No June 12, 2021 1:03pm Advance Directive Response Recorded Date/ Time Advance Directives No May 14, 2021 9:15am Living Will No June 12, 021 12:03pm Power of Wash Mill Operator No June 12, 2021 12:03pm Advance Directive Response Recorded Date/ Time Advance Directives No May 14, 2021 9:15am Living Will No September 05 1:42pm Power of Wash Mill Operator No September 05, 2022 1:42pm Advance Directive Response Recorded Date/ Time Advance Directives No May 14, 2021 10:15am Living Will No May 14 8:55am Power of Wash Mill Operator No May 14, 2023 8:55am Advance Directive Response Recorded Date/ Time Advance Directives No May 12:19pm Living Will No June 13, 2 023 12:19pm Power of Wash Mill Operator No June 13, 2023 12:19pm Advance Directive Response Recorded Date/ Time Advance Directives No May 1:19pm Living Will No June 13, 2 023 1:19pm Power of Wash Mill Operator No June 13, 2023 1:19pm Advance Directive [...] Provider, Refer ring Provider Active Abbie Bronson COUNSEL, COUNSEL-C Attending Provider Active Team Status: Inactive Member [...] Physician Primary Care Provider Active Abbie Bronson COUNSEL, COUNSEL-C Attending Provider, Referring Provider Active Team Status: [...] Care Physician Primary Care Provider Active Dr. Arodlo Perez DO Attending Provide r, Referring Provider, [...] 2024 End: November 02, 2024 Abbie Bronson COUNSEL, COUNSEL-C Attending Provider Active Start: November 02, 2024 [...] 2025 End: January 05, 2025 Abbie Bronson COUNSEL, COUNSEL-C Attending Provider Active Start: January 05, 2025 [...] End: November 02, 2024 Abbie Bronson NP, COUNSEL-C Attending Provider Active Start: November 02, 2024 [...] End: January 05, 2025 Abbie Bronson NP COUNSEL-C Attending Provider Active Start: January 05, 2025 [...] End: November 02, 2024 Abbie Bronson NP COUNSEL-C Attending Provider Active Start: November 02, 2024 [...] End: January 05, 2025 Abbie Bronson NP, COUNSEL-C Attending Provider Active Start: January 05, 2025 [...] or prosecute any alcohol or drug abuse patient.[facility] the event this information is protected by the Federal Confidentiality of Alcohol and Drug Abuse Patient Records regulations: The Federal rules restrict any use of the information to criminally investigate or prosecute any alcohol or drug abuse patient.[facility] Reason for Visit (unrecogniz ed section and content) Reason Comments Sore Throat Fever, JALLOH, bilateral ear pain x 3 days Reason Comments Insect Bite Bug bite on right jalloh nd ring finger x 2 days INFORMATION SOURCE (unrecogn ized section and content) DATE CREATED AUTHOR 05/15/2023 [facility] DATE CREATED AUTHOR AUTHOR'S ORGANIZ ATION 11/10/2024 [facility] DATE CREATED AUTHOR AUTHOR'S ORGANIZ ATION 03/18/2025 [facility] FOR RECORDS PERTAINING TO PATIENTS WHO ARE [...] BE BASED ON THE PRIMARY CLINICAL RECORDS. [facility]. provides no warranty or guarantee of the accuracy or completeness of information in this document."
[2025-03-24 23:45] VITALS: RESP 16
[2025-03-25] VITALS (16 sets, daily range): BP systolic 94–120; BP diastolic 54–74; PULSE 73–94; RESP 16; TEMP 35.9–37; O2SAT 97–100
[2025-03-25 00:21] LABS: Hematocrit 32.1 % (37-47); Hemoglobin 10.4 g/dL (12.0-15.0); Immature Granulocytes Count 0.110 X10^3/uL (0.0-0.0); Mean Corp Hgb Conc 32.4 g/dL (32-36); Mean Corpuscular Volume 76.6 fL (81-99); Mean Platelet Vol. 10.7 fl (6.2-12.0); NRBC Flagged by Analyzer 0 % (0-5); Platelet Count 228 K/mm3 (150-450); RBC Distribution Width CV 13.9 % (11.6-14.6); RBC Distribution Width SD 38.5 fl (35.1-43.9); Red Blood Count 4.19 M/mm3 (4.2-5.4); White Blood Count 19.3 K/mm3 (4.4-11.0)
[2025-03-25 00:41] LABS: Syphilis Antibodies Nonreactive (Nonreactive)
--- NOTE | 2025-03-25 00:53 | HP.PCM.OB_ITS ---
HPI - General General Date of Admission: 03/24/25 HPI Narrative MONO SANTO, is a 29 F who presents in active labor 5 to 6 cm with regular contractions no bleeding or loss of fluid admits good movement Maternal Data Information TASHI Calculator Estimated Delivery Date Method Current WG Current Estimate 03/29/25 [facility]trasound #1 39w 3d [facility] Medical History History of miscarriage, currently Home Medications ?Medication ?Instructions ?Recorded ?Last Taken ?Type docosahexaenoic acid 200 mg 1 mg PO DAILY 03/24/25 History capsule ( DHA) blood sugar diagnostic (Blood #120 ea 03/14/25 Unknown Rx Glucose Test strips) blood-glucose meter #1 ea 03/14/25 Unknown Rx lancets #200 ea 03/14/25 Unknown Rx Allergy/AdvReac Type Severity Reaction Status Date / Time No Known Allergies Allergy Verified 03/24/25 23:14 Family History Grandmother Diabetes Surgical History Status post vaginal delivery History of dilation and curettage S/P wrist surgery S/P ear surgery Social History adopted: No household members: spouse and children number of children: 3 current occupational status: employed current occupation: [employer] current occupational exposures/hazards: No pets and animals: Yes pets and animals: dog(s) history of recent travel: No sexually active: Yes Smoking Status: Never smoker alcohol intake: never substance use type: does not use well-balanced diet: daily or most days caffeine: Yes Type: coffee Number of servings: 1 eating out: rarely or never during the past year weight has: remained stable what type of physical activity do you participate in: none frequency: daily sea/scientology: None seatbelt use: always do you feel safe at home: Yes 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 Date Name GA/Weeks Outcome Route Bth Weight Infant Gen Labor Lgth Anesthesia Del Locatn Provider FOB 06/27/20 Blighted ovum 8 06/12/21 Aguila 40 live - full term 7lbs 9oz Male no ne [facility] Tawanna Gallardo 09/05/22 Lindsayy 39 live - full term 8#4oz Female no ne [facility] ABDIFATAH Ty ler 02/13/24 Smiley 39 live - full term 8lbs 1oz Male no ne [facility] Matt Gallardo Delivery Date: 06/27/20 Last Updated by: Carmencita Monte, RN D&C Delivery Date: 06/12/21 Last Updated by: Yas Solis ISBeatriz Visit Details Expected Delivery Route/Plan Labor Preferences- CB/BF classes: no labor support person: Sami labor intervention preferences: [] pain management options preferred: limited cut cord/dad catch: yes : yes PP control planned: spouse has vas planned discussed possible routes of delivery and associated risks: [] special requests: [] Plans Covid status: [] Flu vaccine: [] Tdap vaccine: declines Rhogam: given 01/05/25 LARC form signed: yes movement and labor precautions reviewed. Problem list reviewed and updated with the most current plan of care details and appropriate orders placed. Relevant counseling for the gestational age provided. Continue routine care and follow up unless otherwise noted in visit notes/problem list details OB Flowsheet Initial Weight: Not Recorded Date -?-?-?-?-?-?-?-?-?-?-?-?- EGA Weight BP Urine Prot -?-?-?-?-?-?-?-?-?-?-?-?- Glucose FHR FuHt Pres Dilation -?-?-?-?-?--?-?-?-?-?-?-?- Effaced St Visit Note 09/06/24 -?-?-?-?-?-?-?-?-?-?-?-?- 10w 6d 157 lb 8 oz 131/78 -?-?-?-?-?-?-?-?-?-?-?-?- 163 -?-?-?-?-?-?-?-?-?-?-?-?- JV- CRL consiste nt with 6 week ultrasound. patient declines NIPT. mild nausea, declines medication. 10/05/24 -?-?-?-?-?-?-?-?-?-?-?-?- 15w 0d 155 lb 6 oz 130/74 Nega tive -?-?-?-?-?-?-?-?-?-?-?-?- Negative 150 -?-?-?-?-?-?-?-?-?--?-?-?- SM- no vb llof c ramping 11/02/24 -?-?-?-?-?-?-?-?-?-?-?-?- 19w 0d 157 lb 8 oz 124/80 Nega tive -?-?-?-?-?-?-?-?-?-?-?-?- Negative 145 -?-?-?-?-?-?-?-?-?-?-?-?- -No VB, LOF. F eeling movement. 12/02/24 -?-?-?-?-?-?-?-?-?-?-?-?- 23w 2d 161 lb 6 oz 103/66 Nega tive -?-?-?-?-?-?-?-?-?-?-?-?- Negative 147 -?-?-?-?-?-?-?-?-?-?-?-?- KW- no vb/lof/ct x. good fm. US reviewed. 28 week labs discussed 01/05/25 -?-?-?-?-?--?-?-?-?-?-?-?- 28w 1d 167 lb 8 oz 100/64 Nega tive -?-?-?-?-?-?-?-?-?-?-?-?- Negative 138 28 -?-?-?-?-?-?-?-?-?-?-?-?- MH-No VB, LOF. G ood FM. 28 wk labs pending. Larc. Tdap declined. Rhogam given 01/20/25 -?-?-?-?-?-?-?-?-?-?-?-?- 30w 2d 168 lb 4 oz 109/68 Nega tive -?-?-?-?-?-?-?-?-?-?-?-?- Negative 140 30 -?-?-?-?-?-?-?-?-?-?-?-?- SM- no vb lof go od fm no regular ctx 02/02/25 -?-?-?-?-?-?-?-?-?-?-?-?- 32w 1d 170 lb 8 oz 109/64 Nega tive -?-?-?-?-?-?-?-?-?-?-?-?- Negative 145 32 -?-?-?-?-?-?-?-?-?-?-?-?- JV- no lof, vagi nal bleeding, or dec fm. no complaints. gender still a surpri se. 02/15/25 -?-?-?-?-?-?-?-?-?-?-?-?- 34w 0d 172 lb 2 oz 108/67 Nega tive -?-?-?-?-?-?-?-?-?-?-?-?- Negative 145 34 -?-?-?-?-?-?-?-?-?-?-?-?- SM- no vb lof go od fm no reuglar ctx 03/03/25 -?-?-?-?-?-?-?-?-?-?-?-?- 36w 2d 172 lb 6 oz 107/70 Nega tive -?-?-?-?-?-?-?-?-?-?-?-?- Negative 140 34 Cephalic -?-?-?-?-?-?-?-?-?-?-?-?- JV- bedside ultr asound today for position and fluid. If still measuring small next visit will get a growth scan. gbs collected. declines vaginal exam. 03/08/25 -?-?-?-?-?-?-?-?-?-?-?-?- 37w 0d 173 lb 6 oz 115/65 Nega tive -?-?-?-?-?-?-?-?-?-?-?-?- Negative 120 34 Cephalic 2 .5 -?-?-?-?-?-?-?-?-?-?-?-?- 60 -2 KW- no vb/ lof/ctx. good fm. US ordered for S<D. 03/16/25 -?-?-?-?-?-?-?-?-?-?-?-?- 38w 1d 175 lb 9 oz 123/76 Nega tive -?-?-?-?-?-?-?-?-?-?-?-?- Negative 124 34 Cephalic 2 .5 -?-?-?-?-?-?-?-?-?-?-?-?- 60 -2 JV- AC is 96th%. She jsut got a monitor but did not know to check postprandial and fasting levels. so far did 2 fasting levels and they are in the 80's. She did the rest pre-prandial. parameters given. and when to call or send portal messages. declines IOL at 3 9weeks. 03/24/25 -?-?-?-?-?-?-?-?-?-?-?-?- 39w 2d 176 lb 9 oz 126/82 Nega tive -?-?-?-?-?-?-?-?-?-?-?-?- Negative 120 37 Cephalic 4 -?-?-?-?-?-?-?-?-?-?-?-?- 70 -2 SM- no vb lof good fm no regular ctx declines IOL NST FHR Rate Baby A Baseline: 120 Variability:: Moderate Accelerations:: 15 x 15 Decelerations:: None NST Reactive:: Yes FHR Category:: Category I Uterine Activity:: q3-5 ROS Constitutional Constitutional: Reports systems reviewed and no addt'l complaints, except as documented ENT HEENT: Reports systems reviewed and no addt'l complaints, except as documented Cardiovascular Cardiovascular: Reports systems reviewed and no addt'l complaints, except as documented Respiratory/Chest Respiratory/Chest: Reports systems reviewed and no addt'l complaints, except as documented Gastrointestinal Gastrointestinal: Reports systems reviewed and no addt'l complaints, except as documented and nausea; Denies abdominal pain Genitourinary Genitourinary: Reports systems reviewed and no addt'l complaints, except as documented, contractions Details: present and frequency (regular ) and movement Details: present Musculoskeletal Musculoskeletal: Reports systems reviewed and no addt'l complaints, except as documented Integumentary Integumentary: Reports as per HPI Neurologic Neurologic: Reports systems reviewed and no addt'l complaints, except as documented Endocrine Endocrinology: Reports systems reviewed and no addt'l complaints, except as documented Vital Signs Vital Signs Vital Signs: 03/24/25 23:07 03/24/25 23:07 03/24/25 23:07 Temperature Temperature Source Temporal Pulse Rate 80 Respiratory Rate 16 Blood Pressure BP Systolic BP Diastolic Pulse Ox 03/24/25 23:07 03/24/25 23:07 03/24/25 23:35 Temperature 97.0 F L Temperature Source Pulse Rate Respiratory Rate Blood Pressure 121/76 H BP Systolic 121 BP Diastolic 76 Pulse Ox 99 03/24/25 23:35 03/24/25 23:45 03/25/25 00:44 Temperature Temperature Source Temporal Pulse Rate 87 Respiratory Rate 16 Blood Pressure BP Systolic BP Diastolic Pulse Ox 03/25/25 00:44 03/25/25 00:44 03/25/25 00:44 Temperature Temperature Source Pulse Rate 82 Respiratory Rate 16 Blood Pressure 114/60 BP Systolic 114 BP Diastolic 60 Pulse Ox 03/25/25 00:44 03/25/25 00:44 03/25/25 00:45 Temperature 96.7 F L Temperature Source Pulse Rate Respiratory Rate Blood Pressure 114/60 BP Systolic 114 BP Diastolic 60 Pulse Ox 100 03/25/25 00:45 Temperature Temperature Source Pulse Rate 85 Respiratory Rate Blood Pressure BP Systolic BP Diastolic Pulse Ox Weight Weight: 174 lb Body Mass Index (BMI) 25.7 Physical Exam Const alert, oriented x3 and healthy appearing Constitutional Narrative: uncomfortable with contractions HEENT normocephalic and moist oral mucous membranes Head and Scalp: atraumatic Neck full ROM, no lymphadenopathy, supple and thyroid normal General: trachea midline Thyroid: thyroid normal Lymph Lymphatic: no lymphadenopathy noted Chest inspection of chest normal Resp normal respiratory effort Cardio regular rate GI soft to palpation and non-tender GI Narrative: gravid Inspection: gravid external exam normal Bimanual Exam - Vag & Uterus: uterus non-tender Manual OB Exam: estimated gestational size appropriate, presentation cephalic, dilated, effaced and station Extremity normal to inspection General Extremity: Negative for edema Skin no rashes or lesions noted Neuro deep tendon reflexes 2+ bilaterally Motor Exam: strength 5/5 throughout and clonus absent Psych mental status grossly normal Labs Labs Labs: Blood Type A NEGATIVE Antibody Screen NEGATIVE Hct 32.1 % (37-47) L Hgb 10.4 g/dL (12.0-15.0) L Obstetrics Ultrasound Syphilis Total Ab Nonreactive (Nonreactive) Rubella IgG Antibody Reactive (Nonreactive) Hep Bs Antigen Non-Reactive (Nonreactive) Hepatitis C Antibody Non-Reactive (Nonreactive) Chlamydia DNA (MINI) Negative (Negative) N.gonorrhoeae DNA (MINI) Negative (Negative) HIV 1&2 Antibody Nonreactive (Nonreactive) Glucose 1 Hr 50 gm 85 mg/dL (70-140) Rhogam given: No Assessment & Plan (1) Active labor at term: (2) Uterine size date discrepancy : COMMENT: growth US- AC is 96% checking BS starting 03/14 (3) Supervision of high-risk : QUALIFIERS: Trimester: third trimester Qualified Code(s): O09.93 - Supervision of high risk , unspecified, third trimester COMMENT: PRR , TASHI 03/29/25, surprise PC: Danielle Aguila & Smiley, : Sami (4) : QUALIFIERS: Weeks of gestation: 39 weeks Qualified Code(s): Z3A.39 - 39 weeks gestation of COMMENT: GBS neg, Declined genetic/carrier testing - (prior carrier testing done - negative), nl anatomy (5) History of miscarriage, currently : COMMENT: [id number] (6) Rh negative status during : QUALIFIERS: Trimester: second trimester Qualified Code(s): O26.892 - Other specified related conditions, second trimester; Z67.91 - Unspecified blood type, Rh negative COMMENT: A-; Rhogam PRN & 28 weeks given 01/05/25 PLAN: Plan Admit in active labor expectant management AROM clear fluid
[2025-03-25] MEDS: Oxytocin 15 Units/NS 250ml 15 UNITS/250 ML IV.SOLN 334 UNITS IV (01:20)
--- NOTE | 2025-03-25 01:22 | EX.PCM.OBVAG ---
Assessment & Plan (1) Active labor at term: (2) Uterine size date discrepancy : COMMENT: growth US- AC is 96% checking BS starting 03/14 (3) Supervision of high-risk : QUALIFIERS: Trimester: third trimester Qualified Code(s): O09.93 - Supervision of high risk , unspecified, third trimester COMMENT: PRR , TASHI 03/29/25, surprise PC: Danielle Aguila & Smiley, : Sami (4) : QUALIFIERS: Weeks of gestation: 39 weeks Qualified Code(s): Z3A.39 - 39 weeks gestation of COMMENT: GBS neg, Declined genetic/carrier testing - (prior carrier testing done - negative), nl anatomy (5) History of miscarriage, currently : COMMENT: 2020 (6) Rh negative status during : QUALIFIERS: Trimester: second trimester Qualified Code(s): O26.892 - Other specified related conditions, second trimester; Z67.91 - Unspecified blood type, Rh negative COMMENT: A-; Rhogam PRN & 28 weeks given 01/05/25 (7) Vaginal delivery: COMMENT: sm ial 39 boy Maternal Data Information TASHI Calculator Estimated Delivery Date Method Current WG Current Estimate 03/29/25 Ultrasound #1 39w 3d Vaginal Delivery Maternal Presentation Maternal Presentation: see assessment and plan Vaginal Delivery Information Procedure Performed: Spontaneous Vaginal Delivery Surgeon/Practitioner: Chanel Stacy Date of Procedure: 03/25/25 Pre-Procedure Diagnosis: see assessment and plan Post-Procedure Diagnosis: same Type of anesthesia: None Findings Description of procedure: Patient began pushing and delivered the head in the ARTURO presentation. The head was delivered atraumatically . The anterior and posterior shoulders delivered without complication followed by the rest of the and the infant was placed on the maternal abdomen. Delayed cord clamping was employed for approximately 60 seconds. Cord was clamped and cut and gentle traction was applied to the cord and the placenta delivered spontaneously immediately following it was noted to be intact with three-vessel cord. The perineum and vagina were inspected and noted to have no laceration. EBL was 100 cc. Patient and tolerated delivery well. 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
--- NOTE | 2025-03-25 01:24 | DCINST_ITS ---
Discharge Instructions DC O2, CPAP, BIPAP needs Home O2 Discharge instructions: No Dressing / Incision Discharge Activity: Return to Normal Activity, May Not Drive (while taking narcotic pain medications.) and May Shower May resume sexual activity in: 4-6 weeks Dressing / Incision Call your doctor if your incision/area has: Continuous Slow Oozing, Sudden Increased Bleeding, Increased Pain/ Swelling, Increased Redness and Foul Smelling Discharge Follow Up Care Please Follow Up With: Chanel Stacy MD When: Call [phone] to make an appointment with your doctor in 6 weeks. If you had elevated blood pressure or 4th degree laceration, you will need to be seen in 2 weeks. Test Results: Test results from this visit will be discussed in further detail at your follow- up appointment, if applicable. Discharge Plan Admission Admit Date/Time: 03/24/25 23:30 Attending Provider: Chanel Stacy Primary Care Provider: Care Physician,Fabienne Primary Discharge Orders/Prescriptions Prescriptions: No Action DHA 200 mg capsule 1 mg PO DAILY (DME) Blood Glucose Test Strip See Rx Instructions .MEDSUPPLY Qty: 120 5RF Rx Instructions: As directed-fasting & 2 hr post meals (DME) blood-glucose meter Misc See Rx Instructions .MEDSUPPLY Qty: 1 0RF Rx Instructions: As directed- Test fasting and 2 hours after meals (DME) lancets Misc See Rx Instructions .MEDSUPPLY Qty: 200 5RF Rx Instructions: As directed-fasting & 2 hr post meals Referrals / Follow Up: Care Physician,No Primary [Primary Care Provider] -
[2025-03-25] MEDS: Oxytocin 15 Units/NS 250ml 15 UNITS/250 ML IV.SOLN 83 UNITS IV (02:05)
[2025-03-26 02:00] VITALS: BP 100/60; PULSE 92; RESP 16; TEMP 36.2; O2SAT 99
[2025-03-26 09:01] VITALS: BP 107/70; PULSE 70; RESP 16; TEMP 36.5; O2SAT 97
--- NOTE | 2025-03-26 09:54 | PCM.PN.CNM ---
Subjective Subjective Patient doing well without complaints. Tolerating PO. Ambulating and voiding without difficulty. Feeding well. Denies chest pain, shortness of breath, calf pain/swelling, fevers, chills, lightheadedness. Objective Data Objective Data Vital Signs: Vital Signs Temp Pulse Resp BP Pulse Ox O2 Del Method 97.7 F L 70 16 107/70 97 Room Air 03/26/25 09:01 03/26/25 09:01 03/26/25 09:01 03/26/25 09:01 03/26/25 09:01 03/26/25 09:01 Oxygen Delivery Method Room Air Weight: 174 lb Body Mass Index (BMI) 25.7 Intake & Output: Intake and Output for Last 24 Hours 03/24/25 03/25/25 03/26/25 23:59 23:59 23:59 Intake Total 490.7 / 490.7 Output Total 100 / 100 Balance 390.7 / 390.7 Lab / Micro Data 03/24/25 23:45 Physical Exam Const alert and oriented x3 Resp normal respiratory effort and normal air movement GI normal to inspection, nondistended, normoactive bowel sounds Uterus Palpation: uterus fundus firm Extremity normal to inspection, full ROM and no calf tenderness Skin no rashes or lesions noted Assessment & Plan (1) Vaginal delivery: COMMENT: sm ial 39 boy PLAN: s/p PPD # 1 1. routine post delivery care 2. breast feeding- support given 3. rh neg- rhogam per protocol 4. rubella immune 5. d/c home today
[2025-03-26 14:00] VITALS: BP 117/69; PULSE 92; RESP 16; TEMP 36.3; O2SAT 100
--- NOTE | 2025-04-01 13:54 | NURSING ---
F/up call attempted-- no ans, LVM
== END 2025-03-26 16:40 | disposition home or self-care (01) | DRG 807 ==
LOC: WPOUT 23:32 → WP 23:32
PROVIDERS: Admitting Provider Obstetrics & Gynecology; Referring Provider Obstetrics & Gynecology; Visit Provider Obstetrics & Gynecology
DX: O26.843 Uterine size-date discrepancy, third trimester (principal); Z37.0 Single live birth; O26.893 Other specified pregnancy related conditions, third trimester; Z87.59 Personal history of other complications of pregnancy, childbirth and the puerperium; Z3A.39 39 weeks gestation of pregnancy; Z67.91 Unspecified blood type, Rh negative
CPT/HCPCS: 59025; 59050; 85025; 86780; 86850; 86900; 86901; 99221; G0378